=== PATIENT | female | born 1995 | race Caucasian/White ===

== ENCOUNTER 2024-04-16 02:38 | Emergency (ER) | payer BC, SELFPAY ==
[2024-04-16 02:38] VITALS: BP 109/76; PULSE 113; RESP 18; TEMP 36.4; O2SAT 97; BMI 24.2
--- NOTE | 2024-04-16 02:41 | CT_ITS ---
PROCEDURE INFORMATION: Exam: CT Abdomen And Pelvis With Contrast Exam date and time: 04/16/2024 4:10 AM Age: 28 years old Clinical indication: Abdominal pain; Additional info: Rlq abd pain TECHNIQUE: Imaging protocol: Computed tomography of the abdomen and pelvis with contrast. Radiation optimization: All CT scans at this facility use at least one of these dose optimization techniques: automated exposure control; mA and/or kV adjustment per patient size (includes targeted exams where dose is matched to clinical indication); or iterative reconstruction. Contrast material: ISOVUE; Contrast volume: 75 ml; Contrast route: INTRAVENOUS (IV); COMPARISON: No relevant prior studies available. FINDINGS: Liver: Normal. No mass. Gallbladder and biliary ducts: Normal. No calcified stones. No ductal dilation. Pancreas: Normal. No ductal dilation. Spleen: Normal. No splenomegaly. Adrenal glands: Normal. No mass. Kidneys and ureters: Normal. No hydronephrosis. Stomach and bowel: Moderate stool seen throughout the colon. No ileus or obstruction is present. Appendix: No evidence of appendicitis. Intraperitoneal space: Unremarkable. No free air. No significant fluid collection. Vasculature: Unremarkable. No abdominal aortic aneurysm. Lymph nodes: Unremarkable. No enlarged lymph nodes. Urinary bladder: Unremarkable as visualized. Reproductive: Unremarkable as visualized. Bones/joints: Unremarkable. No acute fracture. Soft tissues: Unremarkable. IMPRESSION: 1. No acute process is noted. 2. Moderate stool throughout the colon, no ileus or obstruction present.
[2024-04-16] MEDS: MORPHINE 4MG/ML SYRINGE 4 MG IV (02:52)
[2024-04-16] MEDS: LIDOCAINE VISCOUS 100ML BOTTLE 15 ML PO (04:00)
[2024-04-16] MEDS: KETOROLAC 30MG/ML VIAL 30 MG IV (04:44)
[2024-04-16 05:10] VITALS: BP 121/83; PULSE 75; RESP 18; TEMP 36.8; O2SAT 99
[2024-04-16 05:35] LABS: Appearance,Urine SL CLOUDY (Clear); Bacteria,Urine Trace /lpf; Bilirubin,Urine Negative (Negative); Blood, Urine 3+ (Negative); Color,Urine DARK YELLOW (Yellow); Glucose,Urine (UA) Negative (Negative); Ketones,Urine Negative (Negative); Leukocyte Esterase,Urine Negative (Negative); Microscopic, Urine URINE MICROSCOPIC (MICROSCOPIC); Nitrate,Urine Negative (Negative); Protein,Urine Negative (Negative); RBC,Urine Occasional #/hpf (0-3); Specific Gravity, Urine 1.025 (1.005-1.030); Urobilinogen,Urine 0.2 EU/dl (0.2); WBC,Urine Occasional #/hpf (0-3)
[2024-04-16 05:36] LABS: Alanine Aminotransferase 43 U/L (12-78); Albumin Level 3.9 g/dl (3.5-5.0); Albumin/Globulin Ratio 1.2 (1.1-1.8); Alkaline Phosphatase 74 U/L (38-126); Anion Gap 10.7 mEq/L (5-15); Aspartate Amino Transferase 41 U/L (14-36); Bilirubin,Total 0.6 mg/dl (0.2-1.3); Blood Urea Nitrogen 9 mg/dl (7-17); Calcium 8.6 mg/dl (8.4-10.2); Carbon Dioxide 24 mmol/L (22.0-30.0); Chloride 107 mmol/L (98-107); Estimated Glomerular Filt Rate 85 ml/min (>60); GFR (African American) 103 ML/MIN (>60); Globulin 3.2 g/dL (1.3-3.2); Glucose 118 mg/dl (74-100); HCG Qualitative, Serum Negative (Negative); Lipase 86 U/L (23-300); Potassium 3.7 mmoL/L (3.5-5.1); Red Blood Count 4.56 M/mm3 (4.20-5.40); Sodium 138 mmol/L (136-145); Total Protein,Serum 7.1 g/dl (6.3-8.2)
[2024-04-16 05:37] LABS: Basophils % 1.1 % (0.1-2.0); Eosinophils # 0.5 K/mm3 (0.0-0.4); Eosinophils % 7.7 % (0.1-12.0); Hematocrit 42.5 % (37.0-47.0); Hemoglobin 14.3 g/dL (12.2-16.2); Lymphocytes % 42.2 % (10-50); Mean Corpuscular HGB Conc 33.5 g/dL (31.8-35.4); Mean Corpuscular Hemoglobin 31.3 pg (27.0-31.2); Mean Corpuscular Volume 93.3 fl (81-99); Monocytes # 0.3 K/mm3 (0.1-1.0); Monocytes % 4.8 % (1.7-9.3); Neutrophils % 42.9 % (37.0-80.0); Platelet Count 313 K/mm3 (142-424); Red Cell Distribution Width 12.5 % (11.5-17.5)
[2024-04-16 05:38] LABS: Basophils # 0.1 K/mm3 (0-0.2)
--- NOTE | 2024-04-16 05:45 | ED_ITS ---
Discharge Plan Disposition Condition: Good Chief Complaint: Abdominal Pain Clinical Impressions Clinical Impression: Constipation in female, Abdominal pain Instructions Patient Instructions: DI for Acute Abdominal Pain Discharge ED Provider: Mike Gordon General Adult HPI General Stated complaint: Abdomen Pain Time Seen by Provider: 04/16/24 05:10 History of Present Illness HPI narrative: 28-year-old female without significant past medical history presents for epigastric, right upper quadrant, right flank pain.? Symptoms started tonight.? She reports pain is currently an 8 out of 10.? She reports nausea but no vomiting.? Denies any history of abdominal surgery besides section.? Reports it is possible she could be .? Denies any urinary symptoms.? Denies any fevers at home.? Reports history of constipation. Related Data Allergies Allergy/AdvReac Type Severity Reaction Status Date / Time No Known Allergies Allergy Verified 04/16/24 05:55 [facility] Disclaimer: The information contained in this section may have been updated after the patient was seen, as this information can be updated by other users. Social History Smoking Status: Unknown if ever smoked alcohol intake: never current occupational status: employed Travel in the last 8 weeks: None ROS Obtained: Yes All systems reviewed & no additional complaints except as documented Physical Exam General General appearance: alert and in no apparent distress Head Head exam: atraumatic and normocephalic Eye Eye exam: Present normal appearance, PERRL and EOMI ENT ENT exam: Present normal oropharynx and normal external ear exam Neck Neck exam: Present normal inspection and full ROM Chest Chest inspection: Present normal inspection and symmetric chest wall rise; Absent tenderness Respiratory Respiratory exam: Present normal lung sounds bilaterally; Absent respiratory distress Cardiovascular Cardiovascular exam: Present regular rate and normal rhythm Abdominal Exam Abdominal exam: Present soft and tenderness (Right-sided); Absent distention or guarding Extremities Exam Extremities exam: Present normal inspection; Absent edema or joint swelling Back Exam Back exam: Present normal inspection; Absent tenderness Neurological Exam Neurological exam: Present alert and oriented X3; Absent motor sensory deficit Psychiatric Psychiatric exam: Present normal affect and normal mood Skin Skin exam: Present warm, dry and normal color Lymphatic Lymphatic Findings: no adenopathy Medical Decision Making Medical Records Medical records reviewed: Yes I reviewed the patient's medical records. Antonio Inquiry Pt receiving controlled substance: No Antonio was queried for this patient: No Lab Data Lab results reviewed: Yes I reviewed the patient's lab results. Lab Results 04/16/24 02:50: WBC 7.0, RBC 4.56, Hgb 14.3, Hct 42.5, MCV 93.3, MCH 31.3 H, MCHC 33.5, RDW 12.5, Plt Count 313, MPV 8.0, Neut % (Auto) 42.9, Lymph % (Auto) 42.2, [place] % (Auto) 4.8, Eos % (Auto) 7.7, Baso % (Auto) 1.1, Neut # (Auto) 3.0, Lymph # (Auto) 3.0, [place] # (Auto) 0.3, Eos # (Auto) 0.5 H, Baso # (Auto) 0.1, Sodium 138, Potassium 3.7, Chloride 107, Carbon Dioxide 24, Anion Gap 10.7, BUN 9, Creatinine 0.80, Estimated GFR 85, Est GFR ( Amer) 103, Glucose 118 H, Calcium 8.6, Total Bilirubin 0.6, AST 41 H, ALT 43, Alkaline Phosphatase 74, Total Protein 7.1, Albumin 3.9, Globulin 3.2, Albumin/Globulin Ratio 1.2, Lipase 86, Serum HCG, Qual Negative, Urine Color Dark yellow, Urine Appearance Sl cloudy, Urine pH 6.0, Ur Specific [place] 1.025, Urine Protein Negative, Urine Glucose (UA) Negative, Urine Ketones Negative, Urine Blood 3+, Urine Nitrate Negative, Urine Bilirubin Negative, Urine Urobilinogen 0.2, Ur Leukocyte Esterase Negative 04/16/24 02:50 04/16/24 02:50 Orders (Tests/Meds): ORDERS Category Date Time Status Complete Blood Count Auto Diff Routine Lab 04/16/24 02:50 Completed HCG Qualitative, Serum Routine Lab 04/16/24 02:50 Completed Urinalysis and Microscopic Routine Lab 04/16/24 02:50 Completed Medical Decision Narrative: 28-year-old female without significant past medical history presents for epigastric/right upper quadrant/right flank pain.? Differential diagnose includes not limited to pancreatitis, cholecystitis, symptomatic cholelithiasis, pyelonephritis, obstructive nephrolithiasis, gastroenteritis, GERD.? Will evaluate with CBC CMP lipase urinalysis CT abdomen pelvis with IV contrast.? Patient given Tylenol Toradol viscous lidocaine and morphine for pain control.? Given Zofran for nausea. On reassessment CBC CMP are nonactionable, urine does not appear consistent with infection. Lipase negative. CT abdomen/pelvis shows large right-sided colonic stool burden, no evidence of pancreatitis or cholecystitis. Bedside ultrasound was also performed which showed unremarkable. Gallbladder without gallbladder wall thickening, pericholecystic fluid or stones. Images were not able to be saved. On reassessment patient reports some symptomatic improvement. Given this, presentation most consistent with constipation, no evidence of emergent pathology at this time. Interactive discussion had with patient and family regarding presentation, instructions regarding symptomatic care, return precautions etc. Patient discharged in stable condition with prescription for Zofran. Procedures Risk/Benefits of Procedure(s) Were Explained: Yes Critical Care Critical Care Time Critical Care Time: No
--- NOTE | 2024-04-16 06:06 | PC.NURSE ---
MAR ORDERS: Tylenol 1gm- PO 02:51 Zofran 4mg- IV 02:51 Morphine 4mg- IV 02:51 Viscous Lidocaine 15 mL PO- 04:44 Toradol- 30mg IV- 04:44
[2024-04-16] MEDS: IOPAMIDOL-370 (76%);100ML BOTTLE 75 ML IV (08:11)
[2024-04-16] MEDS: SODIUM CHLORIDE 0.9% 10ML SYR (RAD ONLY) 10 ML IV (08:12)
[2024-04-16] MEDS: ONDANSETRON 4MG/2ML VIAL 4 MG IV (12:22)
== END 2024-04-16 05:11 | disposition home or self-care (01) ==
LOC: ER 06:27
PROVIDERS: Emergency Provider Emergency Medicine
DX: R10.11 Right upper quadrant pain; K59.00 Constipation, unspecified
CPT/HCPCS: 74177; 80053; 81001; 83690; 84703; 85025; 96361; 96374; 96375; 99284; J1885; J2270; J2405; Q9967

== ENCOUNTER 2024-06-07 18:56 | Emergency (ER) | payer BC, SELFPAY ==
[2024-06-07 18:58] VITALS: BP 114/67; PULSE 81; RESP 18; TEMP 36.7; O2SAT 100; BMI 23.6
[2024-06-07 19:06] VITALS: BP 114/67; PULSE 88; O2SAT 99
[2024-06-07 19:29] LABS: Microscopic, Urine URINE MICROSCOPIC (MICROSCOPIC)
[2024-06-07 19:31] LABS: Basophils # 0.1 K/mm3 (0-0.2); Basophils % 1.3 % (0.1-2.0); Eosinophils # 0.4 K/mm3 (0.0-0.4); Eosinophils % 6.8 % (0.1-12.0); Hematocrit 41.2 % (37.0-47.0); Hemoglobin 14.5 g/dL (12.2-16.2); Lymphocytes # 2.2 K/mm3 (0.7-4.5); Lymphocytes % 38.3 % (10-50); Mean Corpuscular HGB Conc 35.2 g/dL (31.8-35.4); Mean Corpuscular Hemoglobin 31.3 pg (27.0-31.2); Mean Corpuscular Volume 88.9 fl (81-99); Mean Platelet Volume 7.9 fl (7.4-10.4); Monocytes # 0.4 K/mm3 (0.1-1.0); Monocytes % 6.5 % (1.7-9.3); Neutrophils # 2.7 K/mm3 (1.8-7.8); Neutrophils % 47.1 % (37.0-80.0); Platelet Count 276 K/mm3 (142-424); Red Blood Count 4.63 M/mm3 (4.20-5.40); Red Cell Distribution Width 12.6 % (11.5-17.5); White Blood Count 5.7 K/mm3 (4.8-10.8)
[2024-06-07 19:31] LABS: Appearance,Urine CLEAR (Clear); Bilirubin,Urine Negative (Negative); Blood, Urine Negative (Negative); Color,Urine YELLOW (Yellow); Glucose,Urine (UA) Negative (Negative); Ketones,Urine Negative (Negative); Leukocyte Esterase,Urine Negative (Negative); Nitrate,Urine Negative (Negative); PH,Urine 6.5 (5.0-8.5); Protein,Urine Negative (Negative); Specific Gravity, Urine 1.025 (1.005-1.030); Urobilinogen,Urine 0.2 EU/dl (0.2)
[2024-06-07 19:34] LABS: Albumin Level 4.4 g/dl (3.5-5.0); Chloride 106 mmol/L (98-107)
[2024-06-07 19:35] LABS: Sodium 135 mmol/L (136-145); Urine Pregnancy, HCG Qual. Negative (Negative)
[2024-06-07 19:37] LABS: Alanine Aminotransferase 40 U/L (12-78); Albumin/Globulin Ratio 1.5 (1.1-1.8); Alkaline Phosphatase 56 U/L (38-126); Aspartate Amino Transferase 36 U/L (14-36); Bilirubin,Total 0.7 mg/dl (0.2-1.3); Blood Urea Nitrogen 8 mg/dl (7-17); Carbon Dioxide 24 mmol/L (22.0-30.0); Creatinine Clearance Estimated 125 mL/min (50-200); Estimated Glomerular Filt Rate 119 ml/min (>60); GFR (African American) 144 ML/MIN (>60); Glucose 90 mg/dl (74-100); Lipase 57 U/L (23-300); Total Protein,Serum 7.4 g/dl (6.3-8.2)
[2024-06-07 19:40] LABS: Bacteria,Urine Trace /lpf; Mucus,Urine 1+ /lpf; WBC,Urine Occasional #/hpf (0-3)
[2024-06-07] MEDS: SODIUM CHLORIDE 0.9% 10ML VIAL 8 ML IV (19:40)
[2024-06-07] MEDS: FAMOTIDINE 20MG/2ML VIAL 20 MG IV (19:40)
[2024-06-07] MEDS: ALUMINUM/MAGNESIUM/SIMETHICONE 30ML UDC 30 ML PO (19:40)
--- NOTE | 2024-06-07 19:40 | ED_ITS ---
Discharge Plan Disposition Patient Disposition: Home, Self-Care Prescriptions Prescriptions: New ondansetron 4 mg tablet,disintegrating 4 mg PO Q6H PRN (Reason: nausea and vomiting) Qty: 10 0RF Referrals Follow up/Referrals: Provider,Referral, [Referring] - See instructions Jf Brown II, MD [Staff Physician] - See instructions Activity Restrictions/Add. Instructions Additional Instructions/Restrictions: Call your family doctor to establish care for this visit to the emergency department and schedule follow-up within 48 hours to ensure improvement. If you have any worsening of your condition or any other concerning signs or symptoms, return to the emergency department or your primary care doctor for further evaluation. Take Tylenol 1000 mg every 6 hours (4 times daily) and ibuprofen 400 mg every 6 hours (4 times daily) as needed with food and water to prevent GI upset and kidney damage. Clinical Impressions Clinical Impression: Abdominal pain Instructions Patient Instructions: DI for Acute Abdominal Pain Print Language Print Language: Fijian Discharge ED Provider: Rc Flores General Adult HPI General Chief complaint: Abdominal Pain Stated complaint: abdominal pain Time Seen by Provider: 06/07/24 19:00 Mode of Arrival: Ambulatory Source of Information: Patient Limitations: No Limitations Description of Symptoms (Recalled from ER Triage Doc. by RN): Pt to ED with abdominal pain X4-5 days. History of Present Illness HPI narrative: Please note that above description of symptoms, in this electronic medical record under categorization of recalled from ER triage doctor by RN are reflective of an initial nursing assessment, however, is not reflective of my full history and physical exam that was personally taken and clarified. Consequentially, this preceding description of symptoms, which may include the patient's categorized chief complaint in the EMR, do not reflect my personal clinical impression, and the ultimate description of history of present illness and patient stated complaints should be deferred to this section of the note. Unless stated otherwise or congruent with this section of the note, additional signs, symptoms, or incongruence should be interpreted as inaccurate with my clinical impression. Related Data Previous Rx's ?Medication ?Instructions ?Recorded ondansetron 4 mg disintegrating 4 mg PO Q6H PRN nausea and 06/07/24 tablet vomiting #10 tabs Allergies Allergy/AdvReac Type Severity Reaction Status Date / Time No Known Allergies Allergy Verified 04/16/24 05:55 [facility] Disclaimer: The information contained in this section may have been updated after the patient was seen, as this information can be updated by other users. Social History (Updated 04/16/24 @ 05:59 by Mike Gordon MD) Smoking Status: Never smoker alcohol intake: never current occupational status: employed Travel in the last 8 weeks: None ROS Obtained: Yes All systems reviewed & no additional complaints except as documented Physical Exam General General appearance: alert and in no apparent distress Head Head exam: atraumatic and normocephalic Eye Eye exam: Present normal appearance, PERRL and EOMI Neck Neck exam: Present normal inspection, full ROM and trachea midline Respiratory Respiratory exam: Absent respiratory distress, wheezes, stridor, accessory muscle use or prolonged expiratory phase Cardiovascular Cardiovascular exam: Present other (Pulses equal symmetric in upper and lower extremities) Abdominal Exam Abdominal exam: Present soft; Absent distention, tenderness, guarding, rebound, rigidity, Mayen's sign, Rovsing's sign, tenderness at McBurney's Point or pulsatile mass Extremities Exam Extremities exam: Absent edema Neurological Exam Neurological exam: Present alert, oriented X3 and CN II-XII intact; Absent motor sensory deficit Skin Skin exam: Present warm and dry; Absent diaphoresis or erythema Medical Decision Making Medical Records Medical records reviewed: Yes I reviewed the patient's medical records. Screening: Per USPSTF and CDC recommendations, given the prevalence of disease in our region, it is our hospital?s policy to screen for HIV and viral Hepatitis for all patients aged 18 and over and those with ongoing risk factors. Antonio Inquiry Pt receiving controlled substance: No Antonio was queried for this patient: No Vital Signs: 06/07/24 18:58 06/07/24 19:06 06/07/24 19:48 Temperature 98.1 F Temperature Source Oral Pulse Rate 88 89 Pulse Rate [Left Radial] 81 Respiratory Rate 18 Blood Pressure 114/67 120/80 Blood Pressure [Right Arm] 114/67 Blood Pressure Mean [Right Arm] 82 Blood Pressure Source [Right Arm] Automatic Cuff Blood Pressure Position [Right Arm] Sitting 02 Sat by Pulse Oximetry 100 99 100 Oxygen Delivery Method Room Air 06/07/24 20:18 06/07/24 20:30 Temperature Temperature Source Pulse Rate 85 86 Pulse Rate [Left Radial] Respiratory Rate Blood Pressure 106/88 L 120/76 Blood Pressure [Right Arm] Blood Pressure Mean [Right Arm] Blood Pressure Source [Right Arm] Blood Pressure Position [Right Arm] 02 Sat by Pulse Oximetry 100 100 Oxygen Delivery Method Lab Data Lab Results 06/07/24 19:03: Urine Color Yellow, Urine Appearance Clear, Urine pH 6.5, Ur Specific [place] 1.025, Urine Protein Negative, Urine Glucose (UA) Negative, Urine Ketones Negative, Urine Blood Negative, Urine Nitrate Negative, Urine Bilirubin Negative, Urine Urobilinogen 0.2, Ur Leukocyte Esterase Negative, Urine RBC None, Urine WBC Occasional, Ur Squamous Epith Cells None, Urine Bacteria Trace, Urine Mucus 1+ 06/07/24 19:19: WBC 5.7, RBC 4.63, Hgb 14.5, Hct 41.2, MCV 88.9, MCH 31.3 H, MCHC 35.2, RDW 12.6, Plt Count 276, MPV 7.9, Neut % (Auto) 47.1, Lymph % (Auto) 38.3, [place] % (Auto) 6.5, Eos % (Auto) 6.8, Baso % (Auto) 1.3, Neut # (Auto) 2.7, Lymph # (Auto) 2.2, [place] # (Auto) 0.4, Eos # (Auto) 0.4, Baso # (Auto) 0.1, S odium 135 L, Potassium 4.0, Chloride 106, Carbon Dioxide 24, Anion Gap 9.0, BUN 8, Creatinine 0.60, Estimated Creat Clear 125, Estimated GFR 119, Est GFR ( Amer) 144, Glucose 90, Calcium 9.0, Total Bilirubin 0.7, AST 36, ALT 40, Alkaline Phosphatase 56, Total Protein 7.4, Albumin 4.4, Globulin 3.0, Albumin/Globulin Ratio 1.5, Lipase 57, HCG, Quant < 2, Urine HCG, Qual Negative 06/07/24 19:22: HIV 1&2 Antibody Rapid Nonreactive 06/07/24 19:19 06/07/24 19:19 Orders (Tests/Meds): ED MEDICATIONS Generic Name Dose Route Start Last Admin Trade Name Freq PRN Reason Stop Dose Admin Sodium Chloride 8 ml 06/07/24 19:21 06/07/24 19:40 Sodium Chloride 0.9% 10ml Vial IV 07/07/24 19:20 8 ml NEEDED PRN Administration dilute pepcid Discontinued Medications Generic Name Dose Route Start Last Admin Trade Name Lizette PRN Reason Stop Dose Admin Al Hydrox/Mg Hydrox/Simethicone 30 ml 06/07/24 19:21 06/07/24 19:40 Aluminum/Magnesium/Simethicone 30ml Udc PO 06/07/24 19:22 30 ml ONCE ONE Administration Famotidine 20 mg 06/07/24 19:21 06/07/24 19:40 Famotidine 20mg/2ml Vial IV 06/07/24 19:22 20 mg ONCE ONE Administration Ketorolac Tromethamine 15 mg 06/07/24 20:47 06/07/24 21:05 Ketorolac 30mg/Ml Vial IV 06/07/24 20:48 15 mg ONCE ONE Administration Ondansetron HCl 4 mg 06/07/24 20:47 06/07/24 21:05 Ondansetron 4mg/2ml Vial IV 06/07/24 20:48 4 mg ONCE ONE Administration ORDERS Category Date Time Status POCUS Point of Care (ER Only) Stat Exams 06/07/24 20:46 Ordered CBC w/Auto Diff [Complete Blood Count Auto Diff] Stat Lab 06/07/24 19:19 Completed CMP [Comprehensive Metabolic Panel] Stat Lab 06/07/24 19:19 Completed HCG,Quantitative Stat Lab 06/07/24 19:19 Completed HIV (1&2) Antibody Rapid Stat Lab 06/07/24 19:22 Completed Hep C Ab with Reflex to RNA Stat Lab 06/07/24 19:19 Received Lipase Stat Lab 06/07/24 19:19 Completed UA [Urinalysis and Microscopic] Stat Lab 06/07/24 19:03 Completed Urine , HCG Qual. Stat Lab 06/07/24 19:19 Completed Medical Decision Narrative: 28-year-old female history of section in the remote past, recent ED visit for constipation presenting with abdominal pain. Patient states his abdominal pain has been getting worse over the past 4 days. Primarily on the left side when she is up, moving around, performing ADLs. States that when she lays down, relaxes and lays on her back, pain is in the right side near her right lower quadrant. Pains do not seem to cooccur. She has not been nauseated, vomiting having diarrhea or constipation. She states that she has been on a bowel regimen having normal bowel movements each day. No blood in her stool. No urinary symptoms including bleeding, burning, frequency or urgency. She also states that she has had mild abdominal spotting, but is about to start her period. May be , has not checked. History was obtained via conversation with patient and significant other. On arrival, patient hemodynamically stable, alert, oriented x4, appropriate, GCS 15, moving all extremities spontaneously, pupils equal and reactive to light. Full physical exam performed and significant for very well-appearing female who is in no acute distress. Abdomen is soft, nontender, nondistended. No flank tenderness. No overlying skin changes. Deep palpation does not elicit any tenderness. Negative Mayen sign, negative McBurney's point tenderness. Patient ambulatory and walking without issue.. Differential includes PUD, gastritis, enteritis, gastroenteritis, pancreatitis, SBO, colitis, diverticulitis, nephrolithiasis, UTI, , cholecystitis, choledocholithiasis, appendicitis, hepatitis, less likely to be torsion, aortic pathology, mesenteric ischemia among others. Patient placed on continuous cardiac monitoring and continuous pulse ox with initial blood pressure 114/67, heart rate 81, saturation 100% on room air. Patient was given Maalox and Pepcid prior to for symptomatic management and correction of underlying abnormalities. Workup independently interpreted and significant for nonactionable hematologic workup. Negative , nonactionable urine. On independent interpretation of imaging, patient with normal bedside [id number] ultrasound of the right upper quadrant. See radiology read for full review of final results. Patient given Toradol after negative . On reevaluation, patient continues to be nauseated, but pain is better. Patient given Zofran. Because patient at baseline without signs or symptoms of clinical decompensation, deemed appropriate for discharge. Results were relayed to patient who voiced understanding and were agreeable to outpatient management and follow up. I discussed my clinical impression with patient and answered all questions. At this time, the evidence for any other entities in the differential is insufficient to warrant any further testing or ED observation. This was explained as well. Advisory was given that persistent or worsening symptoms require further evaluation. I confirmed the understanding of this discussion. Zofran sent to pharmacy, gastroenterology referral was placed. Project Financial Analyst disclaimer Much of this encounter note is an electronic blood and plasma laboratory assistant spoken language to printed text. Electronic blood and plasma laboratory assistant of the spoken language may permit errors. Although I have reviewed the note, some errors may still exist. Procedures Limited Ultrasound Indication:: Limited RUQ ultrasound Indication: Abdominal pain, nausea Identified structures: -Gallbladder -Gallbladder wall -Common bile duct -Liver Findings: Sonographic Mayen sign: Absent Gallstones: Absent Sludge: Absent Pericholecystic fluid: Absent Maximal GB wall thickness (mm) (normal is </= 3mm): Normal Common bile duct width (mm) (normal is </= 6mm): Normal Gallbladder width (cm) (normal is < 4cm): Normal Gallbladder length (cm) (normal is < 10cm): Normal Impression: Normal right upper quadrant ultrasound without secondary findings of call the ASIS or cholecystitis Images were saved to permanent archive The study was technically adequate CPT 57274-96 This study was performed by me, and I personally interpreted all images/videos. Based on my clinical judgement, these images were adequate and did not necessitate further imaging. Critical Care Critical Care Time Critical Care Time: No
[2024-06-07 19:48] VITALS: BP 120/80; PULSE 89; O2SAT 100
[2024-06-07 20:08] LABS: HIV (1&2) Antibody Rapid NONREACTIVE (NONREACTIVE)
[2024-06-07 20:17] LABS: HCG,Quantitative < 2 mIU/ml (0-5.42)
[2024-06-07 20:18] VITALS: BP 106/88; PULSE 85; O2SAT 100
[2024-06-07 20:30] VITALS: BP 120/76; PULSE 86; O2SAT 100
[2024-06-07] MEDS: KETOROLAC 30MG/ML VIAL 15 MG IV (21:05)
[2024-06-07] MEDS: ONDANSETRON 4MG/2ML VIAL 4 MG IV (21:05)
[2024-06-07 21:23] VITALS: BP 94/59; PULSE 81; RESP 16; TEMP 36.6; O2SAT 98
[2024-06-10 05:09] LABS: HCV Ab Non Reactive (Non Reactive)
== END 2024-06-07 21:25 | disposition home or self-care (01) ==
PROVIDERS: Emergency Provider Emergency Medicine; PCP Internal Medicine
DX: R10.9 Unspecified abdominal pain (principal)
CPT/HCPCS: 80053; 81001; 81025; 83690; 84702; 85025; 86803; 87389; 96374; 96375; 99283; J1885; J2405; S0028

== ENCOUNTER 2024-06-29 13:01 | Emergency (ER) | payer BC, SELFPAY ==
--- NOTE | 2024-06-29 13:29 | ED_ITS ---
Discharge Plan Disposition Patient Disposition: Home, Self-Care Condition: Good Prescriptions Prescriptions: New [id number]-[id number]-RR [Bromfed DM] 2-30-10 mg/5 mL Syrup 5 ml PO Q6H PRN (Reason: Cough) Qty: 240 0RF ondansetron 4 mg Tablet,Disintegrating 4 mg PO Q8H PRN (Reason: Nausea) Qty: 12 0RF No Action diazepam 5 mg tablet 5 mg PO BID Patient Comments: TAKE 1 TABLET BY MOUTH TWICE A DAY ondansetron 4 mg tablet,disintegrating 4 mg PO Q6H PRN (Reason: nausea and vomiting) Qty: 10 0RF fluoxetine 40 mg capsule 40 mg PO DAILY Patient Comments: TAKE 1 CAPSULE BY MOUTH EVERY DAY Referrals Follow up/Referrals: Minh Martinez MD [Primary Care Provider] - See instructions Activity Restrictions/Add. Instructions Additional Instructions/Restrictions: Drink plenty of fluids. Take tylenol or ibuprofen for pain or fever. Take the medications as directed. Follow up with your regular doctor. GO TO THE ER FOR ANY WORSENING SYMPTOMS Clinical Impressions Clinical Impression: COVID-19 Stand Alone Forms Stand Alone Forms: Work/School Release Instructions Patient Instructions: Coronavirus Disease 2019, Preventing the Spread of Coronavirus Discharge Instructions Print Language Print Language: Citizen Of [place] Discharge ED Provider[place] Gallo Das [facility] [place] General Stated complaint: + covid home test, sore throat, cough, runny nose Time Seen by Provider: 06/29/24 13:29 Related Data Home Medications ?Medication ?Instructions ?Recorded ?Confirmed diazepam 5 mg tablet 5 mg PO BID 06/25/24 06/29/24 fluoxetine 40 mg capsule 40 mg PO DAILY 06/29/24 06/29/24 Previous Rx's ?Medication ?Instructions ?Recorded ondansetron 4 mg disintegrating 4 mg PO Q6H PRN nausea and 06/07/24 tablet vomiting #10 tabs mchbiymxdrifprq-voxtqcovyokebjm-CM 5 ml PO Q6H PRN Cough #240 mL 06/29/24 2 mg-30 mg-10 mg/5 mL oral syrup (Bromfed DM) ondansetron 4 mg disintegrating 4 mg PO Q8H PRN Nausea #12 tabs 06/29/24 tablet Allergies Allergy/AdvReac Type Severity Reaction Status Date / Time No Known Allergies Allergy Verified 06/25/24 10:38 [facility] Disclaimer: The information contained in this section may have been updated after the patient was seen, as this information can be updated by other users. Social History Smoking Status: Never smoker alcohol intake: never current occupational status: employed Travel in the last 8 weeks: None ROS Obtained: Yes All systems reviewed & no additional complaints except as documented Constitutional Constitutional: Reports chills and Reports fever(s) Eyes Eyes: Denies eye discharge ENT Ears, Nose, Mouth, and Throat: Reports as per HPI Cardiovascular Cardiovascular: Denies chest pain Respiratory Respiratory: Denies chest congestion and Reports cough Gastrointestinal Gastrointestingal: Reports nausea; Denies abdominal pain, constipation, cramping, diarrhea or vomiting Musculoskeletal Musculoskeletal: Denies arthralgias Integumentary/Breasts Skin/Breast: Denies rash Neurologic Neurologic: Denies paresthesias Physical Exam General General appearance: alert and in no apparent distress Head Head exam: atraumatic, normocephalic and normal inspection Eye Eye exam: Present normal appearance, PERRL and EOMI ENT ENT exam: Present mucous membranes moist and normal external ear exam Expanded ENT Exam TM/Canal exam: Bilateral TM: erythema and bulging Nose exam: Absent sinus tenderness Mouth exam: Present normal external inspection; Absent drooling Teeth exam: Present normal inspection Throat exam: Present tonsillar erythema, tonsillomegaly and tonsillar exudate Neck Neck exam: Present normal inspection, full ROM and trachea midline; Absent tenderness, meningismus or lymphadenopathy Chest Chest inspection: Present normal inspection and symmetric chest wall rise; Absent tenderness Respiratory Respiratory exam: Present normal lung sounds bilaterally; Absent respiratory distress, wheezes, stridor or accessory muscle use Cardiovascular Cardiovascular exam: Present regular rate and normal rhythm; Absent systolic murmur or diastolic murmur Abdominal Exam Abdominal exam: Present soft and normal bowel sounds; Absent distention, tenderness, guarding, rebound or rigidity Extremities Exam Extremities exam: Present normal inspection and normal capillary refill; Absent calf tenderness Back Exam Back exam: Present normal inspection and full ROM; Absent tenderness, CVA tenderness (R) or CVA tenderness (L) Neurological Exam Neurological exam: Present alert, oriented X3 and CN II-XII intact Psychiatric Psychiatric exam: Present normal affect and normal mood Skin Skin exam: Present warm, dry, intact and normal color Medical Decision Making Medical Records Medical records reviewed: No I reviewed the patient's medical records. Screening: Per USPSTF and CDC recommendations, given the prevalence of disease in our region, it is our hospital?s policy to screen for HIV and viral Hepatitis for all patients aged 18 and over and those with ongoing risk factors. Antonio Inquiry Pt receiving controlled substance: No Lab Data Lab results reviewed: Yes I reviewed the patient's lab results.
[2024-06-29 13:34] VITALS: BP 112/76; PULSE 96; RESP 18; TEMP 36.7; O2SAT 98; BMI 23.6
[2024-06-29 14:20] VITALS: BP 112/76; PULSE 96; RESP 18; TEMP 36.7
== END 2024-06-29 14:25 | disposition home or self-care (01) ==
PROVIDERS: Emergency Provider Nurse Practitioner Family; PCP Internal Medicine
DX: U07.1 COVID-19 (principal); R50.9 Fever, unspecified; R05.9 Cough, unspecified; R11.0 Nausea
CPT/HCPCS: 87635; 99212; G0381

== ENCOUNTER 2024-09-14 14:14 | Emergency (ER) | payer MEDICAID, SELFPAY ==
[2024-09-14] VITALS (8 sets, daily range): BP systolic 100–123; BP diastolic 59–79; PULSE 79–119; RESP 16–19; TEMP 36.7–36.8; O2SAT 97–100; BMI 23.2
--- NOTE | 2024-09-14 14:25 | ED_ITS ---
<Statement entered by Reyna Haryd MD - 09/14/24 22:57> I was consulted by the IRAIS, and we discussed the complexity of the problems being addressed. I approved the treatment and management plan for this patient's care in the emergency department, thus performing a substantive portion of the medical decision making. Reyna Hardy MD, JUNIOR, FACEP Discharge Plan Disposition Patient Disposition: Home, Self-Care Condition: Good Prescriptions Prescriptions: New ondansetron 4 mg tablet,disintegrating 4 mg PO Q8H PRN (Reason: nausea and vomiting) 5 Days Qty: 15 0RF promethazine 12.5 mg tablet 12.5 mg PO TID PRN (Reason: allergy symptoms) Qty: 14 0RF Rx Instructions: 3 doses during day; last dose no later than 4 hr before bedtime cephalexin 500 mg capsule 500 mg PO BID 7 Days Qty: 14 0RF Discontinued ondansetron 4 mg tablet,disintegrating 4 mg PO Q6H PRN (Reason: nausea and vomiting) Qty: 10 0RF ycybofmsxgbvpwq-waeuysvmh-QK [Bromfed DM] 2-30-10 mg/5 mL Syrup 5 ml PO Q6H PRN (Reason: Cough) Qty: 240 0RF ondansetron 4 mg Tablet,Disintegrating 4 mg PO Q8H PRN (Reason: Nausea) Qty: 12 0RF No Action diazepam 5 mg tablet 5 mg PO BID Patient Comments: TAKE 1 TABLET BY MOUTH TWICE A DAY Trulance 3 mg tablet 3 mg PO DAILY Qty: 30 2RF fluoxetine 40 mg capsule 40 mg PO DAILY Patient Comments: TAKE 1 CAPSULE BY MOUTH EVERY DAY Referrals Follow up/Referrals: Norma Wren DO [Staff Physician] - See instructions Provider,Referral, [Primary Care Provider] - See instructions Activity Restrictions/Add. Instructions Additional Instructions/Restrictions: You were seen for vomiting in . You did have bacteria in your urine. Please complete your antibiotics. Return to the ED if you are unable to hold down fluids or have a fever. Follow up with your OB for your ultrasound. Clinical Impressions Clinical Impression: Asymptomatic bacteriuria during , Vomiting of Stand Alone Forms Stand Alone Forms: Work/School Release Instructions Patient Instructions: Nausea of (Alternative Therapy), Urinary Tract Infection (UTI) in Print Language Print Language: French Discharge ED Provider: Alona Campos General Adult HPI <DHEERAJ Alexander - Last Filed: 09/14/24 17:59> General Chief complaint: Weakness Stated complaint: 7 weeks preg, upset stomach, weakness, vomiting Time Seen by Provider: 09/14/24 14:17 History of Present Illness HPI narrative: Patient reports nausea and vomiting for the past 2 days. She reports that she is unable to hold down liquids despite taking Zofran. Denies any fever. She reports her last menstrual period was July 29, she had a positive test on August 29, . She is scheduled to see OB on August 29. Denies any vaginal bleeding. Denies any fevers. Denies any urinary symptoms. Denies any diarrhea. MD complaint: N/V in Onset (ago): day(s) Radiation: non-radiation Severity: moderate Consistency: intermittent Relieving factors: other (zofran helps for a short time ) Exacerbating factors: none Associated symptoms: denies other symptoms Treatments prior to arrival: other (zofran ) Related Data Home Medications ?Medication ?Instructions ?Recorded ?Confirmed diazepam 5 mg tablet 5 mg PO BID 06/25/24 06/29/24 fluoxetine 40 mg capsule 40 mg PO DAILY 06/29/24 06/29/24 Previous Rx's ?Medication ?Instructions ?Recorded plecanatide 3 mg tablet (Trulance) 3 mg PO DAILY #30 tabs 07/07/24 cephalexin 500 mg capsule 500 mg PO BID 7 days #14 caps 09/14/24 ondansetron 4 mg disintegrating 4 mg PO Q8H PRN nausea and 09/14/24 tablet vomiting 5 days #15 tabs promethazine 12.5 mg tablet 12.5 mg PO TID PRN allergy 09/14/24 symptoms #14 tabs Allergies Allergy/AdvReac Type Severity Reaction Status Date / Time No Known Allergies Allergy Verified 06/25/24 10:38 PFSH <DHEERAJ Alexander - Last Filed: 09/14/24 17:59> PFS Disclaimer: The information contained in this section may have been updated after the patient was seen, as this information can be updated by other users. Social History Smoking Status: Never smoker alcohol intake: never current occupational status: employed Travel in the last 8 weeks: None Have you lived/traveled outside [place] in past 30 days?: No Contact w/someone who lives/traveled outside US past 30 days?: No Exposure to someone with infectious disease in past 14 days?: No Do you have a fever (greater than 100.4 F or 38 C)?: No Have you tested positive for COVID-19: No Exposed to someone with COVID-19 in past 14 days?: No Do you have a sore throat?: No Do you have a cough?: No Do you have any weakness?: No Do you have any diarrhea?: No Are you experiencing any unusual bleeding?: No Do you have any muscle aches/pain?: No Do you have any abdominal pain?: No Are you experiencing loss of taste or smell?: No <DHEERAJ Alexander - Last Filed: 09/14/24 17:59> ROS Obtained: Yes Systems reviewed as appropriate & no additional complaints except as documented Physical Exam <DHEERAJ Alexander - Last Filed: 09/14/24 17:59> General General appearance: alert and in no apparent distress Head Head exam: atraumatic and normocephalic Eye Eye exam: Present normal appearance and EOMI Chest Chest inspection: Present symmetric chest wall rise Respiratory Respiratory exam: Present normal lung sounds bilaterally; Absent wheezes or stridor Cardiovascular Cardiovascular exam: Present regular rate and normal rhythm; Absent systolic murmur Abdominal Exam Abdominal exam: Present soft; Absent distention, tenderness or guarding Extremities Exam Extremities exam: Present full ROM Neurological Exam Neurological exam: Present alert and oriented X3 Psychiatric Psychiatric exam: Present normal affect and normal mood Skin Skin exam: Present warm, dry and intact Medical Decision Making <DHEERAJ Alexander - Last Filed: 09/14/24 17:59> Medical Records Screening: Per USPSTF and CDC recommendations, given the prevalence of disease in our region, it is our hospital?s policy to screen for HIV and viral Hepatitis for all patients aged 18 and over and those with ongoing risk factors. Antonio Inquiry Pt receiving controlled substance: No Vital Signs: 09/14/24 14:15 09/14/24 14:34 09/14/24 15:00 Temperature 98.2 F Temperature Source Oral Pulse Rate 101 H 92 H Pulse Rate [Left Radial] 119 H Respiratory Rate 19 Blood Pressure 123/73 114/68 Blood Pressure [Right Arm] 121/79 Blood Pressure Mean Blood Pressure Mean [Right Arm] 93 02 Sat by Pulse Oximetry 97 97 98 Oxygen Delivery Method Room Air Room Air Room Air 09/14/24 15:30 09/14/24 16:00 09/14/24 16:30 Temperature Temperature Source Pulse Rate 79 89 81 Pulse Rate [Left Radial] Respiratory Rate 16 Blood Pressure 104/67 L 100/59 L 107/72 L Blood Pressure [Right Arm] Blood Pressure Mean 85 Blood Pressure Mean [Right Arm] 02 Sat by Pulse Oximetry 100 99 100 Oxygen Delivery Method Room Air Room Air 09/14/24 17:00 09/14/24 17:11 Temperature 98.0 F Temperature Source Pulse Rate 91 H 90 Pulse Rate [Left Radial] Respiratory Rate 16 Blood Pressure 108/72 L 108/72 L Blood Pressure [Right Arm] Blood Pressure Mean Blood Pressure Mean [Right Arm] 02 Sat by Pulse Oximetry 100 Oxygen Delivery Method Room Air Lab Data Lab Results 09/14/24 14:12: Urine Color Yellow, Urine Appearance Clear, Urine pH 6.5, Ur Specific [place] 1.025, Urine Protein Negative, Urine Glucose (UA) Negative, Urine Ketones Negative, Urine Blood Negative, Urine Nitrate Negative, Urine Bilirubin Negative, Urine Urobilinogen 0.2, Ur Leukocyte Esterase Negative, Urine RBC None, Urine WBC Occasional, Ur Squamous Epith Cells 20-50, Urine Bacteria Trace 09/14/24 14:31: WBC 6.7, RBC 4.50, Hgb 13.9, Hct 39.5, MCV 87.8, MCH 30.9, MCHC 35.2, RDW 11.1 L, Plt Count 289, MPV 10.8 H, Neut % (Auto) 65.0, Lymph % (Auto) 26.2, [place] % (Auto) 6.1, Eos % (Auto) 2.2, Baso % (Auto) 0.4, Neut # (Auto) 4.3, Lymph # (Auto) 1.8, [place] # (Auto) 0.4, Eos # (Auto) 0.2, Baso # (Auto) 0.0, S odium 132 L, Potassium 3.6, Chloride 106, Carbon Dioxide 21 L, Anion Gap 8.6, B UN 5 L, Creatinine 0.60, Estimated Creat Clear 123, Estimated GFR 119, Est GFR ( Amer) 144, Glucose 123 H, Calcium 9.1, Total Bilirubin 0.7, AST 24, ALT 19, Alkaline Phosphatase 48, Total Protein 6.8, Albumin 4.2, Globulin 2.6, Albumin/Globulin Ratio 1.6, Lipase 50, HCG, Quant 72254 H, HCV Ab TANIA w/Rflx PCR Qn Negative, HIV Ag/Ab Combo Qual Negative 09/14/24 14:31 09/14/24 14:31 Orders (Tests/Meds): ED MEDICATIONS Discontinued Medications Generic Name Dose Route Start Last Admin Trade Name Freq PRN Reason Stop Dose Admin Sodium Chloride 1,000 mls @ 999 mls/hr 09/14/24 14:28 09/14/24 14:45 Sod Chlor 0.9% 1000ml Bag IV 09/14/24 15:28 999 mls/hr .Q1H1M ONE Administration Ondansetron HCl 4 mg 09/14/24 14:28 09/14/24 14:45 Ondansetron 4mg/2ml Vial IV 09/14/24 14:29 4 mg ONCE ONE Administration ORDERS Category Date Time Status POCUS Point of Care (ER Only) Stat Exams 09/14/24 14:35 Taken Complete Blood Count Auto Diff Stat Lab 09/14/24 14:31 Completed Comprehensive Metabolic Panel Stat Lab 09/14/24 14:31 Completed HCG,Quantitative Stat Lab 09/14/24 14:31 Completed HIV Combo Stat Lab 09/14/24 14:31 Completed Hepatitis C Ab Qual. W/ RFX Stat Lab 09/14/24 14:31 Completed Lipase Stat Lab 09/14/24 14:31 Completed UA [Urinalysis and Microscopic] Stat Lab 09/14/24 14:12 Completed Medical Decision Narrative: In summary patient is a 28-year-old female who presents the emergency department for evaluation of nausea and vomiting and . Patient is slightly tachycardic upon arrival, afebrile. Unremarkable physical exam. Differential diagnosis includes dehydration, nausea and vomiting in , pancreatitis, gastroenteritis. Initial workup will be conducted with CBC, CMP, lipase, hCG quant. Initial inventions include IV fluid bolus,. Initial workup reviewed by me mild hyponatremia, bacteriuria. Upon repeat evaluation patient is tolerating p.o. Given this patient is appropriate for discharge home with prescription for Keflex, Phenergan and Zofran. She was instructed to follow-up with her LOAN MANAGER for transvaginal ultrasound. Return to the emergency department for any worsening symptoms or vaginal bleeding.. DO Andres: I was consulted by the IRAIS, and we discussed the complexity of the problems being addressed. I approved the treatment and management plan for this patient's care in the emergency department, thus performing a substantive portion of the medical decision making. I was involved in patient care until 1515 at time of arrival of oncoming provider, Dr. Hardy. I performed bedside ultrasound demonstrating viable intrauterine without free fluid in the pelvis. I was unable to get an accurate heart rate, however I did visualize cardiac activity on the ultrasound. Patient has no significant pelvic pain, vaginal bleeding, or other concern. Given these things, I do not feel that further imaging evaluation or type and screen for potential RhoGAM administration is indicated, which was explained to the patient. SHe has definitive IUP and heterotopic is exceedingly unlikely in the abscence of fertility treatment/intervention. Alona Campos DO <Alona Campos DO - Last Filed: 09/15/24 07:11> Vital Signs: 09/14/24 14:15 09/14/24 14:34 09/14/24 15:00 Temperature 98.2 F Temperature Source Oral Pulse Rate 101 H 92 H Pulse Rate [Left Radial] 119 H Respiratory Rate 19 Blood Pressure 123/73 114/68 Blood Pressure [Right Arm] 121/79 Blood Pressure Mean Blood Pressure Mean [Right Arm] 93 02 Sat by Pulse Oximetry 97 97 98 Oxygen Delivery Method Room Air Room Air Room Air 09/14/24 15:30 09/14/24 16:00 09/14/24 16:30 Temperature Temperature Source Pulse Rate 79 89 81 Pulse Rate [Left Radial] Respiratory Rate 16 Blood Pressure 104/67 L 100/59 L 107/72 L Blood Pressure [Right Arm] Blood Pressure Mean 85 Blood Pressure Mean [Right Arm] 02 Sat by Pulse Oximetry 100 99 100 Oxygen Delivery Method Room Air Room Air 09/14/24 17:00 09/14/24 17:11 Temperature 98.0 F Temperature Source Pulse Rate 91 H 90 Pulse Rate [Left Radial] Respiratory Rate 16 Blood Pressure 108/72 L 108/72 L Blood Pressure [Right Arm] Blood Pressure Mean Blood Pressure Mean [Right Arm] 02 Sat by Pulse Oximetry 100 Oxygen Delivery Method Room Air Lab Data Lab Results 09/14/24 14:12: Urine Color Yellow, Urine Appearance Clear, Urine pH 6.5, Ur Specific [place] 1.025, Urine Protein Negative, Urine Glucose (UA) Negative, Urine Ketones Negative, Urine Blood Negative, Urine Nitrate Negative, Urine Bilirubin Negative, Urine Urobilinogen 0.2, Ur Leukocyte Esterase Negative, Urine RBC None, Urine WBC Occasional, Ur Squamous Epith Cells 20-50, Urine Bacteria Trace 09/14/24 14:31: WBC 6.7, RBC 4.50, Hgb 13.9, Hct 39.5, MCV 87.8, MCH 30.9, MCHC 35.2, RDW 11.1 L, Plt Count 289, MPV 10.8 H, Neut % (Auto) 65.0, Lymph % (Auto) 26.2, [place] % (Auto) 6.1, Eos % (Auto) 2.2, Baso % (Auto) 0.4, Neut # (Auto) 4.3, Lymph # (Auto) 1.8, [place] # (Auto) 0.4, Eos # (Auto) 0.2, Baso # (Auto) 0.0, S odium 132 L, Potassium 3.6, Chloride 106, Carbon Dioxide 21 L, Anion Gap 8.6, B UN 5 L, Creatinine 0.60, Estimated Creat Clear 123, Estimated GFR 119, Est GFR ( Amer) 144, Glucose 123 H, Calcium 9.1, Total Bilirubin 0.7, AST 24, ALT 19, Alkaline Phosphatase 48, Total Protein 6.8, Albumin 4.2, Globulin 2.6, Albumin/Globulin Ratio 1.6, Lipase 50, HCG, Quant 69779 H, HCV Ab TANIA w/Rflx PCR Qn Negative, HIV Ag/Ab Combo Qual Negative Orders (Tests/Meds): ED MEDICATIONS Discontinued Medications Generic Name Dose Route Start Last Admin Trade Name Freq PRN Reason Stop Dose Admin Sodium Chloride 1,000 mls @ 999 mls/hr 09/14/24 14:28 09/14/24 14:45 Sod Chlor 0.9% 1000ml Bag IV 09/14/24 15:28 999 mls/hr .Q1H1M ONE Administration Ondansetron HCl 4 mg 09/14/24 14:28 09/14/24 14:45 Ondansetron 4mg/2ml Vial IV 09/14/24 14:29 4 mg ONCE ONE Administration ORDERS Category Date Time Status POCUS Point of Care (ER Only) Stat Exams 09/14/24 14:35 Taken Complete Blood Count Auto Diff Stat Lab 09/14/24 14:31 Completed Comprehensive Metabolic Panel Stat Lab 09/14/24 14:31 Completed HCG,Quantitative Stat Lab 09/14/24 14:31 Completed HIV Combo Stat Lab 09/14/24 14:31 Completed Hepatitis C Ab Qual. W/ RFX Stat Lab 09/14/24 14:31 Completed Lipase Stat Lab 09/14/24 14:31 Completed UA [Urinalysis and Microscopic] Stat Lab 09/14/24 14:12 Completed Medical Decision Narrative: In summary patient is a 28-year-old female who presents the emergency department for evaluation of nausea and vomiting and . Patient is slightly tachycardic upon arrival, afebrile. Unremarkable physical exam. Differential diagnosis includes dehydration, nausea and vomiting in , pancreatitis, gastroenteritis. Initial workup will be conducted with CBC, CMP, lipase, hCG quant. Initial inventions include IV fluid bolus,. Initial workup reviewed by me [hematologic labs are remarkable for? Imaging remarkable for? Urinalysis remarkable for?]. Upon repeat evaluation [patient had acceptable resolution of symptoms, had persistent pain for which additional interventions were conducted (describe interventions), tolerated p.o., was ambulatory, etc.]. Given this [patient is appropriate for discharge at this time will be discharged with a prescription for? The case was discussed with hospital medicine regarding management and they will meet the patient their service for continued valuation at this time? Etc.]. DO Andres: I was consulted by the IRAIS, and we discussed the complexity of the problems being addressed. I approved the treatment and management plan for this patient's care in the emergency department, thus performing a substantive portion of the medical decision making. I was involved in patient care until 1514 at time of arrival of oncoming provider, Dr. Hardy. I performed bedside ultrasound demonstrating viable intrauterine without free fluid in the pelvis. I was unable to get an accurate heart rate, however I did visualize cardiac activity on the ultrasound. Patient has no significant pelvic pain, vaginal bleeding, or other concern. Given these things, I do not feel that further imaging evaluation or type and screen for potential RhoGAM administration is indicated, which was explained to the patient. SHe has definitive IUP and heterotopic is exceedingly unlikely in the abscence of fertility treatment/intervention. Alona Campos DO Procedures <Alona Campos DO - Last Filed: 09/15/24 07:11> Limited Ultrasound Findings:: Limited OB ultrasound Indication: Positive home test Identified structures: Uterus, pouch of Vitor Findings: Uterus: Viable IUP Cul de sac: free fluid absent Impression: -IUP: Present -Free fluid: Absent Images were saved to permanent archive The study was technically adequate CPT Transabdominal: 32124-78 This study was performed by me, and I personally interpreted all images/videos. Based on my clinical judgement, these images were adequate and did not necessitate further imaging. Critical Care <DHEERAJ Alexander - Last Filed: 09/14/24 17:59> Critical Care Time Critical Care Time: No
[2024-09-14] MEDS: ONDANSETRON 4MG/2ML VIAL 4 MG IV (14:45)
[2024-09-14] MEDS: 0.9 % SODIUM CHLORIDE 1000ML 1,000 ML 999 ML IV (14:45)
[2024-09-14 14:56] LABS: Basophils % 0.4 % (0.1-2.0); Eosinophils # 0.2 K/mm3 (0.0-0.4); Eosinophils % 2.2 % (0.1-12.0); Hematocrit 39.5 % (37.0-47.0); Hemoglobin 13.9 g/dL (12.2-16.2); Lymphocytes # 1.8 K/mm3 (0.7-4.5); Lymphocytes % 26.2 % (10-50); Mean Corpuscular HGB Conc 35.2 g/dL (31.8-35.4); Mean Corpuscular Hemoglobin 30.9 pg (27.0-31.2); Mean Corpuscular Volume 87.8 fl (81-99); Mean Platelet Volume 10.8 fl (7.4-10.4); Monocytes # 0.4 K/mm3 (0.1-1.0); Monocytes % 6.1 % (1.7-9.3); Neutrophils # 4.3 K/mm3 (1.8-7.8); Platelet Count 289 K/mm3 (142-424); Red Cell Distribution Width 11.1 % (11.5-17.5); White Blood Count 6.7 K/mm3 (4.8-10.8)
[2024-09-14 15:04] LABS: Albumin Level 4.2 g/dl (3.5-5.0); Chloride 106 mmol/L (98-107); Potassium 3.6 mmoL/L (3.5-5.1); Sodium 132 mmol/L (136-145)
[2024-09-14 15:07] LABS: Alanine Aminotransferase 19 U/L (12-78); Albumin/Globulin Ratio 1.6 (1.1-1.8); Alkaline Phosphatase 48 U/L (38-126); Anion Gap 8.6 mEq/L (5-15); Aspartate Amino Transferase 24 U/L (14-36); Bilirubin,Total 0.7 mg/dl (0.2-1.3); Blood Urea Nitrogen 5 mg/dl (7-17); Calcium 9.1 mg/dl (8.4-10.2); Carbon Dioxide 21 mmol/L (22.0-30.0); Creatinine Clearance Estimated 123 mL/min (50-200); Estimated Glomerular Filt Rate 119 ml/min (>60); GFR (African American) 144 ML/MIN (>60); Globulin 2.6 g/dL (1.3-3.2); Glucose 123 mg/dl (74-100); Lipase 50 U/L (23-300); Total Protein,Serum 6.8 g/dl (6.3-8.2)
[2024-09-14 15:32] LABS: Microscopic, Urine URINE MICROSCOPIC (MICROSCOPIC)
[2024-09-14 15:41] LABS: Appearance,Urine CLEAR (Clear); Bilirubin,Urine Negative (Negative); Blood, Urine Negative (Negative); Color,Urine YELLOW (Yellow); Glucose,Urine (UA) Negative (Negative); Ketones,Urine Negative (Negative); Leukocyte Esterase,Urine Negative (Negative); Nitrate,Urine Negative (Negative); PH,Urine 6.5 (5.0-8.5); Protein,Urine Negative (Negative); Specific Gravity, Urine 1.025 (1.005-1.030); Urobilinogen,Urine 0.2 EU/dl (0.2)
[2024-09-14 15:47] LABS: Squamous Epithelial Cell,Urine 20-50 #/hpf (0-5); WBC,Urine Occasional #/hpf (0-3)
[2024-09-14 15:48] LABS: Bacteria,Urine Trace /lpf
[2024-09-14 15:52] LABS: HCG,Quantitative 55892 mIU/ml (0-5.42)
[2024-09-15 04:21] LABS: HIV Combo NEGATIVE (Negative)
[2024-09-15 04:30] LABS: Hepatitis C Ab Qual. W/ RFX NEGATIVE (Negative)
== END 2024-09-14 17:12 | disposition home or self-care (01) ==
PROVIDERS: Emergency Provider Emergency Medicine
DX: O21.9 Vomiting of pregnancy, unspecified (principal); O99.891 Other specified diseases and conditions complicating pregnancy; R53.1 Weakness
CPT/HCPCS: 80053; 81001; 83690; 84702; 85025; 86803; 87389; 96361; 96374; 99283; J2405; J7030

== ENCOUNTER 2024-09-25 12:14 | Outpatient (CLI) | payer MEDICAID, SELFPAY ==
[2024-09-25 14:31] LABS: HCG,Quantitative 129580 mIU/ml (0-5.42)
[2024-09-26 08:21] LABS: Progesterone 13.9 ng/mL (.)
== END 2024-09-25 23:59 | disposition home or self-care (01) ==
LOC: LAB 12:15
PROVIDERS: Visit Provider Obstetrics & Gynecology
DX: Z34.01 Encounter for supervision of normal first pregnancy, first trimester (principal)
CPT/HCPCS: 36415; 84144; 84702

== ENCOUNTER 2024-09-25 13:20 | Emergency (ER) | payer MEDICAID, SELFPAY ==
[2024-09-25 13:21] VITALS: BP 121/80; PULSE 77; RESP 18; TEMP 37.1; O2SAT 98; BMI 22.6
[2024-09-25 13:32] VITALS: O2SAT 98
--- NOTE | 2024-09-25 13:36 | PC.NURSE ---
DR ESPINOZA AT BEDSIDE
--- NOTE | 2024-09-25 14:17 | HMH.EDGENADL ---
Discharge Plan Disposition Patient Disposition: Home, Self-Care Prescriptions Prescriptions: No Action diazepam 5 mg tablet 5 mg PO BID Patient Comments: TAKE 1 TABLET BY MOUTH TWICE A DAY Trulance 3 mg tablet 3 mg PO DAILY Qty: 30 2RF ondansetron 4 mg tablet,disintegrating 4 mg PO Q8H PRN (Reason: nausea and vomiting) 5 Days Qty: 15 0RF promethazine 12.5 mg tablet 12.5 mg PO TID PRN (Reason: allergy symptoms) Qty: 14 0RF Rx Instructions: 3 doses during day; last dose no later than 4 hr before bedtime cephalexin 500 mg capsule 500 mg PO BID 7 Days Qty: 14 0RF fluoxetine 40 mg capsule 40 mg PO DAILY Patient Comments: TAKE 1 CAPSULE BY MOUTH EVERY DAY Referrals Follow up/Referrals: Provider,Referral, MD [Primary Care Provider] - See instructions Activity Restrictions/Add. Instructions Additional Instructions/Restrictions: At the moment no concern for surgical emergency. Please return with intractable and severe abdominal pain or nausea and vomiting. Please escalate [id number] MiraLAX, you may use a nonbrand name, and escalate as discussed starting off with half a cap twice a day doubling the dose every 3 days until you have a normal soft bowel movement daily then stay on that dose for several weeks. You may also continue the Colace. Clinical Impressions Clinical Impression: Chronic constipation, First trimester Print Language Print Language: Ecuadorean Discharge ED Provider: Reyna Hardy General Adult HPI General Chief complaint: Recheck/Abnormal Lab/Rx Stated complaint: 8 wks antepartum, [id number] Time Seen by Provider: 09/25/24 13:26 Mode of Arrival: Ambulatory Source of Information: Patient Limitations: No Limitations Description of Symptoms (Recalled from ER Triage Doc. by RN): pt has not had a bowel movement in 7 days. currently 8 weeks . History of Present Illness HPI narrative: Patient is a 8 weeks gestational age by dates presenting today with left lower quadrant abdominal discomfort and constipation. States she chronically has constipation but has not had a bowel movement in 7 days and feels that if she could have a bowel movement that she would feel better. States that any little bit of bowel movement that she has had has been very hard stools. Has not had an ultrasound this . Related Data Home Medications ?Medication ?Instructions ?Recorded ?Confirmed diazepam 5 mg tablet 5 mg PO BID 06/25/24 06/29/24 fluoxetine 40 mg capsule 40 mg PO DAILY 06/29/24 06/29/24 Previous Rx's ?Medication ?Instructions ?Recorded plecanatide 3 mg tablet (Trulance) 3 mg PO DAILY #30 tabs 07/07/24 cephalexin 500 mg capsule 500 mg PO BID 7 days #14 caps 09/14/24 ondansetron 4 mg disintegrating 4 mg PO Q8H PRN nausea and 09/14/24 tablet vomiting 5 days #15 tabs promethazine 12.5 mg tablet 12.5 mg PO TID PRN allergy 09/14/24 symptoms #14 tabs Allergies Allergy/AdvReac Type Severity Reaction Status Date / Time No Known Allergies Allergy Verified 06/25/24 10:38 [facility] Disclaimer: The information contained in this section may have been updated after the patient was seen, as this information can be updated by other users. Social History Smoking Status: Never smoker alcohol intake: never current occupational status: employed Travel in the last 8 weeks: None Have you lived/traveled outside US in past 30 days?: No Contact w/someone who lives/traveled outside US past 30 days?: No Exposure to someone with infectious disease in past 14 days?: No Do you have a fever (greater than 100.4 F or 38 C)?: No Have you tested positive for COVID-19: No Exposed to someone with COVID-19 in past 14 days?: No Do you have a sore throat?: No Do you have a cough?: No Do you have any weakness?: No Do you have any diarrhea?: No Are you experiencing any unusual bleeding?: No Do you have any muscle aches/pain?: No Do you have any abdominal pain?: Yes Are you experiencing loss of taste or smell?: No ROS Obtained: Yes All systems reviewed & no additional complaints except as documented Physical Exam General General appearance: alert and in no apparent distress Respiratory Respiratory exam: Present normal lung sounds bilaterally Cardiovascular Cardiovascular exam: Present regular rate Abdominal Exam Abdominal exam: Present soft; Absent distention or tenderness Neurological Exam Neurological exam: Present alert and oriented X3 Medical Decision Making Medical Records Screening: Per USPSTF and CDC recommendations, given the prevalence of disease in our region, it is our hospital?s policy to screen for HIV and viral Hepatitis for all patients aged 18 and over and those with ongoing risk factors. Antonio Inquiry Pt receiving controlled substance: No Vital Signs: 09/25/24 13:21 09/25/24 13:32 Temperature 98.7 F Temperature Source Oral Pulse Rate [Right] 77 Respiratory Rate 18 Blood Pressure [Right Arm] 121/80 Blood Pressure Mean [Right Arm] 93 02 Sat by Pulse Oximetry 98 98 Oxygen Delivery Method Room Air Orders (Tests/Meds): ORDERS Category Date Time Status POCUS Point of Care (ER Only) Stat Exams 09/25/24 13:55 Ordered Medical Decision Narrative: 28-year-old benign abdominal exam limited bedside ultrasound ruled an IUP on not worried about an ectopic in this particular situation clinically her symptoms are consistent with constipation will attempt an enema and will reassess. Reassessment 258 patient had an enema did have a bowel movement with some relief but still has some discomfort in the left upper quadrant at this point. Serial abdominal exams are benign I am not concerned about surgical pathology at the moment. Discussed with her escalation of MiraLAX at home aggressive fluid intake as well as continuation of her Colace. Return precautions emphasized patient was discharged in improved and stable condition. There is some diagnostic uncertainty but I do not suspect alternative pathology at this point. Procedures Miscellaneous Procedure Procedure Performed: Limited OB ultrasound Indication: Abdominal pain Identified structures: [-Uterus -Left adnexa -Right adnexa -Pouch of Vitor] Findings: Uterus: Single living definitive IUP consistent with dates heart rate 154 Right adnexa: No free fluid Left adnexa: No free fluid Cul de sac: No free Impression: Single living IUP consistent with dates Images were saved to permanent archive The study was technically adequate CPT Transabdominal: 05641-44 This study was performed by me, and I personally interpreted all images/videos. Based on my clinical judgement, these images were adequate and did not necessitate further imaging. Critical Care Critical Care Time Critical Care Time: No
--- NOTE | 2024-09-25 14:23 | PC.NURSE ---
christi sharp administered milk and molassess enema, pt tolerated well
--- NOTE | 2024-09-25 14:26 | PC.NURSE ---
pt tolerated enema well. she is currently in the bathroom
[2024-09-25 15:03] VITALS: BP 128/79; PULSE 80; RESP 20; TEMP 36.8; O2SAT 98
== END 2024-09-25 15:04 | disposition home or self-care (01) ==
PROVIDERS: Emergency Provider Student in an Organized Health Care Education/Training Program
DX: Z34.91 Encounter for supervision of normal pregnancy, unspecified, first trimester (principal); K59.09 Other constipation; R10.32 Left lower quadrant pain; Z3A.08 8 weeks gestation of pregnancy
CPT/HCPCS: 99283

== ENCOUNTER 2024-10-03 16:29 | Outpatient (CLI) | payer MEDICAID, SELFPAY | END 2024-10-03 23:59 | disposition home or self-care (01) | LOC: LAB.DROPOF 16:29 | PROVIDERS: PCP Obstetrics & Gynecology; Visit Provider Obstetrics & Gynecology | DX: Z34.90 Encounter for supervision of normal pregnancy, unspecified, unspecified trimester (principal) | CPT/HCPCS: 87086 ==

== ENCOUNTER 2024-10-06 12:57 | Outpatient (CLI) | payer MEDICAID, SELFPAY ==
[2024-10-06 13:26] LABS: Basophils % 0.4 % (0.1-2.0); Eosinophils # 0.1 K/mm3 (0.0-0.4); Eosinophils % 1.9 % (0.1-12.0); Hematocrit 39.8 % (37.0-47.0); Hemoglobin 14.2 g/dL (12.2-16.2); Lymphocytes # 1.9 K/mm3 (0.7-4.5); Mean Corpuscular HGB Conc 35.7 g/dL (31.8-35.4); Mean Corpuscular Hemoglobin 31.1 pg (27.0-31.2); Mean Corpuscular Volume 87.1 fl (81-99); Mean Platelet Volume 10.4 fl (7.4-10.4); Monocytes # 0.4 K/mm3 (0.1-1.0); Monocytes % 6.2 % (1.7-9.3); Neutrophils # 4.4 K/mm3 (1.8-7.8); Neutrophils % 63.2 % (37.0-80.0); Platelet Count 300 K/mm3 (142-424); Red Blood Count 4.57 M/mm3 (4.20-5.40); Red Cell Distribution Width 11.6 % (11.5-17.5); White Blood Count 6.9 K/mm3 (4.8-10.8)
[2024-10-06 14:54] LABS: HIV Combo NEGATIVE (Negative)
[2024-10-06 15:01] LABS: Hepatitis C Ab Qual. W/ RFX NEGATIVE (Negative)
[2024-10-07 00:58] LABS: RPR W/RFX Titers Nonreactive (Nonreactive)
[2024-10-07 06:09] LABS: Hepatitis B Surface Antigen Negative (Negative); Rubella Antibodies, IgG 1.73 index (Immune >0.99)
== END 2024-10-06 23:59 | disposition home or self-care (01) ==
LOC: LAB 12:58
PROVIDERS: Visit Provider Obstetrics & Gynecology
DX: Z34.91 Encounter for supervision of normal pregnancy, unspecified, first trimester (principal); Z3A.09 9 weeks gestation of pregnancy
CPT/HCPCS: 36415; 85025; 86592; 86762; 86803; 86850; 87340; 87389

== ENCOUNTER 2024-12-23 13:22 | Outpatient (CLI) | payer MEDICAID, SELFPAY ==
--- NOTE | 2024-12-23 13:45 | US_ITS ---
PROCEDURE: US OB /MATERNAL DETAIL CLINICAL INDICATION: COMPARISON: US POINT OF CARE US (ER ONLY) from 09/14/2024 US POINT OF CARE US (ER ONLY) from 09/25/2024 FINDINGS: Transabdominal sonographic images of the pelvis were obtained. From her established due date she is . Single viable intrauterine gestation. Breech position. Placenta: Anteriorplacenta grade 1. There is an average amount of fluid. The cervix appears satisfactory. Closed and measuring 3.26 cm in length. Complete survey performed and was unremarkable on the submitted images as in PACS. No discrete anomalies identified on survey imaging by technologist. Active fetus. Three-vessel cord with satisfactory umbilical cord insertion. 4- chamber heart noted. Situs, aortic arch, LVOT, RVOT, three-vessel view appear normal. Survey of brain & ventricles Unremarkable. Cerebellum, thalamus, choroid plexus, cisterna magna appear normal. Face and neck survey unremarkable. Profile, nasion, lips and nose appeared normal. Diaphragm and chest views unremarkable. Abdomen: Both kidneys noted and unremarkable. Stomach and bladder noted and satisfactory. Spine: Survey of the spine satisfactory with no anomalies identified nor imaged. Cervical, thoracic, lower spine appear normal. Both arms and legs noted. Amniotic Fluid: Adequate. MVP 3.92 cm Measurements: Average ultrasound age 20weeks 5days. Estimated due date by ultrasound age 0905/07/2025. Estimated weight 340g BPD = 21weeks 4days HC = 21weeks 1day AC = 20weeks 2days FL = 19weeks 6days Growth Percentile= Heart Rate = 144bpm Cerebellum = 20weeks Humerus = 20weeks 5days HC/AC is 1.25 FL/BPD is 0.62 FL/AC is 0.21 IMPRESSION: 1. Viable fetus in the breech presentation with an anterior placenta grade 1. 2. The fluid is within normal limits with an MVP 3.92 cm. 3. Anatomical scan appears normal. The spinal views were not satisfactory due to position and would suggest repeat scan in 2-3 weeks. 4. biometry is consistent with the dates. Dictated by: Daniel Gonzáles MD 12/23/2024 15:17 Daniel Gonzáles MD in [facility] 12/23/2024 15:17
== END 2024-12-23 23:59 | disposition home or self-care (01) ==
LOC: RAD 13:24
PROVIDERS: Visit Provider Obstetrics & Gynecology
DX: Z36.3 Encounter for antenatal screening for malformations (principal); O36.80X0 Pregnancy with inconclusive fetal viability, not applicable or unspecified; Z3A.20 20 weeks gestation of pregnancy
CPT/HCPCS: 76811

== ENCOUNTER 2025-01-15 09:01 | Outpatient (CLI) | payer MEDICAID, SELFPAY ==
[2025-01-15 09:14] VITALS: BP 120/77; PULSE 106; RESP 20; TEMP 36.6; O2SAT 95
--- NOTE | 2025-01-15 10:07 | US_ITS ---
PROCEDURE INFORMATION: Exam: US After First Trimester, Transabdominal Exam date and time: 01/15/2025 10:11 AM Age: 29 years old Clinical indication: complicated by abdominal or pelvic pain; Left lower quadrant; Second trimester (14 weeks 0 days to 27 weeks 6 days); Gestational age or lmp: 24w2d; ; Additional info: well-being LABS AND CLINICAL REPORTS: Gestational age (Established): 24 w 2 d Estimated due date (Established): 05/05/2025 TECHNIQUE: Imaging protocol: Real-time transabdominal obstetrical ultrasound of the maternal pelvis and a second or third trimester with image documentation. COMPARISON: US OB /MATERNAL DETAIL 12/23/2024 1:23 PM FINDINGS: Limited study to establish well-being Single viable intrauterine in a breech position at the present time. The Normal heart rate measured at 138 bpm. Placenta is anterior grade 2. Amniotic fluid volume appears adequate. Cervix is closed measuring 4.6 cm in length. IMPRESSION: Single viable intrauterine in a breech position at the present time.
[2025-01-15 10:10] VITALS: BP 120/77; PULSE 106; RESP 20; TEMP 36.6; O2SAT 95; BMI 26.4
[2025-01-15] MEDS: CYCLOBENZAPRINE 10MG TABLET 5 MG PO (10:10)
--- NOTE | 2025-01-15 10:43 | PC.NURSE ---
pt reports her abdominal pain has not improved after medication administration. speaking with now
[2025-01-15] MEDS: OXYCODONE 5MG IMMEDIATE RELEASE TABLET 5 MG PO (11:28)
[2025-01-15 12:09] LABS: Microscopic, Urine URINE MICROSCOPIC (MICROSCOPIC)
[2025-01-15 12:11] LABS: Appearance,Urine CLEAR (Clear); Bilirubin,Urine Negative (Negative); Blood, Urine Negative (Negative); Color,Urine YELLOW (Yellow); Glucose,Urine (UA) Negative (Negative); Ketones,Urine Negative (Negative); Leukocyte Esterase,Urine Negative (Negative); Nitrate,Urine Negative (Negative); Protein,Urine Negative (Negative); Specific Gravity, Urine 1.015 (1.005-1.030); Urobilinogen,Urine 0.2 EU/dl (0.2)
[2025-01-15 12:19] LABS: Bacteria,Urine Trace /lpf; WBC,Urine Occasional #/hpf (0-3)
== END 2025-01-15 13:28 | disposition home or self-care (01) ==
LOC: OBOUT 09:03 → OB 09:04
PROVIDERS: Visit Provider Obstetrics & Gynecology
DX: O26.892 Other specified pregnancy related conditions, second trimester (principal); Z3A.24 24 weeks gestation of pregnancy; R10.84 Generalized abdominal pain
CPT/HCPCS: 76805; 81001; G0463

== ENCOUNTER 2025-01-16 09:42 | Outpatient (CLI) | payer MEDICAID, SELFPAY ==
--- NOTE | 2025-01-16 09:45 | US_ITS ---
PROCEDURE: US OB FOLLOW UP CLINICAL INDICATION: spinal views COMPARISON: US POINT OF CARE US (ER ONLY) from 06/07/2024 US POINT OF CARE US (ER ONLY) from 09/14/2024 US POINT OF CARE US (ER ONLY) from 09/25/2024 US US OB /MATERNAL DETAIL from 12/23/2024 US US OB >= 14 WEEKS FETUS from 01/15/2025 FINDINGS: Transabdominal sonographic images of the pelvis were obtained. The following parameters are obtained: From her established due date she is 24weeks 3days Viable fetus in the breech presentation with an anterior placenta grade 1. The cervix measures 3.9 cm heart rate: 144bpm bpm. Amniotic fluid: MVP 4.27 cm No obvious anomalies evident. profile seen, stomach, bladder, kidneys, three-vessel cord, four chamber heart appear normal. spine: Cervical, thoracic and lower spine appear normal. IMPRESSION: 1. Viable fetus in the breech presentation with an anterior placenta grade 1. 2. The fluid is within normal limits with an MVP 4.27 cm. 3. Complete spine views appear normal. 4. The rest of the limited anatomical scan appears normal. Dictated by: Daniel Gonzáles MD 01/17/2025 05:42 Daniel Gonzáles MD in [facility] 01/17/2025 05:42
== END 2025-01-16 23:59 | disposition home or self-care (01) ==
LOC: RAD 09:43
PROVIDERS: Visit Provider Obstetrics & Gynecology
DX: O32.1XX0 Maternal care for breech presentation, not applicable or unspecified (principal); O21.9 Vomiting of pregnancy, unspecified; Z14.8 Genetic carrier of other disease; Z3A.24 24 weeks gestation of pregnancy
CPT/HCPCS: 76816

== ENCOUNTER 2025-01-17 20:47 | Emergency (ER) | payer MEDICAID, SELFPAY ==
[2025-01-17 20:51] VITALS: BP 110/69; PULSE 97; RESP 16; TEMP 36.5; O2SAT 97; BMI 26.4
--- NOTE | 2025-01-17 21:36 | PC.NURSE ---
pt reports no decrease in pain with topical lidocaine, ed provider at the bedside at this time
--- NOTE | 2025-01-17 21:46 | PC.NURSE ---
both ED providers at the bedside
--- NOTE | 2025-01-17 21:47 | ED_ITS ---
Discharge Plan Disposition Patient Disposition: Home, Self-Care Prescriptions Prescriptions: No Action magnesium oxide 400 mg magnesium tablet 400 mg PO BID Qty: 60 3RF PNV cmb#95-ferrous fumarate-FA [] 28 mg iron- 800 mcg tablet 1 tab PO ONCE Patient Comments: TAKE 1 TABLET BY MOUTH EVERY DAY ondansetron 4 mg tablet,disintegrating 4 mg PO Q8H PRN (Reason: nausea and vomiting) Qty: 30 0RF loratadine [Allergy Relief (loratadine)] 10 mg tablet 10 mg PO DAILY PRN (Reason: allergy symptoms) Qty: 30 3RF promethazine 12.5 mg tablet See Rx Instructions .ROUTE .COMPLEX Qty: 30 0RF Dose Instruction: TAKE ONE TABLET BY MOUTH THREE TIMES A DAY NEEDED FOR ALLERGY SYMPTOMS Rx Instructions: TAKE ONE TABLET BY MOUTH THREE TIMES A DAY NEEDED FOR ALLERGY SYMPTOMS docusate sodium 100 mg capsule See Rx Instructions .ROUTE .COMPLEX Qty: 30 0RF Dose Instruction: TAKE 1 CAPSULE BY MOUTH DAILY NEEDED FOR CONSTIPATION Rx Instructions: TAKE 1 CAPSULE BY MOUTH DAILY NEEDED FOR CONSTIPATION Referrals Follow up/Referrals: Provider,Referral, MD [Primary Care Provider] - See instructions Activity Restrictions/Add. Instructions Additional Instructions/Restrictions: Today you were evaluated in the emergency department and diagnosed with a thrombosed hemorrhoid. We I&D the area, remove the clot. Please keep the area clean and dry. Increase your fluid intake to soften your stool. Please follow- up with your provider in 2 to 3 days. Return to the ED for any worsening of condition. Clinical Impressions Clinical Impression: Hemorrhoids, thrombosed Instructions Patient Instructions: Hemorrhoids Print Language Print Language: Telugu Discharge ED Provider: Willie Benz General Adult HPI <Shasta Alvarez APRN - Last Filed: 01/17/25 21:51> General Chief complaint: PAIN Stated complaint: 24 Weeks Antipartum Hemohorride Time Seen by Provider: 01/17/25 20:56 Mode of Arrival: Ambulatory Source of Information: Patient Description of Symptoms (Recalled from ER Triage Doc. by RN): Patient reports growing hemmroid over last 7 days. More uncomfortable to sit. BMs are smaller. Patient is 23 weeks History of Present Illness HPI narrative: patient is a 29-year-old female who is currently 24 weeks who presents to the ED for hemorrhoid. Patient has had the hemorrhoid for approximately 1 week, states the pain is getting worse, having difficulty with ambulation due to pain. Related Data Home Medications ?Medication ?Instructions ?Recorded ?Confirmed vit no.95-ferrous 1 tab PO ONCE 11/11/24 01/06/25 fumarate 28 mg-folic acid 800 mcg tablet () Previous Rx's ?Medication ?Instructions ?Recorded magnesium oxide 400 mg PO BID #60 tabs 10/16/24 loratadine 10 mg tablet (Allergy 10 mg PO DAILY PRN allergy 12/09/24 Relief (loratadine)) symptoms #30 tabs ondansetron 4 mg disintegrating 4 mg PO Q8H PRN nausea and 12/09/24 tablet vomiting #30 tabs promethazine 12.5 mg tablet See Rx Instructions .Route 01/05/25 .COMPLEX #30 tabs docusate sodium 100 mg capsule See Rx Instructions .Route 01/07/25 .COMPLEX #30 caps Allergies Allergy/AdvReac Type Severity Reaction Status Date / Time No Known Allergies Allergy Verified 01/06/25 09:31 [facility] <Shasta Alvarez APRN - Last Filed: 01/17/25 21:51> [facility] Disclaimer: The information contained in this section may have been updated after the patient was seen, as this information can be updated by other users. 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 Screening for genetic disease carrier status Migraine Chronic constipation No significant past medical history Surgical History History of delivery Family History Other No significant family history Social History Smoking Status: Never smoker alcohol intake: never current occupational status: employed Travel in the last 8 weeks?: None Have you lived/traveled outside US in past 30 days?: No Contact w/someone who lives/traveled outside US past 30 days?: No Exposure to someone with infectious disease in past 14 days?: No Do you have a fever (greater than 100.4 F or 38 C)?: No Have you tested positive for COVID-19?: No Exposed to someone with COVID-19 in past 14 days?: No Do you have a sore throat?: No Do you have a cough?: No Do you have any weakness?: No Do you have any diarrhea?: No Are you experiencing any unusual bleeding?: Yes Do you have any muscle aches/pain?: No Do you have any abdominal pain?: No Are you experiencing loss of taste or smell?: No Other Medical History Have you received the Flu Vaccine for this season: No Have you received the Pneumonia Vaccine: No <Shasta Alvarez APRN - Last Filed: 01/17/25 21:51> ROS Obtained: Yes Systems reviewed as appropriate & no additional complaints except as documented Physical Exam <Shasta Alvarez APRN - Last Filed: 01/17/25 21:51> General General appearance: alert and in no apparent distress Head Head exam: atraumatic and normocephalic Eye Eye exam: Present normal appearance and PERRL ENT ENT exam: Present normal exam Neck Neck exam: Present normal inspection Chest Chest inspection: Present normal inspection and symmetric chest wall rise; Absent tenderness Respiratory Respiratory exam: Present normal lung sounds bilaterally Cardiovascular Cardiovascular exam: Present regular rate Abdominal Exam Abdominal exam: Present soft and normal bowel sounds; Absent tenderness Extremities Exam Extremities exam: Present normal inspection and full ROM Back Exam Back exam: Present normal inspection and full ROM Neurological Exam Neurological exam: Present alert and oriented X3 Psychiatric Psychiatric exam: Present normal affect and normal mood Skin Skin exam: Present warm and dry Other Other exam information: Thrombosed hemorrhoid noted, hemorrhoid is hard and purple, 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 Antonio Inquiry Pt receiving controlled substance: No Vital Signs: 01/17/25 20:51 01/17/25 21:57 Temperature 97.7 F 98.1 F Temperature Source Temporal Artery Scan Oral Pulse Rate 74 Pulse Rate [Right] 97 H Respiratory Rate 16 14 Blood Pressure 134/78 Blood Pressure [Right Arm] 110/69 Blood Pressure Mean [Right Arm] 82 Blood Pressure Position Sitting 02 Sat by Pulse Oximetry 97 Oxygen Delivery Method Room Air Room Air Orders (Tests/Meds): ED MEDICATIONS Discontinued Medications Generic Name Dose Route Start Last Admin Trade Name Freq PRN Reason Stop Dose Admin Acetaminophen 500 mg 01/17/25 21:55 01/17/25 21:56 Acetaminophen 500mg Tab PO 01/17/25 21:56 500 mg ONCE ONE Administration Medical Decision Narrative: In summary, patient is a 29-year-old female who is currently 24 weeks who presents to the ED for hemorrhoid. Patient has had the hemorrhoid for approximately 1 week, states the pain is getting worse, having difficulty with ambulation due to pain. She states she has been trying [id number] medications and sitz bath's without relief. Denies any cramping, vaginal bleeding, related issues. Denies fever, chills, body aches, chest pain, shortness of breath, abdominal pain, vomiting. Upon initial evaluation, patient is alert, oriented and cooperative. She is h emodynamically stable. Differential diagnosis is hemorrhoid, thrombosed hemorrhoid, among others. Upon physical exam patient has a thrombosed hemorrhoid. Discussed with patient we can I&D the area, she is agreeable at this time. Lidocaine used. Area cleaned and prepped. I&D performed by attending, clot removed without difficulty. Discussed with patient risk of bleeding, advised her to increase fluid intake to soften stool. We discussed follow-up within 2 to 3 days. We discussed return precautions to the ED and patient verbalized understanding. <Willie Benz MD - Last Filed: 01/18/25 23:31> Vital Signs: 01/17/25 20:51 01/17/25 21:57 Temperature 97.7 F 98.1 F Temperature Source Temporal Artery Scan Oral Pulse Rate 74 Pulse Rate [Right] 97 H Respiratory Rate 16 14 Blood Pressure 134/78 Blood Pressure [Right Arm] 110/69 Blood Pressure Mean [Right Arm] 82 Blood Pressure Position Sitting 02 Sat by Pulse Oximetry 97 Oxygen Delivery Method Room Air Room Air Orders (Tests/Meds): ED MEDICATIONS Discontinued Medications Generic Name Dose Route Start Last Admin Trade Name Freq PRN Reason Stop Dose Admin Acetaminophen 500 mg 01/17/25 21:55 01/17/25 21:56 Acetaminophen 500mg Tab PO 01/17/25 21:56 500 mg ONCE ONE Administration Medical Decision Narrative: In summary, patient is a 29-year-old female who is currently 24 weeks who presents to the ED for hemorrhoid. Patient has had the hemorrhoid for approximately 1 week, states the pain is getting worse, having difficulty with ambulation due to pain. She states she has been trying [id number] medications and sitz bath's without relief. Denies any cramping, vaginal bleeding, related issues. Denies fever, chills, body aches, chest pain, shortness of breath, abdominal pain, vomiting. Upon initial evaluation, patient is alert, oriented and cooperative. She is hemodynamically stable. Differential diagnosis is hemorrhoid, thrombosed hemorrhoid, among others. Upon physical exam patient has a thrombosed hemorrhoid. Discussed with patient we can I&D the area, she is agreeable at this time. Lidocaine used. Area cleaned and prepped. I&D performed by attending, clot removed without difficulty. Discussed with patient risk of bleeding, advised her to increase fluid intake to soften stool. We discussed follow-up within 2 to 3 days. We discussed return precautions to the ED and patient verbalized understanding. I was consulted by the IRAIS, and we discussed the complexity of the problems being addressed.I approved the treatment and management plan for this patient?s care in the Emergency Department, thus performing a substantive portion of the medical decision making.Signed, Willie Benz MD MBA Critical Care <Shasta Alvarez APRN - Last Filed: 01/17/25 21:51> Critical Care Time Critical Care Time: No
[2025-01-17] MEDS: ACETAMINOPHEN 500MG TAB 500 MG PO (21:56)
[2025-01-17 21:57] VITALS: BP 134/78; PULSE 74; RESP 14; TEMP 36.7; O2SAT 98
== END 2025-01-17 21:58 | disposition home or self-care (01) ==
PROVIDERS: Emergency Provider Emergency Medicine
DX: O22.42 Hemorrhoids in pregnancy, second trimester (principal); Z3A.24 24 weeks gestation of pregnancy
CPT/HCPCS: 99282

== ENCOUNTER 2025-02-03 09:35 | Outpatient (CLI) | payer MEDICAID, SELFPAY ==
--- OUTSIDE RECORDS SUMMARY | 2025-02-03 09:42 | XMS_ITS | Clinical Summary ---
Author Organization Healthcare Address [address] [place] [address] Care Team Providers Care Cell Efficiency Supervisor Name Role Phone Ta Christine MD Primary Care Provider [phone] Allergies Active Allergy Reactions Criticality Noted Date Comments Cinnamon Anaphylaxis High 10/27/2022 Medications * This document contains information received from the source organization and may not represent a complete record from that organization. acetaminophen (Midol) 650 MG ER tablet Take 1 tablet (650 mg) by mouth every 8 (eight) hours if needed for mild pain. Do not crush, chew, or split. Active levonorgestrel-e thinyl estradiol (Seasonale) 0.15-0.03 MG tablet Take 1 tablet by mouth 1 (one) time each day. 84 tablet 3 09/14/2023 Active Active Problems Problem Noted Date Diagnosed Date Pelvic and perineal pain 12/05/2022 Resolved Problems Problem Noted Date Diagnosed Date Resolved Date Suicide attempt by substance overdose, initial encounter 09/09/2023 09/11/2023 Family History Medical History Relation Name Comments Conversions - Other Paternal Grandfather first degree relative with congenital heart disease Diabetes Paternal Grandfather Hypertension Paternal Grandfather Relation Name Status Comments Paternal Grandfather Social History Tobacco Use Types Packs/Day Years Used Date Smoking Tobacco: Never Smokeless Tobacco: Never Tobacco Cessation:Counseling Given: Not Answered Alcohol Use Standard Drinks/Week Comments Yes 2 (1 standard drink = 0.6 oz pur e alcohol) Humiliation, Afraid, Rape, and Kick questionnair e Answer Date Recorded Within the last year, have y ou been afraid of your partner or ex-partner? No 09/11/2023 Within the last year, have y ou been humiliated or emotionally abused in other ways by your partner or ex-partner? No Within the last year, have y ou been kicked, hit, slapped, or otherwise physically hurt by your partner or ex-partner? No 09/11/2023 Within the last year, have y ou been raped or forced to have any kind of sexual activity by your partner or ex-partner? No 09/11/2023 Social Connection and Isolation Panel Answer Date Recorded In a typical week, how many times do you talk on the phone with family, friends, or neighbors? More than three times a week 09/11/2023 How often do you get togethe r with friends or relatives? More than three times a week 09/11/2023 How often do you attend chur or sabianist services? Never 09/11/2023 Do you belong to any clubs o r organizations such as anglican groups, unions, fraternal or athletic groups, or school groups? No 09/11/2023 How often do you attend meet ings of the clubs or organizations you belong to? Never 09/11/2023 Are you , , di vorced, , never , or living with a partner? 09/11/2023 AUDIT-C Answer Date Recorded Q1: How often do you have a drink containing alc ohol? Patient declined 09/11/2023 Q2: How many drinks containi ng alcohol do you have on a typical day when you are drinking? Patient declined 09/11/2023 Q3: How often do you have si x or more drinks on one occasion? Patient declined 09/11/2023 PHQ-2 Answer Date Recorded Patient Health Questionnaire-2 Score 0 11/09/2023 [facility]ational Stress Questionnaire Answer Date Recorded Do you feel stress - tense, restless, nervous, or anxious, or unable to sleep at night because your mind is troubled all the time - these days? Rather much 09/11/2023 Exercise Vital Sign Answer Date Recorde d On average, how many days pe r week do you engage in moderate to strenuous exercise (like a brisk walk)? Patient declined On average, how many minutes do you engage in exercise at this level? Patient declined 09/11/2023 Hunger Vital Sign Answer Date Recorded Within the past 12 months, y ou worried that your food would run out before you got the money to buy more. Never true 09/11/19 24 Within the past 12 months, t he food you bought just didn't last and you didn't have money to get more. Never true 09/11/2023 PRAPARE - Transportation Answer Date Re corded In the past 12 months, has l ack of transportation kept you from medical appointments or from getting medications? No 08/27 In the past 12 months, has l ack of transportation kept you from meetings, work, or from getting things needed for daily living? No 09/11/2023 Housing Stability Vital Sign Answer Harinder e Recorded In the last 12 months, was t here a time when you were not able to pay the mortgage or rent on time? No 09/11/2023 In the last 12 months, how many places have you lived? 1 09/11/2023 In the last 12 months, was t here a time when you did not have a steady place to sleep or slept in a alf (including now)? No 09/11/2023 PHQ-9 Answer Date Recorded Patient Health Questionnaire-9 Score 23 09/14/2023 CAGE ASSESSMENT Answer Date Recorded Due to the following: Medical status 09/09/2023 Cage max number of drinks Not on file 2023 Cage Beverages a week Not on file 09/09/2023 Cage Questionnaire cut down Not on file 08/27 Cage questionnaire annoyed Not on file 09/09 Cage questionnaire guilty Not on file 2023 Cage questionnaire eye extracorporeal circulation specialist Not on file Cage Overall score Not on file 09/09/2023 Utilities Answer Date Recorded In the past 12 months has th e electric, gas, oil, or water company threatened to shut off services in your home? No 09/11/2023 Comments No Sex and Gender Information Value Date Recorded Sex Assigned at Not on file Legal Sex Female 8:22 PM EDT Gender Identity Not on file Sexual Orientation Not on file Last Filed Vital Signs Vital Sign Reading Time Taken Comments Blood Pressure 114/85 11/09/2023 3:55 PM EDT Pulse 80 11/09/2023 3:55 PM EDT Temperature 36.4 C (97.6 F) 09/14/2023 9:48 AM EST Respiratory Rate 14 09/14/2023 9:48 AM EST Oxygen Saturation 98% 09/14/2023 9:48 AM EST Inhaled Oxygen Concentration - - Weight 55 kg (121 lb 4.1 oz) 11/09/2023 3:55 PM EDT Height 152.4 cm (5') 09/14/2023 9:48 AM EST Body Mass Index 23.68 09/14/2023 9:48 AM EST Plan of Treatment Health Maintenance Due Date Last Done Comments [facility]-Infant/Child/Adol SDOH Screenings 01/01/1996 [facility]-Varicella Vaccines (2 of 2 - 2-dose childhood series) 04/17/2007 01/23/2007 HPV Vaccines (2 - 2-dose series) 07/26/2007 01/23/2007 [facility]- SDOH Screenings 12/30/2013 [facility]-Adult SDOH Screenings 12/30/2013 [facility]-Hepatitis B Vaccines (1 of 3 - 19+ 3-dose series) 12/30/2014 [facility]-DTaP,Tdap,and Td Vaccines (3 - Td or Tdap) 01/23/2017 01/23/2007, 04/02/1997 [facility]-Pap Smear 12/23/2023 12/22/2020 [id number] Vaccine ( - season) 2024 [facility]-Depression Screening 11/08/2024 024, 09/14/2023 [facility]-Influenza Vaccine (Season Ended) 2025 [facility]-Zoster Vaccines (1 of 2) 12/30/2045 01/23/2007 [facility]-HIB Vaccines Completed 04/02/1997 [facility]-HIV Screening Completed 09/09/2023 [facility]-Hepatitis C Screening Completed 2023, 11/09/2021 [facility]-Hepatitis A Vaccines Aged Out No longer eligible based on patient's age to complete this topic [facility]-IPV Vaccines Aged Out No longer e ligible based on patient's age to complete this topic [facility]-Pneumococcal Vaccine: Pediatrics (0 to 5 Years) and At-Risk Patients (6 to 49 Years) Aged Out No longer eligible b ased on patient's age to complete this topic [facility]-Rotavirus Vaccines Aged Out No lo nger eligible based on patient's age to complete this topic Procedures Procedure Name Priority Date/Time Associated Diagnosis Comments HEPATITIS C ANTIBODY - ED W/REFLEX TO HCV QUANT PCR STAT 09/09/2023 8:36 AM EST ED HIV 1/2 ANTIBODY/ANTIGEN SCREEN WITH REFLEX TO HIV I/II DIFFERENTIATION STAT 09/09/2023 8:36 AM EST CYTO DATA CONVERSION Routine 12/22/2020 12:00 AM EDT from Last 3 Months or Most Recently Relevant to Health Maintenance Results * ED HIV 1/2 Antibody/Antigen Screen w/Reflex to HIV 1/2 Differentiation (09/09/2023 8:36 AM EST) HIV 1 & 2 Antibody/Antigen Screen Non Reactive Non Reactive 09/09/2023 10:18 AM EST [facility] Comment:Screening for HIV 1 & 2 antibodies, and P24 antigen is NONREACTIVE. No confirmatory testing is required. Blood Venous blood specimen / Unknown Venipuncture / Unknown 09/09/2023 8:36 AM EST 09/09/2023 8:47 AM EST us Ebony Leyva MD LAB BLOOD ORDERABLES Final Res ult Performing Organization Address [facility] Co de Phone Number [facility] [address] [place] [address] * Hepatitis C Antibody - ED (09/09/2023 8:36 AM EST) Hepatitis C Antibody Negative Negative 09/09/2023 10:13 AM EST [facility] Blood Venous blood specimen / Unknown Venipuncture / Unknown 09/09/2023 8:36 AM EST 09/09/2023 8:47 AM EST us Ebony Leyva MD LAB BLOOD ORDERABLES Final Res ult Performing Organization Address [facility] Co de Phone Number [facility] [address] [place] [address] * Cytology (12/22/2020 12:00 AM EDT) 12/22/2020 12/23/2020 11: 00 AM EDT Narrative COPATH - 2020 4:17 PM EDT [facility] MR #: [id number] [facility] [address] [place], [place] [address] 1995 (Age: 24) FW Collect Date: 12/22/2020 00:00 Receipt Date: 12/23/2020 11:00 Page 1 DEPARTMENT OF PATHOLOGY AND LABORATORY MEDICINE CYTOPATHOLOGY REPORT Email: [email or web address] ATTENDING MD/Practitioner: Akosua Fitzgerald Service: OBW Location: [facility] Reported: 2020 16:17 Collected: 12/22/2020 00:00 INTERPRETATION A. THIN PREP (CERVICAL/VAGINAL): NEGATIVE FOR INTRAEPITHELIAL LESION OR MALIGNANCY. SATISFACTORY FOR EVALUATION; ENDOCERVICAL/ TRANSFORMATION ZONE COMPONENT PRESENT. Slide scanned and imaged by [employer] ThinPrep Imaging System with manual review of all selected bernstein. Electronically Signed Out By ALEXIA Jean Baptiste (ASCP) ALEXIA Jean Baptiste (ASCP) Cervical cytology is a screening test primarily for squamous cancers and precursors and has associated false negative and positive results. New technologies such as liquid based sampling may decrease but will not eliminate all false negative results. Regular screening and follow-up of unexplained clinical signs and symptoms are recommended to minimize false negative results. Please see the ASCCP website (www.asccp.org) for followup recommendations. If HPV testing was requested, correlation with the results is suggested (please call Microbiology at [phone] for results). CLINICAL INFORMATION: Menstrual History: Cyclic Date of Last Menstrual Period: 27Nov2020 Other Clinical Conditions: If ASCUS and > 24 years of age, HPV/DNA testing requested.: provider is requesting HPV testing for any abnormal pap test results SPECIMEN DESCRIPTION: A: THIN PREP (CERVICAL/VAGINAL) THIN PREP PROCESS CELLULAR ENHANCEMENT ICD: F: A; RT IMAGE [id number] SNOMED CODES: A; Y2H017 [id number] In cases where a pathologist has signed out the report, the service has been rendered in part by a resident. The signing pathologist has performed and is responsible for the reported pathologic evaluation. Shasta Fitzgerald APRN, CNM LAB PATHOLOGY ORDERABLES Final Result COPATH from Last 3 Months or Most Recently Relevant to Health Maintenance [place] [address] [place] [address] [employer] [facility] MEDICAID Advance Directives * Full Code (Latest Code Status on File) Date Activated Date Inactivated Comments 09/09/2023 1:58 PM 09/11/2023 4:50 PM Patient has previously expressed wishes for FULL CODE in conversations with family and boyfriend, present on exam. Will reevaluate once medically appropriate Question Answer Comments Patient has decision-making capacity? No Healthcare Surrogate: Parent(s) of the patient Care Teams Cell Efficiency Supervisor Relationship Specialty Start Date End Date Ta Christine MD [address] [place] [address] PCP - General 01/07/21
[2025-02-03 11:02] LABS: Basophils % 0.3 % (0.1-2.0); Eosinophils # 0.1 Kmm3 (0.0-0.4); Eosinophils % 1.1 % (0.1-12.0); Hematocrit 37.2 % (37.0-47.0); Hemoglobin 12.4 g/dL (12.2-16.2); Immature Granulocytes # 0.08 10^3uL; Immature Granulocytes % 0.8 %; Lymphocytes # 1.7 K/mm3 (0.7-4.5); Lymphocytes % 16.4 % (10-50); Mean Corpuscular HGB Conc 33.3 g/dL (31.8-35.4); Mean Corpuscular Hemoglobin 31.4 pg (27.0-31.2); Mean Corpuscular Volume 94.2 fl (81-99); Mean Platelet Volume 10.3 fl (7.4-10.4); Monocytes # 0.5 K/mm3 (0.1-1.0); Monocytes % 4.8 % (1.7-9.3); Neutrophils # 7.9 K/mm3 (1.8-7.8); Neutrophils % 76.6 % (37.0-80.0); Nucleated Red Blood Cells # 0 10^3/uL; Nucleated Red Blood Cells % 0 %; Platelet Count 242 K/mm3 (142-424); Red Blood Count 3.95 M/mm3 (4.20-5.40); Red Cell Distribution Width 12.2 % (11.5-17.5); Red Cell Distribution Width-SD 42.3 fL; White Blood Count 10.3 K/mm3 (4.8-10.8)
[2025-02-03 11:15] LABS: Glucose 1 Hour 137 mg/dL (74-100)
[2025-02-03 12:22] LABS: RPR W/RFX Titers Nonreactive (Nonreactive)
== END 2025-02-03 23:59 | disposition home or self-care (01) ==
LOC: LAB 09:35
PROVIDERS: Visit Provider Obstetrics & Gynecology
DX: Z34.82 Encounter for supervision of other normal pregnancy, second trimester (principal); Z3A.00 Weeks of gestation of pregnancy not specified
CPT/HCPCS: 36415; 82947; 85025; 86592

== ENCOUNTER 2025-02-11 10:27 | Outpatient (CLI) | payer MEDICAID, SELFPAY ==
--- OUTSIDE RECORDS SUMMARY | 2025-02-11 10:30 | XMS_ITS | Clinical Summary ---
Author Organization Healthcare Address [address] [place] [address] Care Team Providers Care Valet Manager Name Role Phone Ta Christine MD Primary Care Provider [phone] Allergies Active Allergy Reactions Criticality Noted Date [...] How often do you attend chur or tenriism services? Never 09/11/2023 Do you belong to any clubs o r organizations such as quaker groups, unions, fraternal or athletic groups, or [...] Recorded Patient Health Questionnaire-2 Score 0 11/09/2023 [facility] - Occupational Stress Questionnaire [...] place to sleep or slept in a long-term (including now)? No 09/11/2023 PHQ-9 Answer Date [...] Not on file 2023 Cage questionnaire eye epic radiant analyst Not on file Cage Overall score Not [...] 01/23/2017 01/23/2007, 04/02/1997 [facility]-Pap Smear 12/23/2023 12/22/2020 [id number] Vaccine ( - season) 2024 [facility]-Depression Screening [...] Non Reactive 09/09/2023 10:18 AM EST [facility] Comment:Screening for HIV 1 & 2 antibodies, and P24 antigen is NONREACTIVE. No confirmatory testing is required. Blood Venous blood specimen / Unknown Venipuncture / Unknown 09/09/2023 8:36 AM EST 09/09/2023 8:47 AM EST us Ebony Leyva MD LAB BLOOD ORDERABLES Final Res ult Performing Organization Address [facility] Co de Phone Number [facility] [address] [place] [address] * Hepatitis C Antibody - ED (09/09/2023 8:36 AM EST) Hepatitis C Antibody Negative Negative 09/09/2023 10:13 AM EST [facility] Blood Venous blood specimen / Unknown Venipuncture / Unknown 09/09/2023 8:36 AM EST 09/09/2023 8:47 AM EST us Ebony Leyva MD LAB BLOOD ORDERABLES Final Res ult Performing Organization Address [facility] Co de Phone Number [facility] [address] [place] [address] * Cytology (12/22/2020 12:00 AM EDT) 12/22/2020 12/23/2020 11: 00 AM EDT Narrative COPATH - 2020 4:17 PM EDT [facility] MR #: [id number] [facility] [address] [place], [place] [address] 1995 (Age: 24) FW Collect Date: 12/22/2020 00:00 Receipt Date: 12/23/2020 11:00 Page 1 DEPARTMENT OF PATHOLOGY AND LABORATORY MEDICINE CYTOPATHOLOGY REPORT Email: [email or web address] ATTENDING MD/Practitioner: Akosua Fitzgerald Service: OBW Location: [facility] Reported: 2020 16:17 Collected: 12/22/2020 00:00 INTERPRETATION A. THIN PREP (CERVICAL/VAGINAL): NEGATIVE FOR INTRAEPITHELIAL LESION OR MALIGNANCY. SATISFACTORY FOR EVALUATION; ENDOCERVICAL/ TRANSFORMATION ZONE COMPONENT PRESENT. Slide scanned and imaged by [employer] ThinPrep Imaging System with manual review of [...] results is suggested (please call Microbiology at [phone] for results). CLINICAL INFORMATION: Menstrual History: Cyclic Date of Last Menstrual Period: 27Nov2020 Other Clinical Conditions: If ASCUS and > 24 years of age, HPV/DNA testing requested.: provider is requesting HPV testing for any abnormal pap test results SPECIMEN DESCRIPTION: A: THIN PREP (CERVICAL/VAGINAL) THIN PREP PROCESS CELLULAR ENHANCEMENT ICD: F: A; RT IMAGE [id number] SNOMED CODES: A; C1U108 [id number] In cases where a pathologist has signed out the report, the service has been rendered in part by a resident. The signing pathologist has performed and is responsible for the reported pathologic evaluation. Shasta Fitzgerald APRN, CNM LAB PATHOLOGY ORDERABLES Final Result COPATH from Last 3 Months or Most Recently Relevant to Health Maintenance Insurance [place] [address] [employer] [facility] MEDICAID Advance Directives * Full Code (Latest Code Status on File) Date Activated Date Inactivated Comments 09/09/2023 1:58 PM 09/11/2023 4:50 PM Patient has previously expressed wishes for FULL CODE in conversations with family and boyfriend, present on exam. Will reevaluate once medically appropriate Question Answer Comments Patient has decision-making capacity? No Healthcare Surrogate: Parent(s) of the patient Care Teams Valet Manager Relationship Specialty Start Date End Date Ta Christine MD [address] [facility] [place] [address] PCP - General 01/07/21
--- NOTE | 2025-02-11 10:49 | US_ITS ---
PROCEDURE: US OB FOLLOW UP CLINICAL INDICATION: Needs for SGA COMPARISON: US US OB /MATERNAL DETAIL from 12/23/2024 US US OB >= 14 WEEKS FETUS from 01/15/2025 US US OB FOLLOW UP from 01/16/2025 FINDINGS: Transabdominal sonographic images of the pelvis were obtained. The following parameters are obtained: From her established due date she is 28weeks 1day Viable fetus in the breech presentation with an anterior placenta grade 1. There appears to be a posterior accessory lobe close to the cervix or possible small contraction during the exam. Would suggest follow-up in 4 weeks. The cervix measures 3.92 cm heart rate: 132bpm bpm. Average ultrasound age 28 weeks 5 days Estimated weight 1,212 grams, 2 lb 11 oz BPD: 29weeks 0 days, 66 percentile HC: 29weeks 0 days, 42 percent AC: 28weeks 5days, 57 percentile FL: 27weeks 5days, 22 percentile HC/AC: 1.09 FL/BPD: 0.72 FL/AC: 0.21 Growth percentile: 45 Amniotic fluid index: 20.99cm, MVP 8.02 cm. SD ratio normal 2.51-2.62 No obvious anomalies evident. profile seen, stomach, bladder, kidneys, three-vessel cord, four chamber heart appear normal. IMPRESSION: 1. Viable fetus in the breech presentation with an anterior placenta grade 1. There appears to be a small contraction posteriorly that could be also an accessory lobe. Would suggest follow-up in 4 weeks time to look at this. 2. Fluid is within normal limits with an amniotic fluid index 20.99 cm, MVP 8.02 cm. The MVP would be indicative of mild polyhydramnios. 3. There has been good interval growth with the fetus currently 45th percentile. 4. SD ratio is normal at 2.5 1-2.62. 5. Limited anatomical scan appears normal. Dictated by: Daniel Gonzáles MD 02/11/2025 12:50 Daniel Gonzáles MD in OV 02/11/2025 12:50
== END 2025-02-11 23:59 | disposition home or self-care (01) ==
LOC: RAD 10:28
PROVIDERS: PCP Obstetrics & Gynecology; Visit Provider Obstetrics & Gynecology
DX: O36.5930 Maternal care for other known or suspected poor fetal growth, third trimester, not applicable or unspecified (principal); O32.1XX0 Maternal care for breech presentation, not applicable or unspecified; O28.3 Abnormal ultrasonic finding on antenatal screening of mother; Z3A.28 28 weeks gestation of pregnancy; Z14.8 Genetic carrier of other disease; Z13.71 Encounter for nonprocreative screening for genetic disease carrier status
CPT/HCPCS: 76816; 76820

== ENCOUNTER 2025-03-12 07:42 | Outpatient (CLI) | payer MEDICAID, SELFPAY ==
--- OUTSIDE RECORDS SUMMARY | 2025-03-12 07:45 | XMS_ITS | Clinical Summary ---
Author Organization Healthcare Address [address] [place] [address] Care Team Providers Care Windmill Mechanic Name Role Phone Ta Christine MD Primary Care Provider [phone] Allergies Active Allergy Reactions Criticality Noted Date [...] by substance overdose, initial encounter 09/09/2023 09/11/2023 Encounters Date Type Department Care Team Description 02/23/2025 Travel from Last 3 Months Family History Medical History Relation Name Comments [...] week 09/11/2023 How often do you attend [facility] or anabaptist services? Never 09/11/2023 Do you belong to any clubs o r organizations such as sikh groups, unions, fraternal or athletic groups, or [...] Recorded Patient Health Questionnaire-2 Score 0 11/09/2023 [facility] ional Health - Occupational Stress Questionnaire Answer [...] place to sleep or slept in a chcf (including now)? No 09/11/2023 PHQ-9 Answer Date Recorded Patient Health Questionnaire-9 Score 09/14/2023 CAGE ASSESSMENT Answer Date Recorded Due to the following: Medical status 09/09/2023 Cage max number of drinks Not on file 2023 Cage Beverages a week Not on file 09/09/2023 Cage Questionnaire cut down Not on file 08/27 Cage questionnaire annoyed Not on file 09/09 Cage questionnaire guilty Not on file 2023 Cage questionnaire eye machine brush maker Not on file Cage Overall score Not [...] Health Maintenance Due Date Last Done Comments [facility]-/Child/Adol SDOH Screenings 01/01/1996 [facility]-Varicella Vaccines (2 of 2 - 2-dose childhood series) 04/17/2007 01/23/2007 HPV Vaccines (2 - 2-dose series) 07/26/2007 01/23/2007 [facility]- SDOH Screenings 12/30/2013 [facility]-Adult SDOH Screenings 12/30/2013 [facility]-Hepatitis B Vaccines (1 of 3 - 19+ 3-dose series) 12/30/2014 [facility]-DTaP,Tdap,and Td Vaccines (3 - Td or Tdap) 01/23/2017 01/23/2007, 04/02/1997 [facility]-Pap Smear 12/23/2023 12/22/2020 [id number] Vaccine ( - season) 2024 [facility]-Depression Screening 11/08/2024 024, 09/14/2023 [facility]-Influenza Vaccine (#1) 2025 [facility]-Zoster Vaccines (1 of 2) 12/30/2045 [...] Non Reactive 09/09/2023 10:18 AM EST [facility] Comment:Screening for HIV 1 & 2 antibodies, and P24 antigen is NONREACTIVE. No confirmatory testing is required. Blood Venous blood specimen / Unknown Venipuncture / Unknown 09/09/2023 8:36 AM EST 09/09/2023 8:47 AM EST us Ebony Leyva MD LAB BLOOD ORDERABLES Final Res ult [facility] [address] [place] [address] * Hepatitis C Antibody - ED (09/09/2023 8:36 AM EST) Hepatitis C Antibody Negative Negative 09/09/2023 10:13 AM EST [facility] Blood Venous blood specimen / Unknown Venipuncture / Unknown 09/09/2023 8:36 AM EST 09/09/2023 8:47 AM EST us Ebony Leyva MD LAB BLOOD ORDERABLES Final Res ult [facility] [address] [place] [address] * Cytology (12/22/2020 12:00 AM EDT) 12/22/2020 12/23/2020 11: 00 AM EDT Narrative COPATH - 2020 4:17 PM EDT [facility] MR #: [id number] [facility] [address] [place], [place] [address] 1995 (Age: 24) FW Collect Date: 12/22/2020 00:00 Receipt Date: 12/23/2020 11:00 Page 1 DEPARTMENT OF PATHOLOGY AND LABORATORY MEDICINE CYTOPATHOLOGY REPORT Email: [email or web address] ATTENDING MD/Practitioner: Akosua Fitzgerald Service: OBW Location: [facility] Reported: 2020 16:17 Collected: 12/22/2020 00:00 INTERPRETATION A. THIN PREP (CERVICAL/VAGINAL): NEGATIVE FOR INTRAEPITHELIAL LESION OR MALIGNANCY. SATISFACTORY FOR EVALUATION; ENDOCERVICAL/ TRANSFORMATION ZONE COMPONENT PRESENT. Slide scanned and imaged by [employer] ThinPrep Imaging System with manual review of [...] results is suggested (please call Microbiology at [phone] for results). CLINICAL INFORMATION: Menstrual History: Cyclic Date of Last Menstrual Period: 27Nov2020 Other Clinical Conditions: If ASCUS and > 24 years of age, HPV/DNA testing requested.: provider is requesting HPV testing for any abnormal pap test results SPECIMEN DESCRIPTION: A: THIN PREP (CERVICAL/VAGINAL) THIN PREP PROCESS CELLULAR ENHANCEMENT ICD: F: A; RT IMAGE [id number] SNOMED CODES: A; K1N536 [id number] In cases where a pathologist has signed out the report, the service has been rendered in part by a resident. The signing pathologist has performed and is responsible for the reported pathologic evaluation. Shasta Fitzgerald APRN, CNM LAB PATHOLOGY ORDERABLES Final Result COPATH from Last 3 Months or Most Recently Relevant to Health Maintenance Insurance [facility] [employer] [facility] MEDICAID Advance Directives * Full Code (Latest Code Status on File) Date Activated Date Inactivated Comments 09/09/2023 1:58 PM 09/11/2023 4:50 PM Patient has previously expressed wishes for FULL CODE in conversations with family and boyfriend, present on exam. Will reevaluate once medically appropriate Question Answer Comments Patient has decision-making capacity? No Healthcare Surrogate: Parent(s) of the patient Care Teams Windmill Mechanic Relationship Specialty Start Date End Date Ta Christine MD [address] [place] [address] PCP - General 01/07/21
--- OUTSIDE RECORDS SUMMARY | 2025-03-12 07:45 | XMS_ITS | Encounter Summary ---
Author Organization Healthcare Address [address] [place] [address] Care Team Providers Care Wood Turner Name Role Phone Ta Christine MD Primary Care Provider [phone] Encounter Details Date Type Department Care Team (Latest Contact Info) Description 02/23/2025 Travel Social History Tobacco Use Types Packs/Day Years Used Date Smoking Tobacco: Never Smokeless Tobacco: Never Alcohol Use Standard Drinks/Week Comments Yes 2 [...] week 09/11/2023 How often do you attend [facility] or pentecostal services? Never 09/11/2023 Do you belong to any clubs o r organizations such as scientology groups, unions, fraternal or athletic groups, or [...] Recorded Patient Health Questionnaire-2 Score 0 11/09/2023 [facility] - Occupational [...] place to sleep or slept in a snf (including now)? No 09/11/2023 PHQ-9 Answer Date [...] Not on file 2023 Cage questionnaire eye realty specialist Not on file Cage Overall score [...] on file Sexual Orientation Not on file documented as of this encounter Plan of Treatment Not on file documented as of this encounter Visit Diagnoses Not on filedocumented in this encounter Additional Health Concerns Assessment Noted Time PHQ-9 Depression Total Score: 23 024 9:50 AM EST A fall risk assessment has been complete d for the patient 11/09/2023 3:55 PM EDT A Body Mass Index follow-up plan has been documented for the patient 11/09/2023 5:17 PM EDT documented as of this encounter Care Teams Wood Turner Relationship Specialty Start Date End Date Ta Christine MD [address] [place], [place] [address] PCP - General 01/07/21 documented as of this encounter
--- NOTE | 2025-03-12 08:00 | US_ITS ---
PROCEDURE: US OB BIOPHYSICAL PROFILE CLINICAL INDICATION: GDM COMPARISON: US US OB /MATERNAL DETAIL from 12/23/2024 US US OB >= 14 WEEKS FETUS from 01/15/2025 US US OB FOLLOW UP from 01/16/2025 US US OB FOLLOW UP from 02/11/2025 FINDINGS: Transabdominal sonographic images of the uterus were obtained. From her established due date she is 32weeks 2days. The following parameters are obtained: NORMAL LIMITS Viable Fetus in the cephalic initially then breech presentation with an anterior placenta grade 2. Average ultrasound age is 33weeks 4days Estimated weight 2,101g, 4 lb 10 oz The cervix measures 4.87 cm. Measurements: heart Rate = 132bpm BPD = 33weeks 0 days, 63 percentile HC = 35weeks 6days, 94 percentile AC = 33weeks 4day, 81 percentile FL = 31weeks 3days, 15 percentile HC/AC is 1.08 FL/BPD is 0.73 FL/AC is 0.2 64 percentile Amniotic fluid index: 10.14cm, MVP 3.88 cm Qualitative AFV:2 Breathing movements: 2 Gross Body Movements: 2 Tone: 2 Biophysical profile score: 8 No obvious anomalies evident.Kidneys, stomach, bladder, four-chamber heart, three-vessel cord appear normal. IMPRESSION: 1. Viable fetus initially in the cephalic presentation then turned BREECH presentation with an anterior placenta grade 2. 2. The fluid is within normal limits with an amniotic fluid index 10.14 cm, MVP 3.88 cm. 3. Biophysical profile is 8/8 with good breathing movement and movement seen. 4. There has been good interval growth with the fetus currently 64th percentile. 5. Limited anatomical scan appears normal. Dictated by: Daniel Gonzáles MD 03/12/2025 11:49 Daniel Gonzáles MD in [facility] 03/12/2025 11:49
== END 2025-03-12 23:59 | disposition home or self-care (01) ==
LOC: RAD 07:42
PROVIDERS: PCP Obstetrics & Gynecology; Visit Provider Obstetrics & Gynecology
DX: O32.1XX0 Maternal care for breech presentation, not applicable or unspecified (principal); O24.419 Gestational diabetes mellitus in pregnancy, unspecified control; Z3A.32 32 weeks gestation of pregnancy
CPT/HCPCS: 76816; 76819

== ENCOUNTER 2025-03-20 12:48 | Outpatient (CLI) | payer MEDICAID, SELFPAY ==
--- OUTSIDE RECORDS SUMMARY | 2025-03-20 12:50 | XMS_ITS | Clinical Summary ---
[facility] Address [address] [place] [address] Care Team Providers Care Procurement Cost Coordinator Name Role Phone Pilar Mukherjee Primary Care Provider [phone] Allergies Active Allergy Reactions Criticality Noted Date Comments Cinnamon Anaphylaxis High 10/27/2022 Hydrocodone-Acetaminophen Itching Medium 03/23/2017 Oxycodone-Acetaminophen Itching Medium 03/23/2017 Medications FLUoxetine (PROzac) 20 MG capsule Take 1 capsule by mouth Daily. 30 capsule 2 Active Additional Information Patient taking differently: 40 mgOral Daily, Reported on 11/13/2022 diazePAM (VALIUM) 2 MG tablet TAKE 1-2 BY MOUTH TWICE DAILY NEEDED 3 Active Active Problems No known active problems Immunizations Immunization Administration Dates Next Due DTP / HiB 04/02/1997 HPV Quadrivalent 01/23/2007 MMR 04/02/1997 Meningococcal MCV4P (Menactra) 01/23/2007 Tdap 01/23/2007 Varicella 01/23/2007 Family History Medical History Relation Name Comments Anxiety disorder Mother Purnima Lynn COPD Mother Purnima Lynn Depression Mother Purnima Lynn Vision loss Mother Purnima Lynn Relation Name Status Comments Mother Purnima Lynn Social History Tobacco Use Types Packs/Day Years Used Date Smoking Tobacco: Never Smokeless Tobacco: Never Tobacco Cessation:Counseling Given: Not Answered Alcohol Use Standard Drinks/Week Comments No 0 (1 standard drink = 0.6 oz pur e alcohol) PHQ-2 Answer Date Recorded Retired PHQ-9: Brief Depression Severity Measure Score 0 11/09/2021 Abuse Screen Answer Date Recorded Unsafe at Home or Work/School Not on file Feels Threatened by Someone? Not on file 06/2024 Does Anyone Keep You from Co ntacting Others or Doint Things Outside the Home? Not on file 12/06/2023 Physical Sign of Abuse Present Not on file 0 12/06/2023 Housing Stability Answer Date Recorded Current Living Arrangements Not on file 05/27 Potentially Unsafe Housing Conditions Not on antonio e 06/05/2023 Family and Community Support Answer Harinder e Recorded Help with Day-to-Day Activities Not on file 06/05/2023 Lonely or Isolated Not on file 06/05/2023 Employment Answer Date Recorded Do you want help finding or keeping work or a raymundo b? Not on file 06/05/2023 Disabilities Answer Date Recorded Concentrating, Remembering, or Making Decisions Difficulty Not on file 06/05/2023 Doing Errands Independently Difficulty Not on fi le 06/05/2023 Education Answer Date Recorded Help with school or training? Not on file Preferred Language Not on file 06/05/2023 Comments Unknown Sex and Gender Information Value Date Recorded Sex Assigned at Not on file Legal Sex Female 1:40 PM EDT Gender Identity Not on file Sexual Orientation Not on file Last Filed Vital Signs Vital Sign Reading Time Taken Comments Blood Pressure 100/80 03/28/2023 12:52 PM EDT Pulse 87 11/13/2022 2:58 PM EDT Temperature 36.6 C (97.9 F) 11/13/2022 2:58 PM EDT Respiratory Rate 18 11/13/2022 2:58 PM EDT Oxygen Saturation 99% 11/13/2022 2:58 PM EDT Inhaled Oxygen Concentration - - Weight 58.1 kg (128 lb) 03/28/2023 12:52 PM EDT Height 152.4 cm (5') 03/28/2023 12:52 PM EDT Body Mass Index 25 03/28/2023 12:52 PM EDT Plan of Treatment Health Maintenance Due Date Last Done Comments Annual Gynecologic Pelvic an d Breast Exam 1995 TDAP/TD VACCINES (2 - Td or Tdap) 01/23/2017 007 ANNUAL PHYSICAL 11/09/2022 11/09/2021 COVID-19 Vaccine (2023-2 5 season) 2024 INFLUENZA VACCINE 05/27/2025 HEPATITIS C SCREENING Completed 11/09/2021 CHLAMYDIA SCREENING Discontinued 11/13/2022 Pneumococcal Vaccine 0-49 Aged Out No longer eligible based on patient's age to complete this topic Procedures Procedure Name Priority Date/Time Associated Diagnosis Comments CHLAMYDIA TRACHOMATIS, NEISSERIA GONORRHOEAE, PCR STAT 11/13/2022 4:08 PM EDT HEPATITIS C ANTIBODY Routine 11/09/2021 10:18 AM EDT Need for hepatitis C screening test from Last 3 Months or Most Recently Relevant to Health Maintenance Results * Chlamydia trachomatis, Neisseria gonorrhoeae, PCR - Swab, Cervix (11/13/2022 4:08 PM EDT) Chlamydia trachomatis, BRIANNA Negative Negative 11/14/2022 11:07 PM EDT [facility] Neisseria gonorrhoeae, BRIANNA Negative Negative 11/14/2022 11:07 PM EDT [facility] Swab Cervix uteri structure / Unknown Collection / Unknown 11/13/2022 4:08 PM EDT 11/13/2022 4:14 PM EDT [facility] 11/14/2022 11:07 PM EDT Performed at: [address] [place] [id number] Shotweld Operator: Pallavi Resendiz MD, Phone: [phone] us Cong [facility]CROBI[facility] - GENERAL OR DERABLES Final Result [facility] [address] [place] [address], * Hepatitis C Antibody (11/09/2021 10:18 AM EDT) Hepatitis C Ab Non-Reacti ve Non-Reacti ve 11/09/2021 8:06 PM EDT [facility] Blood Venipuncture / Unknown 11/09/2021 10:18 AM EDT 11/09/2021 10:18 AM EDT Narrative [facility] - 11/09/2021 8:06 PM EDT Results may be falsely decreased if patient taking Biotin. Faustina Wren MD LAB BLOOD ORDERABLES Final Result [facility]
[address] [place] [address], from Last 3 Months or Most Recently Relevant to Health Maintenance Insurance MEDICAID PENDING on file Care Teams Procurement Cost Coordinator Relationship Specialty Start Date End Date Pilar Mukherjee PA PCP - General Physician Plumbing Assembler Installer 10/27/22
--- OUTSIDE RECORDS SUMMARY | 2025-03-20 12:50 | XMS_ITS | Encounter Summary ---
Author Organization Healthcare Address [address] [place] [address] Care Team Providers Care Nut Grinder Name Role Phone Ta Christine MD Primary Care Provider [phone] Encounter Details Date Type Department Care Team [...] week 09/11/2023 How often do you attend [facility] or judaism services? Never 09/11/2023 Do you belong to [...] Recorded Patient Health Questionnaire-2 Score 0 11/09/2023 [facility] - Occupational Stress [...] place to sleep or slept in a fdc (including now)? 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 [place], [place] [address] PCP - General 01/07/21 documented as of this encounter
--- OUTSIDE RECORDS SUMMARY | 2025-03-20 12:50 | XMS_ITS | Clinical Summary ---
Author Organization Healthcare Address [address] [place] [address] Care Team Providers Care Keeper Head Name Role Phone Ta Christine MD Primary Care Provider [phone] Allergies Active Allergy Reactions Criticality Noted Date [...] week 09/11/2023 How often do you attend [facility] or oriental orthodox services? Never 09/11/2023 Do you belong to any clubs o r organizations such as nondenominational groups, unions, fraternal or athletic groups, or [...] Recorded Patient Health Questionnaire-2 Score 0 11/09/2023 [facility] - Occupational [...] place to sleep or slept in a half-way (including now)? 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 No confirmatory testing is required. Blood Venous blood specimen / Unknown Venipuncture / Unknown 09/09/2023 8:36 AM EST 09/09/2023 8:47 AM EST us Ebony Leyva MD LAB BLOOD ORDERABLES Final Res ult [facility] [address] [place] [address] * Hepatitis C Antibody - ED (09/09/2023 8:36 AM EST) Hepatitis C Antibody Negative Negative 09/09/2023 10:13 AM EST [facility] Blood Venous blood specimen / Unknown Venipuncture / Unknown 09/09/2023 8:36 AM EST 09/09/2023 8:47 AM EST us Ebony Leyva MD LAB BLOOD ORDERABLES Final Res ult [facility] [address] [place] [address] * Cytology (12/22/2020 12:00 AM EDT) 12/22/2020 12/23/2020 11: 00 AM EDT Narrative [facility] - 2020 4:17 PM EDT [facility] MR #: [id number] [facility] [address] [place], [place] [address] 1995 (Age: 24) FW Collect Date: 12/22/2020 00:00 Receipt Date: 12/23/2020 11:00 Page 1 DEPARTMENT OF PATHOLOGY AND LABORATORY MEDICINE CYTOPATHOLOGY REPORT Email: [email or web address] ATTENDING MD/Practitioner: Akosua Fitzgerald Service: OBW Location: [facility] Reported: 2020 16:17 Collected: 12/22/2020 00:00 INTERPRETATION A. THIN PREP (CERVICAL/VAGINAL): NEGATIVE FOR INTRAEPITHELIAL LESION OR MALIGNANCY. SATISFACTORY FOR EVALUATION; ENDOCERVICAL/ TRANSFORMATION ZONE COMPONENT PRESENT. Slide scanned and imaged by [employer] ThinPrep Imaging System with manual review of [...] results is suggested (please call Microbiology at [phone] for results). CLINICAL INFORMATION: Menstrual History: Cyclic Date of Last Menstrual Period: 27Nov2020 Other Clinical Conditions: If ASCUS and > 24 years of age, HPV/DNA testing requested.: provider is requesting HPV testing for any abnormal pap test results SPECIMEN DESCRIPTION: A: THIN PREP (CERVICAL/VAGINAL) THIN PREP PROCESS CELLULAR ENHANCEMENT ICD: F: A; RT IMAGE [id number] SNOMED CODES: A; [id number] In cases where a pathologist has signed out the report, the service has been rendered in part by a resident. The signing pathologist has performed and is responsible for the reported pathologic evaluation. Shasta Fitzgerald APRN, CNM LAB PATHOLOGY ORDERABLES Final Result [facility] from Last 3 Months or Most Recently Relevant to Health Maintenance Insurance [facility] [employer] [facility] MEDICAID Advance Directives * Full Code (Latest Code Status on File) Date Activated Date Inactivated Comments 09/09/2023 1:58 PM 09/11/2023 4:50 PM Patient has previously expressed wishes for FULL CODE in conversations with family and boyfriend, present on exam. Will reevaluate once medically appropriate Question Answer Comments Patient has decision-making capacity? No Healthcare Surrogate: Parent(s) of the patient Care Teams Keeper Head Relationship Specialty Start Date End Date Ta Christine MD [address] [place] [address] PCP - General 01/07/21
--- OUTSIDE RECORDS SUMMARY | 2025-03-20 12:50 | XMS_ITS | Encounter Summary ---
[facility] Address [address] [place] [address] Care Team Providers Care Mortgage Loan Closer Name Role Phone Pilar Mukherjee Primary Care Provider [phone] Reason for Visit * Reason Comments Med Refill Encounter Details Date Type Department Care Team (Late st Contact Info) Description 05/08/2022 Refill [facility] [address] [place] [id number] Faustina Wren MD Social History Tobacco Use Types Packs/Day Years Used Date Smoking Tobacco: Never Smokeless Tobacco: Never Alcohol Use Standard Drinks/Week Comments No 0 (1 standard drink = 0.6 oz pur e alcohol) PHQ-2 Answer Date Recorded Retired PHQ-9: Brief Depression Severity Measure Score 0 11/09/2021 Comments No Sex and Gender Information Value Date Recorded Sex Assigned at Not on file Legal Sex Female 1:40 PM EDT Gender Identity Not on file Sexual Orientation Not on file documented as of this encounter Plan of Treatment Not on file documented as of this encounter Visit Diagnoses Not on filedocumented in this encounter Care Teams Mortgage Loan Closer Relationship Specialty Start Date End Date Pilar Mukherjee PA PCP - General Physician Statistician 10/27/22 documented as of this encounter
--- NOTE | 2025-03-20 13:00 | US_ITS ---
PROCEDURE: US OB BIOPHYSICAL PROFILE CLINICAL INDICATION: Needs for GDM class A2 COMPARISON: US US OB /MATERNAL DETAIL from 12/23/2024 US US OB >= 14 WEEKS FETUS from 01/15/2025 US OB FOLLOW UP from 01/16/2025 US OB FOLLOW UP from 02/11/2025 US OB BIOPHYSICAL PROFILE from 03/12/2025 FINDINGS: Transabdominal sonographic images of the uterus were obtained. From her established due date she is 33weeks 3days. The following parameters are obtained: Viable Fetus in the breech presentation with an anterior placenta grade 2. The cervix measures 4.4 cm. Measurements: heart Rate = 138bpm Amniotic fluid index: 19.29cm, MVP 6.14 cm Qualitative AFV:2 Breathing movements: 2 Gross Body Movements: 2 Tone: 2 Biophysical profile score: 8 No obvious anomalies evident.Kidneys, face, nose and lips, bladder, stomach, four-chamber heart, three-vessel cord appear normal. IMPRESSION: 1. Viable fetus in the BREECH presentation with anterior placenta grade 2. 2. The fluid is within normal limits with an amniotic fluid index 19.29 cm, MVP 6.14 cm. 3. Biophysical profile is 8/8 with good breathing movement and movement seen. 4. Limited anatomical scan appears normal. Dictated by: Daniel Gonzáles MD 03/20/2025 17:22 Daniel Gonzáles MD in OV 03/20/2025 17:22
== END 2025-03-20 23:59 | disposition home or self-care (01) ==
LOC: RAD 12:48
PROVIDERS: PCP Obstetrics & Gynecology; Visit Provider Obstetrics & Gynecology
DX: O24.419 Gestational diabetes mellitus in pregnancy, unspecified control (principal); O32.1XX0 Maternal care for breech presentation, not applicable or unspecified; Z3A.33 33 weeks gestation of pregnancy
CPT/HCPCS: 76819

== ENCOUNTER 2025-03-23 10:32 | Outpatient (CLI) | payer MEDICAID, SELFPAY ==
--- OUTSIDE RECORDS SUMMARY | 2025-03-23 10:52 | XMS_ITS | Clinical Summary ---
Author Organization Healthcare Address [address] [place] [address] Care Team Providers Care Life Skills Specialist Name Role Phone Ta Christine MD Primary Care Provider [phone] Allergies Active Allergy Reactions Criticality Noted Date [...] week 09/11/2023 How often do you attend [facility] or rastafari services? Never 09/11/2023 Do you belong to any clubs o r organizations such as pentecostalism groups, unions, fraternal or athletic groups, or [...] place to sleep or slept in a group home (including now)? 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 Comment:Screening for HIV 1 & 2 antibodies, and P24 antigen is NONREACTIVE. No confirmatory testing is required. Blood Venous blood specimen / Unknown Venipuncture / Unknown 09/09/2023 8:36 AM EST 09/09/2023 8:47 AM EST us Ebony Leyva MD LAB BLOOD ORDERABLES Final Res ult [facility] [address] [place] [address] * Hepatitis C Antibody - ED (09/09/2023 8:36 AM EST) Hepatitis C Antibody Negative Negative 09/09/2023 10:13 AM EST [facility] Blood Venous blood specimen / Unknown Venipuncture / Unknown 09/09/2023 8:36 AM EST 09/09/2023 8:47 AM EST us Ebony Leyva MD LAB BLOOD ORDERABLES Final Res ult [facility] [address] [place] [address] * Cytology (12/22/2020 12:00 AM EDT) 12/22/2020 12/23/2020 11: 00 AM EDT Narrative COPATH - 2020 4:17 PM EDT [facility] MR #: [id number] [facility] [address] [place], [place] [address] 1995 (Age: 24) FW Collect Date: 12/22/2020 00:00 Receipt Date: 12/23/2020 11:00 Page 1 DEPARTMENT OF PATHOLOGY AND LABORATORY MEDICINE CYTOPATHOLOGY REPORT Email: [email or web address] ATTENDING MD/Practitioner: Akosua Fitzgerald Service: OBW Location: [facility] Reported: 2020 16:17 Collected: 12/22/2020 00:00 INTERPRETATION A. THIN PREP (CERVICAL/VAGINAL): NEGATIVE FOR INTRAEPITHELIAL LESION OR MALIGNANCY. SATISFACTORY FOR EVALUATION; ENDOCERVICAL/ TRANSFORMATION ZONE COMPONENT PRESENT. Slide scanned and imaged by [employer] ThinPrep Imaging System with manual review of [...] results is suggested (please call Microbiology at [phone] for results). CLINICAL INFORMATION: Menstrual History: Cyclic Date of Last Menstrual Period: 27Nov2020 Other Clinical Conditions: If ASCUS and > 24 years of age, HPV/DNA testing requested.: provider is requesting HPV testing for any abnormal pap test results SPECIMEN DESCRIPTION: A: THIN PREP (CERVICAL/VAGINAL) THIN PREP PROCESS CELLULAR ENHANCEMENT ICD: F: A; RT IMAGE [id number] SNOMED CODES: A; [id number] In cases where a pathologist has signed out the report, the service has been rendered in part by a resident. The signing pathologist has performed and is responsible for the reported pathologic evaluation. Shasta Fitzgerald APRN, CNM LAB PATHOLOGY ORDERABLES Final Result [facility] from Last 3 Months or Most Recently Relevant to Health Maintenance Insurance [facility] [employer] [facility] MEDICAID Advance Directives * Full Code (Latest Code Status on File) Date Activated Date Inactivated Comments 09/09/2023 1:58 PM 09/11/2023 4:50 PM Patient has previously expressed wishes for FULL CODE in conversations with family and boyfriend, present on exam. Will reevaluate once medically appropriate Question Answer Comments Patient has decision-making capacity? No Healthcare Surrogate: Parent(s) of the patient Care Teams Life Skills Specialist Relationship Specialty Start Date End Date Ta Christine MD [address] [place] [address] PCP - General 01/07/21
--- OUTSIDE RECORDS SUMMARY | 2025-03-23 10:52 | XMS_ITS | Encounter Summary ---
Author Organization Healthcare Address [address] [place] [address] Care Team Providers Care Art Historian Name Role Phone Ta Christine MD Primary Care Provider [phone] Encounter Details Date Type Department Care Team [...] week 09/11/2023 How often do you attend [facility] or judaism services? Never 09/11/2023 Do you belong to any clubs o r organizations such as mormon groups, unions, fraternal or athletic groups, or [...] Recorded Patient Health Questionnaire-2 Score 0 11/09/2023 [facility] - Occupational [...] place to sleep or slept in a fci (including now)? 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 [place], [place] [address] PCP - General 01/07/21 documented as of this encounter
[2025-03-23 11:07] LABS: POC Glucose,Bedside 111 (70-110)
[2025-03-23 11:18] LABS: Hematocrit 35.7 % (37.0-47.0); Hemoglobin 12.1 g/dL (12.2-16.2); Immature Granulocytes % 1.2 %; Mean Corpuscular HGB Conc 33.9 g/dL (31.8-35.4); Mean Corpuscular Hemoglobin 31.4 pg (27.0-31.2); Mean Corpuscular Volume 92.7 fl (81-99); Nucleated Red Blood Cells % 0 %; Platelet Count 211 K/mm3 (142-424); Red Blood Count 3.85 M/mm3 (4.20-5.40); Red Cell Distribution Width-SD 43.7 fL; White Blood Count 9.2 K/mm3 (4.8-10.8)
[2025-03-23 11:42] LABS: Alanine Aminotransferase 23 U/L (12-78); Albumin Level 3.1 g/dl (3.5-5.0); Albumin/Globulin Ratio 1.3 (1.1-1.8); Alkaline Phosphatase 129 U/L (38-126); Anion Gap 11.4 mEq/L (5-15); Aspartate Amino Transferase 23 U/L (14-36); Bilirubin,Total 0.3 mg/dl (0.2-1.3); Blood Urea Nitrogen 4 mg/dl (7-17); Calcium 9.1 mg/dl (8.4-10.2); Carbon Dioxide 23 mmol/L (22.0-30.0); Chloride 106 mmol/L (98-107); Creatinine,Serum 0.50 mg/dl (0.52-1.04); Estimated Glomerular Filt Rate 146 ml/min (>60); GFR (African American) 177 ML/MIN (>60); Globulin 2.3 g/dL (1.3-3.2); Glucose 101 mg/dl (74-100); Potassium 3.4 mmoL/L (3.5-5.1); Sodium 137 mmol/L (136-145); Total Protein,Serum 5.4 g/dl (6.3-8.2); Uric Acid 4.2 mg/dl (2.5-6.2)
[2025-03-23 11:51] LABS: Activated Partial Thrombo Time 21.8 seconds (22.8-30.6); Fibrinogen 423 mg/dL (229.9-363.5); INR 0.92 (0.9-1.1); Prothrombin Time 10.3 seconds (10.1-12.5)
== END 2025-03-23 23:59 | disposition home or self-care (01) ==
LOC: LAB 10:33
PROVIDERS: Visit Provider Nurse Practitioner Obstetrics & Gynecology
DX: O24.419 Gestational diabetes mellitus in pregnancy, unspecified control (principal); O21.9 Vomiting of pregnancy, unspecified; Z14.8 Genetic carrier of other disease
CPT/HCPCS: 36415; 80053; 82962; 84550; 85025; 85384; 85610; 85730

== ENCOUNTER 2025-03-23 10:46 | Emergency (ER) | payer MEDICAID, SELFPAY ==
--- NOTE | 2025-03-23 10:49 | ECG_ITS ---
APPROVED REPORT Exam: Resting ECG HR:118 bpm ECG Measurements Heart Rate 118 AXES WY 132 P 65 QRSd 77 QRS 90 QT 340 T -13 QTc 410 Conclusion SINUS TACHYCARDIA NONSPECIFIC ST & T-WAVE ABNORMALITY ABNORMAL ECG UNCONFIRMED REPORT Electronically signed by : STEFANY WALLACE, 03/25/2025 05:58:28
[2025-03-23 11:03] VITALS: BP 131/78; PULSE 118; RESP 14; TEMP 36.9; O2SAT 99; BMI 28.9
[2025-03-23 11:15] LABS: Hematocrit 34.3 % (37.0-47.0); Hemoglobin 12.0 g/dL (12.2-16.2); Immature Granulocytes % 1.4 %; Mean Corpuscular HGB Conc 35.0 g/dL (31.8-35.4); Mean Corpuscular Hemoglobin 32.3 pg (27.0-31.2); Mean Corpuscular Volume 92.5 fl (81-99); Nucleated Red Blood Cells % 0 %; Platelet Count 210 K/mm3 (142-424); Red Blood Count 3.71 M/mm3 (4.20-5.40); Red Cell Distribution Width-SD 42.5 fL; White Blood Count 9.3 K/mm3 (4.8-10.8)
[2025-03-23 11:19] LABS: Alanine Aminotransferase 24 U/L (12-78); Albumin Level 3.2 g/dl (3.5-5.0); Albumin/Globulin Ratio 1.2 (1.1-1.8); Alkaline Phosphatase 122 U/L (38-126); Anion Gap 10.4 mEq/L (5-15); Aspartate Amino Transferase 27 U/L (14-36); Bilirubin,Total 0.3 mg/dl (0.2-1.3); Blood Urea Nitrogen 4 mg/dl (7-17); Calcium 9.0 mg/dl (8.4-10.2); Carbon Dioxide 21 mmol/L (22.0-30.0); Chloride 108 mmol/L (98-107); Creatinine,Serum 0.50 mg/dl (0.52-1.04); Estimated Glomerular Filt Rate 146 ml/min (>60); GFR (African American) 177 ML/MIN (>60); Globulin 2.7 g/dL (1.3-3.2); Glucose 112 mg/dl (74-100); Potassium 3.4 mmoL/L (3.5-5.1); Sodium 136 mmol/L (136-145); Total Protein,Serum 5.9 g/dl (6.3-8.2)
[2025-03-23 11:26] LABS: D-Dimer 0.95 ug/mL (0.0-0.5)
--- OUTSIDE RECORDS SUMMARY | 2025-03-23 11:27 | XMS_ITS | Clinical Summary ---
Author Organization Healthcare Address [address] [place] [address] Care Team Providers Care Learning And Development Coordinator Name Role Phone Ta Christine MD Primary Care Provider [phone] Allergies Active Allergy Reactions Criticality Noted Date [...] week 09/11/2023 How often do you attend [facility] or restorationist services? Never 09/11/2023 Do you belong to any clubs o r organizations such as congregational groups, unions, fraternal or athletic groups, or [...] Recorded Patient Health Questionnaire-2 Score 0 11/09/2023 [facility] - [...] place to sleep or slept in a usp (including now)? 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 No confirmatory testing is required. Blood Venous blood specimen / Unknown Venipuncture / Unknown 09/09/2023 8:36 AM EST 09/09/2023 8:47 AM EST us Ebony Leyva MD LAB BLOOD ORDERABLES Final Res ult [facility] [address] [place] [address] * Hepatitis C Antibody - ED (09/09/2023 8:36 AM EST) Hepatitis C Antibody Negative Negative 09/09/2023 10:13 AM EST [facility] Blood Venous blood specimen / Unknown Venipuncture / Unknown 09/09/2023 8:36 AM EST 09/09/2023 8:47 AM EST us Ebony Leyva MD LAB BLOOD ORDERABLES Final Res ult [facility] [address] [place] [address] * Cytology (12/22/2020 12:00 AM EDT) 12/22/2020 12/23/2020 11: 00 AM EDT Narrative COPATH - 2020 4:17 PM EDT [facility] MR #: [id number] [facility] [address] [place], [place] [address] 1995 (Age: 24) FW Collect Date: 12/22/2020 00:00 Receipt Date: 12/23/2020 11:00 Page 1 DEPARTMENT OF PATHOLOGY AND LABORATORY MEDICINE CYTOPATHOLOGY REPORT Email: [email or web address] [phone] ATTENDING MD/Practitioner: Akosua Fitzgerald Service: [facility] Location: [facility] Reported: 2020 16:17 Collected: 12/22/2020 00:00 INTERPRETATION A. THIN PREP (CERVICAL/VAGINAL): NEGATIVE FOR INTRAEPITHELIAL LESION OR MALIGNANCY. SATISFACTORY FOR EVALUATION; ENDOCERVICAL/ TRANSFORMATION ZONE COMPONENT PRESENT. Slide scanned and imaged by [employer] ThinPrep Imaging System with manual review of [...] results is suggested (please call Microbiology at [phone] for results). CLINICAL INFORMATION: Menstrual History: Cyclic Date of Last Menstrual Period: 27Nov2020 Other Clinical Conditions: If ASCUS and > 24 years of age, HPV/DNA testing requested.: provider is requesting HPV testing for any abnormal pap test results SPECIMEN DESCRIPTION: A: THIN PREP (CERVICAL/VAGINAL) THIN PREP PROCESS CELLULAR ENHANCEMENT ICD: F: A; RT IMAGE [id number] SNOMED CODES: A; [id number] In cases where a pathologist has signed out the report, the service has been rendered in part by a resident. The signing pathologist has performed and is responsible for the reported pathologic evaluation. Shasta Fitzgerald APRN, CNM LAB PATHOLOGY ORDERABLES Final Result COPATH from Last 3 Months or Most Recently Relevant to Health Maintenance Insurance [facility] [employer] [facility] MEDICAID Advance Directives * Full Code (Latest Code Status on File) Date Activated Date Inactivated Comments 09/09/2023 1:58 PM 09/11/2023 4:50 PM Patient has previously expressed wishes for FULL CODE in conversations with family and boyfriend, present on exam. Will reevaluate once medically appropriate Question Answer Comments Patient has decision-making capacity? No Healthcare Surrogate: Parent(s) of the patient Care Teams Learning And Development Coordinator Relationship Specialty Start Date End Date Ta Christine MD [address] [place] [address] PCP - General 01/07/21
--- OUTSIDE RECORDS SUMMARY | 2025-03-23 11:27 | XMS_ITS | Encounter Summary ---
Author Organization Healthcare Address [address] [place] [address] Care Team Providers Care Business Resiliency Manager Name Role Phone Ta Christine MD Primary Care Provider [phone] Encounter Details Date Type Department Care Team [...] you attend [facility] or tenriism services? Never 09/11/2023 Do you belong to any clubs o r organizations such as anabaptist groups, unions, fraternal or athletic groups, or [...] Questionnaire-2 Score 0 11/09/2023 [facility] Occup[facility] ional Health - Occupational Stress [...] place to sleep or slept in a detention (including now)? 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 [place], [place] [address] PCP - General 01/07/21 documented as of this encounter
[2025-03-23 11:29] LABS: Magnesium 1.4 mg/dl (1.6-2.3)
[2025-03-23 11:30] VITALS: BP 107/64; PULSE 113; O2SAT 96
[2025-03-23 11:31] LABS: Troponin I < 0.01 ng/ml (0.00-0.034)
[2025-03-23 11:37] LABS: Coronavirus 19, PCR Not Detected (NotDetected); Influenza A, PCR Not Detected (NotDetected); Influenza B, PCR Not Detected (NotDetected)
[2025-03-23 11:41] LABS: Lipase 74 U/L (23-300)
[2025-03-23 11:47] LABS: T4 (Thyroxine) 11.3 ug/dl (5.53-11.0)
[2025-03-23] MEDS: SODIUM CHLORIDE 0.9% 10ML VIAL 8 ML IV (11:51)
[2025-03-23] MEDS: FAMOTIDINE 20MG/2ML VIAL 20 MG IV (11:51)
[2025-03-23] MEDS: ACETAMINOPHEN 1,000MG/100ML VIAL 1000 MG IV (11:51)
[2025-03-23] MEDS: LACTATED RINGERS 1000ML 1,000 ML 999 ML IV (11:52)
[2025-03-23] MEDS: ONDANSETRON 4MG/2ML VIAL 4 MG IV (11:52)
[2025-03-23 12:01] LABS: Thyroid Stimulating Hormone 2.75 uIU/mL (0.465-4.68)
--- NOTE | 2025-03-23 12:28 | HMH.EDGENADL ---
Discharge Plan Disposition Patient Disposition: Xfer Other Condition: Good Prescriptions Prescriptions: No Action ondansetron 4 mg tablet,disintegrating 4 mg PO Q8H PRN (Reason: nausea and vomiting) Qty: 30 0RF fluticasone propionate 50 mcg/actuation spray,suspension intranasal Patient Comments: TAKE 2 SPRAYS (INTRANASAL) DAILY FOR 10 DAYS ADMINISTER INTO EACH NOSTRIL (DME) lancing device with lancets [Accu-Chek Soft Dev Lancets] Kit See Rx Instructions .ROUTE .MEDSUPPLY Qty: 1 3RF Rx Instructions: 4x daily (DME) FreeStyle Lite Strips Strip See Rx Instructions .ROUTE .MEDSUPPLY Qty: 10 Patient Comments: TEST 4 TIMES A DAY Rx Instructions: As directed (DME) blood-glucose meter [FreeStyle Delton Lite] Kit See Rx Instructions .ROUTE .MEDSUPPLY Qty: 1 Patient Comments: CHECK SUGAR 4 TIMES A DAY Rx Instructions: As directed (DME) lancets [FreeStyle Lancets] 28 gauge misc See Rx Instructions .ROUTE .MEDSUPPLY Qty: 100 Patient Comments: TEST 4 TIMES A DAY Rx Instructions: As directed hydrocortisone-pramoxine [Analpram-HC] 1-1 % cream 1 applic HI QID PRN (Reason: hemorrhoids) Qty: 30 2RF promethazine 12.5 mg tablet See Rx Instructions .ROUTE .COMPLEX Qty: 30 0RF Dose Instruction: TAKE ONE TABLET BY MOUTH THREE TIMES A DAY NEEDED FOR ALLERGY SYMPTOMS Rx Instructions: TAKE ONE TABLET BY MOUTH THREE TIMES A DAY NEEDED FOR ALLERGY SYMPTOMS loratadine [Allergy Relief (loratadine)] 10 mg tablet 10 mg PO DAILY PRN (Reason: allergy symptoms) Qty: 30 3RF PNV no.95-ferrous fumarate-FA [] 28 mg iron- 800 mcg tablet 1 tab PO ONCE Qty: 30 11RF metformin [Glucophage XR] 500 mg tablet extended release 24 hr 500 mg PO BID Qty: 90 2RF Rx Instructions: take 1 tab with breakfast and 2 tabs with dinner magnesium glycinate 100 mg magnesium capsule 400 mg PO BID Qty: 60 2RF docusate sodium 100 mg capsule See Rx Instructions .ROUTE .COMPLEX Qty: 30 2RF Dose Instruction: TAKE 1 CAPSULE BY MOUTH DAILY NEEDED FOR CONSTIPATION Rx Instructions: TAKE 1 CAPSULE BY MOUTH DAILY NEEDED FOR CONSTIPATION cyclobenzaprine 5 mg tablet 5 mg PO Q8H PRN (Reason: muscle spasm) Qty: 30 1RF Referrals Follow up/Referrals: Provider,Referral, MD [Primary Care Provider, Medical] - See instructions Clinical Impressions Clinical Impression: Abdominal pain affecting , Nausea, Headache Print Language Print Language: Kuwaiti Discharge ED Provider: Alona Campos General Adult HPI General Chief complaint: Weakness Stated complaint: Chest Pain Time Seen by Provider: 03/23/25 11:06 Mode of Arrival: Wheelchair Source of Information: Patient and Spouse Description of Symptoms (Recalled from ER Triage Doc. by RN): pt c/o R sided chest pain/epigasteric/side pain, SAAB, lightheadedness, seeing black spots, shakiness, feeling flushed and nausea. pt reports this all began suddenly while at her OB appointment having an NST exam. pt is . pt is 33wk 6d . pts only complication thus far is gestational diabetes. pts FS on arrival was 111. History of Present Illness HPI narrative: This patient is a 29-year-old female G2, P1 at 33 weeks and 6 days presenting to the emergency department today for evaluation with concern for epigastric pain, right side pain, chest pain, headache, back pain, lightheadedness, and seeing black spots. This started while she was getting NST today. She states she was fine this morning before this without any concerns or complaints. She notes that she feels like everything is going wrong with shakiness, flushed feeling, nausea, lightheadedness, and the pain everywhere. She denies any known medical problems aside from gestational diabetes. She denies any recent traumatic injury. She states that out of all the symptoms, the most bothersome right now is right sided flank/abdominal pain. She denies any vaginal bleeding or leakage of fluid. Related Data Home Medications ?Medication ?Instructions ?Recorded ?Confirmed fluticasone propionate 50 intranasal 03/05/25 03/23/25 mcg/actuation nasal spray,suspension blood sugar diagnostic (FreeStyle #10 ea 03/23/25 03/23/25 Lite Strips) blood-glucose meter (FreeStyle #1 ea 03/23/25 03/23/25 Delton Lite kit) lancets 28 gauge (FreeStyle #100 ea 03/23/25 03/23/25 Lancets) Previous Rx's ?Medication ?Instructions ?Recorded ondansetron 4 mg disintegrating 4 mg PO Q8H PRN nausea and 12/09/24 tablet vomiting #30 tabs hydrocortisone-pramoxine 1 %-1 % 1 applic HI QID PRN hemorrhoids 01/23/25 rectal cream (Analpram-HC) #30 grams loratadine 10 mg tablet (Allergy 10 mg PO DAILY PRN allergy 02/12/25 Relief (loratadine)) symptoms #30 tabs promethazine 12.5 mg tablet See Rx Instructions .Route 02/12/25 .COMPLEX #30 tabs vit no.95-ferrous 1 tab PO ONCE #30 tabs 03/02/25 fumarate 28 mg-folic acid 800 mcg tablet () lancing device with lancets kit #1 ea 03/05/25 (Accu-Chek Softclix Lancing Device+Lancets kit) cyclobenzaprine 5 mg tablet 5 mg PO Q8H PRN muscle spasm #30 03/19/25 tabs docusate sodium 100 mg capsule See Rx Instructions .Route 03/19/25 .COMPLEX #30 caps magnesium glycinate 400 mg (4 x 100 mg magnesium) PO 03/19/25 BID #60 caps metformin 500 mg tablet,extended 500 mg PO BID #90 tabs 03/19/25 release 24 hr (Glucophage XR) Allergies Allergy/AdvReac Type Severity Reaction Status Date / Time No Known Allergies Allergy Verified 03/23/25 09:23 [facility] Disclaimer: The information contained in this section may have been updated after the patient was seen, as this information can be updated by other users. 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 Screening for genetic disease carrier status Migraine Chronic constipation No significant past medical history Surgical History History of delivery Family History Other No significant family history Social History Smoking Status: Never smoker alcohol intake: never current occupational status: employed Travel in the last 8 weeks?: None Other Medical History Have you received the Flu Vaccine for this season: No Have you received the Pneumonia Vaccine: No ROS Obtained: Yes All systems reviewed & no additional complaints except as documented Physical Exam General General appearance: alert and in no apparent distress Head Head exam: atraumatic and normocephalic Eye Eye exam: Present normal appearance, PERRL and EOMI ENT ENT exam: Present normal exam, normal oropharynx, mucous membranes moist and normal external ear exam Neck Neck exam: Present normal inspection, full ROM and trachea midline; Absent tenderness Chest Chest inspection: Present normal inspection and symmetric chest wall rise; Absent tenderness Respiratory Respiratory exam: Present normal lung sounds bilaterally; Absent respiratory distress, wheezes, stridor or accessory muscle use Cardiovascular Cardiovascular exam: Present normal rhythm and tachycardia Abdominal Exam Abdominal exam: Present soft; Absent distention, tenderness or guarding Extremities Exam Extremities exam: Present normal inspection, full ROM and normal capillary refill; Absent tenderness or edema Back Exam Back exam: Present normal inspection and full ROM; Absent tenderness Neurological Exam Neurological exam: Present alert, oriented X3, CN II-XII intact and normal gait; Absent motor sensory deficit Psychiatric Psychiatric exam: Present normal affect and normal mood Skin Skin exam: Present warm and dry Medical Decision Making Medical Records Medical records reviewed: Yes I reviewed the patient's medical records. Screening: Per USPSTF and CDC recommendations, given the prevalence of disease in our region, it is our hospital?s policy to screen for HIV and viral Hepatitis for all patients aged 18 and over and those with ongoing risk factors. Antonio Inquiry Pt receiving controlled substance: No Vital Signs: 03/23/25 11:03 03/23/25 11:30 03/23/25 12:30 Temperature 98.4 F Temperature Source Oral Pulse Rate 113 H 90 Pulse Rate [Left] 118 H Respiratory Rate 14 Blood Pressure 107/64 L 111/76 Blood Pressure [Right Arm] 131/78 Blood Pressure Mean [Right Arm] 95 Blood Pressure Source [Right Arm] Automatic Cuff Blood Pressure Position [Right Arm] Sitting 02 Sat by Pulse Oximetry 99 96 96 Oxygen Delivery Method Room Air Lab Data Lab results reviewed: Yes I reviewed the patient's lab results. Lab Results 03/23/25 10:56: WBC 9.3, RBC 3.71 L, Hgb 12.0 L, Hct 34.3 L, MCV 92.5, MCH 32.3 H, MCHC 35.0, RDW 12.8, Plt Count 210, MPV 10.9 H, Neut % (Auto) 69.5, Lymph % (Auto) 18.3, [place] % (Auto) 7.3, Eos % (Auto) 3.2, Baso % (Auto) 0.3, Neut # (Auto) 6.4, Lymph # (Auto) 1.7, [place] # (Auto) 0.7, Eos # (Auto) 0.3, Baso # (Auto) 0.0, D-Dimer 0.95 H, Sodium 136, Potassium 3.4 L, Chloride 108 H, Carbon Dioxide 21 L, Anion Gap 10.4, BUN 4 L, Creatinine 0.50 L, Estimated GFR 146, Est GFR ( Amer) 177, Glucose 112 H, Calcium 9.0, Magnesium 1.4 L, Total Bilirubin 0.3, AST 27, ALT 24, Alkaline Phosphatase 122, Troponin I < 0.01, Total Protein 5.9 L, Albumin 3.2 L, Globulin 2.7, Albumin/Globulin Ratio 1.2, Lipase 74, TSH 2.75, Thyroxine (T4) 11.3 H 03/23/25 11:31: SARS-CoV-2 (PCR) Not detected, Influenza A Untype (PCR) Not detected, Influenza Type B (PCR) Not detected 03/23/25 12:40: Urine Color Straw, Urine Appearance Clear, Urine pH 6.5, Ur Specific [place] 1.010, Urine Protein Negative, Urine Glucose (UA) Negative, Urine Ketones Negative, Urine Blood Negative, Urine Nitrate Negative, Urine Bilirubin Negative, Urine Urobilinogen 0.2, Ur Leukocyte Esterase Negative, Urine RBC Occasional, Urine WBC 3-5, Ur Squamous Epith Cells 20-50, Amorphous Sediment 1+, Urine Bacteria Trace 03/23/25 10:56 03/23/25 10:56 Orders (Tests/Meds): ED MEDICATIONS Generic Name Dose Route Start Last Admin Trade Name Freq PRN Reason Stop Dose Admin Lactated Ringer's 1,000 mls @ 999 mls/hr 03/23/25 14:26 Lactated Ringer's 1000 Ml Bag IV 03/23/25 15:26 .Q1H1M ONE Metoclopramide HCl 5 mg 03/23/25 16:30 03/23/25 13:05 Metoclopramide Hcl 10mg/2ml Vial IVP 04/22/25 16:29 5 mg ACHS NAHID Administration Sodium Chloride 8 ml 03/23/25 11:28 03/23/25 11:51 Sodium Chloride 0.9% 10ml Vial IV 04/22/25 11:27 8 ml NEEDED PRN Administration dilute pepcid Sodium Chloride 8 ml 03/23/25 14:26 Sodium Chloride 0.9% 10ml Vial IV 04/22/25 14:25 NEEDED PRN dilute pepcid Discontinued Medications Generic Name Dose Route Start Last Admin Trade Name Freq PRN Reason Stop Dose Admin Acetaminophen 1,000 mg 03/23/25 11:28 03/23/25 11:51 Acetaminophen 1,000mg/100ml Vial IV 03/23/25 11:29 1,000 mg ONCE ONE Administration Diphenhydramine HCl 25 mg 03/23/25 12:59 03/23/25 13:04 Diphenhydramine 50mg/Ml Vial IV 03/23/25 13:00 25 mg ONCE ONE Administration Famotidine 20 mg 03/23/25 11:28 03/23/25 11:51 Famotidine 20mg/2ml Vial IV 03/23/25 11:29 20 mg ONCE ONE Administration Lactated Ringer's 1,000 mls @ 999 mls/hr 03/23/25 11:28 03/23/25 11:52 Lactated Ringer's 1000 Ml Bag IV 03/23/25 12:28 999 mls/hr .Q1H1M ONE Administration Ondansetron HCl 4 mg 03/23/25 11:28 03/23/25 11:52 Ondansetron 4mg/2ml Vial IV 03/23/25 11:29 4 mg ONCE ONE Administration ORDERS Category Date Time Status US RUQ [US abdomen limited] Stat Exams 03/23/25 12:53 Taken Complete Blood Count Auto Diff Stat Lab 03/23/25 10:56 Completed Comprehensive Metabolic Panel Stat Lab 03/23/25 10:56 Completed D-Dimer Stat Lab 03/23/25 10:56 Completed Lipase Stat Lab 03/23/25 10:56 Completed MAG [Magnesium] Stat Lab 03/23/25 10:56 Completed Rapid PCR Covid and Flu A/B Stat Lab 03/23/25 11:31 Completed T4 (Thyroxine) Stat Lab 03/23/25 10:56 Completed TSH [Thyroid Stimulating Hormone] Stat Lab 03/23/25 10:56 Completed Trop I [Troponin I] Stat Lab 03/23/25 10:56 Completed UA [Urinalysis and Microscopic] Stat Lab 03/23/25 12:40 Completed US Renal [US Kidney] Stat Ultrasound 03/23/25 12:53 Taken ECG Data Tracing #1: I reviewed this ECG and interpreted as documented below: Sinus tachycardia with a ventricular to [address] changes concerning for ischemia. Normal intervals ECG initial impression date: 03/23/25 ECG initial impression time: 10:50 Medical Decision Narrative: In summary, this patient is a 29-year-old female presenting to the Emergency Department for evaluation of multiple complaints including chest pain, right flank/abdominal pain, back pain, nausea, feeling flushed, seeing spots, and headache. Differential diagnoses considered include but are not limited to viral syndrome, anxiety, panic attack, ACS, PE, hypothyroid, dehydration, preeclampsia, placental abruption, early labor among others. Ruling out the most morbid conditions drove assessment. It should be noted patient's history includes gestational diabetes which may or may not be at goal therapy. This complicates all aspects of care by increasing patient's risk for morbidity. I reviewed patient's past medical records and noted valuations by OB for maintenance of health in the setting of . On exam, the patient is lying in bed in no acute distress. Her blood pressure is reassuring with no hypertension. Initially she was tachycardic with heart rate in the 1 teens. O2 saturations normal, she is nontachypneic. Cardiopulmonary exam is reassuring and she has no physical exam findings concerning for DVT, nor does she have any known risk factors or history of VTE. Workup included CBC, CMP, lipase, troponin, D-dimer, urinalysis, EKG. EKG obtained is reassuring only showing sinus tachycardia. Patient was given a bolus of IV fluids as well as IV acetaminophen and Zofran for symptomatic improvement. Labs obtained demonstrated reassuring CBC with mild anemia but no significant leukocytosis. Chemistry demonstrates very mild hypokalemia, mild hyperchloremia, mildly low CO2, mild hypomagnesemia, mildly elevated T4 with a normal TSH. Nothing acutely concerning at this time. She has trace ketones in the urine obtained in clinic today but otherwise urine is reassuring with no concern for infection. D-dimer is slightly elevated at 0.95, but it is known that D-dimer is elevated in the setting of , especially in the third trimester. Based on YEARS algorithm for pulmonary embolus, she is exceedingly low risk for PE and further workup was not recommended at this time. Overall, patient is afebrile with no significant leukocytosis. She has no hematuria or signs of urinary tract infection. Her urine was slightly contaminated with squamous cells. I ordered a right upper quadrant ultrasound and renal ultrasound to make sure that she does not have any large amount of hydronephrosis or cholecystitis. Ultrasound shows very mild right-sided hydronephrosis, which I feel is likely physiologic. Ultrasound otherwise reassuring. Given reassuring workup and exam, I doubt acute surgical intra-abdominal pathology. I also had a discussion with Dr. Gonzáles who advised that the patient had a reassuring NST today. Patient did not get great symptomatic improvement despite IV Reglan, Benadryl, Pepcid, Zofran, and acetaminophen as well as IV fluids. She still having some abdominal discomfort. Given this, I had an interactive discussion with Dr. Gonzáles who advised sending the patient to labor and delivery for monitor to make sure she is not having contractions. Patient was transferred to labor and delivery in stable condition. Critical Care Critical Care Time Critical Care Time: No
[2025-03-23 12:30] VITALS: BP 111/76; PULSE 90; O2SAT 96
--- NOTE | 2025-03-23 12:53 | US_ITS ---
FINAL REPORT TECHNIQUE: Sonographic images of the right upper quadrant were obtained. CLINICAL HISTORY: R flank/RUQ pain FINDINGS: PANCREAS: Unremarkable. LIVER: Homogeneous. No focal hepatic lesion. No intrahepatic biliary ductal dilatation. GALLBLADDER: No gallstones. Gallbladder wall is mildly thickened, likely partially contracted. COMMON DUCT: 4 mm. Normal for age. RIGHT KIDNEY: The right kidney measures 11.0 cm. There is no hydronephrosis, mass, or stone. FREE FLUID: None. IMPRESSION: Contracted gallbladder. Otherwise, unremarkable right upper quadrant. Reviewed, Interpreted and Dictated by Lacy Ramirez MD Transcribed by Adele Tolentino Authenticated and [facility]
--- NOTE | 2025-03-23 12:53 | US_ITS ---
FINAL REPORT CLINICAL HISTORY: R flank/RUQ pain COMPARISON: None FINDINGS: RENAL ULTRASOUND Ultrasound images of the kidneys were obtained. Visualized spleen is unremarkable. The right kidney measures 11.5 cm in length. It is normal echogenicity. There is no hydronephrosis. The left kidney measures 13.3 cm in length. It is normal echogenicity. There is no hydronephrosis. IMPRESSION: Normal renal ultrasound. Reviewed, Interpreted and Dictated by Lacy Ramirez MD Transcribed by Adele Tolentino Authenticated and [facility]
[2025-03-23 13:04] LABS: Microscopic, Urine URINE MICROSCOPIC (MICROSCOPIC)
[2025-03-23] MEDS: METOCLOPRAMIDE HCL 10MG/2ML VIAL 5 MG IVP (13:05)
[2025-03-23 13:07] LABS: Bilirubin,Urine Negative (Negative); Glucose,Urine (UA) Negative (Negative); Ketones,Urine Negative (Negative); Leukocyte Esterase,Urine Negative (Negative); PH,Urine 6.5 (5.0-8.5); Protein,Urine Negative (Negative); Urobilinogen,Urine 0.2 EU/dl (0.2)
[2025-03-23 13:09] LABS: Color,Urine Straw (Yellow)
[2025-03-23 13:20] LABS: Specific Gravity, Urine 1.010 (1.005-1.030)
[2025-03-23 13:26] LABS: Bacteria,Urine Trace /lpf
[2025-03-23 13:27] LABS: Amorphous Sediment,Urine 1+ /lpf; Squamous Epithelial Cell,Urine 20-50 #/hpf (0-5)
[2025-03-23 13:28] LABS: RBC,Urine Occasional #/hpf (0-3)
[2025-03-23 14:31] VITALS: BP 111/76; PULSE 70; RESP 20; TEMP 37.1; O2SAT 98
== END 2025-03-23 14:37 | disposition other institution (70) ==
PROVIDERS: Emergency Provider Emergency Medicine
DX: O26.892 Other specified pregnancy related conditions, second trimester (principal); R10.13 Epigastric pain; R51.9 Headache, unspecified; R11.0 Nausea; Z3A.22 22 weeks gestation of pregnancy
CPT/HCPCS: 76705; 76770; 80053; 81001; 83690; 83735; 84436; 84443; 84484; 85025; 85378; 87636; 93005; 96361; 96374; 96375; 99285; J0131; J1200; J2405; J2765; J7120

== ENCOUNTER 2025-03-23 14:38 | Outpatient (CLI) | payer MEDICAID, SELFPAY ==
--- OUTSIDE RECORDS SUMMARY | 2025-03-23 14:41 | XMS_ITS | Clinical Summary ---
Author Organization Healthcare Address [address] [place] [address] Care Team Providers Care Mothercraft Nurse Name Role Phone Ta Christine MD Primary Care Provider [phone] Allergies Active Allergy Reactions Criticality Noted Date [...] week 09/11/2023 How often do you attend [facility] or hoahaoism services? Never 09/11/2023 Do you belong to [...] Recorded Patient Health Questionnaire-2 Score 0 11/09/2023 [facility] of Occupat ional Health - [...] place to sleep or slept in a retirement (including now)? 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 No confirmatory testing is required. Blood Venous blood specimen / Unknown Venipuncture / Unknown 09/09/2023 8:36 AM EST 09/09/2023 8:47 AM EST us Ebony Leyva MD LAB BLOOD ORDERABLES Final Res ult [facility] [address] [place] [address] * Hepatitis C Antibody - ED (09/09/2023 8:36 AM EST) Hepatitis C Antibody Negative Negative 09/09/2023 10:13 AM EST [facility] Blood Venous blood specimen / Unknown Venipuncture / Unknown 09/09/2023 8:36 AM EST 09/09/2023 8:47 AM EST us Ebony Leyva MD LAB BLOOD ORDERABLES Final Res ult [facility] [address] [place] [address] * Cytology (12/22/2020 12:00 AM EDT) 12/22/2020 12/23/2020 11: 00 AM EDT Narrative COPATH - 2020 4:17 PM EDT [facility] MR #: [id number] [facility] [address] [place], [place] [address] 1995 (Age: 24) FW Collect Date: 12/22/2020 00:00 Receipt Date: 12/23/2020 11:00 Page 1 DEPARTMENT OF PATHOLOGY AND LABORATORY MEDICINE CYTOPATHOLOGY REPORT Email: [email or web address] ATTENDING MD/Practitioner: Akosua Fitzgerald Service: OBW Location: MWOB Reported: 2020 16:17 Collected: 12/22/2020 00:00 INTERPRETATION A. THIN PREP (CERVICAL/VAGINAL): NEGATIVE FOR INTRAEPITHELIAL LESION OR MALIGNANCY. SATISFACTORY FOR EVALUATION; ENDOCERVICAL/ TRANSFORMATION ZONE COMPONENT PRESENT. Slide scanned and imaged by [employer] ThinPrep Imaging System with manual review of [...] results is suggested (please call Microbiology at [phone] for results). CLINICAL INFORMATION: Menstrual History: Cyclic Date of Last Menstrual Period: 27Nov2020 Other Clinical Conditions: If ASCUS and > 24 years of age, HPV/DNA testing requested.: provider is requesting HPV testing for any abnormal pap test results SPECIMEN DESCRIPTION: A: THIN PREP (CERVICAL/VAGINAL) THIN PREP PROCESS CELLULAR ENHANCEMENT ICD: F: A; RT IMAGE [id number] SNOMED CODES: A; X7T365 [id number] [id number] In cases where a pathologist has signed out the report, the service has been rendered in part by a resident. The signing pathologist has performed and is responsible for the reported pathologic evaluation. Shasta Fitzgerald APRN, CNM LAB PATHOLOGY ORDERABLES Final Result COPATH from Last 3 Months or Most Recently Relevant to Health Maintenance Insurance [facility] [employer] [facility] MEDICAID Advance [...] Surrogate: Parent(s) of the patient Care Teams Mothercraft Nurse Relationship Specialty Start Date End Date Ta Christine MD [address] [facility] [place] [address] PCP - General 01/07/21
--- OUTSIDE RECORDS SUMMARY | 2025-03-23 14:41 | XMS_ITS | Encounter Summary ---
Author Organization Healthcare Address [address] [place] [address] Care Team Providers Care Broomcorn Grader Name Role Phone Ta Christine MD Primary Care Provider [phone] Encounter Details Date Type Department Care Team [...] week 09/11/2023 How often do you attend [facility] or spiritism services? Never 09/11/2023 Do you belong to any clubs o r organizations such as islam groups, unions, fraternal or athletic groups, or [...] Recorded Patient Health Questionnaire-2 Score 0 11/09/2023 [facility] of Occupat ional Health - [...] place to sleep or slept in a assisted (including now)? 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
[2025-03-23 15:02] VITALS: BP 119/72; PULSE 87; RESP 20; TEMP 36.7; O2SAT 100; BMI 28.9
== END 2025-03-23 16:00 | disposition home or self-care (01) ==
LOC: OBOUT 14:40 → OB 14:41
PROVIDERS: Visit Provider Nurse Practitioner Obstetrics & Gynecology
DX: O24.419 Gestational diabetes mellitus in pregnancy, unspecified control (principal); Z3A.33 33 weeks gestation of pregnancy
CPT/HCPCS: 59025

== ENCOUNTER 2025-03-26 12:42 | Outpatient (CLI) | payer MEDICAID, SELFPAY ==
--- OUTSIDE RECORDS SUMMARY | 2025-03-26 12:46 | XMS_ITS | Clinical Summary ---
Author Organization Healthcare Address [address] [place] [address] Care Team Providers Care Metal Drill Press Operator Name Role Phone Ta Christine MD Primary Care Provider [phone] Allergies Active Allergy Reactions Criticality Noted Date [...] week 09/11/2023 How often do you attend [facility] or muslim services? Never 09/11/2023 Do you belong to any clubs o r organizations such as protestant groups, unions, fraternal or athletic groups, or [...] Recorded Patient Health Questionnaire-2 Score 0 11/09/2023 [facility] of Occupat ional Health - Occupational [...] place to sleep or slept in a care home (including now)? 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 No confirmatory testing is required. Blood Venous blood specimen / Unknown Venipuncture / Unknown 09/09/2023 8:36 AM EST 09/09/2023 8:47 AM EST us Ebony Leyva MD LAB BLOOD ORDERABLES Final Res ult [facility] [address] [place] [address] * Hepatitis C Antibody - ED (09/09/2023 8:36 AM EST) Hepatitis C Antibody Negative Negative 09/09/2023 10:13 AM EST [facility] Blood Venous blood specimen / Unknown Venipuncture / Unknown 09/09/2023 8:36 AM EST 09/09/2023 8:47 AM EST us Ebony Leyva MD LAB BLOOD ORDERABLES Final Res ult [facility] [address] [place] [address] * Cytology (12/22/2020 12:00 AM EDT) 12/22/2020 12/23/2020 11: 00 AM EDT Narrative COPATH - 2020 4:17 PM EDT [facility] MR #: [id number] [facility] [address] [place], [place] [address] 1995 (Age: 24) FW Collect Date: 12/22/2020 00:00 Receipt Date: 12/23/2020 11:00 Page 1 DEPARTMENT OF PATHOLOGY AND LABORATORY MEDICINE CYTOPATHOLOGY REPORT Email: [email or web address] [phone] ATTENDING MD/Practitioner: Akosua Fitzgerald Service: OBW Location: MWOB Reported: 2020 16:17 Collected: 12/22/2020 00:00 INTERPRETATION A. THIN PREP (CERVICAL/VAGINAL): NEGATIVE FOR INTRAEPITHELIAL LESION OR MALIGNANCY. SATISFACTORY FOR EVALUATION; ENDOCERVICAL/ TRANSFORMATION ZONE COMPONENT PRESENT. Slide scanned and imaged by [employer] ThinPrep Imaging System with manual review of [...] results is suggested (please call Microbiology at [phone] for results). CLINICAL INFORMATION: Menstrual History: Cyclic Date of Last Menstrual Period: 27Nov2020 Other Clinical Conditions: If ASCUS and > 24 years of age, HPV/DNA testing requested.: provider is requesting HPV testing for any abnormal pap test results SPECIMEN DESCRIPTION: A: THIN PREP (CERVICAL/VAGINAL) THIN PREP PROCESS CELLULAR ENHANCEMENT ICD: F: A; RT IMAGE [id number] SNOMED CODES: A; Z6P913 [id number] [id number] In cases where a pathologist has signed out the report, the service has been rendered in part by a resident. The signing pathologist has performed and is responsible for the reported pathologic evaluation. Shasta Fitzgerald APRN, CNM LAB PATHOLOGY ORDERABLES Final Result COPATH from Last 3 Months or Most Recently Relevant to Health Maintenance Insurance [facility] [employer] [facility] MEDICAID Advance Directives * Full Code (Latest Code Status on File) Date Activated Date Inactivated Comments 09/09/2023 1:58 PM 09/11/2023 4:50 PM Patient has previously expressed wishes for FULL CODE in conversations with family and boyfriend, present on exam. Will reevaluate once medically appropriate Question Answer Comments Patient has decision-making capacity? No Healthcare Surrogate: Parent(s) of the patient Care Teams Metal Drill Press Operator Relationship Specialty Start Date End Date Ta Christine MD [address] [place] [address] PCP - General 01/07/21
--- OUTSIDE RECORDS SUMMARY | 2025-03-26 12:46 | XMS_ITS | Encounter Summary ---
Author Organization Healthcare Address [address] [place] [address] Care Team Providers Care Tabulating Supervisor Name Role Phone Ta Christine MD Primary Care Provider [phone] Encounter Details Date Type Department Care Team [...] week 09/11/2023 How often do you attend [facility] or taoist services? Never 09/11/2023 Do you belong to any clubs o r organizations such as rastafari groups, unions, fraternal or athletic groups, or [...] Recorded Patient Health Questionnaire-2 Score 0 11/09/2023 [facility] of Occupat ional Health - Occupational Stress [...] place to sleep or slept in a nursing home (including now)? 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
--- NOTE | 2025-03-26 13:00 | US_ITS ---
PROCEDURE: US OB BIOPHYSICAL PROFILE CLINICAL INDICATION: Needs for GDM class A2 COMPARISON: US US OB >= 14 WEEKS FETUS from 01/15/2025 US OB FOLLOW UP from 01/16/2025 US OB FOLLOW UP from 02/11/2025 US OB BIOPHYSICAL PROFILE from 03/12/2025 [facility] OB BIOPHYSICAL PROFILE from 03/20/2025 FINDINGS: Transabdominal sonographic images of the uterus were obtained. From her established due date she is 34weeks 2days. The following parameters are obtained: Viable Fetus in the cephalic presentation with an anterior placenta grade 2. The cervix measures 4.19 cm. Measurements: heart Rate = 142bpm Amniotic fluid index: 16.18cm, MVP 5.10 cm. Qualitative AFV:2 Breathing movements: 2 Gross Body Movements: 2 Tone: 2 Biophysical profile score: 8 No obvious anomalies evident.Kidneys, stomach, four-chamber heart, three-vessel cord appear normal. IMPRESSION: 1. Viable fetus in the cephalic presentation. The fetus had previously been breech. There is an anterior placenta grade 2. 2. The fluid is within normal limits with an amniotic fluid index 16.18 cm, MVP 5.10 cm. 3. Biophysical profile is 8/8 with good breathing movement and movement seen. 4. Limited anatomical scan appears normal. Dictated by: Daniel Gonzáles MD 03/26/2025 19:46 Daniel Gonzáles MD in OV 03/26/2025 19:46
== END 2025-03-26 23:59 | disposition home or self-care (01) ==
LOC: RAD 12:43
PROVIDERS: PCP Obstetrics & Gynecology; Visit Provider Obstetrics & Gynecology
DX: O24.419 Gestational diabetes mellitus in pregnancy, unspecified control (principal); Z3A.34 34 weeks gestation of pregnancy
CPT/HCPCS: 76819

== ENCOUNTER 2025-03-27 17:34 | Outpatient (CLI) | payer MEDICAID, SELFPAY ==
--- OUTSIDE RECORDS SUMMARY | 2025-03-27 17:36 | XMS_ITS | Clinical Summary ---
Author Organization Healthcare Address [address] [place] [address] Care Team Providers Care Lime Hide Inspector Name Role Phone Ta Christine MD Primary Care Provider [phone] Allergies Active Allergy Reactions Criticality Noted Date [...] week 09/11/2023 How often do you attend [facility] or samaritan services? Never 09/11/2023 Do you belong to any clubs o r organizations such as samaritan groups, unions, fraternal or athletic groups, or [...] Recorded Patient Health Questionnaire-2 Score 0 11/09/2023 [facility] of Occupat ional Health [...] Not on file 2023 Cage questionnaire eye managing member Not on file Cage Overall score Not [...] 01/23/2017 01/23/2007, 04/02/1997 [facility]-Pap Smear 12/23/2023 12/22/2020 [id number] Vaccine ( - season) 2024 [facility]-Depression Screening [...] Non Reactive 09/09/2023 10:18 AM EST [facility] Comment:Screening for HIV 1 & 2 antibodies, and P24 antigen is NONREACTIVE. No confirmatory testing is required. Blood Venous blood specimen / Unknown Venipuncture / Unknown 09/09/2023 8:36 AM EST 09/09/2023 8:47 AM EST us Ebony Leyva MD LAB BLOOD ORDERABLES Final Res ult [facility] [address] [place] [address] * Hepatitis C Antibody - ED (09/09/2023 8:36 AM EST) Hepatitis C Antibody Negative Negative 09/09/2023 10:13 AM EST [facility] Blood Venous blood specimen / Unknown Venipuncture / Unknown 09/09/2023 8:36 AM EST 09/09/2023 8:47 AM EST us Ebony Leyva MD LAB BLOOD ORDERABLES Final Res ult [facility] [address] [place] [address] * Cytology (12/22/2020 12:00 AM EDT) 12/22/2020 12/23/2020 11: 00 AM EDT Narrative COPATH - 2020 4:17 PM EDT [facility] MR #: [id number] [facility] [address] [place], [place] [address] 1995 (Age: 24) FW Collect Date: 12/22/2020 00:00 Receipt Date: 12/23/2020 11:00 Page 1 DEPARTMENT OF PATHOLOGY AND LABORATORY MEDICINE CYTOPATHOLOGY REPORT Email: [email or web address] ATTENDING MD/Practitioner: Akosua Fitzgerald Service: OBW Location: MWOB Reported: 2020 16:17 Collected: 12/22/2020 00:00 INTERPRETATION A. THIN PREP (CERVICAL/VAGINAL): NEGATIVE FOR INTRAEPITHELIAL LESION OR MALIGNANCY. SATISFACTORY FOR EVALUATION; ENDOCERVICAL/ TRANSFORMATION ZONE COMPONENT PRESENT. Slide scanned and imaged by [employer] ThinPrep Imaging System with manual review of [...] results is suggested (please call Microbiology at [phone] for results). CLINICAL INFORMATION: Menstrual History: Cyclic Date of Last Menstrual Period: 27Nov2020 Other Clinical Conditions: If ASCUS and > 24 years of age, HPV/DNA testing requested.: provider is requesting HPV testing for any abnormal pap test results SPECIMEN DESCRIPTION: A: THIN PREP (CERVICAL/VAGINAL) THIN PREP PROCESS CELLULAR ENHANCEMENT ICD: F: A; RT IMAGE [id number] SNOMED CODES: A; D1A384 [id number] [id number] [id number] In cases where a pathologist has signed out the report, the service has been rendered in part by a resident. The signing pathologist has performed and is responsible for the reported pathologic evaluation. Shasta Fitzgerald APRN, CNM LAB PATHOLOGY ORDERABLES Final Result COPATH from Last 3 Months or Most Recently Relevant to Health Maintenance Insurance [facility] [employer] [facility] MEDICAID Advance Directives * Full Code (Latest Code Status on File) Date Activated Date Inactivated Comments 09/09/2023 1:58 PM 09/11/2023 4:50 PM Patient has previously expressed wishes for FULL CODE in conversations with family and boyfriend, present on exam. Will reevaluate once medically appropriate Question Answer Comments Patient has decision-making capacity? No Healthcare Surrogate: Parent(s) of the patient Care Teams Lime Hide Inspector Relationship Specialty Start Date End Date Ta Christine MD [address] [facility] [place] [address] PCP - General 01/07/21
--- OUTSIDE RECORDS SUMMARY | 2025-03-27 17:36 | XMS_ITS | Encounter Summary ---
Author Organization Healthcare Address [address] [place] [address] Care Team Providers Care City Constable Name Role Phone Ta Christine MD Primary Care Provider [phone] Encounter Details Date Type Department Care Team [...] week 09/11/2023 How often do you attend [facility] or congregational services? Never 09/11/2023 Do you belong to any clubs o r organizations such as mosque groups, unions, fraternal or athletic groups, or [...] Recorded Patient Health Questionnaire-2 Score 0 11/09/2023 [facility] of Occupat ional Health - Occupational [...] place to sleep or slept in a senior care (including now)? 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
[2025-03-27 17:43] VITALS: BMI 28.9
[2025-03-27 17:51] VITALS: BP 122/77; PULSE 118; RESP 15; TEMP 36.7; O2SAT 98; BMI 28.9
[2025-03-27 17:53] LABS: Microscopic, Urine URINE MICROSCOPIC (MICROSCOPIC)
[2025-03-27 17:58] LABS: Bilirubin,Urine Negative (Negative); Color,Urine YELLOW (Yellow); Glucose,Urine (UA) Negative (Negative); Ketones,Urine Negative (Negative); Leukocyte Esterase,Urine Negative (Negative); PH,Urine 6.5 (5.0-8.5); Protein,Urine Negative (Negative); Specific Gravity, Urine 1.015 (1.005-1.030); Urobilinogen,Urine 0.2 EU/dl (0.2)
[2025-03-27 18:04] LABS: WBC,Urine Occasional #/hpf (0-3)
[2025-03-27 18:05] LABS: Bacteria,Urine 1+ /lpf
[2025-03-27] MEDS: LACTATED RINGERS 1000ML 1,000 ML 999 ML IV (18:45)
[2025-03-27] MEDS: NITROFURANTOIN 100MG CAPSULE 100 MG PO (19:31)
== END 2025-03-27 19:45 | disposition home or self-care (01) ==
LOC: OBOUT 17:35 → OB 17:38
PROVIDERS: PCP Obstetrics & Gynecology; Visit Provider Nurse Practitioner Obstetrics & Gynecology
DX: O24.419 Gestational diabetes mellitus in pregnancy, unspecified control (principal); Z3A.33 33 weeks gestation of pregnancy
CPT/HCPCS: 59025; 81001; 87086; 96360; 99212; G0463; J7120

== ENCOUNTER 2025-04-03 14:39 | Outpatient (CLI) | payer MEDICAID, SELFPAY ==
--- OUTSIDE RECORDS SUMMARY | 2025-04-03 14:41 | XMS_ITS | Encounter Summary ---
Author Organization Healthcare Address [address] [place] [address] Care Team Providers Care Wharfmaster Name Role Phone Ta Christine MD Primary Care Provider [phone] Encounter Details Date Type Department Care Team [...] How often do you attend [facility] or buddhism services? Never 09/11/2023 Do you belong to any clubs o r organizations such as uatsdin groups, unions, fraternal or athletic groups, or [...] Recorded Patient Health Questionnaire-2 Score 0 11/09/2023 [facility] of Occupat ional Health - [...] place to sleep or slept in a residential (including now)? 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
--- OUTSIDE RECORDS SUMMARY | 2025-04-03 14:41 | XMS_ITS | Clinical Summary ---
Author Organization Healthcare Address [address] [place] [address] Care Team Providers Care Lacrosse Player Name Role Phone Ta Christine MD Primary Care Provider [phone] Allergies Active Allergy Reactions Criticality Noted Date [...] week 09/11/2023 How often do you attend [facility] or bahai services? 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 No confirmatory testing is required. Blood Venous blood specimen / Unknown Venipuncture / Unknown 09/09/2023 8:36 AM EST 09/09/2023 8:47 AM EST us Ebony Leyva MD LAB BLOOD ORDERABLES Final Res ult [facility] [address] [place] [address] * Hepatitis C Antibody - ED (09/09/2023 8:36 AM EST) Hepatitis C Antibody Negative Negative 09/09/2023 10:13 AM EST [facility] Blood Venous blood specimen / Unknown Venipuncture / Unknown 09/09/2023 8:36 AM EST 09/09/2023 8:47 AM EST us Ebony Leyva MD LAB BLOOD ORDERABLES Final Res ult [facility] [address] [place] [address] * Cytology (12/22/2020 12:00 AM EDT) 12/22/2020 12/23/2020 11: 00 AM EDT Narrative COPATH - 2020 4:17 PM EDT [facility] MR #: [id number] [facility] [address] [place], [place] [address] 1995 (Age: 24) FW Collect Date: 12/22/2020 00:00 Receipt Date: 12/23/2020 11:00 Page 1 DEPARTMENT OF PATHOLOGY AND LABORATORY MEDICINE CYTOPATHOLOGY REPORT Email: [email or web address] ATTENDING MD/Practitioner: Akosua Fitzgerald Service: OBW Location: MWOB Reported: 2020 16:17 Collected: 12/22/2020 00:00 INTERPRETATION A. THIN PREP (CERVICAL/VAGINAL): NEGATIVE FOR INTRAEPITHELIAL LESION OR MALIGNANCY. SATISFACTORY FOR EVALUATION; ENDOCERVICAL/ TRANSFORMATION ZONE COMPONENT PRESENT. Slide scanned and imaged by [employer] ThinPrep Imaging System with manual review of [...] results is suggested (please call Microbiology at [phone] for results). CLINICAL INFORMATION: Menstrual History: Cyclic Date of Last Menstrual Period: 27Nov2020 Other Clinical Conditions: If ASCUS and > 24 years of age, HPV/DNA testing requested.: provider is requesting HPV testing for any abnormal pap test results SPECIMEN DESCRIPTION: A: THIN PREP (CERVICAL/VAGINAL) THIN PREP PROCESS CELLULAR ENHANCEMENT ICD: F: A; RT IMAGE [id number] SNOMED CODES: A; W7R173 [id number] In cases where a pathologist has signed out the report, the service has been rendered in part by a resident. The signing pathologist has performed and is responsible for the reported pathologic evaluation. Shasta Fitzgerald APRN, CNM LAB PATHOLOGY ORDERABLES Final Result COPATH from Last 3 Months or Most Recently Relevant to Health Maintenance Insurance [facility] [employer] [facility] MEDICAID Advance Directives * Full Code (Latest Code Status on File) Date Activated Date Inactivated Comments 09/09/2023 1:58 PM 09/11/2023 4:50 PM Patient has previously expressed wishes for FULL CODE in conversations with family and boyfriend, present on exam. Will reevaluate once medically appropriate Question Answer Comments Patient has decision-making capacity? No Healthcare Surrogate: Parent(s) of the patient Care Teams Lacrosse Player Relationship Specialty Start Date End Date Ta Christine MD [address] [facility] [place] [address] PCP - General 01/07/21
--- NOTE | 2025-04-03 15:15 | US_ITS ---
PROCEDURE: US OB BIOPHYSICAL PROFILE CLINICAL INDICATION: GDM, Class A2 COMPARISON: US US OB /MATERNAL DETAIL from 12/23/2024 US US OB >= 14 WEEKS FETUS from 01/15/2025 US OB FOLLOW UP from 01/16/2025 US OB FOLLOW UP from 02/11/2025 US OB BIOPHYSICAL PROFILE from 03/12/2025 US OB BIOPHYSICAL PROFILE from 03/20/2025 US OB BIOPHYSICAL PROFILE from 03/26/2025 FINDINGS: Transabdominal sonographic images of the uterus were obtained. From her established due date she is 35weeks 3days. The following parameters are obtained: Viable Fetus in the cephalic presentation with an anterior placenta grade 2. Average ultrasound age is 36weeks 3days Estimated weight 2,889g, 6 lb 6 oz The cervix measures 3.70 cm Measurements: heart Rate = 152bpm BPD = 37weeks 3days, 95 percentile HC = 37weeks 0 days, 54 percentile AC = 37weeks 0 days, 92 percentile FL = 33weeks 6days, 10 percentile HC/AC is 0.98 FL/BPD is 0.71 FL/AC is 0.2 72 percentile Amniotic fluid index: 10.65cm, MVP 4.78 cm. Qualitative AFV:2 Breathing movements: 2 Gross Body Movements: 2 Tone: 2 Biophysical profile score: 8 No obvious anomalies evident.Kidneys, profile, bladder, stomach, four-chamber heart, three-vessel cord appear normal. IMPRESSION: 1. Viable fetus in the cephalic presentation with anterior placenta grade 2. 2. Fluid is within normal limits with an amniotic fluid index 10.65 cm, MVP 4.78 cm. 3. Biophysical profile is 8/8 with good breathing movement and movement seen. 4. There has been good interval growth with the fetus currently 70 second percentile. 5. Limited anatomical scan appears normal. Dictated by: Daniel Gonzáles MD 04/04/2025 09:16 Daniel Gonzáles MD in OV 04/04/2025 09:16
== END 2025-04-03 23:59 | disposition home or self-care (01) ==
LOC: RAD 14:39
PROVIDERS: Visit Provider Obstetrics & Gynecology
DX: O24.419 Gestational diabetes mellitus in pregnancy, unspecified control (principal); O36.5930 Maternal care for other known or suspected poor fetal growth, third trimester, not applicable or unspecified; Z3A.35 35 weeks gestation of pregnancy; Z14.8 Genetic carrier of other disease
CPT/HCPCS: 76816; 76819

== ENCOUNTER 2025-04-10 12:38 | Outpatient (CLI) | payer MEDICAID, SELFPAY ==
--- OUTSIDE RECORDS SUMMARY | 2025-04-03 17:19 | XMS_ITS | Encounter Summary ---
Author Organization [facility] yste Address [address] [place] [address] Care Team Providers Care Buttermaker Helper Name Role Phone Provider, No Known Primary Care Provider Unavail able Encounter Details Date Type Department Care Team (Late st Contact Info) Description 04/03/2025 5:19 PM EDT - 04/03/2025 8:30 PM EDT Hospital Encounter OBSTETRIC EMERGENCY DEPARTMENT [address] [phone] Anthony Hills, DO 1700 [facility] [address] [phone] Discharge Disposition: Home or Self Care Social [...] 5:38 PM EDT Genie Sheriff RN * [place] Suicide Severity Rating Scale (Screener/Recent Self-Report) Question Answer Date of Assessment Author 6. Suicidal Behavior (Lifetime) No 5:38 PM EDT Genie Sheriff RN documented as of this encounter Discharge Instructions * Attachments The following attachments cannot be sent through Care Everywhere. * Third Trimester of (Malay) documented in this encounter Medications at Time [...] multiple complaints. Patient stated was told by legal practice manager today during a interval growth scan with [...] [facility] at 39 weeks gestation[facility] The following portions of the [...] IUPC: Resting Tone: Resting Tone by IUPC: [place] Units: Laboratory Results: Lab Results (last 24 hours) Procedure Component Value Units Date/Time Comprehensive Metabolic Panel [[id number]] (Abnormal) Collected: 04/03/251900 Specimen: Blood Updated: 04/03/251934 [...] not include race as a factor Lipase [[id number]] (Normal) Collected: 04/03/251900 Specimen: Blood Updated: 04/03/251934 Lipase 26 U/L Urinalysis With Microscopic If Indicated (No Culture) - Urine, Clean Catch [[id number]] (Abnormal) Collected: 04/03/251840 Specimen: Urine, Clean Catch Updated: 04/03/251848 Color, UA Yellow Appearance, UA Cloudy pH, UA 7.0 Specific [place], UA 1.010 Glucose, UA Negative Ketones, UA Negative Bilirubin, UA Negative Blood, UA Trace Protein, UA Negative Leuk Esterase, UA Negative Nitrite, UA Negative Urobilinogen, UA 1.0 E.U./dL Urinalysis, Microscopic Only - Urine, Clean Catch [[id number]] (Abnormal) Collected: 04/03/251840 Specimen: Urine, Clean Catch Updated: 04/03/251848 RBC, UA 0-2 /HPF WBC, UA 0-2 /HPF Bacteria, UA Trace /HPF Squamous Epithelial Cells, UA 3-6 /HPF Hyaline Casts, UA None Seen /LPF Methodology Automated Microscopy CBC (No Diff) [[id number]] (Abnormal) Collected: 04/03/251840 Specimen: Blood Updated: 04/03/251843 WBC 8.96 10*3/mm3 RBC 3.62 10*6/mm3 Hemoglobin 12.0 g/dL Hematocrit 33.8 % MCV 93.4 fL MCH 33.1 pg MCHC 35.5 g/dL RDW 12.9 % RDW-SD 44.2 fl MPV 10.9 fL Platelets 218 10*3/mm3 POC Glucose Once [[id number]] (Normal) Collected: 04/03/251744 Specimen: Blood Updated: 04/03/251745 [...] - 60 U/L 04/03/2025 7:35 PM EDT LABORATORY Blood Line / Unknown 04/03/2025 7: 01 PM EDT 04/03/2025 7:01 PM EDT Anthony Hills DO LAB BLOOD ORDERABLES Final Result LABORATORY
[address] [place] [address], * (ABNORMAL) Comprehensive Metabolic Panel (04/03/2025 7:01 PM EDT) Glucose 112(H) 65 - 99 mg/dL 04/03/2025 7:35 PM EDT LABORATORY BUN 4.5(L) 6.0 - 20.0 mg/dL 04/03/2025 7:35 PM EDT LABORATORY Creatinine 0.57 0.57 - 1.00 mg/dL 04/03/2025 7:35 PM EDT LABORATORY Sodium 136 136 - 145 mmol/L 04/03/2025 7:35 PM EDT LABORATORY Potassium 3.5 3.5 - 5.2 mmol/L 04/03/2025 7:35 PM EDT LABORATORY Chloride 103 98 - 107 mmol/L 04/03/2025 7:35 PM EDT LABORATORY CO2 22.0 22.0 - 29.0 mmol/L 04/03/2025 7:35 PM EDT LABORATORY Calcium 8.4(L) 8.6 - 10.5 mg/dL 04/03/2025 7:35 PM EDT LABORATORY Total Protein 5.3(L) 6.0 - 8.5 g/dL 04/03/2025 7:35 PM EDT LABORATORY Albumin 3.0(L) 3.5 - 5.2 g/dL 04/03/2025 7:35 PM EDT LABORATORY ALT (SGPT) 15 1 - 33 U/L 04/03/2025 7:35 PM EDT LABORATORY AST (SGOT) 18 1 - 32 U/L [facility] Alkaline Phosphatase 132(H) 39 - 117 U/L 04/03/2025 7:35 PM EDT LABORATORY Total Bilirubin 0.5 0.0 - 1.2 mg/dL 04/03/2025 7:35 PM EDT LABORATORY Globulin 2.3 gm/dL 04/03/2025 7:35 PM EDT LABORATORY Comment:Calculated Result A/G Ratio 1.3 g/dL 04/03/2025 7:35 PM EDT LABORATORY BUN/Creatinine Ratio 7.9 7.0 - 25.0 04/03/2025 7:35 PM EDT LABORATORY Anion Gap 11.0 5.0 - 15.0 mmol/L 04/03/2025 7:35 PM EDT LABORATORY eGFR 126.3 >60.0 mL/min/1.7 3 04/03/2025 7:35 PM EDT LABORATORY Blood Line / Unknown 04/03/2025 7: 01 PM EDT 04/03/2025 7:01 PM EDT [facility] LABORATORY - 04/03/2025 7:35 PM EDT [...] Hills DO LAB BLOOD ORDERABLES Final Result LABORATORY
[address] [place] [address], * (ABNORMAL) Urinalysis, Microscopic Only - Urine, Clean Catch (04/03/2025 6:41 PM EDT) RBC, UA 0-2 None Seen, 0-2 /HPF 04/03/2025 6:49 PM EDT LABORATORY WBC, UA 0-2 None Seen, 0-2 /HPF 04/03/2025 6:49 PM EDT LABORATORY Bacteria, UA Trace(A) None Seen /HPF 04/03/2025 6:49 PM EDT LABORATORY Squamous Epithelial Cells, UA 3-6(A) None Seen, 0-2 /HPF 04/03/2025 6:49 PM EDT LABORATORY Hyaline Casts, UA None Seen None Seen /LPF 04/03/2025 6:49 PM EDT LABORATORY Methodology Automated Microscopy 04/03/2025 6:49 PM EDT LABORATORY Urine Urine specimen obtained by clean catch procedure / Unknown Collection / Unknown 04/03/2025 6:41 PM EDT 04/03/2025 6:41 PM EDT Anthony Hills DO URINE ORDERABLES Final Resu lt LABORATORY
[address] [place] [address], * (ABNORMAL) Urinalysis With Microscopic If Indicated (No Culture) - Urine, Clean Catch (04/03/2025 6:41 PM EDT) Color, UA Yellow Yellow, Straw 04/03/2025 6:49 PM EDT LABORATORY Appearance, UA Cloudy(A) Clear 04/03/2025 6:49 PM EDT LABORATORY pH, UA 7.0 5.0 - 8.0 04/03/2025 6:49 PM EDT LABORATORY Specific [place], UA 1.010 1.005 - 1.030 04/03/2025 6:49 PM EDT LABORATORY Glucose, UA Negative Negative 04/03/2025 6:49 PM EDT LABORATORY Ketones, UA Negative Negative 04/03/2025 6:49 PM EDT LABORATORY Bilirubin, UA Negative Negative 04/03/2025 6:49 PM EDT LABORATORY Blood, UA Trace(A) Negative 04/03/2025 6:49 PM EDT LABORATORY Protein, UA Negative Negative 04/03/2025 6:49 PM EDT LABORATORY Leuk Esterase, UA Negative Negative 04/03/2025 6:49 PM EDT LABORATORY Nitrite, UA Negative Negative 04/03/2025 6:49 PM EDT LABORATORY Urobilinogen, UA 1.0 E.U./dL 0.2 - 1.0 E.U./dL 04/03/2025 6:49 PM EDT LABORATORY Urine Urine specimen obtained by clean catch procedure / Unknown Collection / Unknown 04/03/2025 6:41 PM EDT 04/03/2025 6:41 PM EDT us Anthony Hills DO URINE ORDERABLES Final Resu lt LABORATORY
[address] [place] [address], * (ABNORMAL) CBC (No Diff) (04/03/2025 6:41 PM EDT) WBC 8.96 3.40 - 10.80 10*3/mm3 04/03/2025 6:44 PM EDT LABORATORY RBC 3.62(L) 3.77 - 5.28 10*6/mm3 04/03/2025 6:44 PM EDT LABORATORY Hemoglobin 12.0 12.0 - 15.9 g/dL 04/03/2025 6:44 PM EDT LABORATORY Hematocrit 33.8(L) 34.0 - 46.6 % 04/03/2025 6:44 PM EDT LABORATORY MCV 93.4 79.0 - 97.0 fL 04/03/2025 6:44 PM EDT LABORATORY MCH 33.1(H) 26.6 - 33.0 pg 04/03/2025 6:44 PM EDT LABORATORY MCHC 35.5 31.5 - 35.7 g/dL 04/03/2025 6:44 PM EDT LABORATORY RDW 12.9 12.3 - 15.4 % 04/03/2025 6:44 PM EDT LABORATORY RDW-SD 44.2 37.0 - 54.0 fl 04/03/2025 6:44 PM EDT LABORATORY MPV 10.9 6.0 - 12.0 fL 04/03/2025 6:44 PM EDT LABORATORY Platelets 218 140 - 450 10*3/mm3 04/03/2025 6:44 PM EDT LABORATORY Blood Line / Unknown 04/03/2025 6: 41 PM EDT 04/03/2025 6:41 PM EDT us Anthony Hills DO LAB BLOOD ORDERABLES Final Result LABORATORY
[address] [place] [address], [place] [phone] * POC Glucose Once (04/03/2025 5:45 PM EDT) [facility] Signature Glucose 101 70 - 130 mg/dL 04/03/2025 5:46 PM EDT LABORATORY Blood 04/03/2025 5:45 PM EDT 04/03/2025 5:46 PM EDT us Anthony Hills DO POINT OF CARE TEST ORDERABL ES Final Result Performing Organization Address City/[facility]/ZIP Co de Phone Number LABORATORY
[address] [place] [address], [place] [phone] documented in this encounter Visit Diagnoses Not [...] 1930 (New Bag - Prov ider: Opal Baarkat RN) sodium chloride 0.9 % flush 10 [...] 100mL/hr. documented in this encounter Care Teams Buttermaker Helper Relationship Specialty Start Date End Date Provider, [place] [address] PCP - General 04/03/25 documented as of this encounter
--- OUTSIDE RECORDS SUMMARY | 2025-04-10 12:43 | XMS_ITS | Encounter Summary ---
Author Organization Healthcare Address [address] [place] [address] Care Team Providers Care Sed High School Teacher Name Role Phone Ta Christine MD Primary Care Provider [phone] Encounter Details Date Type Department Care Team [...] week 09/11/2023 How often do you attend [facility] or yarsanism services? Never 09/11/2023 Do you belong to [...] Recorded Patient Health Questionnaire-2 Score 0 11/09/2023 [facility] - Occupational Stress [...] place to sleep or slept in a mcc (including now)? No 09/11/2023 PHQ-9 Answer Date [...] Not on file 2023 Cage questionnaire eye plastic molder Not on file Cage Overall score Not [...] documented as of this encounter Care Teams Sed High School Teacher Relationship Specialty Start Date End Date Ta Christine MD [address] [place], [place] [address] PCP - General 01/07/21 documented as of this encounter
--- OUTSIDE RECORDS SUMMARY | 2025-04-10 12:43 | XMS_ITS | Encounter Summary ---
Author Organization [facility] yste Address [address] [place] [address] Care Team Providers Care Air Conditioning Coil Assembler Name Role Phone Provider, No Known Primary Care Provider Unavail able Reason for Visit * Reason Comments Med Refill Encounter Details Date Type Department Care Team (Late st Contact Info) Description 05/08/2022 Refill [facility] [address] [facility] [address] [place] [id number] Faustina Wren MD Social History Tobacco Use [...] on filedocumented in this encounter Care Teams Air Conditioning Coil Assembler Relationship Specialty Start Date End Date Provider, [place] [address] PCP - General 04/03/25 documented as of this encounter
--- OUTSIDE RECORDS SUMMARY | 2025-04-10 12:43 | XMS_ITS | Encounter Summary ---
Author [facility] Address [address] [place] [address] Care Team Providers Care Pathology Technician Name Role Phone Provider, No Known Primary Care Provider Unavail able Encounter Details Date Type Department Care Team (Latest Contact Info) Description 04/03/2025 Travel Social History Tobacco Use Types Packs/Day [...] on file documented as of this encounter Functional Status * Question Answer [...] 5:38 PM EDT Genie Sheriff RN * [place] Suicide Severity Rating Scale (Screener/Recent Self-Report) Question Answer Date of Assessment Author 6. Suicidal Behavior (Lifetime) No 5:38 PM EDT Genie Sheriff RN documented as of this encounter Plan of Treatment Not on file documented as of this encounter Visit Diagnoses Not on filedocumented in this encounter Care Teams Pathology Technician Relationship Specialty Start Date End Date Provider, [place] [address] PCP - General 04/03/25 documented as of this encounter
--- OUTSIDE RECORDS SUMMARY | 2025-04-10 12:43 | XMS_ITS | Clinical Summary ---
Author Organization Healthcare Address [address] [place] [address] Care Team Providers Care Candy Puller Name Role Phone Ta Christine MD Primary Care Provider [phone] Allergies Active Allergy Reactions Criticality Noted Date [...] week 09/11/2023 How often do you attend [facility] or baptism services? Never 09/11/2023 Do you belong to any clubs o r organizations such as yarsani groups, unions, fraternal or athletic groups, or [...] Recorded Patient Health Questionnaire-2 Score 0 11/09/2023 [facility] Occupat ional Health - Occupational [...] Not on file 2023 Cage questionnaire eye channel opener Not on file Cage Overall score Not [...] 01/23/2017 01/23/2007, 04/02/1997 [facility]-Pap Smear 12/23/2023 12/22/2020 [id number] Vaccine ( - season) 2024 [facility]-Depression Screening [...] Non Reactive 09/09/2023 10:18 AM EST [facility] Comment:Screening for HIV 1 & 2 antibodies, and P24 antigen is NONREACTIVE. No confirmatory testing is required. Blood Venous blood specimen / Unknown Venipuncture / Unknown 09/09/2023 8:36 AM EST 09/09/2023 8:47 AM EST us Ebony Leyva MD LAB BLOOD ORDERABLES Final Res ult [facility] [address] [place] [address] * Hepatitis C Antibody - ED (09/09/2023 8:36 AM EST) Hepatitis C Antibody Negative Negative 09/09/2023 10:13 AM EST [facility] Blood Venous blood specimen / Unknown Venipuncture / Unknown 09/09/2023 8:36 AM EST 09/09/2023 8:47 AM EST us Ebony Leyva MD LAB BLOOD ORDERABLES Final Res ult [facility] [address] [place] [address] * Cytology (12/22/2020 12:00 AM EDT) 12/22/2020 12/23/2020 11: 00 AM EDT Narrative COPATH - 2020 4:17 PM EDT [facility] MR #: [id number] [facility] [address] [place], [place] [address] 1995 (Age: 24) FW Collect Date: 12/22/2020 00:00 Receipt Date: 12/23/2020 11:00 Page 1 DEPARTMENT OF PATHOLOGY AND LABORATORY MEDICINE CYTOPATHOLOGY REPORT Email: [email or web address] [email or web address] ATTENDING MD/Practitioner: Akosua Fitzgerald Service: [facility]W Location: [facility] Reported: 2020 16:17 Collected: 12/22/2020 00:00 INTERPRETATION A. THIN PREP (CERVICAL/VAGINAL): NEGATIVE FOR INTRAEPITHELIAL LESION OR MALIGNANCY. SATISFACTORY FOR EVALUATION; ENDOCERVICAL/ TRANSFORMATION ZONE COMPONENT PRESENT. Slide scanned and imaged by [employer] ThinPrep Imaging System with manual review of [...] results is suggested (please call Microbiology at [phone] for results). CLINICAL INFORMATION: Menstrual History: Cyclic Date of Last Menstrual Period: 27Nov2020 Other Clinical Conditions: If ASCUS and > 24 years of age, HPV/DNA testing requested.: provider is requesting HPV testing for any abnormal pap test results SPECIMEN DESCRIPTION: A: THIN PREP (CERVICAL/VAGINAL) THIN PREP PROCESS CELLULAR ENHANCEMENT ICD: F: A; RT IMAGE [id number] SNOMED CODES: A; [id number] In cases where a pathologist has signed out the report, the service has been rendered in part by a resident. The signing pathologist has performed and is responsible for the reported pathologic evaluation. Shasta Fitzgerald APRN, CNM LAB PATHOLOGY ORDERABLES Final Result COPATH from Last 3 Months or Most Recently Relevant to Health Maintenance Insurance [facility] [employer] [facility] MEDICAID Advance Directives * Full Code (Latest Code Status on File) Date Activated Date Inactivated Comments 09/09/2023 1:58 PM 09/11/2023 4:50 PM Patient has previously expressed wishes for FULL CODE in conversations with family and boyfriend, present on exam. Will reevaluate once medically appropriate Question Answer Comments Patient has decision-making capacity? No Healthcare Surrogate: Parent(s) of the patient Care Teams Candy Puller Relationship Specialty Start Date End Date Ta Christine MD [address] [place] [address] PCP - General 01/07/21
--- OUTSIDE RECORDS SUMMARY | 2025-04-10 12:43 | XMS_ITS | Clinical Summary ---
[facility] Address [address] [place] [address] Care Team Providers Care Safety Companion Name Role Phone Provider, No Known Primary Care Provider Unavail able Allergies Active Allergy Reactions Criticality Noted Date Comments Hydrocodone-Acetaminophen Itching Medium 03/23/2017 Oxycodone-Acetaminophen Itching Medium 03/23/2017 Medications FLUoxetine (PROzac) 20 MG capsule Take 1 capsule by mouth Daily. 30 capsule 2 Active Additional Information Patient taking differently: 40 mgOral Daily, Reported on 11/13/2022 metFORMIN (GLUCOPHAGE) 1000 MG tablet Take 1 tablet by mouth 2 (Two) Times a Day With Meals. 1000 mg at night. 500 mg in the morning Active cyclobenzaprin e (FLEXERIL) 5 MG tablet Take 1 tablet by mouth 3 (Three) Times a Day As Needed for Muscle Spasms. Active Loratadine 10 MG capsule Take 1 capsule by mouth Daily As Needed. Active Magnesium Glycinate 100 MG capsule Take 500 mg by mouth 2 (Two) Times a Day. Active diazePAM (VALIUM) 2 MG tablet TAKE 1-2 BY MOUTH TWICE DAILY NEEDED 3 04/03/20 25 Discontin ued(Stop Taking at Discharge ) Active Problems Estimated Date of Delivery Comme nts Yes 05/05/2025 Based on last me nstrual period of 07/29/2024 No known active problems Encounters Date Type Department Care Team Description 04/03/2025 5:19 PM EDT - 04/03/2025 8:30 PM EDT Hospital Encounter [facility] [address] [place] [address] Anthony Hills, DO Discharge Disposition: Home or Self Care 04/03/2025 Travel from Last 3 Months Immunizations Immunization Administration Dates Next Due DTP [...] 007 ANNUAL PHYSICAL 11/09/2022 11/09/2021 COVID-19 Vaccine ( - 2023-2 5 season) 2024 INFLUENZA VACCINE 05/27/2025 HEPATITIS C SCREENING Completed 11/09/2021 CHLAMYDIA SCREENING Discontinued 11/13/2022 Pneumococcal Vaccine 0-49 Aged Out No longer eligible based on patient's age to complete this topic RSV Vaccine - Adults (No Dos es Required) Completed Procedures Procedure Name Priority Date/Time Associated Diagnosis Comments LIPASE STAT 04/03/2025 7:01 PM EDT COMPREHENSIVE METABOLIC PANEL STAT 04/03/2025 7:01 PM EDT URINALYSIS, MICROSCOPIC ONLY STAT 04/03/2025 6:41 PM EDT URINALYSIS W/ MICROSCOPIC IF INDICATED (NO CULTURE) STAT 04/03/2025 6:41 PM EDT CBC (NO DIFF) STAT 04/03/2025 6:41 PM EDT POCT GLUCOSE FINGERSTICK Routine 04/03/2025 5:45 PM EDT CHLAMYDIA TRACHOMATIS, NEISSERIA GONORRHOEAE, PCR STAT 11/13/2022 4:08 PM EDT HEPATITIS C ANTIBODY Routine 11/09/2021 10:18 AM EDT Need for hepatitis C screening test from Last 3 Months or Most Recently Relevant to Health Maintenance Results * Lipase (04/03/2025 7:01 PM EDT) Lipase 26 13 - 60 U/L 04/03/[facility]25 7:[facility] Blood Line / Unknown 04/03/2025 7: 01 PM EDT 04/03/2025 7:01 PM EDT Anthony Hills DO LAB BLOOD ORDERABLES Final Result [facility]
[address] [place] [address], * (ABNORMAL) Comprehensive Metabolic Panel (04/03/2025 7:01 PM EDT) Glucose 112(H) 65 - 99 mg/dL 04/03/2025 7:35 PM EDT [facility] BUN 4.5(L) 6.0 - 20.0 mg/dL 04/03/2025 7:35 PM EDT [facility] Creatinine 0.57 0.57 - 1.00 mg/dL 04/03/2025 7:35 PM EDT [facility] Sodium 136 136 - 145 mmol/L 04/03/2025 7:35 PM EDT [facility] Potassium 3.5 3.5 - 5.2 mmol/L 04/03/2025 7:35 PM EDT [facility] Chloride 103 98 - 107 mmol/L 04/03/2025 7:35 PM EDT [facility] CO2 22.0 22.0 - 29.0 mmol/L 04/03/2025 7:35 PM EDT [facility] Calcium 8.4(L) 8.6 - 10.5 mg/dL 04/03/2025 7:35 PM EDT [facility] Total Protein 5.3(L) 6.0 - 8.5 g/dL 04/03/2025 7:35 PM EDT [facility] Albumin 3.0(L) 3.5 - 5.2 g/dL 04/03/2025 7:35 PM EDT [facility] ALT (SGPT) 15 1 - 33 U/L 04/03/2025 7:35 PM EDT [facility] AST (SGOT) 18 1 - 32 U/L 04/03/2025 7:35 PM EDT [facility] Alkaline Phosphatase 132(H) 39 - 117 U/L 04/03/2025 7:35 PM EDT [facility] Total Bilirubin 0.5 0.0 - 1.2 mg/dL 04/03/2025 7:35 PM EDT [facility] Globulin 2.3 gm/dL 04/03/2025 7:35 PM EDT [facility] Comment:Calculated Result A/G Ratio 1.3 g/dL 04/03/2025 7:35 PM EDT [facility] BUN/Creatinine Ratio 7.9 7.0 - 25.0 04/03/2025 7:35 PM EDT [facility] Anion Gap 11.0 5.0 - 15.0 mmol/L 04/03/2025 7:35 PM EDT [facility] eGFR 126.3 >60.0 mL/min/1.7 3 04/03/2025 7:35 PM EDT [facility] Blood Line / Unknown 04/03/2025 7: 01 PM EDT 04/03/2025 7:01 PM EDT [facility] - 04/03/2025 7:35 PM EDT [...] Hills DO LAB BLOOD ORDERABLES Final Result [facility]
[address] [place] [address], [place] [phone] * (ABNORMAL) Urinalysis, Microscopic Only - Urine, Clean Catch (04/03/2025 6:41 PM EDT) RBC, UA 0-2 None Seen, 0-2 /HPF 04/03/2025 6:49 PM EDT [facility] WBC, UA 0-2 None Seen, 0-2 /HPF 04/03/2025 6:49 PM EDT [facility] Bacteria, UA Trace(A) None Seen /HPF 04/03/2025 6:49 PM EDT [facility] Squamous Epithelial Cells, UA 3-6(A) None Seen, 0-2 /HPF 04/03/2025 6:49 PM EDT [facility] Hyaline Casts, UA None Seen None Seen /LPF 04/03/2025 6:49 PM EDT [facility] Methodology Automated Microscopy 04/03/2025 6:49 PM EDT [facility] Urine Urine specimen obtained by clean catch procedure / Unknown Collection / Unknown 04/03/2025 6:41 PM EDT 04/03/2025 6:41 PM EDT Anthony Hills DO URINE ORDERABLES Final Resu lt [facility]
[address] [place] [address], * (ABNORMAL) Urinalysis With Microscopic If Indicated (No Culture) - Urine, Clean Catch (04/03/2025 6:41 PM EDT) Color, UA Yellow Yellow, Straw 04/03/2025 6:49 PM EDT [facility] Appearance, UA Cloudy(A) Clear 04/03/2025 6:49 PM EDT [facility] pH, UA 7.0 5.0 - 8.0 04/03/2025 6:49 PM EDT [facility] Specific [place], UA 1.010 1.005 - 1.030 04/03/2025 6:49 PM EDT [facility] Glucose, UA Negative Negative 04/03/2025 6:49 PM EDT [facility] Ketones, UA Negative Negative 04/03/2025 6:49 PM EDT [facility] Bilirubin, UA Negative Negative 04/03/2025 6:49 PM EDT [facility] Blood, UA Trace(A) Negative 04/03/2025 6:49 PM EDT [facility] Protein, UA Negative Negative 04/03/2025 6:49 PM EDT [facility] Leuk Esterase, UA Negative Negative 04/03/2025 6:49 PM EDT [facility] Nitrite, UA Negative Negative 04/03/2025 6:49 PM EDT [facility] Urobilinogen, UA 1.0 E.U./dL 0.2 - 1.0 E.U./dL 04/03/2025 6:49 PM EDT [facility] Urine Urine specimen obtained by clean catch procedure / Unknown Collection / Unknown 04/03/2025 6:41 PM EDT 04/03/2025 6:41 PM EDT Anthony Hills DO URINE ORDERABLES Final Resu lt [facility]
[address] [place] [address], * (ABNORMAL) CBC (No Diff) (04/03/2025 6:41 PM EDT) WBC 8.96 3.40 - 10.80 10*3/mm3 04/03/2025 6:44 PM EDT [facility] RBC 3.62(L) 3.77 - 5.28 10*6/mm3 04/03/2025 6:44 PM EDT [facility] Hemoglobin 12.0 12.0 - 15.9 g/dL 04/03/2025 6:44 PM EDT [facility] Hematocrit 33.8(L) 34.0 - 46.6 % 04/03/2025 6:44 PM EDT [facility] MCV 93.4 79.0 - 97.0 fL 04/03/2025 6:44 PM EDT [facility] MCH 33.1(H) 26.6 - 33.0 pg 04/03/2025 6:44 PM EDT [facility] MCHC 35.5 31.5 - 35.7 g/dL 04/03/2025 6:44 PM EDT [facility] RDW 12.9 12.3 - 15.4 % 04/03/2025 6:44 PM EDT [facility] RDW-SD 44.2 37.0 - 54.0 fl 04/03/2025 6:44 PM EDT [facility] MPV 10.9 6.0 - 12.0 fL 04/03/2025 6:44 PM EDT [facility] Platelets 218 140 - 450 10*3/mm3 04/03/2025 6:44 PM EDT [facility] Blood Line / Unknown 04/03/2025 6: 41 PM EDT 04/03/2025 6:41 PM EDT us Anthony Hills DO LAB BLOOD ORDERABLES Final Result [facility]
[address] [place] [address], * POC Glucose Once (04/03/2025 5:45 PM EDT) Glucose 101 70 - 130 mg/dL 04/03/2025 5:46 PM EDT [facility] Blood 04/03/2025 5:45 PM EDT 04/03/2025 5:46 PM EDT us Anthony Hills DO POINT OF CARE TEST ORDERABL ES Final Result [facility]
[address] [place] [address], [place] [phone] * Chlamydia trachomatis, Neisseria gonorrhoeae, PCR - Swab, Cervix (11/13/2022 4:08 PM EDT) Pathologist [facility] [place] Chlamydia trachomatis, BRIANNA Negative Negative 11/14/2022 11:07 PM EDT [facility] Neisseria gonorrhoeae, BRIANNA Negative Negative 11/14/2022 11:07 PM EDT [facility] Swab Cervix uteri structure / Unknown Collection / Unknown 11/13/2022 4:08 PM EDT 11/13/2022 4:14 PM EDT [facility] - 11/14/2022 11:07 PM EDT Performed at: [facility] [id number] Animal Sitter: Pallavi Resendiz MD, Phone: [phone] Cong ESQUEDA MICROBIOLOGY - GENERAL OR DERABLES Final Result [facility] [address] [place] [address], [place] [phone] * Hepatitis C Antibody (11/09/2021 10:18 AM EDT) Pathologist [facility] [place] Hepatitis C Ab Non-Reacti ve Non-Reacti ve 11/09/2021 8:06 PM EDT [facility] Blood Venipuncture / Unknown 11/09/2021 10:18 AM EDT 11/09/2021 10:18 AM EDT Narrative [facility] - 11/09/2021 8:06 PM EDT Results may be falsely decreased if patient taking Biotin. Faustina Wren MD LAB BLOOD ORDERABLES Final Result [facility]
[address] [place] [address], [place] [phone] from Last 3 Months or Most Recently Relevant to Health Maintenance Insurance MEDICAID PENDING on file [employer] [place] Care Teams Safety Companion Relationship Specialty Start Date End Date Provider, No Known [facility] [place] [address] PCP - General 04/03/25
--- NOTE | 2025-04-10 13:00 | US_ITS ---
PROCEDURE: US OB BIOPHYSICAL PROFILE CLINICAL INDICATION: GDM, Class A2 COMPARISON: US US OB /MATERNAL DETAIL from 12/23/2024 US OB >= 14 WEEKS FETUS from 01/15/2025 US OB FOLLOW UP from 01/16/2025 US OB FOLLOW UP from 02/11/2025 US OB BIOPHYSICAL PROFILE from 03/12/2025 US OB BIOPHYSICAL PROFILE from 03/20/2025 US OB BIOPHYSICAL PROFILE from 03/26/2025 US OB BIOPHYSICAL PROFILE from 04/03/2025 FINDINGS: Transabdominal sonographic images of the uterus were obtained. From her established due date she is 36weeks 3days. The following parameters are obtained: Viable Fetus in the cephalic presentation with an anterior placenta grade 2-3. The cervix measures 4.65 cm in length. Measurements: heart Rate = 132bpm Amniotic fluid index: 13.19cm, MVP 4.31 cm Qualitative AFV:2 Breathing movements: 2 Gross Body Movements: 2 Tone: 2 Biophysical profile score: 8 No obvious anomalies evident.Kidneys, profile, four-chamber heart, three-vessel cord appear normal. IMPRESSION: 1. Viable fetus in the cephalic presentation with an anterior placenta grade 2-3. 2. The fluid is within normal limits with an amniotic fluid index 13.19 cm, MVP 4.31 cm. 3. Biophysical profile is 8/8 with good breathing movement and movement seen. 4. Limited anatomical scan appears normal. Dictated by: Daniel Gonzáles MD 04/10/2025 18:46 Daniel Gonzáles MD in [place] 04/10/2025 18:46
== END 2025-04-10 23:59 | disposition home or self-care (01) ==
LOC: RAD 12:38
PROVIDERS: PCP Obstetrics & Gynecology; Visit Provider Obstetrics & Gynecology
DX: O24.419 Gestational diabetes mellitus in pregnancy, unspecified control (principal); Z3A.36 36 weeks gestation of pregnancy
CPT/HCPCS: 76819

== ENCOUNTER 2025-04-17 12:59 | Outpatient (CLI) | payer MEDICAID, SELFPAY ==
--- OUTSIDE RECORDS SUMMARY | 2025-04-03 17:19 | XMS_ITS | Encounter Summary ---
Author Organization [facility] yste Address [address] [place] [address] Care Team Providers Care Chemical Treatment Operator Name Role Phone Provider, No Known Primary Care Provider Unavail able Encounter Details Date Type Department Care Team (Late st Contact Info) Description 04/03/2025 5:19 PM EDT - 04/03/2025 8:30 PM EDT Hospital Encounter [facility] OBSTETRIC EMERGENCY DEPARTMENT [address] [phone] Atnhony Hills, DO [address] [facility] [address] [id number] Discharge Disposition: Home or Self Care Social [...] 5:38 PM EDT Genie Sheriff RN * [place] Suicide Severity Rating Scale (Screener/Recent Self-Report) Question Answer Date of Assessment Author 6. Suicidal Behavior (Lifetime) No 5:38 PM EDT Genie Sheriff RN documented as of this encounter Discharge Instructions * Attachments The following attachments cannot be sent through Care Everywhere. * Third Trimester of (Italian) documented in this encounter Medications at Time [...] from the original note were not included. [facility] Physical Referring Provider: Anthony Hills DO Cc: Second opinion Subjective Patient is a 29 y.o. female currently at 35w3d, who presents with multiple complaints. Patient stated was told by overcoiler today during a interval growth scan with [...] repeat at 39 weeks gestation[facility] The following portions of [...] IUPC: Resting Tone: Resting Tone by IUPC: [place] Units: Laboratory Results: Lab Results (last 24 hours) Procedure Component Value Units Date/Time Comprehensive Metabolic Panel [[id number]] (Abnormal) Collected: 04/03/251900 Specimen: Blood Updated: 04/03/251934 [...] not include race as a factor Lipase [[id number]] (Normal) Collected: 04/03/251900 Specimen: Blood Updated: 04/03/251934 Lipase 26 U/L Urinalysis With Microscopic If Indicated (No Culture) - Urine, Clean Catch [[id number]] (Abnormal) Collected: 04/03/251840 Specimen: Urine, Clean Catch Updated: 04/03/251848 Color, UA Yellow Appearance, UA Cloudy pH, UA 7.0 Specific [place], UA 1.010 Glucose, UA Negative Ketones, UA Negative Bilirubin, UA Negative Blood, UA Trace Protein, UA Negative Leuk Esterase, UA Negative Nitrite, UA Negative Urobilinogen, UA 1.0 E.U./dL Urinalysis, Microscopic Only - Urine, Clean Catch [[id number]] (Abnormal) Collected: 04/03/251840 Specimen: Urine, Clean Catch Updated: 04/03/251848 RBC, UA 0-2 /HPF WBC, UA 0-2 /HPF Bacteria, UA Trace /HPF Squamous Epithelial Cells, UA 3-6 /HPF Hyaline Casts, UA None Seen /LPF Methodology Automated Microscopy CBC (No Diff) [[id number]] (Abnormal) Collected: 04/03/251840 Specimen: Blood Updated: 04/03/251843 WBC 8.96 10*3/mm3 RBC 3.62 10*6/mm3 Hemoglobin 12.0 g/dL Hematocrit 33.8 % MCV 93.4 fL MCH 33.1 pg MCHC 35.5 g/dL RDW 12.9 % RDW-SD 44.2 fl MPV 10.9 fL Platelets 218 10*3/mm3 POC Glucose Once [[id number]] (Normal) Collected: 04/03/251744 Specimen: Blood Updated: 04/03/251745 [...] - 60 U/L 04/03/2025 7:35 PM EDT [facility] Blood Line / Unknown 04/03/2025 7: 01 PM EDT 04/03/2025 7:01 PM EDT Anthony Hills DO LAB BLOOD ORDERABLES Final Result [facility]
[address] [place] [address], * (ABNORMAL) Comprehensive Metabolic Panel (04/03/2025 7:01 PM EDT) Glucose 112(H) 65 - 99 mg/dL 04/03/2025 7:35 PM EDT [facility] BUN 4.5(L) 6.0 - 20.0 mg/dL 04/03/2025 7:35 PM EDT [facility] Creatinine 0.57 0.57 - 1.00 mg/dL 04/03/2025 7:35 PM EDT [facility] Sodium 136 136 - 145 mmol/L 04/03/2025 7:35 PM EDT [facility] Potassium 3.5 3.5 - 5.2 mmol/L 04/03/2025 7:35 PM EDT [facility] Chloride 103 98 - 107 mmol/L 04/03/2025 7:35 PM EDT [facility] CO2 22.0 22.0 - 29.0 mmol/L 04/03/2025 7:35 PM EDT [facility] Calcium 8.4(L) 8.6 - 10.5 mg/dL 04/03/2025 7:35 PM EDT [facility] Total Protein 5.3(L) 6.0 - 8.5 g/dL 04/03/2025 7:35 PM EDT [facility] Albumin 3.0(L) 3.5 - 5.2 g/dL 04/03/2025 7:35 PM EDT [facility] ALT (SGPT) 15 1 - 33 U/L 04/03/2025 7:35 PM EDT [facility] AST (SGOT) 18 1 - 32 U/L 04/03/2025 7:[facility] Alkaline Phosphatase 132(H) 39 - 117 U/L 04/03/2025 7:35 PM EDT [facility] Total Bilirubin 0.5 0.0 - 1.2 mg/dL 04/03/2025 7:35 PM EDT [facility] Globulin 2.3 gm/dL 04/03/2025 7:35 PM EDT [facility] Comment:Calculated Result A/G Ratio 1.3 g/dL 04/03/2025 7:35 PM EDT [facility] BUN/Creatinine Ratio 7.9 7.0 - 25.0 04/03/2025 7:35 PM EDT [facility] Anion Gap 11.0 5.0 - 15.0 mmol/L 04/03/2025 7:35 PM EDT [facility] eGFR 126.3 >60.0 mL/min/1.7 3 04/03/2025 7:35 PM EDT [facility] Blood Line / Unknown 04/03/2025 7: 01 PM EDT 04/03/2025 7:01 PM EDT [facility] - 04/03/2025 7:35 PM [...] Hills DO LAB BLOOD ORDERABLES Final Result [facility]
[address] [place] [address], * (ABNORMAL) Urinalysis, Microscopic Only - Urine, Clean Catch (04/03/2025 6:41 PM EDT) RBC, UA 0-2 None Seen, 0-2 /HPF 04/03/2025 6:49 PM EDT [facility] WBC, UA 0-2 None Seen, 0-2 /HPF 04/03/2025 6:49 PM EDT [facility] Bacteria, UA Trace(A) None Seen /HPF 04/03/2025 6:49 PM EDT [facility] Squamous Epithelial Cells, UA 3-6(A) None Seen, 0-2 /HPF 04/03/2025 6:49 PM EDT [facility] Hyaline Casts, UA None Seen None Seen /LPF 04/03/2025 6:49 PM EDT [facility] Methodology Automated Microscopy 04/03/2025 6:49 PM EDT [facility] Urine Urine specimen obtained by clean catch procedure / Unknown Collection / Unknown 04/03/2025 6:41 PM EDT 04/03/2025 6:41 PM EDT Anthony Hills DO URINE ORDERABLES Final Resu lt [facility]
[address] [place] [address], * (ABNORMAL) Urinalysis With Microscopic If Indicated (No Culture) - Urine, Clean Catch (04/03/2025 6:41 PM EDT) Color, UA Yellow Yellow, Straw 04/03/2025 6:49 PM EDT [facility] Appearance, UA Cloudy(A) Clear 04/03/2025 6:49 PM EDT [facility] pH, UA 7.0 5.0 - 8.0 04/03/2025 6:49 PM EDT [facility] Specific [place], UA 1.010 1.005 - 1.030 04/03/2025 6:49 PM EDT [facility] Glucose, UA Negative Negative 04/03/2025 6:49 PM EDT [facility] Ketones, UA Negative Negative 04/03/2025 6:49 PM EDT [facility] Bilirubin, UA Negative Negative 04/03/2025 6:49 PM EDT [facility] Blood, UA Trace(A) Negative 04/03/2025 6:49 PM EDT [facility] Protein, UA Negative Negative 04/03/2025 6:49 PM EDT [facility] Leuk Esterase, UA Negative Negative 04/03/2025 6:49 PM EDT [facility] Nitrite, UA Negative Negative 04/03/2025 6:49 PM EDT [facility] Urobilinogen, UA 1.0 E.U./dL 0.2 - 1.0 E.U./dL 04/03/2025 6:49 PM EDT [facility] Urine Urine specimen obtained by clean catch procedure / Unknown Collection / Unknown 04/03/2025 6:41 PM EDT 04/03/2025 6:41 PM EDT us Anthony Hills DO URINE ORDERABLES Final Resu lt [facility]
[address] [place] [address], * (ABNORMAL) CBC (No Diff) (04/03/2025 6:41 PM EDT) WBC 8.96 3.40 - 10.80 10*3/mm3 04/03/2025 6:44 PM EDT [facility] RBC 3.62(L) 3.77 - 5.28 10*6/mm3 04/03/2025 6:44 PM EDT [facility] Hemoglobin 12.0 12.0 - 15.9 g/dL 04/03/2025 6:44 PM EDT [facility] Hematocrit 33.8(L) 34.0 - 46.6 % 04/03/2025 6:44 PM EDT [facility] MCV 93.4 79.0 - 97.0 fL 04/03/2025 6:44 PM EDT [facility] MCH 33.1(H) 26.6 - 33.0 pg 04/03/2025 6:44 PM EDT [facility] MCHC 35.5 31.5 - 35.7 g/dL 04/03/2025 6:44 PM EDT [facility] RDW 12.9 12.3 - 15.4 % 04/03/2025 6:44 PM EDT [facility] RDW-SD 44.2 37.0 - 54.0 fl 04/03/2025 6:44 PM EDT [facility] MPV 10.9 6.0 - 12.0 fL 04/03/2025 6:44 PM EDT [facility] Platelets 218 140 - 450 10*3/mm3 04/03/2025 6:44 PM EDT [facility] Blood Line / Unknown 04/03/2025 6: 41 PM EDT 04/03/2025 6:41 PM EDT us Anthony Hills DO LAB BLOOD ORDERABLES Final Result [facility]
[address] [place] [address], [place] [phone] * POC Glucose Once (04/03/2025 5:45 PM EDT) [facility] Signature Glucose 101 70 - 130 mg/dL 04/03/2025 5:46 PM EDT [facility] Blood 04/03/2025 5:45 PM EDT 04/03/2025 5:46 PM EDT us Anthony Hills DO POINT OF CARE TEST ORDERABL ES Final Result Performing Organization Address City/[facility]/ZIP Co de Phone Number [facility]
[address] [place] [address], [place] [phone] documented in this encounter Visit Diagnoses Not [...] 100mL/hr. documented in this encounter Care Teams Chemical Treatment Operator Relationship Specialty Start Date End Date Provider, [place] [address] PCP - General 04/03/25 documented as of this encounter
--- NOTE | 2025-04-17 13:00 | US_ITS ---
PROCEDURE: US OB BIOPHYSICAL PROFILE CLINICAL INDICATION: GDM, Class A2 COMPARISON: US US OB /MATERNAL DETAIL from 12/23/2024 US US OB >= 14 WEEKS FETUS from 01/15/2025 US OB FOLLOW UP from 01/16/2025 US OB FOLLOW UP from 02/11/2025 US OB BIOPHYSICAL PROFILE from 03/12/2025 US OB BIOPHYSICAL PROFILE from 03/20/2025 US OB BIOPHYSICAL PROFILE from 03/26/2025 US OB BIOPHYSICAL PROFILE from 04/03/2025 US OB BIOPHYSICAL PROFILE from 04/10/2025 FINDINGS: Transabdominal sonographic images of the uterus were obtained. From her established due date she is 37weeks 3days. The following parameters are obtained: Viable Fetus in the cephalic presentation with an anterior placenta grade 2. Cervix measures 3.56 cm in length Measurements: heart Rate = 158bpm Amniotic fluid index: 11.61cm, MVP 3.81 cm Qualitative AFV:2 Breathing movements: 2 Gross Body Movements: 2 Tone: 2 Biophysical profile score: 8 No obvious anomalies evident.Kidneys, stomach, bladder, four-chamber heart, three-vessel cord appear normal. IMPRESSION: 1. Viable fetus in the cephalic presentation with an anterior placenta grade 2. 2. Fluid is within normal limits with an amniotic fluid index 11.61 cm, MVP 3.81 cm. 3. Biophysical profile is 8/8 with good breathing movement and movement seen. 4. Limited anatomical scan appears normal. Dictated by: Daniel Gonzáles MD 04/17/2025 15:58 Daniel Gonzáles MD in [place] 04/17/2025 15:58
--- OUTSIDE RECORDS SUMMARY | 2025-04-17 13:02 | XMS_ITS | Encounter Summary ---
Author Organization [facility] yste Address [address] [place] [address] Care Team Providers Care Airway Traffic Controller Name Role Phone Provider, No Known Primary Care Provider Unavail able Reason for Visit * Reason Comments Med Refill Encounter Details Date Type Department Care Team (Late st Contact Info) Description 05/08/2022 Refill [facility] [address] [facility] [address] [place] [id number] Faustina Wren MD Social History Tobacco Use [...] on filedocumented in this encounter Care Teams Airway Traffic Controller Relationship Specialty Start Date End Date Provider, [place] [address] PCP - General 04/03/25 documented as of this encounter
--- OUTSIDE RECORDS SUMMARY | 2025-04-17 13:02 | XMS_ITS | Encounter Summary ---
Author Organization [facility] [employer] [facility] Address [address] [place] [address] Care Team Providers Care Cushion Former Name Role Phone Provider, No Known Primary [...] 5:38 PM EDT Genie Sheriff RN * [place] Suicide Severity Rating Scale (Screener/Recent Self-Report) Question Answer Date of Assessment Author 6. Suicidal Behavior (Lifetime) No 5:38 PM EDT Genie Sheriff RN documented as of this encounter Plan of Treatment Not on file documented as of this encounter Visit Diagnoses Not on filedocumented in this encounter Care Teams Cushion Former Relationship Specialty Start Date End Date Provider, [place] [address] PCP - General 04/03/25 documented as of this encounter
--- OUTSIDE RECORDS SUMMARY | 2025-04-17 13:02 | XMS_ITS | Clinical Summary ---
[facility] Address [address] [place] [address] Care Team Providers Care Senior Corporate Recruiter Name Role Phone Provider, No Known Primary [...] - 04/03/2025 8:30 PM EDT Hospital Encounter [facility]ST[facility] EMERGENCY DEPARTMENT [address] [place] [address] Anthony Hills, DO Discharge Disposition: Home or [...] 13 - 60 U/L [facility] Blood Line / Unknown 04/03/2025 7: 01 PM EDT 04/03/2025 7:01 PM EDT Anthony Hills DO LAB BLOOD ORDERABLES Final Result [facility]
[address] [place] [address], * (ABNORMAL) Comprehensive Metabolic Panel (04/03/2025 7:01 PM EDT) Glucose 112(H) 65 - 99 mg/dL 04/03/2025 7:35 PM EDT [facility] BUN 4.5(L) 6.0 - 20.0 mg/dL 04/03/2025 7:35 PM EDT [facility] Creatinine 0.57 0.57 - 1.00 mg/dL 04/03/2025 7:35 PM EDT [facility] Sodium 136 136 - 145 mmol/L 04/03/2025 7:35 PM EDT [facility] Potassium 3.5 3.5 - 5.2 mmol/L 04/03/2025 7:35 PM EDT [facility] Chloride 103 98 - 107 mmol/L 04/03/2025 7:35 PM EDT [facility] CO2 22.0 22.0 - 29.0 mmol/L 04/03/2025 7:35 PM EDT [facility] Calcium 8.4(L) 8.6 - 10.5 mg/dL 04/03/2025 7:35 PM EDT [facility] Total Protein 5.3(L) 6.0 - 8.5 g/dL 04/03/2025 7:35 PM EDT [facility] Albumin 3.0(L) 3.5 - 5.2 g/dL 04/03/2025 7:35 PM EDT [facility] ALT (SGPT) 15 1 - 33 U/L 04/03/2025 7:35 PM EDT [facility] AST (SGOT) 18 1 - 32 U/L 04/03/2025 7:35 PM EDT [facility] Alkaline Phosphatase 132(H) 39 - 117 U/L 04/03/2025 7:35 PM EDT [facility] Total Bilirubin 0.5 0.0 - 1.2 mg/dL 04/03/2025 7:35 PM EDT [facility] Globulin 2.3 gm/dL 04/03/2025 7:35 PM EDT [facility] Comment:Calculated Result A/G Ratio 1.3 g/dL 04/03/2025 7:35 PM EDT [facility] BUN/Creatinine Ratio 7.9 7.0 - 25.0 04/03/2025 7:35 PM EDT [facility] Anion Gap 11.0 5.0 - 15.0 mmol/L 04/03/2025 7:35 PM EDT [facility] eGFR 126.3 >60.0 mL/min/1.7 3 04/03/2025 7:35 PM EDT [facility] Blood Line / Unknown 04/03/2025 7: 01 PM EDT 04/03/2025 7:01 PM EDT [facility] - 04/03/2025 7:35 PM EDT GFR [...] Hills DO LAB BLOOD ORDERABLES Final Result [facility]
[address] [place] [address], [place] [phone] * (ABNORMAL) Urinalysis, Microscopic Only - Urine, Clean Catch (04/03/2025 6:41 PM EDT) RBC, UA 0-2 None Seen, 0-2 /HPF 04/03/2025 6:49 PM EDT [facility] WBC, UA 0-2 None Seen, 0-2 /HPF 04/03/2025 6:49 PM EDT [facility] Bacteria, UA Trace(A) None Seen /HPF 04/03/2025 6:49 PM EDT [facility] Squamous Epithelial Cells, UA 3-6(A) None Seen, 0-2 /HPF 04/03/2025 6:49 PM EDT [facility] Hyaline Casts, UA None Seen None Seen /LPF 04/03/2025 6:49 PM EDT [facility] Methodology Automated Microscopy 04/03/2025 6:49 PM EDT [facility] Urine Urine specimen obtained by clean catch procedure / Unknown Collection / Unknown 04/03/2025 6:41 PM EDT 04/03/2025 6:41 PM EDT Anthony Hills DO URINE ORDERABLES Final Resu lt [facility]
[address] [place] [address], * (ABNORMAL) Urinalysis With Microscopic If Indicated (No Culture) - Urine, Clean Catch (04/03/2025 6:41 PM EDT) Color, UA Yellow Yellow, Straw 04/03/2025 6:49 PM EDT [facility] Appearance, UA Cloudy(A) Clear 04/03/2025 6:49 PM EDT [facility] pH, UA 7.0 5.0 - 8.0 04/03/2025 6:49 PM EDT [facility] Specific Kincaid, UA 1.010 1.005 - 1.030 04/03/2025 6:49 PM EDT [facility] Glucose, UA Negative Negative 04/03/2025 6:49 PM EDT [facility] Ketones, UA Negative Negative 04/03/2025 6:49 PM EDT [facility] Bilirubin, UA Negative Negative 04/03/2025 6:49 PM EDT [facility] Blood, UA Trace(A) Negative 04/03/2025 6:49 PM EDT [facility] Protein, UA Negative Negative 04/03/2025 6:49 PM EDT [facility] Leuk Esterase, UA Negative Negative 04/03/2025 6:49 PM EDT [facility] Nitrite, UA Negative Negative 04/03/2025 6:49 PM EDT [facility] Urobilinogen, UA 1.0 E.U./dL 0.2 - 1.0 E.U./dL 04/03/2025 6:49 PM EDT [facility] Urine Urine specimen obtained by clean catch procedure / Unknown Collection / Unknown 04/03/2025 6:41 PM EDT 04/03/2025 6:41 PM EDT Anthony Hills DO URINE ORDERABLES Final Resu lt [facility]
[address] [place] [address], * (ABNORMAL) CBC (No Diff) (04/03/2025 6:41 PM EDT) WBC 8.96 3.40 - 10.80 10*3/mm3 04/03/2025 6:44 PM EDT [facility] RBC 3.62(L) 3.77 - 5.28 10*6/mm3 04/03/2025 6:44 PM EDT [facility] Hemoglobin 12.0 12.0 - 15.9 g/dL 04/03/2025 6:44 PM EDT [facility] Hematocrit 33.8(L) 34.0 - 46.6 % 04/03/2025 6:44 PM EDT [facility] MCV 93.4 79.0 - 97.0 fL 04/03/2025 6:44 PM EDT [facility] MCH 33.1(H) 26.6 - 33.0 pg 04/03/2025 6:44 PM EDT [facility] MCHC 35.5 31.5 - 35.7 g/dL 04/03/2025 6:44 PM EDT [facility] RDW 12.9 12.3 - 15.4 % 04/03/2025 6:44 PM EDT [facility] RDW-SD 44.2 37.0 - 54.0 fl 04/03/2025 6:44 PM EDT [facility] MPV 10.9 6.0 - 12.0 fL 04/03/2025 6:44 PM EDT [facility] Platelets 218 140 - 450 10*3/mm3 04/03/2025 6:44 PM EDT [facility] Blood Line / Unknown 04/03/2025 6: 41 PM EDT 04/03/2025 6:41 PM EDT us Anthony Hills DO LAB BLOOD ORDERABLES Final Result [facility]
[address] [place] [address], * POC Glucose Once (04/03/2025 5:45 PM EDT) Glucose 101 70 - 130 mg/dL 04/03/2025 5:46 PM EDT [facility] Blood 04/03/2025 5:45 PM EDT 04/03/2025 5:46 PM EDT us Anthony Hills DO POINT OF CARE TEST ORDERABL ES Final Result [facility]
[address] [place] [address], [place] [phone] * Chlamydia trachomatis, Neisseria gonorrhoeae, PCR - Swab, Cervix (11/13/2022 4:08 PM EDT) Pathologist [facility] Chlamydia trachomatis, BRIANNA Negative Negative 11/14/2022 11:07 PM EDT [facility] Neisseria gonorrhoeae, BRIANNA Negative Negative 11/14/2022 11:07 PM EDT [facility] Swab Cervix uteri structure / Unknown Collection / Unknown 11/13/2022 4:08 PM EDT 11/13/2022 4:14 PM EDT N[facility]ative [facility] - 11/14/2022 11:07 PM EDT Performed at: [facility] [id number] Can Worker: Pallavi Resendiz MD, Phone: [phone] Cong ESQUEDA MICROBIOLOGY - GENERAL OR DERABLES Final Result [facility] [address] [place] [address], [place] [phone] * Hepatitis C Antibody (11/09/2021 10:18 AM EDT) Pathologist [facility] Hepatitis C Ab Non-Reacti ve Non-Reacti ve 11/09/2021 8:06 PM EDT [facility] Blood Venipuncture / Unknown 11/09/2021 10:18 AM EDT 11/09/2021 10:18 AM EDT Narrative [facility] - 11/09/2021 8:06 PM EDT Results may be falsely decreased if patient taking Biotin. Faustina Wren MD LAB BLOOD ORDERABLES Final Result [facility]
[address] [place] [address], [place] [phone] from Last 3 Months or Most Recently Relevant to Health Maintenance Insurance MEDICAID PENDING on file [employer] MEDICAID [place] Care Teams Senior Corporate Recruiter Relationship Specialty Start Date End Date Provider, No Known [facility] [place] [address] PCP - General 04/03/25
--- OUTSIDE RECORDS SUMMARY | 2025-04-17 13:02 | XMS_ITS | Clinical Summary ---
Author Organization Healthcare Address [address] [place] [address] Care Team Providers Care Trimming Machine Set Up Operator Name Role Phone Ta Christine MD Primary Care Provider [phone] Allergies Active Allergy Reactions Criticality Noted Date [...] often do you attend [facility] or baptist services? 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 No confirmatory testing is required. Blood Venous blood specimen / Unknown Venipuncture / Unknown 09/09/2023 8:36 AM EST 09/09/2023 8:47 AM EST us Ebony Leyva MD LAB BLOOD ORDERABLES Final Res ult [facility] [address] [place] [address] * Hepatitis C Antibody - ED (09/09/2023 8:36 AM EST) Hepatitis C Antibody Negative Negative 09/09/2023 10:13 AM EST [facility] Blood Venous blood specimen / Unknown Venipuncture / Unknown 09/09/2023 8:36 AM EST 09/09/2023 8:47 AM EST us Ebony Leyva MD LAB BLOOD ORDERABLES Final Res ult [facility] [address] [place] [address] * Cytology (12/22/2020 12:00 AM EDT) 12/22/2020 12/23/2020 11: 00 AM EDT Narrative [facility] - 2020 4:17 PM EDT [facility] MR #: [id number] [facility] [address] [place], [place] [address] 1995 (Age: 24) FW Collect Date: 12/22/2020 00:00 Receipt Date: 12/23/2020 11:00 Page 1 DEPARTMENT OF PATHOLOGY AND LABORATORY MEDICINE CYTOPATHOLOGY REPORT Email: [email or web address] ATTENDING MD/Practitioner: Akosua Fitzgerald Service: OBW Location: [facility] Reported: 2020 16:17 Collected: 12/22/2020 00:00 INTERPRETATION A. THIN PREP (CERVICAL/VAGINAL): NEGATIVE FOR INTRAEPITHELIAL LESION OR MALIGNANCY. SATISFACTORY FOR EVALUATION; ENDOCERVICAL/ TRANSFORMATION ZONE COMPONENT PRESENT. Slide scanned and imaged by [employer] ThinPrep Imaging System with manual review of [...] results is suggested (please call Microbiology at [phone] for results). CLINICAL INFORMATION: Menstrual History: Cyclic Date of Last Menstrual Period: 27Nov2020 Other Clinical Conditions: If ASCUS and > 24 years of age, HPV/DNA testing requested.: provider is requesting HPV testing for any abnormal pap test results SPECIMEN DESCRIPTION: A: THIN PREP (CERVICAL/VAGINAL) THIN PREP PROCESS CELLULAR ENHANCEMENT ICD: F: A; RT IMAGE [id number] SNOMED CODES: A; [id number] In cases where a pathologist has signed out the report, the service has been rendered in part by a resident. The signing pathologist has performed and is responsible for the reported pathologic evaluation. Shasta Fitzgerald APRN, CNM LAB PATHOLOGY ORDERABLES Final Result [facility] from Last 3 Months or Most Recently Relevant to Health Maintenance Insurance [facility] [employer] [facility] MEDICAID Advance Directives * Full Code (Latest Code Status on File) Date Activated Date Inactivated Comments 09/09/2023 1:58 PM 09/11/2023 4:50 PM Patient has previously expressed wishes for FULL CODE in conversations with family and boyfriend, present on exam. Will reevaluate once medically appropriate Question Answer Comments Patient has decision-making capacity? No Healthcare Surrogate: Parent(s) of the patient Care Teams Trimming Machine Set Up Operator Relationship Specialty Start Date End Date Ta Christine MD [address] [facility] [place] [address] PCP - General 01/07/21
--- OUTSIDE RECORDS SUMMARY | 2025-04-17 13:02 | XMS_ITS | Encounter Summary ---
Author Organization Healthcare Address [address] [place] [address] Care Team Providers Care Case Mgr Name Role Phone Ta Christine MD Primary Care Provider Encounter Details Date Type Department Care Team [...] week 09/11/2023 How often do you attend [facility] or episcopal services? 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
== END 2025-04-17 23:59 | disposition home or self-care (01) ==
LOC: RAD 13:00
PROVIDERS: PCP Obstetrics & Gynecology; Visit Provider Obstetrics & Gynecology
DX: O24.419 Gestational diabetes mellitus in pregnancy, unspecified control (principal); Z3A.37 37 weeks gestation of pregnancy
CPT/HCPCS: 76819

== ENCOUNTER 2025-04-21 10:23 | Outpatient (CLI) | payer MEDICAID, SELFPAY ==
--- OUTSIDE RECORDS SUMMARY | 2025-04-03 17:19 | XMS_ITS | Encounter Summary ---
Author Organization [facility] yste Address [address] [place] [address] Care Team Providers Care Business Librarian Name Role Phone Provider, No Known Primary Care Provider Unavail able Encounter Details Date Type Department Care Team (Late st Contact Info) Description 04/03/2025 5:19 PM EDT - 04/03/2025 8:30 PM EDT Hospital Encounter [facility] [address] [phone] Anthony Hills, DO [address] [facility] [address] [id number] Discharge Disposition: Home or Self Care Social History Tobacco Use Types Packs/Day Years Used Date Smoking Tobacco: Never Smokeless Tobacco: Never Alcohol Use Standard Drinks/Week Comments No 0 (1 standard drink = 0.6 oz pur e alcohol) PHQ-2 Answer Date Recorded Retired PHQ-9: Brief Depression Severity Measure Score 0 11/09/2021 Abuse Screen Answer Date Recorded Feels Unsafe at Home or Work/School no 11/13/2022 Feels Threatened by Someone no 10/26 Does Anyone Try to Keep You From Having Contact with Others or Doing Things Outside Your Home? no 11/13/2022 Physical Signs of Abuse Present no 11/13/2022 Estimated Date of Delivery Comme nts Yes 05/05/2025 Based on last me nstrual period of 07/29/2024 Sex and Gender Information Value Date Recorded Sex Assigned at Not on file Legal Sex Female 1:40 PM EDT Gender Identity Not on file Sexual Orientation Not on file documented as of this encounter Last Filed Vital Signs Vital Sign Reading Time Taken Comments Blood Pressure 112/74 04/03/2025 7:14 PM EDT Pulse 102 04/03/2025 6:32 PM EDT Temperature 36.5 C (97.7 F) 04/03/2025 7:14 PM EDT Respiratory Rate 16 04/03/2025 7:14 PM EDT Oxygen Saturation 96% 04/03/2025 6:10 PM EDT Inhaled Oxygen Concentration - - Weight - - Height - - Body Mass Index - - documented in this encounter Functional Status * Question Answer Date of Assessment Author 1. Wish to be (Past 1 Month) No 025 5:38 PM EDT Genie Sheriff RN 2. Non-Specific Active Suici justine Thoughts (Past 1 Month) No 04/03/2025 5:38 PM EDT Efrain Sheriff RN * Calculated C-SSRS Risk Score (Lifetime/Recent) Answer Date of Assessment Author No Risk Indicated 04/03/2025 5:38 PM EDT Genie Sheriff RN * [place] Suicide Severity Rating Scale (Screener/Recent Self-Report) Question Answer Date of Assessment Author 6. Suicidal Behavior (Lifetime) No 5:38 PM EDT Genie Sheriff RN documented as of this encounter Discharge Instructions * Attachments The following attachments cannot be sent through Care Everywhere. * Third Trimester of (Persian) documented in this encounter Medications at Time of Discharge cyclobenzaprine (FLEXERIL) 5 MG tablet Take 1 tablet by mouth 3 (Three) Times a Day As Needed for Muscle Spasms. Loratadine 10 MG capsule Take 1 capsule by mouth Daily As Needed. Magnesium Glycinate 100 MG capsule Take 500 mg by mouth 2 (Two) Times a Day. FLUoxetine (PROzac) 20 MG capsule Take 1 capsule by mouth Daily. 30 capsule 05/08/2022 metFORMIN (GLUCOPHAGE) 1000 MG tablet Take 1 tablet by mouth 2 (Two) Times a Day With Meals. 1000 mg at night. 500 mg in the morning documented as of this encounter Miscellaneous Notes * CECILE Notes - Anthony Hills DO - 04/03/2025 6:48 PM EDT Images from the original note were not included. [facility] Obstetric History and Physical Referring Provider: Anthony Hills DO Cc: Second opinion Subjective Patient is a 29 y.o. female currently at 35w3d, who presents with multiple complaints. Patient stated was told by special delivery carrier today during a interval growth scan with her primary OB thather fluid was low around her baby. She is also complained of pelvic pressure, nausea and vomiting today with dizziness. Patient denies chest pain, shortness of breath, recent trauma, fever, leaking of fluid, vaginal bleeding, environmental or infectious exposures, and reports normal activity. course complicated by gestational diabetes mellitus A2 on metformin and prior x1. Patient planning for repeat at [address] The following portions of the patients history were reviewed and updated as appropriate: current medications, allergies, past medical history, past surgical history, past family history, past social history, and problem list . Information: Maternal Labs Blood Type No results found for: ABO Rh Status No results found for: RH Antibody Screen No results found for: ABSCRN Gonnorhea No results found for: GCCX Chlamydia No results found for: CLAMYDCU RPR No results found for: RPR Syphilis Antibody No results found for: SYPHILIS Rubella No results found for: RUBELLAIGGIN Hepatitis B Surface Antigen No results found for: HEPBSAG HIV-1 Antibody No results found for: LABHIV1 Hepatitis C Antibody No results found for: HEPCAB Rapid Urin Drug Screen No results found for: AMPMETHU , BARBITSCNUR , LABBENZSCN , LABMETHSCN , LABOPIASCN , THCURSCR , COCAINEUR , AMPHETSCREEN , PROPOXSCN , BUPRENORSCNU , METAMPSCNUR , OXYCODONESCN , TRICYCLICSCN Group B Strep Culture No results found for: GBSANTIGEN External Results Outside Results - Transcribed From Office Records - See Scanned Records For Details Test Value Date Time ABO O 03/28/23 1332 Rh Positive 03/28/23 1332 Antibody Screen Varicella IgG Rubella Hgb 12.0 g/dL 04/03/25 1841 Hct 33.8 % 04/03/25 1841 HgB A1c 1h GTT 3h GTT Fasting 3h GTT 1 hour 3h GTT 2 hour 3h GTT 3 hour Gonorrhea (discrete) Chlamydia (discrete) RPR Syphils cascade: TP-Ab (FTA) TP-Ab TP-Ab (EIA) TPPA HBsAg Herpes Simplex Virus PCR Herpes Simplex VIrus Culture HIV Hep C RNA Quant PCR Hep C Antibody AFP NIPT Cystic Fibrosis (Mook) Cystic Fibroisis Spinal Muscular atrophy Fragile X Group B Strep GBS Susceptibility to Clindamycin GBS Susceptibility to Erythromycin Fibronectin Genetic Testing, Maternal Blood Drug Screening Test Value Date Time Urine Drug Screen Amphetamine Screen Barbiturate Screen Benzodiazepine Screen Methadone Screen Phencyclidine Screen Opiates Screen THC Screen Cocaine Screen Propoxyphene Screen Buprenorphine Screen Methamphetamine Screen Oxycodone Screen Tricyclic Antidepressants Screen Legend ^: Historical Past OB History: OB History Para Term AB Living 2 1 1 0 0 1 SAB IAB Ectopic Molar Multiple Live Births 0 0 0 0 0 1 # Outcome Date GA Lbr Jony/2nd Weight Sex Type Anes PTL Lv 2 Current 1 Term 10/26/14 39w0d CS-Unspec ROBERTO Past Medical History: Past Medical History: Diagnosis Date Anxiety Gestational diabetes Headache UTI (urinary tract infection) Past Surgical History Past Surgical History: Procedure Laterality Date ADENOIDECTOMY SECTION Family History: Family History Problem Relation Age of Onset Anxiety disorder Mother COPD Mother Depression Mother Vision loss Mother Social History: reports that she has never smoked. She has never used smokeless tobacco. reports no history of alcohol use. reports no history of drug use. General ROS Negative Findings:Headaches, Visual Changes, Epigastric pain, Anorexia, ROM, and Vaginal Bleeding ROS All other systems have been reviewed and are neg Objective Vital Signs Range for the last 24 hours Temperature: Temp: [97.7 ??F (36.5 ??C)-98.2 ??F (36.8 ??C)] 97.7 ??F (36.5 ??C) Temp Source: Temp src: Oral BP: BP: (112-123)/(74-81) 112/74 Pulse: Heart Rate: [82-127] 82 Respirations: Resp: [16] 16 SPO2: SpO2: [96 %-97 %] 96 % O2 Amount (l/min): O2 Devices Weight: Physical Examination: General: alert, appears stated age, and cooperative Skin: normal HEENT: Lungs: clear to auscultation bilaterally Heart: Gastrointestinal: Abdomen soft, gravid uterus nontender, guarding benign exam Lower Extremities: No edema, no calf tenderness : Musculoskeletal: Neuro: No focal deficits noted. Presentation: vtx Cervix: Exam by: Method: sterile vaginal exam performedLewellen Dilation: Closed Effacement: TH Station: NE Blood noted on glove none Heart Rate Assessment Method: HR Assessment Method: external Beats/min: HR (beats/min): 135 Baseline: HR Baseline: normal range Varibility: HR Variability: moderate (amplitude range 6 to 25 bpm) Accels: HR Accelerations: greater than/equal to 15 bpm, lasting at least 15 seconds Decels: HR Decelerations: absent Tracing Category: NST-indications second opinion, interpretation reactive, moderate variability, accelerations present 15 x 15, no deceleration noted, onset 1728, end time 1848, no regular contractions noted. Uterine Assessment Method: Method: external tocotransducer Frequency (min): Ctx Count in 10 min: Duration: Intensity: Contraction Intensity: no contractions Intensity by IUPC: Resting Tone: Resting Tone by IUPC: [place] Units: Laboratory Results: Lab Results (last 24 hours) Procedure Component Value Units Date/Time Comprehensive Metabolic Panel [[id number]] (Abnormal) Collected: 04/03/251900 Specimen: Blood Updated: 04/03/251934 Glucose 112 mg/dL BUN 4.5 mg/dL Creatinine 0.57 mg/dL Sodium 136 mmol/L Potassium 3.5 mmol/L Chloride 103 mmol/L CO2 22.0 mmol/L Calcium 8.4 mg/dL Total Protein 5.3 g/dL Albumin 3.0 g/dL ALT (SGPT) 15 U/L AST (SGOT) 18 U/L Alkaline Phosphatase 132 U/L Total Bilirubin 0.5 mg/dL Globulin 2.3 gm/dL Comment: Calculated Result A/G Ratio 1.3 g/dL BUN/Creatinine Ratio 7.9 Anion Gap 11.0 mmol/L eGFR 126.3 mL/min/1.73 Narrative: GFR Categories in Chronic Kidney Disease (CKD) GFR Category GFR (mL/min/1.73) Interpretation G1 90 or greater Normal or high (1) G2 60-89 Mild decrease (1) G3a 45-59 Mild to moderate decrease G3b 30-44 Moderate to severe decrease G4 15-29 Severe decrease G5 14 or less Kidney failure (1)In the absence of evidence of kidney disease, neither GFR category G1 or G2 fulfill the criteriafor CKD. eGFR calculation 2020 CKD-EPI creatinine equation, which does not include race as a factor Lipase [[id number]] (Normal) Collected: 04/03/251900 Specimen: Blood Updated: 04/03/251934 Lipase 26 U/L Urinalysis With Microscopic If Indicated (No Culture) - Urine, Clean Catch [[id number]] (Abnormal) Collected: 04/03/251840 Specimen: Urine, Clean Catch Updated: 04/03/251848 Color, UA Yellow Appearance, UA Cloudy pH, UA 7.0 Specific [place], UA 1.010 Glucose, UA Negative Ketones, UA Negative Bilirubin, UA Negative Blood, UA Trace Protein, UA Negative Leuk Esterase, UA Negative Nitrite, UA Negative Urobilinogen, UA 1.0 E.U./dL Urinalysis, Microscopic Only - Urine, Clean Catch [[id number]] (Abnormal) Collected: 04/03/251840 Specimen: Urine, Clean Catch Updated: 04/03/251848 RBC, UA 0-2 /HPF WBC, UA 0-2 /HPF Bacteria, UA Trace /HPF Squamous Epithelial Cells, UA 3-6 /HPF Hyaline Casts, UA None Seen /LPF Methodology Automated Microscopy CBC (No Diff) [[id number]] (Abnormal) Collected: 04/03/251840 Specimen: Blood Updated: 04/03/251843 WBC 8.96 10*3/mm3 RBC 3.62 10*6/mm3 Hemoglobin 12.0 g/dL Hematocrit 33.8 % MCV 93.4 fL MCH 33.1 pg MCHC 35.5 g/dL RDW 12.9 % RDW-SD 44.2 fl MPV 10.9 fL Platelets 218 10*3/mm3 POC Glucose Once [[id number]] (Normal) Collected: 04/03/251744 Specimen: Blood Updated: 04/03/251745 Glucose 101 mg/dL Radiology Review: Imaging Results (Last 24 Hours) No results found for the last 24 hours. Other Studies: Assessment & Plan * No active hospital problems. * CECILE Course / Assessment: 1. All lab and imaging results listed above have been reviewed by me. 2. Intrauterine at 35w3d gestation with reactive status. 3. False labor 4. Nausea and vomiting resolved after IV hydration 5 no acute processes identified 6. Prior x 1 planning repeat 7. Diabetes mellitus A2 -good control Plan: Discharge to home, kick count, labor precautions given, follow-up Sunday with primary OB provider continue twice-weekly testing until delivery. 2. Follow-up with primary OB provider next week continue twice-weekly testing until delivery. 3. Plan of care has been reviewed with patient. 4. Risks, benefits of treatment plan have been discussed. 5. All questions have been answered. 6. Anthony Hills DO 04/03/2025 19:50 EDT documented in this encounter Plan of Treatment Not on file documented as of this encounter Procedures Procedure Name Priority Date/Time Associated Diagnosis Comments LIPASE STAT 04/03/2025 7:01 PM EDT COMPREHENSIVE METABOLIC PANEL STAT 04/03/2025 7:01 PM EDT URINALYSIS, MICROSCOPIC ONLY STAT 04/03/2025 6:41 PM EDT URINALYSIS W/ MICROSCOPIC IF INDICATED (NO CULTURE) STAT 04/03/2025 6:41 PM EDT CBC (NO DIFF) STAT 04/03/2025 6:41 PM EDT POCT GLUCOSE FINGERSTICK Routine 04/03/2025 5:45 PM EDT documented in this encounter Results * Lipase (04/03/2025 7:01 PM EDT) Lipase 26 13 - 60 U/L 04/03/2025 7:35 PM EDT [facility] Blood Line / Unknown 04/03/2025 7: 01 PM EDT 04/03/2025 7:01 PM EDT Anthony Hills DO LAB BLOOD ORDERABLES Final Result [facility]
[address] [place] [address], * (ABNORMAL) Comprehensive Metabolic Panel (04/03/2025 7:01 PM EDT) Glucose 112(H) 65 - 99 mg/dL 04/03/2025 7:35 PM EDT [facility] BUN 4.5(L) 6.0 - 20.0 mg/dL 04/03/2025 7:35 PM EDT [facility] Creatinine 0.57 0.57 - 1.00 mg/dL 04/03/2025 7:35 PM EDT [facility] Sodium 136 136 - 145 mmol/L 04/03/2025 7:35 PM EDT [facility] Potassium 3.5 3.5 - 5.2 mmol/L 04/03/2025 7:35 PM EDT [facility] Chloride 103 98 - 107 mmol/L 04/03/2025 7:35 PM EDT [facility] CO2 22.0 22.0 - 29.0 mmol/L 04/03/2025 7:35 PM EDT [facility] Calcium 8.4(L) 8.6 - 10.5 mg/dL 04/03/2025 7:35 PM EDT [facility] Total Protein 5.3(L) 6.0 - 8.5 g/dL 04/03/2025 7:35 PM EDT [facility] Albumin 3.0(L) 3.5 - 5.2 g/dL 04/03/2025 7:35 PM EDT [facility] ALT (SGPT) 15 1 - 33 U/L 04/03/2025 7:35 PM EDT [facility] AST (SGOT) 18 1 - 32 U/L 04/03/2025 7:[facility] Alkaline Phosphatase 132(H) 39 - 117 U/L 04/03/2025 7:35 PM EDT [facility] Total Bilirubin 0.5 0.0 - 1.2 mg/dL 04/03/2025 7:35 PM EDT [facility] Globulin 2.3 gm/dL 04/03/2025 7:35 PM EDT [facility] Comment:Calculated Result A/G Ratio 1.3 g/dL 04/03/2025 7:35 PM EDT [facility] BUN/Creatinine Ratio 7.9 7.0 - 25.0 04/03/2025 7:35 PM EDT [facility] Anion Gap 11.0 5.0 - 15.0 mmol/L 04/03/2025 7:35 PM EDT [facility] eGFR 126.3 >60.0 mL/min/1.7 3 04/03/2025 7:35 PM EDT [facility] Blood Line / Unknown 04/03/2025 7: 01 PM EDT 04/03/2025 7:01 PM EDT [facility] - 04/03/2025 7:35 PM EDT GFR Categories in Chronic Kidney Disease (CKD) GFR Category GFR (mL/min/1.73) Interpretation G1 90 or greater Normal or high (1) G2 60-89 Mild decrease (1) G3a 45-59 Mild to moderate decrease G3b 30-44 Moderate to severe decrease G4 15-29 Severe decrease G5 14 or less Kidney failure (1)In the absence of evidence of kidney disease, neither GFR category G1 or G2 fulfill the criteria for CKD. eGFR calculation 2020 CKD-EPI creatinine equation, which does not include race as a factor Anthony Hills DO LAB BLOOD ORDERABLES Final Result [facility]
[address] [place] [address], * (ABNORMAL) Urinalysis, Microscopic Only - Urine, Clean Catch (04/03/2025 6:41 PM EDT) RBC, UA 0-2 None Seen, 0-2 /HPF 04/03/2025 6:49 PM EDT [facility] WBC, UA 0-2 None Seen, 0-2 /HPF 04/03/2025 6:49 PM EDT [facility] Bacteria, UA Trace(A) None Seen /HPF 04/03/2025 6:49 PM EDT [facility] Squamous Epithelial Cells, UA 3-6(A) None Seen, 0-2 /HPF 04/03/2025 6:49 PM EDT [facility] Hyaline Casts, UA None Seen None Seen /LPF 04/03/2025 6:49 PM EDT [facility] Methodology Automated Microscopy 04/03/2025 6:49 PM EDT [facility] Urine Urine specimen obtained by clean catch procedure / Unknown Collection / Unknown 04/03/2025 6:41 PM EDT 04/03/2025 6:41 PM EDT Anthony Hills DO URINE ORDERABLES Final Resu lt [facility]
[address] [place] [address], * (ABNORMAL) Urinalysis With Microscopic If Indicated (No Culture) - Urine, Clean Catch (04/03/2025 6:41 PM EDT) Color, UA Yellow Yellow, Straw 04/03/2025 6:49 PM EDT [facility] Appearance, UA Cloudy(A) Clear 04/03/2025 6:49 PM EDT [facility] pH, UA 7.0 5.0 - 8.0 04/03/2025 6:49 PM EDT [facility] Specific [place], UA 1.010 1.005 - 1.030 04/03/2025 6:49 PM EDT [facility] Glucose, UA Negative Negative 04/03/2025 6:49 PM EDT [facility] Ketones, UA Negative Negative 04/03/2025 6:49 PM EDT [facility] Bilirubin, UA Negative Negative 04/03/2025 6:49 PM EDT [facility] Blood, UA Trace(A) Negative 04/03/2025 6:49 PM EDT [facility] Protein, UA Negative Negative 04/03/2025 6:49 PM EDT [facility] Leuk Esterase, UA Negative Negative 04/03/2025 6:49 PM EDT [facility] Nitrite, UA Negative Negative 04/03/2025 6:49 PM EDT [facility] Urobilinogen, UA 1.0 E.U./dL 0.2 - 1.0 E.U./dL 04/03/2025 6:49 PM EDT [facility] Urine Urine specimen obtained by clean catch procedure / Unknown Collection / Unknown 04/03/2025 6:41 PM EDT 04/03/2025 6:41 PM EDT us Anthony Hills DO URINE ORDERABLES Final Resu lt [facility]
[address] [place] [address], * (ABNORMAL) CBC (No Diff) (04/03/2025 6:41 PM EDT) WBC 8.96 3.40 - 10.80 10*3/mm3 04/03/2025 6:44 PM EDT [facility] RBC 3.62(L) 3.77 - 5.28 10*6/mm3 04/03/2025 6:44 PM EDT [facility] Hemoglobin 12.0 12.0 - 15.9 g/dL 04/03/2025 6:44 PM EDT [facility] Hematocrit 33.8(L) 34.0 - 46.6 % 04/03/2025 6:44 PM EDT [facility] MCV 93.4 79.0 - 97.0 fL 04/03/2025 6:44 PM EDT [facility] MCH 33.1(H) 26.6 - 33.0 pg 04/03/2025 6:44 PM EDT [facility] MCHC 35.5 31.5 - 35.7 g/dL 04/03/2025 6:44 PM EDT [facility] RDW 12.9 12.3 - 15.4 % 04/03/2025 6:44 PM EDT [facility] RDW-SD 44.2 37.0 - 54.0 fl 04/03/2025 6:44 PM EDT [facility] MPV 10.9 6.0 - 12.0 fL 04/03/2025 6:44 PM EDT [facility] Platelets 218 140 - 450 10*3/mm3 04/03/2025 6:44 PM EDT [facility] Blood Line / Unknown 04/03/2025 6: 41 PM EDT 04/03/2025 6:41 PM EDT us Anthony Hills DO LAB BLOOD ORDERABLES Final Result [facility]
[address] [place] [address], [place] [phone] * POC Glucose Once (04/03/2025 5:45 PM EDT) [facility] Signature Glucose 101 70 - 130 mg/dL 04/03/2025 5:46 PM EDT [facility] Blood 04/03/2025 5:45 PM EDT 04/03/2025 5:46 PM EDT us Anthony Hills DO POINT OF CARE TEST ORDERABL ES Final Result Performing Organization Address City/[facility]/ZIP Co de Phone Number [facility]
[address] [place] [address], [place] [phone] documented in this encounter Visit Diagnoses Not on filedocumented in this encounter Administered Medications Inactive Administered Medications - up to 3 most recent administrations Medication Order MAR Action Action Date Dose Rate Site lactated ringers bolus 1,000 mL 1,000 mL, Intravenous, at 2,000 mL/hr, Administer over 0.5 Hours, Once, On Sun04/03/25 at 1915, For 1 dose New Bag 04/03/2025 6:36 PM EDT 1,000 mL 2000 mL/hr lactated ringers bolus 1,000 mL 1,000 mL, Intravenous, at 2,000 mL/hr, Administer over 0.5 Hours, Once, On Sun04/03/25 at 2030, For 1 dose New Bag 04/03/2025 7:30 PM EDT 1,000 mL 2000 mL/hr ondansetron (ZOFRAN) injection 4 mg 4 mg, Intravenous, Every 6 Hours PRN, Nausea, Vomiting, Starting on Sun04/03/25 at 1818, If multiple N/V medications ordered, use in the following order: Ondansetron, Prochlorperazine, Promethazine. Use PO unless patient refuses or patient unable to swallow. Given 04/03/2025 6:39 PM EDT 4 mg sodium chloride 0.9 % flush 1-10 mL 1-10 mL, Intravenous, As Needed, Line Care, Starting on Sun04/03/25 at 1817 sodium chloride 0.9 % flush 10 mL 10 mL, Intravenous, Every 12 Hours Scheduled, First dose on Sun04/03/25 at 2100 sodium chloride 0.9 % infusion 40 mL 40 mL, Intravenous, at 100 mL/hr, As Needed, Line Care, Starting on Sun04/03/25 at 1817, Following administration of an IV intermittent medication, flush line with 40mL NS at 100mL/hr. documented in this encounter Active and Recently Administered Medications Times are shown in EDT. Scheduled Medication Order 04/01/2025 04/02/2025 04/03/2025 lactated ringers bolus 1,000 mL (COMPLETED) 1,000 mL, Intravenous, at 2,000 mL/hr, Administer over 0.5 Hours, Once, On Sun04/03/25 at 1915, For 1 dose 183 (New Bag - Prov ider: Genie Sheriff RN) lactated ringers bolus 1,000 mL (COMPLETED) 1,000 mL, Intravenous, at 2,000 mL/hr, Administer over 0.5 Hours, Once, On Sun04/03/25 at 2030, For 1 dose 1930 (New Bag - Prov ider: Opal Barakat RN) sodium chloride 0.9 % flush 10 mL 10 mL, Intravenous, Every 12 Hours Scheduled, First dose on Sun04/03/25 at 2100 PRN Medication Order 04/01/2025 04/02/2025 04/03/2025 ondansetron (ZOFRAN) injection 4 mg 4 mg, Intravenous, Every 6 Hours PRN, Nausea, Vomiting, Starting on Sun04/03/25 at 1818, If multiple N/V medications ordered, use in the following order: Ondansetron, Prochlorperazine, Promethazine. Use PO unless patient refuses or patient unable to swallow. 183 (Given - Provid er: Genie Sheriff RN) sodium chloride 0.9 % flush 1-10 mL 1-10 mL, Intravenous, As Needed, Line Care, Starting on Sun04/03/25 at 1817 sodium chloride 0.9 % infusion 40 mL 40 mL, Intravenous, at 100 mL/hr, As Needed, Line Care, Starting on Sun04/03/25 at 181, Following administration of an IV intermittent medication, flush line with 40mL NS at 100mL/hr. documented in this encounter Care Teams Business Librarian Relationship Specialty Start Date End Date Provider, [place] [address] PCP - General 04/03/25 documented as of this encounter
[2025-04-21 08:25] VITALS: BMI 28.9
--- OUTSIDE RECORDS SUMMARY | 2025-04-21 10:26 | XMS_ITS | Encounter Summary ---
Author Organization [facility] [employer] [facility] Address [address] [place] [address] Care Team Providers Care Manager Interventional Name Role Phone Provider, No Known Primary [...] 5:38 PM EDT Genie Sheriff RN * [place] Suicide Severity Rating Scale (Screener/Recent Self-Report) Question Answer Date of Assessment Author 6. Suicidal Behavior (Lifetime) No 5:38 PM EDT Genie Sheriff RN documented as of this encounter Plan of Treatment Not on file documented as of this encounter Visit Diagnoses Not on filedocumented in this encounter Care Teams Manager Interventional Relationship Specialty Start Date End Date Provider, [place] [address] PCP - General 04/03/25 documented as of this encounter
--- OUTSIDE RECORDS SUMMARY | 2025-04-21 10:26 | XMS_ITS | Encounter Summary ---
Author Organization [facility] Address [address] [place] [address] Care Team Providers Care Gymnastics Coach Name Role Phone Provider, No Known Primary Care Provider Unavail able Reason for Visit * Reason Comments Med Refill Encounter Details Date Type Department Care Team (Late st Contact Info) Description 05/08/[address] [facility] [address] [facility] [address] [place] [id number] Faustina Wren MD Social History Tobacco Use [...] on filedocumented in this encounter Care Teams Gymnastics Coach Relationship Specialty Start Date End Date Provider, [place] [address] PCP - General 04/03/25 documented as of this encounter
--- OUTSIDE RECORDS SUMMARY | 2025-04-21 10:26 | XMS_ITS | Clinical Summary ---
Author Organization Healthcare Address [address] [place] [address] Care Team Providers Care World Renowned Chef And Restaurant Owner Name Role Phone Ta Christine MD Primary Care Provider [phone] Allergies Active Allergy Reactions Criticality Noted Date [...] week 09/11/2023 How often do you attend [facility] or congregation services? Never 09/11/2023 Do you belong to any clubs o r organizations such as christian groups, unions, fraternal or athletic groups, or [...] Recorded Patient Health Questionnaire-2 Score 0 11/09/2023 [facility] - Occupational [...] place to sleep or slept in a jail (including now)? 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 No confirmatory testing is required. Blood Venous blood specimen / Unknown Venipuncture / Unknown 09/09/2023 8:36 AM EST 09/09/2023 8:47 AM EST us Ebony Leyva MD LAB BLOOD ORDERABLES Final Res ult [facility] [address] [place] [address] * Hepatitis C Antibody - ED (09/09/2023 8:36 AM EST) Hepatitis C Antibody Negative Negative 09/09/2023 10:13 AM EST [facility] Blood Venous blood specimen / Unknown Venipuncture / Unknown 09/09/2023 8:36 AM EST 09/09/2023 8:47 AM EST us Eboyn Leyva MD LAB BLOOD ORDERABLES Final Res ult [facility] [address] [place] [address] * Cytology (12/22/2020 12:00 AM EDT) 12/22/2020 12/23/2020 11: 00 AM EDT Narrative [facility] - 2020 4:17 PM EDT [facility] MR #: [id number] [facility] [address] [place], [place] [address] 1995 (Age: 24) FW Collect Date: 12/22/2020 00:00 Receipt Date: 12/23/2020 11:00 Page 1 DEPARTMENT OF PATHOLOGY AND LABORATORY MEDICINE CYTOPATHOLOGY REPORT Email: [email or web address] [email or web address] ATTENDING MD/Practitioner: Akosua Fitzgerald Service: OBW Location: [facility] Reported: 2020 16:17 Collected: 12/22/2020 00:00 INTERPRETATION A. THIN PREP (CERVICAL/VAGINAL): NEGATIVE FOR INTRAEPITHELIAL LESION OR MALIGNANCY. SATISFACTORY FOR EVALUATION; ENDOCERVICAL/ TRANSFORMATION ZONE COMPONENT PRESENT. Slide scanned and imaged by [employer] ThinPrep Imaging System with manual review of [...] results is suggested (please call Microbiology at [phone] for results). CLINICAL INFORMATION: Menstrual History: Cyclic Date of Last Menstrual Period: 27Nov2020 Other Clinical Conditions: If ASCUS and > 24 years of age, HPV/DNA testing requested.: provider is requesting HPV testing for any abnormal pap test results SPECIMEN DESCRIPTION: A: THIN PREP (CERVICAL/VAGINAL) THIN PREP PROCESS CELLULAR ENHANCEMENT ICD: F: A; RT IMAGE [id number] SNOMED CODES: A; H3O616 [id number] In cases where a pathologist has signed out the report, the service has been rendered in part by a resident. The signing pathologist has performed and is responsible for the reported pathologic evaluation. Shasta Fitzgerald APRN, CNM LAB PATHOLOGY ORDERABLES Final Result [facility] from Last 3 Months or Most Recently Relevant to Health Maintenance Insurance [facility] [employer] [facility] MEDICAID Advance Directives * Full Code (Latest Code Status on File) Date Activated Date Inactivated Comments 09/09/2023 1:58 PM 09/11/2023 4:50 PM Patient has previously expressed wishes for FULL CODE in conversations with family and boyfriend, present on exam. Will reevaluate once medically appropriate Question Answer Comments Patient has decision-making capacity? No Healthcare Surrogate: Parent(s) of the patient Care Teams World Renowned Chef And Restaurant Owner Relationship Specialty Start Date End Date Ta Christine MD [address] [facility] [place] [address] PCP - General 01/07/21
--- OUTSIDE RECORDS SUMMARY | 2025-04-21 10:26 | XMS_ITS | Encounter Summary ---
Author Organization Healthcare Address [address] [place] [address] Care Team Providers Care Table Games Supervisor Name Role Phone Ta Christine MD Primary Care Provider [phone] Encounter Details Date Type Department Care Team [...] week 09/11/2023 How often do you attend [facility] or jewish services? 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
--- OUTSIDE RECORDS SUMMARY | 2025-04-21 10:26 | XMS_ITS | Clinical Summary ---
[facility] Address [address] [place] [address] Care Team Providers Care Mailer Name Role Phone Provider, No Known Primary [...] - 04/03/2025 8:30 PM EDT Hospital Encounter [facility] DEPART[facility] [address] [place] [address] Anthoyn Hills, DO Discharge Disposition: Home or Self [...] 13 - 60 U/L [facility]03[facility]25 [facility] Blood Line / Unknown 04/03/2025 7: 01 PM EDT 04/03/2025 7:01 PM EDT Anthony Hills DO LAB BLOOD ORDERABLES Final Result [facility]
[address] [place] [address], * (ABNORMAL) Comprehensive Metabolic Panel (04/03/2025 7:01 PM EDT) Glucose 112(H) 65 - 99 mg/dL 04/03/2025 7:35 PM EDT [facility] BUN 4.5(L) 6.0 - 20.0 mg/dL 04/03/2025 7:35 PM EDT [facility] Creatinine 0.57 0.57 - 1.00 mg/dL 04/03/2025 7:35 PM EDT [facility] Sodium 136 136 - 145 mmol/L 04/03/2025 7:35 PM EDT [facility] Potassium 3.5 3.5 - 5.2 mmol/L 04/03/2025 7:35 PM EDT [facility] Chloride 103 98 - 107 mmol/L 04/03/2025 7:35 PM EDT [facility] CO2 22.0 22.0 - 29.0 mmol/L 04/03/2025 7:35 PM EDT [facility] Calcium 8.4(L) 8.6 - 10.5 mg/dL 04/03/2025 7:35 PM EDT [facility] Total Protein 5.3(L) 6.0 - 8.5 g/dL 04/03/2025 7:35 PM EDT [facility] Albumin 3.0(L) 3.5 - 5.2 g/dL 04/03/2025 7:35 PM EDT [facility] ALT (SGPT) 15 1 - 33 U/L 04/03/2025 7:35 PM EDT [facility] AST (SGOT) 18 1 - 32 U/L 04/03/2025 7:35 PM EDT [facility] Alkaline Phosphatase 132(H) 39 - 117 U/L 04/03/2025 7:35 PM EDT [facility] Total Bilirubin 0.5 0.0 - 1.2 mg/dL 04/03/2025 7:35 PM EDT [facility] Globulin 2.3 gm/dL 04/03/2025 7:35 PM EDT [facility] Comment:Calculated Result A/G Ratio 1.3 g/dL 04/03/2025 7:35 PM EDT [facility] BUN/Creatinine Ratio 7.9 7.0 - 25.0 04/03/2025 7:35 PM EDT [facility] Anion Gap 11.0 5.0 - 15.0 mmol/L 04/03/2025 7:35 PM EDT [facility] eGFR 126.3 >60.0 mL/min/1.7 3 04/03/2025 7:35 PM EDT [facility] Blood Line / Unknown 04/03/2025 7: 01 PM EDT 04/03/2025 7:01 PM EDT [facility] - 04/03/2025 7:35 PM EDT [...] Hills DO LAB BLOOD ORDERABLES Final Result [facility]
[address] [place] [address], [place] [phone] * (ABNORMAL) Urinalysis, Microscopic Only - Urine, Clean Catch (04/03/2025 6:41 PM EDT) RBC, UA 0-2 None Seen, 0-2 /HPF 04/03/2025 6:49 PM EDT [facility] WBC, UA 0-2 None Seen, 0-2 /HPF 04/03/2025 6:49 PM EDT [facility] Bacteria, UA Trace(A) None Seen /HPF 04/03/2025 6:49 PM EDT [facility] Squamous Epithelial Cells, UA 3-6(A) None Seen, 0-2 /HPF 04/03/2025 6:49 PM EDT [facility] Hyaline Casts, UA None Seen None Seen /LPF 04/03/2025 6:49 PM EDT [facility] Methodology Automated Microscopy 04/03/2025 6:49 PM EDT [facility] Urine Urine specimen obtained by clean catch procedure / Unknown Collection / Unknown 04/03/2025 6:41 PM EDT 04/03/2025 6:41 PM EDT Anthony Hills DO URINE ORDERABLES Final Resu lt [facility]
[address] [place] [address], * (ABNORMAL) Urinalysis With Microscopic If Indicated (No Culture) - Urine, Clean Catch (04/03/2025 6:41 PM EDT) Color, UA Yellow Yellow, Straw 04/03/2025 6:49 PM EDT [facility] Appearance, UA Cloudy(A) Clear 04/03/2025 6:49 PM EDT [facility] pH, UA 7.0 5.0 - 8.0 04/03/2025 6:49 PM EDT [facility] Specific [place], UA 1.010 1.005 - 1.030 04/03/2025 6:49 PM EDT [facility] Glucose, UA Negative Negative 04/03/2025 6:49 PM EDT [facility] Ketones, UA Negative Negative 04/03/2025 6:49 PM EDT [facility] Bilirubin, UA Negative Negative 04/03/2025 6:49 PM EDT [facility] Blood, UA Trace(A) Negative 04/03/2025 6:49 PM EDT [facility] Protein, UA Negative Negative 04/03/2025 6:49 PM EDT [facility] Leuk Esterase, UA Negative Negative 04/03/2025 6:49 PM EDT [facility] Nitrite, UA Negative Negative 04/03/2025 6:49 PM EDT [facility] Urobilinogen, UA 1.0 E.U./dL 0.2 - 1.0 E.U./dL 04/03/2025 6:49 PM EDT [facility] Urine Urine specimen obtained by clean catch procedure / Unknown Collection / Unknown 04/03/2025 6:41 PM EDT 04/03/2025 6:41 PM EDT Anthony Hills DO URINE ORDERABLES Final Resu lt [facility]
[address] [place] [address], * (ABNORMAL) CBC (No Diff) (04/03/2025 6:41 PM EDT) WBC 8.96 3.40 - 10.80 10*3/mm3 04/03/2025 6:44 PM EDT [facility] RBC 3.62(L) 3.77 - 5.28 10*6/mm3 04/03/2025 6:44 PM EDT [facility] Hemoglobin 12.0 12.0 - 15.9 g/dL 04/03/2025 6:44 PM EDT [facility] Hematocrit 33.8(L) 34.0 - 46.6 % 04/03/2025 6:44 PM EDT [facility] MCV 93.4 79.0 - 97.0 fL 04/03/2025 6:44 PM EDT [facility] MCH 33.1(H) 26.6 - 33.0 pg 04/03/2025 6:44 PM EDT [facility] MCHC 35.5 31.5 - 35.7 g/dL 04/03/2025 6:44 PM EDT [facility] RDW 12.9 12.3 - 15.4 % 04/03/2025 6:44 PM EDT [facility] RDW-SD 44.2 37.0 - 54.0 fl 04/03/2025 6:44 PM EDT [facility] MPV 10.9 6.0 - 12.0 fL 04/03/2025 6:44 PM EDT [facility] Platelets 218 140 - 450 10*3/mm3 04/03/2025 6:44 PM EDT [facility] Blood Line / Unknown 04/03/2025 6: 41 PM EDT 04/03/2025 6:41 PM EDT us Anthony Hills DO LAB BLOOD ORDERABLES Final Result [facility]
[address] [place] [address], * POC Glucose Once (04/03/2025 5:45 PM EDT) Glucose 101 70 - 130 mg/dL 04/03/2025 5:46 PM EDT [facility] Blood 04/03/2025 5:45 PM EDT 04/03/2025 5:46 PM EDT us Anthony Hills DO POINT OF CARE TEST ORDERABL ES Final Result [facility]
[address] [place] [address], [place] [phone] * Chlamydia trachomatis, Neisseria gonorrhoeae, PCR - Swab, Cervix (11/13/2022 4:08 PM EDT) Pathologist [facility] Chlamydia trachomatis, BRIANNA Negative Negative 11/14/2022 11:07 PM EDT [facility] Neisseria gonorrhoeae, BRIANNA Negative Negative 11/14/2022 11:07 PM EDT [facility] Swab Cervix uteri structure / Unknown Collection / Unknown 11/13/2022 4:08 PM EDT 11/13/2022 4:14 PM EDT [facility] - 11/14/2022 11:07 PM EDT Performed at: [facility] [id number] Account Financial Manager: Pallavi Resendiz MD, Phone: [phone] Cong ESQUEDA MICROBIOLOGY - GENERAL OR DERABLES Final Result [facility] [address] [place] [address], [place] [phone] * Hepatitis C Antibody (11/09/2021 10:18 AM EDT) Pathologist [facility] Hepatitis C Ab Non-Reacti ve Non-Reacti ve 11/09/2021 8:06 PM EDT [facility] Blood Venipuncture / Unknown 11/09/2021 10:18 AM EDT 11/09/2021 10:18 AM EDT Narrative [facility] - 11/09/2021 8:06 PM EDT Results may be falsely decreased if patient taking Biotin. Faustina Wren MD LAB BLOOD ORDERABLES Final Result [facility]
[address] [place] [address], [place] [phone] from Last 3 Months or Most Recently Relevant to Health Maintenance Insurance MEDICAID PENDING on file [employer] [address] Care Teams Mailer Relationship Specialty Start Date End Date Provider, No Known [facility] [place] [address] PCP - General 04/03/25
[2025-04-21 11:04] LABS: Hematocrit 36.6 % (37.0-47.0); Hemoglobin 12.8 g/dL (12.2-16.2); Immature Granulocytes % 1.0 %; Mean Corpuscular HGB Conc 35.0 g/dL (31.8-35.4); Mean Corpuscular Hemoglobin 32.9 pg (27.0-31.2); Mean Corpuscular Volume 94.1 fl (81-99); Nucleated Red Blood Cells % 0 %; Platelet Count 218 K/mm3 (142-424); Red Blood Count 3.89 M/mm3 (4.20-5.40); Red Cell Distribution Width-SD 44.3 fL; White Blood Count 9.9 K/mm3 (4.8-10.8)
[2025-04-21 11:17] LABS: Albumin Level 3.3 g/dl (3.5-5.0); Chloride 110 mmol/L (98-107); Potassium 4.0 mmoL/L (3.5-5.1); Sodium 136 mmol/L (136-145)
[2025-04-21 11:19] LABS: Blood Urea Nitrogen 4 mg/dl (7-17); Creatinine Clearance Estimated 227 mL/min (50-200); Creatinine,Serum 0.40 mg/dl (0.52-1.04); Estimated Glomerular Filt Rate 189 ml/min (>60); GFR (African American) 228 ML/MIN (>60)
[2025-04-21 11:20] LABS: Alanine Aminotransferase 24 U/L (12-78); Albumin/Globulin Ratio 1.1 (1.1-1.8); Alkaline Phosphatase 171 U/L (38-126); Anion Gap 12.0 mEq/L (5-15); Aspartate Amino Transferase 24 U/L (14-36); Bilirubin,Total 0.6 mg/dl (0.2-1.3); Calcium 9.0 mg/dl (8.4-10.2); Carbon Dioxide 18 mmol/L (22.0-30.0); Globulin 3.0 g/dL (1.3-3.2); Glucose 101 mg/dl (74-100); Total Protein,Serum 6.3 g/dl (6.3-8.2)
== END 2025-04-21 23:59 | disposition home or self-care (01) ==
LOC: PREOP 10:23
PROVIDERS: Visit Provider Obstetrics & Gynecology
DX: Z01.812 Encounter for preprocedural laboratory examination (principal)
CPT/HCPCS: 80053; 85025

== ENCOUNTER 2025-04-24 12:54 | Outpatient (CLI) | payer MEDICAID, SELFPAY ==
--- OUTSIDE RECORDS SUMMARY | 2025-04-03 17:19 | XMS_ITS | Encounter Summary ---
Author Organization [facility] yste Address [address] [place] [address] Care Team Providers Care Tracer Bullet Charging Machine Operator Name Role Phone Provider, No Known Primary Care Provider Unavail able Encounter Details Date Type Department Care Team (Late st Contact Info) Description 04/03/2025 5:19 PM EDT - 04/03/2025 8:30 PM EDT Hospital Encounter [facility]STETRIC EMERGENCY DEPARTMENT [address] [id number] Anthony Hills, DO [address] [facility] [address] [id number] Discharge Disposition: Home or Self Care Social [...] 5:38 PM EDT Genie Sheriff RN * [place] Suicide Severity Rating Scale (Screener/Recent Self-Report) Question Answer Date of Assessment Author 6. Suicidal Behavior (Lifetime) No 5:38 PM EDT Genie Sheriff RN documented as of this encounter Discharge Instructions * Attachments The following attachments cannot be sent through Care Everywhere. * Third Trimester of ([place]) documented in this encounter Medications at Time [...] from the original note were not included. [facility] Obstetric History and Physical Referring Provider: Anthony Hills DO Cc: Second opinion Subjective Patient is a 29 y.o. female currently at 35w3d, who presents with multiple complaints. Patient stated was told by distribution operations supervisor today during a interval growth scan with [...] repeat at 39 weeks gestation[facility] The following portions of [...] IUPC: Resting Tone: Resting Tone by IUPC: [place] Units: Laboratory Results: Lab Results (last 24 hours) Procedure Component Value Units Date/Time Comprehensive Metabolic Panel [[id number]] (Abnormal) Collected: 04/03/251900 Specimen: Blood Updated: 04/03/251934 [...] not include race as a factor Lipase [[id number]] (Normal) Collected: 04/03/251900 Specimen: Blood Updated: 04/03/251934 Lipase 26 U/L Urinalysis With Microscopic If Indicated (No Culture) - Urine, Clean Catch [[id number]] (Abnormal) Collected: 04/03/251840 Specimen: Urine, Clean Catch Updated: 04/03/251848 Color, UA Yellow Appearance, UA Cloudy pH, UA 7.0 Specific [place], UA 1.010 Glucose, UA Negative Ketones, UA Negative Bilirubin, UA Negative Blood, UA Trace Protein, UA Negative Leuk Esterase, UA Negative Nitrite, UA Negative Urobilinogen, UA 1.0 E.U./dL Urinalysis, Microscopic Only - Urine, Clean Catch [[id number]] (Abnormal) Collected: 04/03/251840 Specimen: Urine, Clean Catch Updated: 04/03/251848 RBC, UA 0-2 /HPF WBC, UA 0-2 /HPF Bacteria, UA Trace /HPF Squamous Epithelial Cells, UA 3-6 /HPF Hyaline Casts, UA None Seen /LPF Methodology Automated Microscopy CBC (No Diff) [[id number]] (Abnormal) Collected: 04/03/251840 Specimen: Blood Updated: 04/03/251843 WBC 8.96 10*3/mm3 RBC 3.62 10*6/mm3 Hemoglobin 12.0 g/dL Hematocrit 33.8 % MCV 93.4 fL MCH 33.1 pg MCHC 35.5 g/dL RDW 12.9 % RDW-SD 44.2 fl MPV 10.9 fL Platelets 218 10*3/mm3 POC Glucose Once [[id number]] (Normal) Collected: 04/03/251744 Specimen: Blood Updated: 04/03/251745 [...] - 60 U/L 04/03/2025 7:35 PM EDT [facility] Blood Line / Unknown 04/03/2025 7: 01 PM EDT 04/03/2025 7:01 PM EDT Anthony Hills DO LAB BLOOD ORDERABLES Final Result [facility]
[address] [place] [address], * (ABNORMAL) Comprehensive Metabolic Panel (04/03/2025 7:01 PM EDT) Glucose 112(H) 65 - 99 mg/dL 04/03/2025 7:35 PM EDT [facility] BUN 4.5(L) 6.0 - 20.0 mg/dL 04/03/2025 7:35 PM EDT [facility] Creatinine 0.57 0.57 - 1.00 mg/dL 04/03/2025 7:35 PM EDT [facility] Sodium 136 136 - 145 mmol/L 04/03/2025 7:35 PM EDT [facility] Potassium 3.5 3.5 - 5.2 mmol/L 04/03/2025 7:35 PM EDT [facility] Chloride 103 98 - 107 mmol/L 04/03/2025 7:35 PM EDT [facility] CO2 22.0 22.0 - 29.0 mmol/L 04/03/2025 7:35 PM EDT [facility] Calcium 8.4(L) 8.6 - 10.5 mg/dL 04/03/2025 7:35 PM EDT [facility] Total Protein 5.3(L) 6.0 - 8.5 g/dL 04/03/2025 7:35 PM EDT [facility] Albumin 3.0(L) 3.5 - 5.2 g/dL 04/03/2025 7:35 PM EDT [facility] ALT (SGPT) 15 1 - 33 U/L 04/03/2025 7:35 PM EDT [facility] AST (SGOT) 18 1 - 32 U/L 04/[facility]25 [facility] Alkaline Phosphatase 132(H) 39 - 117 U/L 04/03/2025 7:35 PM EDT [facility] Total Bilirubin 0.5 0.0 - 1.2 mg/dL 04/03/2025 7:35 PM EDT [facility] Globulin 2.3 gm/dL 04/03/2025 7:35 PM EDT [facility] Comment:Calculated Result A/G Ratio 1.3 g/dL 04/03/2025 7:35 PM EDT [facility] BUN/Creatinine Ratio 7.9 7.0 - 25.0 04/03/2025 7:35 PM EDT [facility] Anion Gap 11.0 5.0 - 15.0 mmol/L 04/03/2025 7:35 PM EDT [facility] eGFR 126.3 >60.0 mL/min/1.7 3 04/03/2025 7:35 PM EDT [facility] Blood Line / Unknown 04/03/2025 7: 01 PM EDT 04/03/2025 7:01 PM EDT [facility] - 04/03/2025 7:35 PM [...] Hills DO LAB BLOOD ORDERABLES Final Result [facility]
[address] [place] [address], * (ABNORMAL) Urinalysis, Microscopic Only - Urine, Clean Catch (04/03/2025 6:41 PM EDT) RBC, UA 0-2 None Seen, 0-2 /HPF 04/03/2025 6:49 PM EDT [facility] WBC, UA 0-2 None Seen, 0-2 /HPF 04/03/2025 6:49 PM EDT [facility] Bacteria, UA Trace(A) None Seen /HPF 04/03/2025 6:49 PM EDT [facility] Squamous Epithelial Cells, UA 3-6(A) None Seen, 0-2 /HPF 04/03/2025 6:49 PM EDT [facility] Hyaline Casts, UA None Seen None Seen /LPF 04/03/2025 6:49 PM EDT [facility] Methodology Automated Microscopy 04/03/2025 6:49 PM EDT [facility] Urine Urine specimen obtained by clean catch procedure / Unknown Collection / Unknown 04/03/2025 6:41 PM EDT 04/03/2025 6:41 PM EDT Anthony Hills DO URINE ORDERABLES Final Resu lt [facility]
[address] [place] [address], * (ABNORMAL) Urinalysis With Microscopic If Indicated (No Culture) - Urine, Clean Catch (04/03/2025 6:41 PM EDT) Color, UA Yellow Yellow, Straw 04/03/2025 6:49 PM EDT [facility] Appearance, UA Cloudy(A) Clear 04/03/2025 6:49 PM EDT [facility] pH, UA 7.0 5.0 - 8.0 04/03/2025 6:49 PM EDT [facility] Specific [place], UA 1.010 1.005 - 1.030 04/03/2025 6:49 PM EDT [facility] Glucose, UA Negative Negative 04/03/2025 6:49 PM EDT [facility] Ketones, UA Negative Negative 04/03/2025 6:49 PM EDT [facility] Bilirubin, UA Negative Negative 04/03/2025 6:49 PM EDT [facility] Blood, UA Trace(A) Negative 04/03/2025 6:49 PM EDT [facility] Protein, UA Negative Negative 04/03/2025 6:49 PM EDT [facility] Leuk Esterase, UA Negative Negative 04/03/2025 6:49 PM EDT [facility] Nitrite, UA Negative Negative 04/03/2025 6:49 PM EDT [facility] Urobilinogen, UA 1.0 E.U./dL 0.2 - 1.0 E.U./dL 04/03/2025 6:49 PM EDT [facility] Urine Urine specimen obtained by clean catch procedure / Unknown Collection / Unknown 04/03/2025 6:41 PM EDT 04/03/2025 6:41 PM EDT us Anthony Hills DO URINE ORDERABLES Final Resu lt [facility]
[address] [place] [address], * (ABNORMAL) CBC (No Diff) (04/03/2025 6:41 PM EDT) WBC 8.96 3.40 - 10.80 10*3/mm3 04/03/2025 6:44 PM EDT [facility] RBC 3.62(L) 3.77 - 5.28 10*6/mm3 04/03/2025 6:44 PM EDT [facility] Hemoglobin 12.0 12.0 - 15.9 g/dL 04/03/2025 6:44 PM EDT [facility] Hematocrit 33.8(L) 34.0 - 46.6 % 04/03/2025 6:44 PM EDT [facility] MCV 93.4 79.0 - 97.0 fL 04/03/2025 6:44 PM EDT [facility] MCH 33.1(H) 26.6 - 33.0 pg 04/03/2025 6:44 PM EDT [facility] MCHC 35.5 31.5 - 35.7 g/dL 04/03/2025 6:44 PM EDT [facility] RDW 12.9 12.3 - 15.4 % 04/03/2025 6:44 PM EDT [facility] RDW-SD 44.2 37.0 - 54.0 fl 04/03/2025 6:44 PM EDT [facility] MPV 10.9 6.0 - 12.0 fL 04/03/2025 6:44 PM EDT [facility] Platelets 218 140 - 450 10*3/mm3 04/03/2025 6:44 PM EDT [facility] Blood Line / Unknown 04/03/2025 6: 41 PM EDT 04/03/2025 6:41 PM EDT us Anthony Hills DO LAB BLOOD ORDERABLES Final Result [facility]
[address] [place] [address], [place] [phone] * POC Glucose Once (04/03/2025 5:45 PM EDT) [facility] Signature Glucose 101 70 - 130 mg/dL 04/03/2025 5:46 PM EDT [facility] Blood 04/03/2025 5:45 PM EDT 04/03/2025 5:46 PM EDT us Anthony Hills DO POINT OF CARE TEST ORDERABL ES Final Result Performing Organization Address City/[facility]/ZIP Co de Phone Number [facility]
[address] [place] [address], [place] [phone] documented in this encounter Visit Diagnoses Not [...] 100mL/hr. documented in this encounter Care Teams Tracer Bullet Charging Machine Operator Relationship Specialty Start Date End Date Provider, [place] [address] PCP - General 04/03/25 documented as of this encounter
--- OUTSIDE RECORDS SUMMARY | 2025-04-24 12:55 | XMS_ITS | Clinical Summary ---
Author Organization Healthcare Address [address] [place] [address] Care Team Providers Care Hybrid Car Mechanic Name Role Phone Ta Christine MD Primary Care Provider [phone] Allergies Active Allergy Reactions Criticality Noted Date [...] How often do you attend [facility] or restorationist services? Never 09/11/2023 Do [...] Recorded Patient Health Questionnaire-2 Score 0 11/09/2023 [facility] - Occupational [...] Not on file 2023 Cage questionnaire eye generation engineer Not on file Cage Overall score [...] 01/23/2017 01/23/2007, 04/02/1997 [facility]-Pap Smear 12/23/2023 12/22/2020 [id number] Vaccine ( - season) 2024 [facility]-Depression Screening [...] Non Reactive 09/09/2023 10:18 AM EST [facility] Comment:Screening for HIV 1 & 2 antibodies, and P24 antigen is NONREACTIVE. No confirmatory testing is required. Blood Venous blood specimen / Unknown Venipuncture / Unknown 09/09/2023 8:36 AM EST 09/09/2023 8:47 AM EST us Ebony Leyva MD LAB BLOOD ORDERABLES Final Res ult [facility] [address] [place] [address] * Hepatitis C Antibody - ED (09/09/2023 8:36 AM EST) Hepatitis C Antibody Negative Negative 09/09/2023 10:13 AM EST [facility] Blood Venous blood specimen / Unknown Venipuncture / Unknown 09/09/2023 8:36 AM EST 09/09/2023 8:47 AM EST us Ebony eLyva MD LAB BLOOD ORDERABLES Final Res ult [facility] [address] [place] [address] * Cytology (12/22/2020 12:00 AM EDT) 12/22/2020 12/23/2020 11: 00 AM EDT Narrative [facility] - 2020 4:17 PM EDT [facility] MR #: [id number] [facility] [address] [place], [place] [address] 1995 (Age: 24) FW Collect Date: 12/22/2020 00:00 Receipt Date: 12/23/2020 11:00 Page 1 DEPARTMENT OF PATHOLOGY AND LABORATORY MEDICINE CYTOPATHOLOGY REPORT Email: [id number] ATTENDING MD/Practitioner: Akosua Fitzgerald Service: [facility] Location: [facility] Reported: 2020 16:17 Collected: 12/22/2020 00:00 INTERPRETATION A. THIN PREP (CERVICAL/VAGINAL): NEGATIVE FOR INTRAEPITHELIAL LESION OR MALIGNANCY. SATISFACTORY FOR EVALUATION; ENDOCERVICAL/ TRANSFORMATION ZONE COMPONENT PRESENT. Slide scanned and imaged by [employer] ThinPrep Imaging System with manual review of [...] results is suggested (please call Microbiology at [phone] for results). CLINICAL INFORMATION: Menstrual History: Cyclic Date of Last Menstrual Period: 27Nov2020 Other Clinical Conditions: If ASCUS and > 24 years of age, HPV/DNA testing requested.: provider is requesting HPV testing for any abnormal pap test results SPECIMEN DESCRIPTION: A: THIN PREP (CERVICAL/VAGINAL) THIN PREP PROCESS CELLULAR ENHANCEMENT ICD: F: A; RT IMAGE [id number] SNOMED CODES: A; [id number] [id number] [id number] In cases where a pathologist has signed out the report, the service has been rendered in part by a resident. The signing pathologist has performed and is responsible for the reported pathologic evaluation. Shasta Fitzgerald APRN, CNM LAB PATHOLOGY ORDERABLES Final Result [facility] from Last 3 Months or Most Recently Relevant to Health Maintenance Insurance [facility] madKast [facility] EXPRESS MEDICAID Advance Directives * Full Code (Latest Code Status on File) Date Activated Date Inactivated Comments 09/09/2023 1:58 PM 09/11/2023 4:50 PM Patient has previously expressed wishes for FULL CODE in conversations with family and boyfriend, present on exam. Will reevaluate once medically appropriate Question Answer Comments Patient has decision-making capacity? No Healthcare Surrogate: Parent(s) of the patient Care Teams Hybrid Car Mechanic Relationship Specialty Start Date End Date Ta Christine MD [address] [facility] [place] [address] PCP - General 01/07/21
--- OUTSIDE RECORDS SUMMARY | 2025-04-24 12:55 | XMS_ITS | Encounter Summary ---
Author Organization [facility] Address [address] [place] [address] Care Team Providers Care Superintendent Of Schools Name Role Phone Provider, No Known Primary Care Provider Unavail able Reason for Visit * Reason Comments Med Refill Encounter Details Date Type Department Care Team (Late st Contact Info) Description 05/08/2022 Refill [facility] [address] [facility] [address] [place] [id number] Faustina Wren MD Social History Tobacco Use [...] on filedocumented in this encounter Care Teams Superintendent Of Schools Relationship Specialty Start Date End Date Provider, [place] [address] PCP - General 04/03/25 documented as of this encounter
--- OUTSIDE RECORDS SUMMARY | 2025-04-24 12:56 | XMS_ITS | Clinical Summary ---
[facility] Address [address] [place] [address] Care Team Providers Care Compensation Business Partner Name Role Phone Provider, No Known Primary [...] - 04/03/2025 8:30 PM EDT Hospital En[facility] [address] [place] [address] Anthony Hills, DO Discharge Disposition: Home or [...] 13 - 60 U/L [facility]/03[facility]25 [facility] Blood Line / Unknown 04/03/2025 7: 01 PM EDT 04/03/2025 7:01 PM EDT Anthony Hills DO LAB BLOOD ORDERABLES Final Result [facility]
[address] [place] [address], * (ABNORMAL) Comprehensive Metabolic Panel (04/03/2025 7:01 PM EDT) Glucose 112(H) 65 - 99 mg/dL 04/03/2025 7:35 PM EDT [facility] BUN 4.5(L) 6.0 - 20.0 mg/dL 04/03/2025 7:35 PM EDT [facility] Creatinine 0.57 0.57 - 1.00 mg/dL 04/03/2025 7:35 PM EDT [facility] Sodium 136 136 - 145 mmol/L 04/03/2025 7:35 PM EDT [facility] Potassium 3.5 3.5 - 5.2 mmol/L 04/03/2025 7:35 PM EDT [facility] Chloride 103 98 - 107 mmol/L 04/03/2025 7:35 PM EDT [facility] CO2 22.0 22.0 - 29.0 mmol/L 04/03/2025 7:35 PM EDT [facility] Calcium 8.4(L) 8.6 - 10.5 mg/dL 04/03/2025 7:35 PM EDT [facility] Total Protein 5.3(L) 6.0 - 8.5 g/dL 04/03/2025 7:35 PM EDT [facility] Albumin 3.0(L) 3.5 - 5.2 g/dL 04/03/2025 7:35 PM EDT [facility] ALT (SGPT) 15 1 - 33 U/L 04/03/2025 7:35 PM EDT [facility] AST (SGOT) 18 1 - 32 U/L 04/03/2025 7:35 PM EDT [facility] Alkaline Phosphatase 132(H) 39 - 117 U/L 04/03/2025 7:35 PM EDT [facility] Total Bilirubin 0.5 0.0 - 1.2 mg/dL 04/03/2025 7:35 PM EDT [facility] Globulin 2.3 gm/dL 04/03/2025 7:35 PM EDT [facility] Comment:Calculated Result A/G Ratio 1.3 g/dL 04/03/2025 7:35 PM EDT [facility] BUN/Creatinine Ratio 7.9 7.0 - 25.0 04/03/2025 7:35 PM EDT [facility] Anion Gap 11.0 5.0 - 15.0 mmol/L 04/03/2025 7:35 PM EDT [facility] eGFR 126.3 >60.0 mL/min/1.7 3 04/03/2025 7:35 PM EDT [facility] Blood Line / Unknown 04/03/2025 7: 01 PM EDT 04/03/2025 7:01 PM EDT [facility] - 04/03/2025 7:35 PM EDT [...] Hills DO LAB BLOOD ORDERABLES Final Result [facility]
[address] [place] [address], [place] [phone] * (ABNORMAL) Urinalysis, Microscopic Only - Urine, Clean Catch (04/03/2025 6:41 PM EDT) RBC, UA 0-2 None Seen, 0-2 /HPF 04/03/2025 6:49 PM EDT [facility] WBC, UA 0-2 None Seen, 0-2 /HPF 04/03/2025 6:49 PM EDT [facility] Bacteria, UA Trace(A) None Seen /HPF 04/03/2025 6:49 PM EDT [facility] Squamous Epithelial Cells, UA 3-6(A) None Seen, 0-2 /HPF 04/03/2025 6:49 PM EDT [facility] Hyaline Casts, UA None Seen None Seen /LPF 04/03/2025 6:49 PM EDT [facility] Methodology Automated Microscopy 04/03/2025 6:49 PM EDT [facility] Urine Urine specimen obtained by clean catch procedure / Unknown Collection / Unknown 04/03/2025 6:41 PM EDT 04/03/2025 6:41 PM EDT Anthony Hills DO URINE ORDERABLES Final Resu lt [facility]
[address] [place] [address], * (ABNORMAL) Urinalysis With Microscopic If Indicated (No Culture) - Urine, Clean Catch (04/03/2025 6:41 PM EDT) Color, UA Yellow Yellow, Straw 04/03/2025 6:49 PM EDT [facility] Appearance, UA Cloudy(A) Clear 04/03/2025 6:49 PM EDT [facility] pH, UA 7.0 5.0 - 8.0 04/03/2025 6:49 PM EDT [facility] Specific [place], UA 1.010 1.005 - 1.030 04/03/2025 6:49 PM EDT [facility] Glucose, UA Negative Negative 04/03/2025 6:49 PM EDT [facility] Ketones, UA Negative Negative 04/03/2025 6:49 PM EDT [facility] Bilirubin, UA Negative Negative 04/03/2025 6:49 PM EDT [facility] Blood, UA Trace(A) Negative 04/03/2025 6:49 PM EDT [facility] Protein, UA Negative Negative 04/03/2025 6:49 PM EDT [facility] Leuk Esterase, UA Negative Negative 04/03/2025 6:49 PM EDT [facility] Nitrite, UA Negative Negative 04/03/2025 6:49 PM EDT [facility] Urobilinogen, UA 1.0 E.U./dL 0.2 - 1.0 E.U./dL 04/03/2025 6:49 PM EDT [facility] Urine Urine specimen obtained by clean catch procedure / Unknown Collection / Unknown 04/03/2025 6:41 PM EDT 04/03/2025 6:41 PM EDT Anthony Hills DO URINE ORDERABLES Final Resu lt [facility]
[address] [place] [address], * (ABNORMAL) CBC (No Diff) (04/03/2025 6:41 PM EDT) WBC 8.96 3.40 - 10.80 10*3/mm3 04/03/2025 6:44 PM EDT [facility] RBC 3.62(L) 3.77 - 5.28 10*6/mm3 04/03/2025 6:44 PM EDT [facility] Hemoglobin 12.0 12.0 - 15.9 g/dL 04/03/2025 6:44 PM EDT [facility] Hematocrit 33.8(L) 34.0 - 46.6 % 04/03/2025 6:44 PM EDT [facility] MCV 93.4 79.0 - 97.0 fL 04/03/2025 6:44 PM EDT [facility] MCH 33.1(H) 26.6 - 33.0 pg 04/03/2025 6:44 PM EDT [facility] MCHC 35.5 31.5 - 35.7 g/dL 04/03/2025 6:44 PM EDT [facility] RDW 12.9 12.3 - 15.4 % 04/03/2025 6:44 PM EDT [facility] RDW-SD 44.2 37.0 - 54.0 fl 04/03/2025 6:44 PM EDT [facility] MPV 10.9 6.0 - 12.0 fL 04/03/2025 6:44 PM EDT [facility] Platelets 218 140 - 450 10*3/mm3 04/03/2025 6:44 PM EDT [facility] Blood Line / Unknown 04/03/2025 6: 41 PM EDT 04/03/2025 6:41 PM EDT us Anthony Hills DO LAB BLOOD ORDERABLES Final Result [facility]
[address] [place] [address], * POC Glucose Once (04/03/2025 5:45 PM EDT) Glucose 101 70 - 130 mg/dL 04/03/2025 5:46 PM EDT [facility] Blood 04/03/2025 5:45 PM EDT 04/03/2025 5:46 PM EDT us Anthony Hills DO POINT OF CARE TEST ORDERABL ES Final Result [facility]
[address] [place] [address], [place] [phone] * Chlamydia trachomatis, Neisseria gonorrhoeae, PCR - Swab, Cervix (11/13/2022 4:08 PM EDT) Pathologist [facility] Chlamydia trachomatis, BRIANNA Negative Negative 11/14/2022 11:07 PM EDT [facility] Neisseria gonorrhoeae, BRIANNA Negative Negative 11/14/2022 11:07 PM EDT [facility] Swab Cervix uteri structure / Unknown Collection / Unknown 11/13/2022 4:08 PM EDT 11/13/2022 4:14 PM EDT [facility]ative [facility] 11/14/2022 11:07 PM EDT Performed at: [facility] [id number] E D Tech: Pallavi Resendiz MD, Phone: [phone] Cong ESQUEDA MICROBIOLOGY - GENERAL OR DERABLES Final Result [facility] [address] [place] [address], [place] [phone] * Hepatitis C Antibody (11/09/2021 10:18 AM EDT) Pathologist [facility] Hepatitis C Ab Non-Reacti ve Non-Reacti ve 11/09/2021 8:06 PM EDT [facility] Blood Venipuncture / Unknown 11/09/2021 10:18 AM EDT 11/09/2021 10:18 AM EDT Narrative [facility] - 11/09/2021 8:06 PM EDT Results may be falsely decreased if patient taking Biotin. Faustina Wren MD LAB BLOOD ORDERABLES Final Result [facility]
[address] [place] [address], [place] [phone] from Last 3 Months or Most Recently Relevant to Health Maintenance Insurance MEDICAID PENDING on file [place] [address] Care Teams Compensation Business Partner Relationship Specialty Start Date End Date Provider, No Known [facility] [place] [address] PCP - General 04/03/25
--- OUTSIDE RECORDS SUMMARY | 2025-04-24 12:56 | XMS_ITS | Encounter Summary ---
Author Organization Healthcare Address [address] [place] [address] Care Team Providers Care Tail End Rider Name Role Phone Ta Christine MD Primary Care Provider [phone] Encounter Details Date Type Department Care Team [...] week 09/11/2023 How often do you attend [facility] or quaker services? Never 09/11/2023 Do you belong to any clubs o r organizations such as denominational groups, unions, fraternal or athletic groups, or [...] Recorded Patient Health Questionnaire-2 Score 0 11/09/2023 [facility] ional Health [...] Not on file 2023 Cage questionnaire eye labor relations analyst Not on file Cage Overall score [...] documented as of this encounter Care Teams Tail End Rider Relationship Specialty Start Date End Date Ta Christine MD [address] [place], [place] [address] PCP - General 01/07/21 documented as of this encounter
--- OUTSIDE RECORDS SUMMARY | 2025-04-24 12:56 | XMS_ITS | Encounter Summary ---
Author Organization [facility] [place] Address [address] [place] [address] Care Team Providers Care Measurement Superintendent Name Role Phone Provider, No Known Primary [...] 5:38 PM EDT Genie Sheriff RN * Hood Suicide Severity Rating Scale (Screener/Recent Self-Report) Question Answer Date of Assessment Author 6. Suicidal Behavior (Lifetime) No 5:38 PM EDT Genie Sheriff RN documented as of this encounter Plan of Treatment Not on file documented as of this encounter Visit Diagnoses Not on filedocumented in this encounter Care Teams Measurement Superintendent Relationship Specialty Start Date End Date Provider, [place] [address] PCP - General 04/03/25 documented as of this encounter
--- NOTE | 2025-04-24 13:00 | US_ITS ---
PROCEDURE: US OB BIOPHYSICAL PROFILE CLINICAL INDICATION: GDM, Class A2 COMPARISON: US US OB >= 14 WEEKS FETUS from 01/15/2025 US OB FOLLOW UP from 01/16/2025 US OB FOLLOW UP from 02/11/2025 US OB BIOPHYSICAL PROFILE from 03/12/2025 US OB BIOPHYSICAL PROFILE from 03/20/2025 US OB BIOPHYSICAL PROFILE from 03/26/2025 US OB BIOPHYSICAL PROFILE from 04/03/2025 US OB BIOPHYSICAL PROFILE from 04/10/2025 US OB BIOPHYSICAL PROFILE from 04/17/2025 FINDINGS: Transabdominal sonographic images of the uterus were obtained. From her established due date she is 38weeks 3days. The following parameters are obtained: Viable Fetus in the cephalic presentation with an anterior placenta grade 2. The cervix measures 4.12 cm. Measurements: heart Rate = 124bpm Amniotic fluid index: 7.6cm, MVP 3.83 cm Qualitative AFV:2 Breathing movements: 2 Gross Body Movements: 2 Tone: 2 Biophysical profile score: 8 No obvious anomalies evident.Kidneys, profile, stomach, bladder, four-chamber heart, three-vessel cord appear normal. IMPRESSION: 1. Viable fetus in the cephalic presentation with an anterior placenta grade 2. 2. The fluid is within normal limits with an amniotic fluid index 7.6 cm, MVP 3.83 cm. 3. Biophysical profile is 8/8 with good breathing movement and movement seen. 4. Limited anatomical scan appears normal. Dictated by: Daniel Gonzáles MD 04/25/2025 06:37 Daniel Gonzáles MD in OV 04/25/2025 06:37
== END 2025-04-24 23:59 | disposition home or self-care (01) ==
LOC: RAD 12:54
PROVIDERS: PCP Obstetrics & Gynecology; Visit Provider Obstetrics & Gynecology
DX: O24.419 Gestational diabetes mellitus in pregnancy, unspecified control (principal); Z3A.38 38 weeks gestation of pregnancy
CPT/HCPCS: 76819

== ENCOUNTER → 2025-04-28 04:54 | Outpatient (CLI) | payer MEDICAID, SELFPAY ==
--- OUTSIDE RECORDS SUMMARY | 2025-04-03 17:19 | XMS_ITS | Encounter Summary ---
Author Organization [facility] yste Address [address] [place] [address] Care Team Providers Care Commissioning Engineer Name Role Phone Provider, No Known Primary Care Provider Unavail able Encounter Details Date Type Department Care Team (Late st Contact Info) Description 04/03/2025 5:19 PM EDT - 04/03/2025 8:30 PM EDT Hospital Encounter [facility] OBSTETRIC EMERGENCY DEPARTMENT [address] [place] [id number] Anthony Hills, DO [address] [facility] [address] [place] [id number] Discharge Disposition: Home or Self Care Social [...] 5:38 PM EDT Genie Sheriff RN * [place] Suicide Severity Rating Scale (Screener/Recent Self-Report) Question Answer Date of Assessment Author 6. Suicidal Behavior (Lifetime) No 5:38 PM EDT Genie Sheriff RN documented as of this encounter Discharge Instructions * Attachments The following attachments cannot be sent through Care Everywhere. * Third Trimester of (Japanese) documented in this encounter Medications at Time [...] from the original note were not included. [facility] Obstetric History and Physical Referring Provider: Anthony Hills DO Cc: Second opinion Subjective Patient is a 29 y.o. female currently at 35w3d, who presents with multiple complaints. Patient stated was told by glass bulb silverer today during a interval growth scan with [...] repeat at 39 weeks gestation[facility] The following portions of the [...] IUPC: Resting Tone: Resting Tone by IUPC: [place] Units: Laboratory Results: Lab Results (last 24 hours) Procedure Component Value Units Date/Time Comprehensive Metabolic Panel [[id number]] (Abnormal) Collected: 04/03/251900 Specimen: Blood Updated: 04/03/251934 [...] not include race as a factor Lipase [[id number]] (Normal) Collected: 04/03/251900 Specimen: Blood Updated: 04/03/251934 Lipase 26 U/L Urinalysis With Microscopic If Indicated (No Culture) - Urine, Clean Catch [[id number]] (Abnormal) Collected: 04/03/251840 Specimen: Urine, Clean Catch Updated: 04/03/251848 Color, UA Yellow Appearance, UA Cloudy pH, UA 7.0 Specific [place]in[place], UA 1.010 Glucose, UA Negative Ketones, UA Negative Bilirubin, UA Negative Blood, UA Trace Protein, UA Negative Leuk Esterase, UA Negative Nitrite, UA Negative Urobilinogen, UA 1.0 E.U./dL Urinalysis, Microscopic Only - Urine, Clean Catch [[id number]] (Abnormal) Collected: 04/03/251840 Specimen: Urine, Clean Catch Updated: 04/03/251848 RBC, UA 0-2 /HPF WBC, UA 0-2 /HPF Bacteria, UA Trace /HPF Squamous Epithelial Cells, UA 3-6 /HPF Hyaline Casts, UA None Seen /LPF Methodology Automated Microscopy CBC (No Diff) [[id number]] (Abnormal) Collected: 04/03/251840 Specimen: Blood Updated: 04/03/251843 WBC 8.96 10*3/mm3 RBC 3.62 10*6/mm3 Hemoglobin 12.0 g/dL Hematocrit 33.8 % MCV 93.4 fL MCH 33.1 pg MCHC 35.5 g/dL RDW 12.9 % RDW-SD 44.2 fl MPV 10.9 fL Platelets 218 10*3/mm3 POC Glucose Once [[id number]] (Normal) Collected: 04/03/251744 Specimen: Blood Updated: 04/03/251745 [...] - 60 U/L 04/03/2025 7:35 PM EDT [facility] Blood Line / Unknown 04/03/2025 7: 01 PM EDT 04/03/2025 7:01 PM EDT Anthony Hills DO LAB BLOOD ORDERABLES Final Result [facility]
[address] [place] [address], * (ABNORMAL) Comprehensive Metabolic Panel (04/03/2025 7:01 PM EDT) Glucose 112(H) 65 - 99 mg/dL 04/03/2025 7:35 PM EDT [facility] BUN 4.5(L) 6.0 - 20.0 mg/dL 04/03/2025 7:35 PM EDT [facility] Creatinine 0.57 0.57 - 1.00 mg/dL 04/03/2025 7:35 PM EDT [facility] Sodium 136 136 - 145 mmol/L 04/03/2025 7:35 PM EDT [facility] Potassium 3.5 3.5 - 5.2 mmol/L 04/03/2025 7:35 PM EDT [facility] Chloride 103 98 - 107 mmol/L 04/03/2025 7:35 PM EDT [facility] CO2 22.0 22.0 - 29.0 mmol/L 04/03/2025 7:35 PM EDT [facility] Calcium 8.4(L) 8.6 - 10.5 mg/dL 04/03/2025 7:35 PM EDT [facility] Total Protein 5.3(L) 6.0 - 8.5 g/dL 04/03/2025 7:35 PM EDT [facility] Albumin 3.0(L) 3.5 - 5.2 g/dL 04/03/2025 7:35 PM EDT [facility] ALT (SGPT) 15 1 - 33 U/L 04/03/2025 7:35 PM EDT [facility] AST (SGOT) 18 1 - 32 U/L [facility] Alkaline Phosphatase 132(H) 39 - 117 U/L 04/03/2025 7:35 PM EDT [facility] Total Bilirubin 0.5 0.0 - 1.2 mg/dL 04/03/2025 7:35 PM EDT [facility] Globulin 2.3 gm/dL 04/03/2025 7:35 PM EDT [facility] Comment:Calculated Result A/G Ratio 1.3 g/dL 04/03/2025 7:35 PM EDT [facility] BUN/Creatinine Ratio 7.9 7.0 - 25.0 04/03/2025 7:35 PM EDT [facility] Anion Gap 11.0 5.0 - 15.0 mmol/L 04/03/2025 7:35 PM EDT [facility] eGFR 126.3 >60.0 mL/min/1.7 3 04/03/2025 7:35 PM EDT [facility] Blood Line / Unknown 04/03/2025 7: 01 PM EDT 04/03/2025 7:01 PM EDT [facility] - 04/03/2025 7:35 PM EDT GFR [...] Hills DO LAB BLOOD ORDERABLES Final Result [facility]
[address] [place] [address], * (ABNORMAL) Urinalysis, Microscopic Only - Urine, Clean Catch (04/03/2025 6:41 PM EDT) RBC, UA 0-2 None Seen, 0-2 /HPF 04/03/2025 6:49 PM EDT [facility] WBC, UA 0-2 None Seen, 0-2 /HPF 04/03/2025 6:49 PM EDT [facility] Bacteria, UA Trace(A) None Seen /HPF 04/03/2025 6:49 PM EDT [facility] Squamous Epithelial Cells, UA 3-6(A) None Seen, 0-2 /HPF 04/03/2025 6:49 PM EDT [facility] Hyaline Casts, UA None Seen None Seen /LPF 04/03/2025 6:49 PM EDT [facility] Methodology Automated Microscopy 04/03/2025 6:49 PM EDT [facility] Urine Urine specimen obtained by clean catch procedure / Unknown Collection / Unknown 04/03/2025 6:41 PM EDT 04/03/2025 6:41 PM EDT Anthony Hills DO URINE ORDERABLES Final Resu lt [facility]
[address] [place] [address], * (ABNORMAL) Urinalysis With Microscopic If Indicated (No Culture) - Urine, Clean Catch (04/03/2025 6:41 PM EDT) Color, UA Yellow Yellow, Straw 04/03/2025 6:49 PM EDT [facility] Appearance, UA Cloudy(A) Clear 04/03/2025 6:49 PM EDT [facility] pH, UA 7.0 5.0 - 8.0 04/03/2025 6:49 PM EDT [facility] Specific [place], UA 1.010 1.005 - 1.030 04/03/2025 6:49 PM EDT [facility] Glucose, UA Negative Negative 04/03/2025 6:49 PM EDT [facility] Ketones, UA Negative Negative 04/03/2025 6:49 PM EDT [facility] Bilirubin, UA Negative Negative 04/03/2025 6:49 PM EDT [facility] Blood, UA Trace(A) Negative 04/03/2025 6:49 PM EDT [facility] Protein, UA Negative Negative 04/03/2025 6:49 PM EDT [facility] Leuk Esterase, UA Negative Negative 04/03/2025 6:49 PM EDT [facility] Nitrite, UA Negative Negative 04/03/2025 6:49 PM EDT [facility] Urobilinogen, UA 1.0 E.U./dL 0.2 - 1.0 E.U./dL 04/03/2025 6:49 PM EDT [facility] Urine Urine specimen obtained by clean catch procedure / Unknown Collection / Unknown 04/03/2025 6:41 PM EDT 04/03/2025 6:41 PM EDT us Anthony Hills DO URINE ORDERABLES Final Resu lt [facility]
[address] [place] [address], * (ABNORMAL) CBC (No Diff) (04/03/2025 6:41 PM EDT) WBC 8.96 3.40 - 10.80 10*3/mm3 04/03/2025 6:44 PM EDT [facility] RBC 3.62(L) 3.77 - 5.28 10*6/mm3 04/03/2025 6:44 PM EDT [facility] Hemoglobin 12.0 12.0 - 15.9 g/dL 04/03/2025 6:44 PM EDT [facility] Hematocrit 33.8(L) 34.0 - 46.6 % 04/03/2025 6:44 PM EDT [facility] MCV 93.4 79.0 - 97.0 fL 04/03/2025 6:44 PM EDT [facility] MCH 33.1(H) 26.6 - 33.0 pg 04/03/2025 6:44 PM EDT [facility] MCHC 35.5 31.5 - 35.7 g/dL 04/03/2025 6:44 PM EDT [facility] RDW 12.9 12.3 - 15.4 % 04/03/2025 6:44 PM EDT [facility] RDW-SD 44.2 37.0 - 54.0 fl 04/03/2025 6:44 PM EDT [facility] MPV 10.9 6.0 - 12.0 fL 04/03/2025 6:44 PM EDT [facility] Platelets 218 140 - 450 10*3/mm3 04/03/2025 6:44 PM EDT [facility] Blood Line / Unknown 04/03/2025 6: 41 PM EDT 04/03/2025 6:41 PM EDT us Anthony Hills DO LAB BLOOD ORDERABLES Final Result [facility]
[address] [place] [address], [place] [phone] * POC Glucose Once (04/03/2025 5:45 PM EDT) [facility] Signature Glucose 101 70 - 130 mg/dL 04/03/2025 5:46 PM EDT [facility] Blood 04/03/2025 5:45 PM EDT 04/03/2025 5:46 PM EDT us Anthony Hills DO POINT OF CARE TEST ORDERABL ES Final Result Performing Organization Address City/[facility]/ZIP Co de Phone Number [facility]
[address] [place] [address], [place] [phone] documented in this encounter Visit Diagnoses Not [...] 100mL/hr. documented in this encounter Care Teams Commissioning Engineer Relationship Specialty Start Date End Date Provider, [place] [address] PCP - General 04/03/25 documented as of this encounter
--- OUTSIDE RECORDS SUMMARY | 2025-04-28 04:57 | XMS_ITS | Encounter Summary ---
Author Organization [facility] Address [address] [address] Care Team Providers Care Wood Barrel Reconditioner Name Role Phone Provider, No Known Primary [...] 5:38 PM EDT Genie Sheriff RN * [place]ossom Suicide Severity Rating Scale (Screener/Recent Self-Report) Question Answer Date of Assessment Author 6. Suicidal Behavior (Lifetime) No 5:38 PM EDT Genie Sheriff RN documented as of this encounter Plan of Treatment Not on file documented as of this encounter Visit Diagnoses Not on filedocumented in this encounter Care Teams Wood Barrel Reconditioner Relationship Specialty Start Date End Date Provider, [place] [address] PCP - General 04/03/25 documented as of this encounter
--- OUTSIDE RECORDS SUMMARY | 2025-04-28 04:57 | XMS_ITS | Encounter Summary ---
Author Organization [facility] yste Address [address] [place] [address] Care Team Providers Care Technician Assistant Name Role Phone Provider, No Known Primary Care Provider Unavail able Reason for Visit * Reason Comments Med Refill Encounter Details Date Type Department Care Team (Late st Contact Info) Description 05/08/2022 Refill [facility] [address] [facility] [address] [place] [id number] Faustina Wren MD Social History Tobacco Use [...] on filedocumented in this encounter Care Teams Technician Assistant Relationship Specialty Start Date End Date Provider, [place] [address] PCP - General 04/03/25 documented as of this encounter
--- OUTSIDE RECORDS SUMMARY | 2025-04-28 04:57 | XMS_ITS | Clinical Summary ---
Author Organization Healthcare Address [address] [address] Care Team Providers Care Merchandise Collector Name Role Phone Ta Christine MD Primary Care Provider [phone] Allergies Active Allergy Reactions Criticality Noted Date [...] week 09/11/2023 How often do you attend [facility] or scientology services? Never 09/11/2023 Do you belong to any clubs o r organizations such as worship groups, unions, fraternal or athletic groups, or [...] Recorded Patient Health Questionnaire-2 Score 0 11/09/2023 [facility] - Occupational [...] place to sleep or slept in a long term (including now)? 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 No confirmatory testing is required. Blood Venous blood specimen / Unknown Venipuncture / Unknown 09/09/2023 8:36 AM EST 09/09/2023 8:47 AM EST us Ebony Leyva MD LAB BLOOD ORDERABLES Final Res ult [facility] [address] [place] [address] * Hepatitis C Antibody - ED (09/09/2023 8:36 AM EST) Hepatitis C Antibody Negative Negative 09/09/2023 10:13 AM EST [facility] Blood Venous blood specimen / Unknown Venipuncture / Unknown 09/09/2023 8:36 AM EST 09/09/2023 8:47 AM EST us Ebony Leyva MD LAB BLOOD ORDERABLES Final Res ult [facility] [address] [place] [address] * Cytology (12/22/2020 12:00 AM EDT) 12/22/2020 12/23/2020 11: 00 AM EDT Narrative [facility] - 2020 4:17 PM EDT [facility] MR #: [id number] [facility] [address] [place], [place] [address] 1995 (Age: 24) FW Collect Date: 12/22/2020 00:00 Receipt Date: 12/23/2020 11:00 Page 1 DEPARTMENT OF PATHOLOGY AND LABORATORY MEDICINE CYTOPATHOLOGY REPORT Email: [email or web address] ATTENDING MD/Practitioner: Akosua Fitzgerald Service: [facility]W Location: [facility] Reported: 2020 16:17 Collected: 12/22/2020 00:00 INTERPRETATION A. THIN PREP (CERVICAL/VAGINAL): NEGATIVE FOR INTRAEPITHELIAL LESION OR MALIGNANCY. SATISFACTORY FOR EVALUATION; ENDOCERVICAL/ TRANSFORMATION ZONE COMPONENT PRESENT. Slide scanned and imaged by [employer] ThinPrep Imaging System with manual review of [...] results is suggested (please call Microbiology at [phone] for results). CLINICAL INFORMATION: Menstrual History: Cyclic Date of Last Menstrual Period: 27Nov2020 Other Clinical Conditions: If ASCUS and > 24 years of age, HPV/DNA testing requested.: provider is requesting HPV testing for any abnormal pap test results SPECIMEN DESCRIPTION: A: THIN PREP (CERVICAL/VAGINAL) THIN PREP PROCESS CELLULAR ENHANCEMENT ICD: F: A; RT IMAGE [id number] SNOMED CODES: A; [id number] In cases where a pathologist has signed out the report, the service has been rendered in part by a resident. The signing pathologist has performed and is responsible for the reported pathologic evaluation. Shasta Fitzgerald APRN, CNM LAB PATHOLOGY ORDERABLES Final Result [facility] from Last 3 Months or Most Recently Relevant to Health Maintenance Insurance [facility] [employer] [facility] MEDICAID Advance Directives * Full Code (Latest Code Status on File) Date Activated Date Inactivated Comments 09/09/2023 1:58 PM 09/11/2023 4:50 PM Patient has previously expressed wishes for FULL CODE in conversations with family and boyfriend, present on exam. Will reevaluate once medically appropriate Question Answer Comments Patient has decision-making capacity? No Healthcare Surrogate: Parent(s) of the patient Care Teams Merchandise Collector Relationship Specialty Start Date End Date Ta Christine MD [address] [facility] [address] PCP - General 01/07/21
--- OUTSIDE RECORDS SUMMARY | 2025-04-28 04:57 | XMS_ITS | Clinical Summary ---
[facility] Address [address] [place] [address] Care Team Providers Care Collar Trimmer Name Role Phone Provider, No Known Primary [...] - 04/03/2025 8:30 PM EDT Hospital Encounter [facility] [address] [place] [address] Anthony Hills, DO Discharge Disposition: Home or [...] 13 - 60 U/L [facility] Blood Line / Unknown 04/03/2025 7: 01 PM EDT 04/03/2025 7:01 PM EDT Anthony Hills DO LAB BLOOD ORDERABLES Final Result [facility]
[address] [place] [address], * (ABNORMAL) Comprehensive Metabolic Panel (04/03/2025 7:01 PM EDT) Glucose 112(H) 65 - 99 mg/dL 04/03/2025 7:35 PM EDT [facility] BUN 4.5(L) 6.0 - 20.0 mg/dL 04/03/2025 7:35 PM EDT [facility] Creatinine 0.57 0.57 - 1.00 mg/dL 04/03/2025 7:35 PM EDT [facility] Sodium 136 136 - 145 mmol/L 04/03/2025 7:35 PM EDT [facility] Potassium 3.5 3.5 - 5.2 mmol/L 04/03/2025 7:35 PM EDT [facility] Chloride 103 98 - 107 mmol/L 04/03/2025 7:35 PM EDT [facility] CO2 22.0 22.0 - 29.0 mmol/L 04/03/2025 7:35 PM EDT [facility] Calcium 8.4(L) 8.6 - 10.5 mg/dL 04/03/2025 7:35 PM EDT [facility] Total Protein 5.3(L) 6.0 - 8.5 g/dL 04/03/2025 7:35 PM EDT [facility] Albumin 3.0(L) 3.5 - 5.2 g/dL 04/03/2025 7:35 PM EDT [facility] ALT (SGPT) 15 1 - 33 U/L 04/03/2025 7:35 PM EDT [facility] AST (SGOT) 18 1 - 32 U/L 04/03/2025 7:35 PM EDT [facility] Alkaline Phosphatase 132(H) 39 - 117 U/L 04/03/2025 7:35 PM EDT [facility] Total Bilirubin 0.5 0.0 - 1.2 mg/dL 04/03/2025 7:35 PM EDT [facility] Globulin 2.3 gm/dL 04/03/2025 7:35 PM EDT [facility] Comment:Calculated Result A/G Ratio 1.3 g/dL 04/03/2025 7:35 PM EDT [facility] BUN/Creatinine Ratio 7.9 7.0 - 25.0 04/03/2025 7:35 PM EDT [facility] Anion Gap 11.0 5.0 - 15.0 mmol/L 04/03/2025 7:35 PM EDT [facility] eGFR 126.3 >60.0 mL/min/1.7 3 04/03/2025 7:35 PM EDT [facility] Blood Line / Unknown 04/03/2025 7: 01 PM EDT 04/03/2025 7:01 PM EDT [facility] - 04/03/2025 7:35 PM EDT GFR [...] Hills DO LAB BLOOD ORDERABLES Final Result [facility]
[address] [place] [address], [place] [phone] * (ABNORMAL) Urinalysis, Microscopic Only - Urine, Clean Catch (04/03/2025 6:41 PM EDT) RBC, UA 0-2 None Seen, 0-2 /HPF 04/03/2025 6:49 PM EDT [facility] WBC, UA 0-2 None Seen, 0-2 /HPF 04/03/2025 6:49 PM EDT [facility] Bacteria, UA Trace(A) None Seen /HPF 04/03/2025 6:49 PM EDT [facility] Squamous Epithelial Cells, UA 3-6(A) None Seen, 0-2 /HPF 04/03/2025 6:49 PM EDT [facility] Hyaline Casts, UA None Seen None Seen /LPF 04/03/2025 6:49 PM EDT [facility] Methodology Automated Microscopy 04/03/2025 6:49 PM EDT [facility] Urine Urine specimen obtained by clean catch procedure / Unknown Collection / Unknown 04/03/2025 6:41 PM EDT 04/03/2025 6:41 PM EDT Anthony Hills DO URINE ORDERABLES Final Resu lt [facility]
[address] [place] [address], * (ABNORMAL) Urinalysis With Microscopic If Indicated (No Culture) - Urine, Clean Catch (04/03/2025 6:41 PM EDT) Color, UA Yellow Yellow, Straw 04/03/2025 6:49 PM EDT [facility] Appearance, UA Cloudy(A) Clear 04/03/2025 6:49 PM EDT [facility] pH, UA 7.0 5.0 - 8.0 04/03/2025 6:49 PM EDT [facility] Specific [place], UA 1.010 1.005 - 1.030 04/03/2025 6:49 PM EDT [facility] Glucose, UA Negative Negative 04/03/2025 6:49 PM EDT [facility] Ketones, UA Negative Negative 04/03/2025 6:49 PM EDT [facility] Bilirubin, UA Negative Negative 04/03/2025 6:49 PM EDT [facility] Blood, UA Trace(A) Negative 04/03/2025 6:49 PM EDT [facility] Protein, UA Negative Negative 04/03/2025 6:49 PM EDT [facility] Leuk Esterase, UA Negative Negative 04/03/2025 6:49 PM EDT [facility] Nitrite, UA Negative Negative 04/03/2025 6:49 PM EDT [facility] Urobilinogen, UA 1.0 E.U./dL 0.2 - 1.0 E.U./dL 04/03/2025 6:49 PM EDT [facility] Urine Urine specimen obtained by clean catch procedure / Unknown Collection / Unknown 04/03/2025 6:41 PM EDT 04/03/2025 6:41 PM EDT Anthony Hills DO URINE ORDERABLES Final Resu lt [facility]
[address] [place] [address], * (ABNORMAL) CBC (No Diff) (04/03/2025 6:41 PM EDT) WBC 8.96 3.40 - 10.80 10*3/mm3 04/03/2025 6:44 PM EDT [facility] RBC 3.62(L) 3.77 - 5.28 10*6/mm3 04/03/2025 6:44 PM EDT [facility] Hemoglobin 12.0 12.0 - 15.9 g/dL 04/03/2025 6:44 PM EDT [facility] Hematocrit 33.8(L) 34.0 - 46.6 % 04/03/2025 6:44 PM EDT [facility] MCV 93.4 79.0 - 97.0 fL 04/03/2025 6:44 PM EDT [facility] MCH 33.1(H) 26.6 - 33.0 pg 04/03/2025 6:44 PM EDT [facility] MCHC 35.5 31.5 - 35.7 g/dL 04/03/2025 6:44 PM EDT [facility] RDW 12.9 12.3 - 15.4 % 04/03/2025 6:44 PM EDT [facility] RDW-SD 44.2 37.0 - 54.0 fl 04/03/2025 6:44 PM EDT [facility] MPV 10.9 6.0 - 12.0 fL 04/03/2025 6:44 PM EDT [facility] Platelets 218 140 - 450 10*3/mm3 04/03/2025 6:44 PM EDT [facility] Blood Line / Unknown 04/03/2025 6: 41 PM EDT 04/03/2025 6:41 PM EDT us Anthony Hills DO LAB BLOOD ORDERABLES Final Result [facility]
[address] [place] [address], * POC Glucose Once (04/03/2025 5:45 PM EDT) Glucose 101 70 - 130 mg/dL 04/03/2025 5:46 PM EDT [facility] Blood 04/03/2025 5:45 PM EDT 04/03/2025 5:46 PM EDT us Anthony Hills DO POINT OF CARE TEST ORDERABL ES Final Result [facility]
[address] [place] [address], [place] [phone] * Chlamydia trachomatis, Neisseria gonorrhoeae, PCR - Swab, Cervix (11/13/2022 4:08 PM EDT) Pathologist [facility] Chlamydia trachomatis, BRIANNA Negative Negative 11/14/2022 11:07 PM EDT [facility] Neisseria gonorrhoeae, BRIANNA Negative Negative 11/14/2022 11:07 PM EDT [facility] Swab Cervix uteri structure / Unknown Collection / Unknown 11/13/2022 4:08 PM EDT 11/13/2022 4:14 PM EDT [facility]ative [facility] - 11/14/2022 11:07 PM EDT Performed at: [facility] [id number] Hand Decorator: Pallavi Resendiz MD, Phone: [phone] Cong ESQUEDA MICROBIOLOGY - GENERAL OR DERABLES Final Result [facility] [address] [place] [address], [place] [phone] * Hepatitis C Antibody (11/09/2021 10:18 AM EDT) Pathologist [facility] Hepatitis C Ab Non-Reacti ve Non-Reacti ve 11/09/2021 8:06 PM EDT [facility] Blood Venipuncture / Unknown 11/09/2021 10:18 AM EDT 11/09/2021 10:18 AM EDT Narrative [facility] - 11/09/2021 8:06 PM EDT Results may be falsely decreased if patient taking Biotin. Faustina Wren MD LAB BLOOD ORDERABLES Final Result [facility]
[address] [place] [address], [place] [phone] from Last 3 Months or Most Recently Relevant to Health Maintenance Insurance MEDICAID PENDING on file [employer]ICAID [place] Care Teams Collar Trimmer Relationship Specialty Start Date End Date Provider, No Known [facility] [place] [address] PCP - General 04/03/25
== END ==
LOC: OBOUT 04:55
PROVIDERS: Visit Provider Obstetrics & Gynecology
DX: O24.419 Gestational diabetes mellitus in pregnancy, unspecified control (principal); O34.219 Maternal care for unspecified type scar from previous cesarean delivery; N85.8 Other specified noninflammatory disorders of uterus; Z3A.39 39 weeks gestation of pregnancy
CPT/HCPCS: 88307

== ENCOUNTER 2025-04-28 04:57 | Inpatient (IN) | payer MEDICAID, SELFPAY ==
[2025-04-28] VITALS (7 sets, daily range): BP systolic 119–129; BP diastolic 66–81; PULSE 88–120; RESP 18; TEMP 36.6–36.7; O2SAT 98–100; BMI 29.5
[2025-04-28] MEDS: CITRIC ACID/SODIUM CITRATE ORAL SOLN 30ML UDC 30 ML PO (05:51)
[2025-04-28] MEDS: LACTATED RINGERS 1000ML 1,000 ML 250 ML IV (05:51)
[2025-04-28 05:56] LABS: Hematocrit 36.5 % (37.0-47.0); Hemoglobin 12.8 g/dL (12.2-16.2); Immature Granulocytes % 1.3 %; Mean Corpuscular HGB Conc 35.1 g/dL (31.8-35.4); Mean Corpuscular Hemoglobin 32.8 pg (27.0-31.2); Mean Corpuscular Volume 93.6 fl (81-99); Nucleated Red Blood Cells % 0 %; Platelet Count 218 K/mm3 (142-424); Red Blood Count 3.90 M/mm3 (4.20-5.40); Red Cell Distribution Width-SD 43.5 fL; White Blood Count 9.5 K/mm3 (4.8-10.8)
--- NOTE | 2025-04-28 07:21 | EXP.OB.APHP ---
OB - H&P: HPI Antepartum History of Present Illness Chief complaint: Scheduled repeat History of present illness: Mrs Christy Myles is a 29 yo at 39w0d who presents to [facility] L&D for scheduled repeat . She has had good care. complicated by GDM initially requiring medication but after diet changes she was able to control with diet alone. History of x 1. Baby is active. History of Present Criteria for establishing EDC:: LMP confirmed by 1st trimester US care: good care Ultrasounds: normal mid trimester US Obstetrical complications: gestational diabetes and previous Medical complications: none Labs Blood type: O (+) positive Rubella: immune RPR/VDRL: nonreactive HBsAG: negative PFSH PFS Disclaimer: The information contained in this section may have been updated after the patient was seen, as this information can be updated by other users. 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 Screening for genetic disease carrier status Migraine Chronic constipation No significant past medical history Surgical History History of delivery Family History Other No significant family history Social History (Updated 04/21/25 @ 10:50 by Cong Ramsey RN) Smoking Status: Never smoker alcohol intake: never current occupational status: unemployed Travel in the last 8 weeks?: None Have you lived/traveled outside US in past 30 days?: No Contact w/someone who lives/traveled outside US past 30 days?: No Exposure to someone with infectious disease in past 14 days?: No Do you have a fever (greater than 100.4 F or 38 C)?: No Have you tested positive for COVID-19?: No Exposed to someone with COVID-19 in past 14 days?: No Do you have a sore throat?: No Do you have a cough?: No Do you have any weakness?: No Do you have any diarrhea?: No Are you experiencing any unusual bleeding?: No Do you have any muscle aches/pain?: No Do you have any abdominal pain?: No Are you experiencing loss of taste or smell?: No Other Medical History Have you received the Flu Vaccine for this season: No Have you received the Pneumonia Vaccine: No Review of Systems Review of Systems Review of systems:: pertinent systems reviewed and negative unless documented below *Genitourinary Comments: + irregular contractions *Musculoskeletal Comments: + swelling in hands Meds Home Medications and Allergies Home Medications ?Medication ?Instructions ?Recorded ?Confirmed ?Type ondansetron 4 mg disintegrating 4 mg PO Q8H PRN nausea and 12/09/24 04/21/25 Rx tablet vomiting #30 tabs hydrocortisone-pramoxine 1 %-1 % 1 applic AK QID PRN hemorrhoids 01/23/25 04/21/25 Rx rectal cream (Analpram-HC) #30 grams promethazine 12.5 mg tablet See Rx Instructions .Route 02/12/25 04/21/25 Rx .COMPLEX #30 tabs vit no.95-ferrous 1 tab PO ONCE #30 tabs 03/02/25 04/21/25 Rx fumarate 28 mg-folic acid 800 mcg tablet () fluticasone propionate 50 50 mcg intranasal DAILY 03/05/25 04/21/25 History mcg/actuation nasal spray,suspension lancing device with lancets kit #1 ea 03/05/25 04/21/25 Rx (Accu-Chek Softclix Lancing Device+Lancets kit) cyclobenzaprine 5 mg tablet 5 mg PO Q8H PRN muscle spasm #30 03/19/25 04/21/25 Rx tabs docusate sodium 100 mg capsule See Rx Instructions .Route 03/19/25 04/21/25 Rx .COMPLEX #30 caps blood-glucose meter (FreeStyle #1 ea 03/23/25 04/21/25 History [place] Lite kit) lancets 28 gauge (FreeStyle #100 ea 03/23/25 04/21/25 History Lancets) blood sugar diagnostic (FreeStyle #100 strips 04/06/25 04/21/25 Rx Lite Strips) magnesium glycinate 400 mg (4 x 100 mg magnesium) PO 04/06/25 04/21/25 Rx BID #60 caps New Prescriptions to Start Prescriptions: Allergies Allergy/AdvReac Type Severity Reaction Status Date / Time No Known Allergies Allergy Verified 04/21/25 08:58 OB - H&P: Exam Physical Exam Vital signs: Temp Pulse Resp BP Pulse Ox O2 Del Method 98.1 F 120 H 18 123/81 100 Room Air 04/28/25 06:23 04/28/25 06:23 04/28/25 06:23 04/28/25 06:23 04/28/25 06:23 04/28/25 06:23 Constitutional no acute distress and cooperative Routine HEENT Exam Head: Present normocephalic and atraumatic Eye: Absent conjunctivae pink ENT: Present mucous membranes moist Routine Respiratory Exam Present CTA bilaterally and normal respiratory effort Routine Cardiovascular Exam Present RRR Routine Abdominal Exam Present soft (Gravid); Absent tenderness Routine Rectal Exam Patient deferred: visual exam Routine Exam External: Present normal urethra appearance; Absent erythema, swelling, lesions, lacerations or vulvar erythema Routine Extremities Exam Present edema (+ bilateral hand swelling) and full ROM; Absent tenderness Routine Neurological Exam Present alert, moving all extremities and normal speech Routine Psychiatric Exam Present normal affect and cooperative OB - Results Labs Labs: Short CBC 04/28/25 Range/Units 05:32 WBC 9.5 (4.8-10.8) K/mm3 Hgb 12.8 (12.2-16.2) g/dL Hct 36.5 L (37.0-47.0) % Plt Count 218 (142-424) K/mm3 OB - A/P Antepartum (1) Gestational diabetes mellitus: Status: Acute (2) History of delivery: Status: Acute Additional Plan Additional Information:: Admit to L&D for scheduled repeat Reviewed risks, benefits, alternatives, expectations and possible complications. All questions addressed and answered. Consent form signed Proceed with repeat
[2025-04-28 08:04] LABS: Microscopic, Urine URINE MICROSCOPIC (MICROSCOPIC)
[2025-04-28 08:27] LABS: Bilirubin,Urine Negative (Negative); Color,Urine YELLOW (Yellow); Glucose,Urine (UA) Negative (Negative); Ketones,Urine Negative (Negative); Leukocyte Esterase,Urine Negative (Negative); PH,Urine 6.0 (5.0-8.5); Protein,Urine Negative (Negative); Specific Gravity, Urine <= 1.005 (1.005-1.030); Urobilinogen,Urine 0.2 EU/dl (0.2)
[2025-04-28 08:46] LABS: Bacteria,Urine Trace /lpf; RBC,Urine Occasional #/hpf (0-3); WBC,Urine Occasional #/hpf (0-3)
--- NOTE | 2025-04-28 09:05 | EXP.OP.NOTE ---
Date of procedure: 04/28/25 Pre-op Diagnosis:: 1. IUP at 39w0d 2. GDM 3. History of x 1 Post-op Diagnosis:: 1. IUP at 39w0d 2. GDM 3. History of x 1 Procedure performed:: Repeat Low Transverse Section Surgeon:: Michelle Fletcher DO Branch Controller(s):: Norma Wren DO REPLENISHMENT BUYER:: Meagan Bianchi Anesthesia: spinal Estimated blood loss (mL): 400 Clinical Note:: Mrs Christy Myles is a 29 yo at 39w0d who presents to [facility] L[facility] for scheduled repeat . She has had good care. complicated by GDM initially requiring medication but after diet changes she was able to control with diet alone. History of x 1. Baby is active. Operative findings:: 1. Live male baby, Joel, weighing 8 lb 10 oz. Apgars 8 (1 min), 9 (5 min) 2. Bladder was noted to be high on anterior peritoneum. 3. Grossly normal appearing uterus, bilateral fallopian tubes and ovaries. Operative note:: The risks, benefits and alternatives of the procedure were reviewed with the patient. Informed consent was obtained. Patient was taken to the operating room where spinal anesthesia was placed. The patient received 2 grams of Ancef preoperatively. Patient was placed in dorsal supine position with a leftward tilt. SCDs in place. Sánchez catheter was inserted and draining clear urine prior to the start of the procedure. heart tones were obtained. Patient was then prepped and draped in normal sterile fashion. Allis clamp test was performed to ensure adequate anesthesia. A Pfannenstiel skin incision was made 2 cm above pubic symphysis above prior Pfannenstiel scar. This was carried through to underlying layer of fascia. Fascia was incised in midline, extended laterally with Ocasio scissors. Superior aspect of fascial incision was grasped with two Jean-Pierre clamps, elevated up, and rectus muscle dissected off bluntly and sharply with Ocasio scissors. The retcus muscle was then in the midline and the peritoneum was entered bluntly with a digit. Peritoneal incision was then extended superiorly and inferiorly with good visualization of the bladder. Cj retractor was inserted. The lower uterine segment was incised in a transverse fashion. Clear amniotic fluid was noted. Head was delivered without difficulty. Remainder of body was delivered without difficulty. Mouth and nares were bulb suctioned. Spontaneous cry was noted. Delayed cord clamping was performed for 60 seconds. The umbilical cord was clamped and cut. The infant was handed to awaiting pediatric staff in stable condition. Dr. Gomez was present. Apgars were 8(1 min), 9(5 min). Cord blood was obtained. Gentle traction on the umbilical cord and uterine fundal massage delivered the placenta. Placenta was intact. Placenta will be sent to pathology for review. Uterus was cleared of all clots and debris with a moist laparotomy sponge. Corners of the uterine incision were grasped with Allis clamps. The uterine incision was reapproximated with # 1 Vicryl suture in a running, locked stitch. Second layer of the same stitch was used to imbricate the incision. Hemostasis was noted. Posterior cul-de-sac was cleaned with moist laparotomy sponge. Gutters cleared of all clots and debris with a moist laparotomy sponge. Reinspection of the lower uterine segment demonstrated small amount of oozing. Surgicel powder was applied over uterine incision. Hemostasis was noted. At this point all instruments and sponges were removed from the pelvis.? The peritoneum was grasped with Trisha clamps x 3. The peritoneum was reapproximated with 0 Vicryl suture in a running stitch. The corners of the fascia were grasped with Jean-Pierre clamps, and the fascia was reapproximated with two # 1 Vicryl suture overlapped to the right of midline. Subcutaneous tissue was irrigated with clear return of fluids. The subcutaneous tissue was reapproximated with 3-0 Vicryl. The skin was reapproximated with Insorb dodie. Steri strips and Telfa was placed over closed Pfannenstiel skin incision. At the end of the procedure, the uterus was firm with minimal vaginal bleeding. Patient tolerated the procedure well. Instrument, sponges and needle counts were correct x 2. Mom and baby were transported to recovery room in stable condition. Condition: stable Disposition: floor Specimens:: 1. Placenta and umbilical cord 2. Cord blood Complications:: None
--- NOTE | 2025-04-28 09:10 | P.PNANES_ITS ---
[facility] Disclaimer: The information contained in this section may have been updated after the patient was seen, as this information can be updated by other users. 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 Screening for genetic disease carrier status Migraine Chronic constipation No significant past medical history Surgical History History of delivery Family History Other No significant family history Social History Smoking Status: Never smoker alcohol intake: never substance use type: unknown current occupational status: unemployed Travel in the last 8 weeks?: None [facility] Anesthesia Checklist Patient Identification Patient Identification: Arm Band and Verbal (Name & ) Structural Data Admitted From: Inpatient Planned Operative Procedure/s: Consent for Planned Operative Procedure(s) Verified: Yes Verified Documents: Surgical Consent and History and Physical NPO Status Verified Time NPO: 00:00 Additional verifications Patient : Yes Anesthesia Reactions: No Airway Assessment Mallampati Score:: Class II Dentition: Good Dentition Neurological Assessment Level of Consciousness: Awake, Alert and Appropriate Hx Seizures: No Numbness or tingling in extremities: No Anesthesia Plan Anesthesia Risk discussed: Yes ASA Class: II Anesthesia Type: Spinal
--- NOTE | 2025-04-28 09:11 | P.PNANES_ITS ---
[facility] Anesthesia Record Part I Anesthesia Record I Intake, IV Amount: 800 Hydration: Adequate Estimated blood loss (mL): 400 Urine output (mL): 100 Blood Pressure: 129/68 SaO2: 100 Pulse Rate: 97 Airway Patency: Patent Respiratory Rate: 18 Temperature: 98 F Patient is:: Awake and Stable Stable to PACU at:: 09:16
[2025-04-28] MEDS: OXYTOCIN/RINGERS LACTATE 30 UNITS/500 ML BAG 40 UNITS IV (10:06)
[2025-04-28] MEDS: HYDROMORPHONE 2MG/ML SYRINGE 2 MG IV ×2 (11:08→17:10)
[2025-04-28] MEDS: PROMETHAZINE HCL 25MG/ML 1ML VIAL 12.5 MG IV (11:56)
[2025-04-28] MEDS: SODIUM CHLORIDE 0.9% 25ML BAG 25 ML IV (11:57)
[2025-04-28] MEDS: ACETAMINOPHEN 500MG TAB 1000 MG PO ×2 (13:55→22:57)
[2025-04-28] MEDS: KETOROLAC 30MG/ML VIAL 30 MG IV ×2 (13:55→21:13)
[2025-04-28] MEDS: SODIUM CHLORIDE 0.9% 10ML FLUSH SYRINGE 10 ML IV (13:56)
[2025-04-28 14:53] LABS: Microscopic,Cath URINE MICROSCOPIC (MICROSCOPIC)
[2025-04-28 15:51] LABS: Appearance,Urine/Cath CLEAR (Clear); Bilirubin,Cath Negative (Negative); Blood, Urine/Cath Negative (Negative); Color,Urine/Cath YELLOW (Yellow); Glucose,Urine/Cath (UA) Negative (Negative); Ketones,Urine/Cath Negative (Negative); Leukocyte Esterase,Cath Negative (Negative); Nitrate,Cath Negative (Negative); PH,Urine/Cath 7.5 (5.0-8.5); Protein,Urine/Cath Negative (Negative); Specific Gravity, Urine/Cath 1.010 (1.005-1.030); Urobilinogen,Cath 0.2 EU/dl (0.2)
[2025-04-28] MEDS: PRENATAL MULTIVITAMIN W/IRON 1 EACH PO (17:50)
[2025-04-28 17:55] LABS: Bacteria,Urine/Cath TRACE /lpf; Squamous Epithelial Ur./Cath Occasional #/hpf (0-5)
[2025-04-28] MEDS: LANOLIN CREAM 40GM TP (21:15)
[2025-04-28] MEDS: SENNA 8.6MG TABLET 8.6 MG PO (21:15)
[2025-04-28] MEDS: SIMETHICONE 80MG CHEWABLE TABLET 160 MG PO (22:57)
[2025-04-29] MEDS: OXYCODONE 5MG IMMEDIATE RELEASE TABLET 5 MG PO ×6 (00:13→22:09)
[2025-04-29] MEDS: KETOROLAC 30MG/ML VIAL 30 MG IV (03:05)
[2025-04-29] MEDS: ACETAMINOPHEN 500MG TAB 1000 MG PO ×4 (05:05→23:58)
[2025-04-29 06:18] LABS: Hematocrit 32.3 % (37.0-47.0); Immature Granulocytes % 0.5 %; Mean Corpuscular HGB Conc 32.8 g/dL (31.8-35.4); Mean Corpuscular Hemoglobin 31.4 pg (27.0-31.2); Mean Corpuscular Volume 95.6 fl (81-99); Nucleated Red Blood Cells % 0 %; Platelet Count 168 K/mm3 (142-424); Red Blood Count 3.38 M/mm3 (4.20-5.40); Red Cell Distribution Width-SD 44.3 fL; White Blood Count 9.5 K/mm3 (4.8-10.8)
[2025-04-29 06:26] LABS: Hemoglobin 10.7 g/dL (12.2-16.2)
[2025-04-29 08:30] VITALS: BP 125/68; PULSE 91; RESP 18; TEMP 36.6; O2SAT 98
--- NOTE | 2025-04-29 08:30 | P.PNANES_ITS ---
[facility] Anesthesia Record Part II Anesthesia Record Part II Discharge Time: 09:36 Destination: Obstetric PACU nurse assessment reviewed?: Yes Patient Condition:: Good Anesthesia Complications:: None Swallowing reflex intact?: Yes Airway Patency: Patent Cyanosis?: No Blood Pressure: 125/68 SaO2: 98 Respiratory Rate: 18 Pulse Rate: 91 Temperature: 98 F Mental Status: Alert & Oriented Pain level:: 0 Nausea and/or vomitting:: None Intake, IV Amount: 0 Hydration: Adequate
[2025-04-29] MEDS: IBUPROFEN 400 MG TABLET 800 MG PO ×2 (10:05→17:43)
--- NOTE | 2025-04-29 12:49 | P.PN_ITS ---
Subjective *Date: 04/29/25 *Time: 12:49 Interval history: POD # 1 s/p RLTCS Feeling well. Pain controlled. Formula feeding. Lochia is appropriate. Voiding without difficulty and passing flatus. Tolerating regular diet. Denies fever/chills, chest pain and shortness of breath. No headaches, vision changes, lightheadedness/dizziness. No lower extremity swelling. Ambulating well ad davis. Medical Exam Vital signs and Labs for Last 24 Hours: Vital Signs Resp 04/29/25 08:30 18 Intake and Output 04/28/25 04/29/25 04/29/25 23:59 07:59 15:59 Intake Total 495.333 / 2395.333 0 / 0 Output Total 600 / 600 300 / 300 Balance -104.667 / 1795.333 -300 / -300 0 / -300 Intake: Intake, Total IV Amount 495.333 / 2395.333 0 / 0 Cefazolin Sodium 2 gm In 0.9 % 200 / 200 Sodium Chloride 100 ml @ 200 mls/hr IV Q8H NAHID Rx#:[id number] Oxytocin/Ringers Lactate 30 295.333 / 295.333 units In 500 ml @ 40 mls/hr IV .[id number] NAHID Rx#:[id number] Output: Output, Urine Amount 600 / 600 300 / 300 Laboratory Results - last 24 hr 04/28/25 07:47: Urine Color Yellow, Urine Appearance Clear, Urine pH 7.5, Ur Specific [place] 1.010, Urine Protein Negative, Urine Glucose (UA) Negative, Urine Ketones Negative, Urine Blood Negative, Urine Nitrate Negative, Urine Bilirubin Negative, Urine Urobilinogen 0.2, Ur Leukocyte Esterase Negative, Urine RBC None, Urine WBC None, Ur Squamous Epith Cells Occasional, Urine Bacteria Trace 04/29/25 05:31: WBC 9.5, RBC 3.38 L, Hgb 10.7 L D, Hct 32.3 L, MCV 95.6, MCH 31.4 H, MCHC 32.8, RDW 13.0, Plt Count 168, MPV 11.8 H, Neut % (Auto) 78.6, Lymph % (Auto) 11.2, [place] % (Auto) 8.2, Eos % (Auto) 1.2, Baso % (Auto) 0.3, Neut # (Auto) 7.5, Lymph # (Auto) 1.1, [place] # (Auto) 0.8, Eos # (Auto) 0.1, Baso # (Auto) 0.0 I & O for Labs for Last 24 Hours: Intake & Output 04/26/25 04/27/25 04/28/25 04/29/25 23:59 23:59 23:59 23:59 Intake Total 2395.333 / 2395.333 0 / 0 Output Total 600 / 600 300 / 300 Balance 1795.333 / 1795.333 -300 / -300 Weight 156 lb Constitutional: Present no acute distress and cooperative Head: Present atraumatic and normocephalic ENT: Present normal exam and mucous membranes moist Neck: Present normal inspection and full ROM Respiratory: Present CTA bilaterally and normal respiratory effort Cardiac: Present Reg Rate and Rhythm GI: Present soft, tenderness (mild, appropriate postop tenderness to palpation) and normal bowel sounds; Absent distention Comments:: Uterine fundus firm and below umbilicus, incision clean/dry/intact Rectal (female): Present deferred (female): Present deferred Extremities: Present full ROM; Absent edema or calf tenderness Neuro: Present alert, awake and moves all extremities Assessment and Plan *Assessment and plan (1) Gestational diabetes mellitus: Status: Acute Qualifiers: Gestational diabetes mellitus control: diet-controlled Trimester: third trimester Qualified Code(s): O24.410 - Gestational diabetes mellitus in , diet controlled Category: Medical Code(s): O24.419 - Gestational diabetes mellitus in , unspecified control (2) History of delivery: Status: Acute Category: Surgical Code(s): Z98.891 - History of uterine scar from previous surgery (3) Acute blood loss anemia: Status: Acute Category: Medical Code(s): D62 - Acute posthemorrhagic anemia Plan Continue routine care Encouraged increased ambulation AM Hgb 10.7 (12.8 on admission) Plan d/c home tomorrow
[2025-04-29 13:35] LABS: RPR W/RFX Titers Nonreactive (Nonreactive)
[2025-04-29] MEDS: PRENATAL MULTIVITAMIN W/IRON 1 EACH PO (16:03)
[2025-04-29] MEDS: HYDROMORPHONE HCL 2 MG TABLET 1 MG PO (23:57)
[2025-04-30] MEDS: IBUPROFEN 400 MG TABLET 800 MG PO ×3 (01:18→17:16)
[2025-04-30 05:08] VITALS: BP 120/61; PULSE 106; RESP 18; TEMP 36.6; O2SAT 99
[2025-04-30] MEDS: OXYCODONE 5MG IMMEDIATE RELEASE TABLET 10 MG PO ×4 (05:20→17:17)
[2025-04-30] MEDS: ACETAMINOPHEN 500MG TAB 1000 MG PO ×2 (06:51→12:32)
[2025-04-30 09:13] VITALS: BP 109/62; PULSE 91; RESP 16; TEMP 36.7; O2SAT 97
--- NOTE | 2025-04-30 09:42 | EXP.ACUTE.PN ---
Subjective *Date: 04/30/25 *Time: 09:42 Interval history: POD # 2 s/p RLTCS She reports increased pain overnight. Pain is in her back around spinal site and burning at incision. She reports pain is not well controlled. Formula feeding. Lochia is light. Voiding without difficulty and passing flatus. Tolerating regular diet. Denies fever/chills, chest pain and shortness of breath. No headaches, vision changes, lightheadedness/dizziness. Ambulating well ad davis. Medical Exam Vital signs and Labs for Last 24 Hours: Vital Signs Temp Pulse Resp BP Pulse Ox O2 Del Method 04/30/25 05:08 97.8 F 106 H 18 120/61 99 Room Air Laboratory Results - last 24 hr 04/28/25 05:32: RPR w/Rflx to Titer Nonreactive I & O for Labs for Last 24 Hours: Intake & Output 04/27/25 04/28/25 04/29/25 04/30/25 23:59 23:59 23:59 23:59 Intake Total 2395.333 / 2395.333 0 / 0 Output Total 600 / 600 300 / 300 Balance 1795.333 / 1795.333 -300 / -300 Weight 156 lb Head: Present atraumatic and normocephalic ENT: Absent mucous membranes moist Neck: Present normal inspection and full ROM Respiratory: Present CTA bilaterally and normal respiratory effort Cardiac: Present Reg Rate and Rhythm GI: Present soft, tenderness (appropriate tenderness postoperatively ) and normal bowel sounds; Absent distention Rectal (female): Present deferred (female): Present deferred Extremities: Present full ROM and edema (+1 bilateral lower extremity edema); Absent calf tenderness Neuro: Present alert, awake and moves all extremities Assessment and Plan *Assessment and plan (1) Gestational diabetes mellitus: Status: Acute Qualifiers: Gestational diabetes mellitus control: diet-controlled Trimester: third trimester Qualified Code(s): O24.410 - Gestational diabetes mellitus in , diet controlled Category: Medical Code(s): O24.419 - Gestational diabetes mellitus in , unspecified control (2) S/P : Status: Acute Category: Surgical Code(s): Z98.891 - History of uterine scar from previous surgery (3) Acute blood loss anemia: Status: Acute Category: Medical Code(s): D62 - Acute posthemorrhagic anemia (4) History of delivery: Status: Acute Category: Surgical Code(s): Z98.891 - History of uterine scar from previous surgery Plan Continue routine care Discussed pain control. Will plan to keep her another day to try to achieve better pain control Encouraged increased ambulation Plan d/c home tomorrow
[2025-04-30] MEDS: PRENATAL MULTIVITAMIN W/IRON 1 EACH PO (17:16)
--- NOTE | 2025-04-30 17:49 | EXP.DC.SUM ---
General Admission date:: 04/28/25 Discharge date: 04/30/25 HPI HPI HPI: POD # 2 s/p RLTCS She reports increased pain overnight. Pain is in her back around spinal site and burning at incision. She reports pain is not well controlled this morning. Formula feeding. Lochia is light. Voiding without difficulty and passing flatus. Tolerating regular diet. Denies fever/chills, chest pain and shortness of breath. No headaches, vision changes, lightheadedness/dizziness. Ambulating well ad davis. Hospital Course Hospital Course Hospital Course: Mrs Christy Myles is a 29 yo at 39w0d who presents to [facility] L&D for scheduled repeat . She has had good care. complicated by GDM initially requiring medication but after diet changes she was able to control with diet alone. History of x 1. Baby is active. She underwent repeat on 04/28/25. She delivered a live male baby, Joel, weighing 8 lb 10 oz. Apgars 8 (1 min), 9 (5 min). [id number] mL. She did well /postoperatively. Pain not well controlled the morning of POD # 2 but pain medication was increased slightly and scheduled. By the afternoon she felt she had good pain control. Formula feeding. Light lochia. Voiding without difficulty and passing flatus. Tolerating regular diet. Denies fever/chills, chest pain and shortness of breath. No headaches, dizziness/lightheadedness or vision changes. Vital signs stable, afebrile. Heart regular rate and rhythm. Lungs clear to auscultation. Abdomen soft, nontender. She had +1 bilateral lower extremity swelling. Ambulating well ad davis. Normal hospital course. She was discharged to home on POD # 2 with instructions to follow-up in the office in 2 weeks or sooner if needed. Exam Data for Last 24 hours Vital signs and Labs for Last 24 Hours: Temp Pulse Resp BP Pulse Ox O2 Del Method 98.1 F 91 H 16 109/62 L 97 Room Air 04/30/25 09:13 04/30/25 09:13 04/30/25 09:13 04/30/25 09:13 04/30/25 09:13 04/30/25 09:13 I & O for Last 24 hours: Intake & Output 04/27/25 04/28/25 04/29/25 04/30/25 23:59 23:59 23:59 23:59 Intake Total 2395.333 / 2395.333 0 / 0 Output Total 600 / 600 300 / 300 Balance 1795.333 / 1795.333 -300 / -300 Weight 156 lb Constitutional Constitutional: no acute distress and cooperative *Routine HEENT Exam Head: Present normocephalic and atraumatic Eye: Absent conjunctivae pink *Routine Neck Exam Neck: Present full ROM *Routine Respiratory Exam Respiratory: Present CTA bilaterally and normal respiratory effort *Routine Cardiovascular Exam Cardiovascular: Present RRR *Routine Abdominal Exam Abdominal: Present soft, normoactive bowel sounds and tenderness (appropriate postop tenderness to palpation) *Routine Rectal Exam Patient deferred: visual exam *Routine Exam Patient deferred: external exam *Routine Extremities Exam Extremities: Present edema (+1 bilateral lower extremity edema) and full ROM; Absent calf tenderness *Routine Neurological Exam Neurological: Present alert, moving all extremities and normal speech Routine Psychiatric Exam Psychiatric: Present normal affect and cooperative DS: Diagnosis Discharge Diagnosis (1) Gestational diabetes mellitus: Status: Acute Code(s): O24.419 - Gestational diabetes mellitus in , unspecified control Qualifiers: Gestational diabetes mellitus control: diet-controlled Trimester: third trimester Qualified Code(s): O24.410 - Gestational diabetes mellitus in , diet controlled (2) S/P : Status: Acute Code(s): Z98.891 - History of uterine scar from previous surgery (3) Acute blood loss anemia: Status: Acute Code(s): D62 - Acute posthemorrhagic anemia (4) History of delivery: Status: Acute Code(s): Z98.891 - History of uterine scar from previous surgery Meds Home Medications and Allergies Home Medications ?Medication ?Instructions ?Recorded ?Confirmed ?Type hydrocortisone-pramoxine 1 %-1 % 1 applic AR QID PRN hemorrhoids 01/23/25 04/28/25 Rx rectal cream (Analpram-HC) #30 grams vit no.95-ferrous 1 tab PO ONCE #30 tabs 03/02/25 04/28/25 Rx fumarate 28 mg-folic acid 800 mcg tablet () fluticasone propionate 50 50 mcg intranasal DAILY 03/05/25 04/28/25 History mcg/actuation nasal spray,suspension cyclobenzaprine 5 mg tablet 5 mg PO Q8H PRN muscle spasm #30 03/19/25 04/28/25 Rx tabs docusate sodium 100 mg capsule 100 mg PO DAILYP PRN Constipation 04/28/25 04/28/25 History ibuprofen 800 mg tablet 800 mg PO Q8H PRN pain #20 tabs 04/30/25 Rx oxycodone 5 mg tablet 10 mg (2 x 5 mg) PO Q4HP PRN 04/30/25 Rx Moderate To Severe Pain (4-10) #30 tabs New Prescriptions to Start Prescriptions: Michelle Aparicio oxycodone Michelle Fletcher Allergies Allergy/AdvReac Type Severity Reaction Status Date / Time No Known Allergies Allergy Verified 04/21/25 08:58 Discharge Plan Disposition Patient Disposition: Home, Self-Care Condition: Good Discharge Order Discharge Orders: Discharge Order (Routine); Ordered 04/30/25 Ordered By: Michelle Fletcher Follow up Plan Follow up with: Michelle Fletcher DO [Staff Physician, DIRECTOR OF CUSTOMER SERVICE] - 05/12/25 1:45 pm Prescriptions/Medication Reconciliation: New oxycodone 5 mg Tablet 10 mg PO Q4HP PRN (Reason: Moderate To Severe Pain (4-10)) Qty: 30 0RF ibuprofen 800 mg tablet 800 mg PO Q8H PRN (Reason: pain) Qty: 20 0RF Continued fluticasone propionate 50 mcg/actuation spray,suspension 50 mcg intranasal DAILY Patient Comments: TAKE 2 SPRAYS (INTRANASAL) DAILY FOR 10 DAYS ADMINISTER INTO EACH NOSTRIL hydrocortisone-pramoxine [Analpram-HC] 1-1 % cream 1 applic AR QID PRN (Reason: hemorrhoids) Qty: 30 2RF PNV no.95-ferrous fumarate-FA [] 28 mg iron- 800 mcg tablet 1 tab PO ONCE Qty: 30 11RF cyclobenzaprine 5 mg tablet 5 mg PO Q8H PRN (Reason: muscle spasm) Qty: 30 1RF docusate sodium 100 mg capsule 100 mg PO DAILYP PRN (Reason: Constipation) Discontinued (DME) lancing device with lancets [Accu-Chek Soft Dev Lancets] Kit See Rx Instructions .ROUTE .MEDSUPPLY Qty: 1 3RF Rx Instructions: 4x daily (DME) blood-glucose meter [FreeStyle [place] Lite] Kit See Rx Instructions .ROUTE .MEDSUPPLY Qty: 1 Patient Comments: CHECK SUGAR 4 TIMES A DAY Rx Instructions: As directed (DME) lancets [FreeStyle Lancets] 28 gauge misc See Rx Instructions .ROUTE .MEDSUPPLY Qty: 100 Patient Comments: TEST 4 TIMES A DAY Rx Instructions: As directed (DME) FreeStyle Lite Strips Strip See Rx Instructions .ROUTE .COMPLEX Qty: 100 1RF Dose Instruction: TEST 4 TIMES A DAY Rx Instructions: TEST 4 TIMES A DAY Problem Reconciliation Problems Reviewed?: Yes Patient Discharge Instructions ACTIVITY: Limited activity DIET: continue same diet and regular diet Additional Instructions: Discharge: 1. Take 800 mg Ibuprofen every 8 hours as needed for pain. You can also take 500-1000 mg of Tylenol in between doses, every 6-8 hours. If pain persists you can take Oxycodone 10 mg every 4-6 hours or longer as needed. 2. Nothing in the vagina for 6 weeks - no intercourse, douching or tampons. No tub baths/hot tubs or swimming pools - Drink plenty of fluids. - No strenuous activity or driving for 7 days - Don't lift anything heavier than your in the pumpkin seat. 3. Reasons to return to L&D or call On-Call doctor - fever (greater than 100.4) - heavy vaginal bleeding (soaking through 1 pad in less than 2 hours) - vaginal discharge (malodorous and/or purulent) - severe headaches not resolved by medication or rest and calf pain 4. depression/blues - Normal to feel anxious/overwhelmed for first 2 weeks - Talk to your doctor if: severe anxiety, trouble bonding with baby, withdrawing from other family members, thoughts of harming yourself or others Michelle Fletcher DO [facility] [phone] Patient Instructions: Depression, Hemorrhage, DI for , DI for Pre-eclampsia, [facility] Post Discharge Instructions Print Language: Thai Providers Primary Care Provider: Provider,Referral Admit Provider: Michelle Fletcher Attending Provider: Norma Wren
== END 2025-04-30 18:50 | disposition home or self-care (01) | DRG 787 ==
PROVIDERS: Admitting Provider Obstetrics & Gynecology; Visit Provider Obstetrics & Gynecology
PROC: 10D00Z1 Extraction of Products of Conception, Low, Open Approach (ICD-10-PCS; CPT 59514; principal; 2025-04-28 07:30)
DX: O34.211 Maternal care for low transverse scar from previous cesarean delivery (principal); D62 Acute posthemorrhagic anemia; O24.420 Gestational diabetes mellitus in childbirth, diet controlled; O90.81 Anemia of the puerperium; Z3A.39 39 weeks gestation of pregnancy; Z37.0 Single live birth; Z23 Encounter for immunization
CPT/HCPCS: 36415; 51702; 59025; 81001; 85025; 86592; 86850; J0665; J0666; J1100; J1171; J1885; J2371; J2405; J2550; J2590; J3010; J7120

== ENCOUNTER 2025-05-18 14:13 | Emergency (ER) | payer MEDICAID, SELFPAY ==
--- OUTSIDE RECORDS SUMMARY | 2025-04-03 17:19 | XMS_ITS | Encounter Summary ---
Author Organization [facility] yste Address [address] [place] [address] Care Team Providers Care Night Guard Name Role Phone Provider, No Known Primary Care Provider Unavail able Encounter Details Date Type Department Care Team (Late st Contact Info) Description 04/03/2025 5:19 PM EDT - 04/03/2025 8:30 PM EDT Hospital Encounter [facility] OBSTETRIC EMERGENCY DEPARTMENT [address] [phone] Anthony Hills, DO 17[address] [facility] [address] [phone] Discharge Disposition: Home or Self Care Social [...] 5:38 PM EDT Genie Sheriff RN * [place] Suicide Severity Rating Scale (Screener/Recent Self-Report) Question Answer Date of Assessment Author 6. Suicidal Behavior (Lifetime) No 5:38 PM EDT Genie Sheriff RN documented as of this encounter Discharge Instructions * Attachments The following attachments cannot be sent through Care Everywhere. * Third Trimester of (German) documented in this encounter Medications at Time [...] from the original note were not included. [facility] Obstetric History and Physical Referring Provider: Anthony Hills DO Cc: Second opinion Subjective Patient is a 29 y.o. female currently at 35w3d, who presents with multiple complaints. Patient stated was told by scrap kettle tender today during a interval growth scan with [...] [facility] at 39 weeks gestation[facility] The following portions of [...] IUPC: Resting Tone: Resting Tone by IUPC: [place] Units: Laboratory Results: Lab Results (last 24 hours) Procedure Component Value Units Date/Time Comprehensive Metabolic Panel [[id number]] (Abnormal) Collected: 04/03/251900 Specimen: Blood Updated: 04/03/251934 [...] not include race as a factor Lipase [[id number]] (Normal) Collected: 04/03/251900 Specimen: Blood Updated: 04/03/251934 Lipase 26 U/L Urinalysis With Microscopic If Indicated (No Culture) - Urine, Clean Catch [[id number]] (Abnormal) Collected: 04/03/251840 Specimen: Urine, Clean Catch Updated: 04/03/251848 Color, UA Yellow Appearance, UA Cloudy pH, UA 7.0 Specific [place], UA 1.010 Glucose, UA Negative Ketones, UA Negative Bilirubin, UA Negative Blood, UA Trace Protein, UA Negative Leuk Esterase, UA Negative Nitrite, UA Negative Urobilinogen, UA 1.0 E.U./dL Urinalysis, Microscopic Only - Urine, Clean Catch [[id number]] (Abnormal) Collected: 04/03/251840 Specimen: Urine, Clean Catch Updated: 04/03/251848 RBC, UA 0-2 /HPF WBC, UA 0-2 /HPF Bacteria, UA Trace /HPF Squamous Epithelial Cells, UA 3-6 /HPF Hyaline Casts, UA None Seen /LPF Methodology Automated Microscopy CBC (No Diff) [[id number]] (Abnormal) Collected: 04/03/251840 Specimen: Blood Updated: 04/03/251843 WBC 8.96 10*3/mm3 RBC 3.62 10*6/mm3 Hemoglobin 12.0 g/dL Hematocrit 33.8 % MCV 93.4 fL MCH 33.1 pg MCHC 35.5 g/dL RDW 12.9 % RDW-SD 44.2 fl MPV 10.9 fL Platelets 218 10*3/mm3 POC Glucose Once [[id number]] (Normal) Collected: 04/03/251744 Specimen: Blood Updated: 04/03/251745 [...] - 60 U/L 04/03/2025 7:35 PM EDT [facility] Blood Line / Unknown 04/03/2025 7: 01 PM EDT 04/03/2025 7:01 PM EDT Anthony Hills DO LAB BLOOD ORDERABLES Final Result [facility]
[address] [place] [address], * (ABNORMAL) Comprehensive Metabolic Panel (04/03/2025 7:01 PM EDT) Glucose 112(H) 65 - 99 mg/dL 04/03/2025 7:35 PM EDT [facility] BUN 4.5(L) 6.0 - 20.0 mg/dL 04/03/2025 7:35 PM EDT [facility] Creatinine 0.57 0.57 - 1.00 mg/dL 04/03/2025 7:35 PM EDT [facility] Sodium 136 136 - 145 mmol/L 04/03/2025 7:35 PM EDT [facility] Potassium 3.5 3.5 - 5.2 mmol/L 04/03/2025 7:35 PM EDT [facility] Chloride 103 98 - 107 mmol/L 04/03/2025 7:35 PM EDT [facility] CO2 22.0 22.0 - 29.0 mmol/L 04/03/2025 7:35 PM EDT [facility] Calcium 8.4(L) 8.6 - 10.5 mg/dL 04/03/2025 7:35 PM EDT [facility] Total Protein 5.3(L) 6.0 - 8.5 g/dL 04/03/2025 7:35 PM EDT [facility] Albumin 3.0(L) 3.5 - 5.2 g/dL 04/03/2025 7:35 PM EDT [facility] ALT (SGPT) 15 1 - 33 U/L 04/03/2025 7:35 PM EDT [facility] AST (SGOT) 18 1 - 32 U/L [facility]25 [facility] Alkaline Phosphatase 132(H) 39 - 117 U/L 04/03/2025 7:35 PM EDT [facility] Total Bilirubin 0.5 0.0 - 1.2 mg/dL 04/03/2025 7:35 PM EDT [facility] Globulin 2.3 gm/dL 04/03/2025 7:35 PM EDT [facility] Comment:Calculated Result A/G Ratio 1.3 g/dL 04/03/2025 7:35 PM EDT [facility] BUN/Creatinine Ratio 7.9 7.0 - 25.0 04/03/2025 7:35 PM EDT [facility] Anion Gap 11.0 5.0 - 15.0 mmol/L 04/03/2025 7:35 PM EDT [facility] eGFR 126.3 >60.0 mL/min/1.7 3 04/03/2025 7:35 PM EDT [facility] Blood Line / Unknown 04/03/2025 7: 01 PM EDT 04/03/2025 7:01 PM EDT [facility] LABORATORY - 04/03/2025 7:35 PM EDT [...] Hills DO LAB BLOOD ORDERABLES Final Result [facility]
[address] [place] [address], * (ABNORMAL) Urinalysis, Microscopic Only - Urine, Clean Catch (04/03/2025 6:41 PM EDT) RBC, UA 0-2 None Seen, 0-2 /HPF 04/03/2025 6:49 PM EDT [facility] WBC, UA 0-2 None Seen, 0-2 /HPF 04/03/2025 6:49 PM EDT [facility] Bacteria, UA Trace(A) None Seen /HPF 04/03/2025 6:49 PM EDT [facility] Squamous Epithelial Cells, UA 3-6(A) None Seen, 0-2 /HPF 04/03/2025 6:49 PM EDT [facility] Hyaline Casts, UA None Seen None Seen /LPF 04/03/2025 6:49 PM EDT [facility] Methodology Automated Microscopy 04/03/2025 6:49 PM EDT [facility] Urine Urine specimen obtained by clean catch procedure / Unknown Collection / Unknown 04/03/2025 6:41 PM EDT 04/03/2025 6:41 PM EDT Anthony Hills DO URINE ORDERABLES Final Resu lt [facility]
[address] [place] [address], * (ABNORMAL) Urinalysis With Microscopic If Indicated (No Culture) - Urine, Clean Catch (04/03/2025 6:41 PM EDT) Color, UA Yellow Yellow, Straw 04/03/2025 6:49 PM EDT [facility] Appearance, UA Cloudy(A) Clear 04/03/2025 6:49 PM EDT [facility] pH, UA 7.0 5.0 - 8.0 04/03/2025 6:49 PM EDT [facility] Specific [place], UA 1.010 1.005 - 1.030 04/03/2025 6:49 PM EDT [facility] Glucose, UA Negative Negative 04/03/2025 6:49 PM EDT [facility] Ketones, UA Negative Negative 04/03/2025 6:49 PM EDT [facility] Bilirubin, UA Negative Negative 04/03/2025 6:49 PM EDT [facility] Blood, UA Trace(A) Negative 04/03/2025 6:49 PM EDT [facility] Protein, UA Negative Negative 04/03/2025 6:49 PM EDT [facility] Leuk Esterase, UA Negative Negative 04/03/2025 6:49 PM EDT [facility] Nitrite, UA Negative Negative 04/03/2025 6:49 PM EDT [facility] Urobilinogen, UA 1.0 E.U./dL 0.2 - 1.0 E.U./dL 04/03/2025 6:49 PM EDT [facility] Urine Urine specimen obtained by clean catch procedure / Unknown Collection / Unknown 04/03/2025 6:41 PM EDT 04/03/2025 6:41 PM EDT us Anthony Hills DO URINE ORDERABLES Final Resu lt [facility]
[address] [place] [address], * (ABNORMAL) CBC (No Diff) (04/03/2025 6:41 PM EDT) WBC 8.96 3.40 - 10.80 10*3/mm3 04/03/2025 6:44 PM EDT [facility] RBC 3.62(L) 3.77 - 5.28 10*6/mm3 04/03/2025 6:44 PM EDT [facility] Hemoglobin 12.0 12.0 - 15.9 g/dL 04/03/2025 6:44 PM EDT [facility] Hematocrit 33.8(L) 34.0 - 46.6 % 04/03/2025 6:44 PM EDT [facility] MCV 93.4 79.0 - 97.0 fL 04/03/2025 6:44 PM EDT [facility] MCH 33.1(H) 26.6 - 33.0 pg 04/03/2025 6:44 PM EDT [facility] MCHC 35.5 31.5 - 35.7 g/dL 04/03/2025 6:44 PM EDT [facility] RDW 12.9 12.3 - 15.4 % 04/03/2025 6:44 PM EDT [facility] RDW-SD 44.2 37.0 - 54.0 fl 04/03/2025 6:44 PM EDT [facility] MPV 10.9 6.0 - 12.0 fL 04/03/2025 6:44 PM EDT [facility] Platelets 218 140 - 450 10*3/mm3 04/03/2025 6:44 PM EDT [facility] Blood Line / Unknown 04/03/2025 6: 41 PM EDT 04/03/2025 6:41 PM EDT us Anthony Hills DO LAB BLOOD ORDERABLES Final Result [facility]
[address] [place] [address], [place] [phone] * POC Glucose Once (04/03/2025 5:45 PM EDT) [facility] Signature Glucose 101 70 - 130 mg/dL 04/03/2025 5:46 PM EDT [facility] Blood 04/03/2025 5:45 PM EDT 04/03/2025 5:46 PM EDT us Anthony Hills DO POINT OF CARE TEST ORDERABL ES Final Result Performing Organization Address City/[facility]/ZIP Co de Phone Number [facility]
[address] [place] [address], [place] [phone] documented in this encounter Visit Diagnoses Not [...] 100mL/hr. documented in this encounter Care Teams Night Guard Relationship Specialty Start Date End Date Provider, [place] [address] PCP - General 04/03/25 documented as of this encounter
[2025-05-18] VITALS (8 sets, daily range): BP systolic 108–127; BP diastolic 72–89; PULSE 75–94; RESP 15–16; TEMP 36.6–36.9; O2SAT 96–100; BMI 25.3
--- OUTSIDE RECORDS SUMMARY | 2025-05-18 14:29 | XMS_ITS | Clinical Summary ---
[facility] [address] [place] [address] Care Team Providers Care Mri Specialist Name Role Phone Provider, No Known Primary Care Provider Unavail able Allergies Active Allergy Reactions Criticality Noted Date Comments Hydrocodone-Acetaminophen Itching Medium 03/23/2017 Oxycodone-Acetaminophen Itching Medium 03/23/2017 Medications FLUoxetine (PROzac) 20 MG capsule Take 1 capsule by mouth Daily. 30 capsule Active Additional Information Patient taking differently: 40 mgOral Daily, Reported on 11/13/2022 metFORMIN (GLUCOPHAGE) 1000 MG tablet Take 1 tablet by mouth 2 (Two) Times a Day With Meals. 1000 mg at night. 500 mg in the morning Active cyclobenzaprine (FLEXERIL) 5 MG tablet Take 1 tablet by mouth 3 (Three) Times a Day As Needed for Muscle Spasms. Active Loratadine 10 MG capsule Take 1 capsule by mouth Daily As Needed. Active Magnesium Glycinate 100 MG capsule Take 500 mg by mouth 2 (Two) Times a Day. Active Active Problems Estimated Date of Delivery Comme nts Yes 05/05/2025 Based on last me nstrual period of 07/29/2024 No known active problems Encounters Date Type Department Care Team Description 04/03/2025 5:19 PM EDT - 04/03/2025 8:30 PM EDT Hospital Encounter [facility] [address] [place] [address] Anthony Hills, DO Discharge Disposition: Home or [...] Tdap) 01/23/2017 007 ANNUAL PHYSICAL 11/09/2022 11/09/2021 INFLUENZA VACCINE 03/27/2025 HEPATITIS C SCREENING Completed 11/09/2021 CHLAMYDIA SCREENING [...] - 60 U/L 04/03/2025 7:35 PM EDT [facility] Blood Line / Unknown 04/03/2025 7: 01 PM EDT 04/03/2025 7:01 PM EDT Anthony Hills DO LAB BLOOD ORDERABLES Final Result [facility]
[address] [place] [address], * (ABNORMAL) Comprehensive Metabolic Panel (04/03/2025 7:01 PM EDT) Glucose 112(H) 65 - 99 mg/dL 04/03/2025 7:35 PM EDT [facility] BUN 4.5(L) 6.0 - 20.0 mg/dL 04/03/2025 7:35 PM EDT [facility] Creatinine 0.57 0.57 - 1.00 mg/dL 04/03/2025 7:35 PM EDT [facility] Sodium 136 136 - 145 mmol/L 04/03/2025 7:35 PM EDT [facility] Potassium 3.5 3.5 - 5.2 mmol/L 04/03/2025 7:35 PM EDT [facility] Chloride 103 98 - 107 mmol/L 04/03/2025 7:35 PM EDT [facility] CO2 22.0 22.0 - 29.0 mmol/L 04/03/2025 7:35 PM EDT [facility] Calcium 8.4(L) 8.6 - 10.5 mg/dL 04/03/2025 7:35 PM EDT [facility] Total Protein 5.3(L) 6.0 - 8.5 g/dL 04/03/2025 7:35 PM EDT [facility] Albumin 3.0(L) 3.5 - 5.2 g/dL 04/03/2025 7:35 PM EDT [facility] ALT (SGPT) 15 1 - 33 U/L 04/03/2025 7:35 PM EDT [facility] AST (SGOT) 18 1 - 32 U/L 04/03/2025 7:35 PM EDT [facility] Alkaline Phosphatase 132(H) 39 - 117 U/L 04/03/2025 7:35 PM EDT [facility] Total Bilirubin 0.5 0.0 - 1.2 mg/dL 04/03/2025 7:35 PM EDT [facility] Globulin 2.3 gm/dL 04/03/2025 7:35 PM EDT [facility] Comment:Calculated Result A/G Ratio 1.3 g/dL 04/03/2025 7:35 PM EDT [facility] BUN/Creatinine Ratio 7.9 7.0 - 25.0 04/03/2025 7:35 PM EDT [facility] Anion Gap 11.0 5.0 - 15.0 mmol/L 04/03/2025 7:35 PM EDT [facility] eGFR 126.3 >60.0 mL/min/1.7 3 04/03/2025 7:35 PM EDT [facility] Blood Line / Unknown 04/03/2025 7: 01 PM EDT 04/03/2025 7:01 PM EDT [facility] - 04/03/2025 7:35 PM EDT GFR [...] does not include race as a factor us Anthony Hills DO LAB BLOOD ORDERABLES Final Result [facility]
[address] [place] [address], * (ABNORMAL) Urinalysis, Microscopic Only - Urine, Clean Catch (04/03/2025 6:41 PM EDT) RBC, UA 0-2 None Seen, 0-2 /HPF 04/03/2025 6:49 PM EDT [facility] WBC, UA 0-2 None Seen, 0-2 /HPF 04/03/2025 6:49 PM EDT [facility] Bacteria, UA Trace(A) None Seen /HPF 04/03/2025 6:49 PM EDT [facility] Squamous Epithelial Cells, UA 3-6(A) None Seen, 0-2 /HPF 04/03/2025 6:49 PM EDT [facility] Hyaline Casts, UA None Seen None Seen /LPF 04/03/2025 6:49 PM EDT [facility] Methodology Automated Microscopy 04/03/2025 6:49 PM EDT [facility] Urine Urine specimen obtained by clean catch procedure / Unknown Collection / Unknown 04/03/2025 6:41 PM EDT 04/03/2025 6:41 PM EDT Anthony Hills DO URINE ORDERABLES Final Resu lt [facility]
[address] [place] [address], * (ABNORMAL) Urinalysis With Microscopic If Indicated (No Culture) - Urine, Clean Catch (04/03/2025 6:41 PM EDT) Color, UA Yellow Yellow, Straw 04/03/2025 6:49 PM EDT [facility] Appearance, UA Cloudy(A) Clear 04/03/2025 6:49 PM EDT [facility] pH, UA 7.0 5.0 - 8.0 04/03/2025 6:49 PM EDT [facility] Specific [place], UA 1.010 1.005 - 1.030 04/03/2025 6:49 PM EDT [facility] Glucose, UA Negative Negative 04/03/2025 6:49 PM EDT [facility] Ketones, UA Negative Negative 04/03[facility]25 [facility] Bilirubin, UA Negative Negative 04/03/2025 6:49 PM EDT [facility] Blood, UA Trace(A) Negative 04/03/2025 6:49 PM EDT [facility] Protein, UA Negative Negative 04/03/2025 6:49 PM EDT [facility] Leuk Esterase, UA Negative Negative 04/03/2025 6:49 PM EDT [facility] Nitrite, UA Negative Negative 04/03/2025 6:49 PM EDT [facility] Urobilinogen, UA 1.0 E.U./dL 0.2 - 1.0 E.U./dL 04/03/2025 6:49 PM EDT [facility] Urine Urine specimen obtained by clean catch procedure / Unknown Collection / Unknown 04/03/2025 6:41 PM EDT 04/03/2025 6:41 PM EDT Anthony Hills DO URINE ORDERABLES Final Resu lt [facility]
[address] [place] [address], * (ABNORMAL) CBC (No Diff) (04/03/2025 6:41 PM EDT) WBC 8.96 3.40 - 10.80 10*3/mm3 04/03/2025 6:44 PM EDT [facility] RBC 3.62(L) 3.77 - 5.28 10*6/mm3 04/03/2025 6:44 PM EDT [facility] Hemoglobin 12.0 12.0 - 15.9 g/dL 04/03/2025 6:44 PM EDT [facility] Hematocrit 33.8(L) 34.0 - 46.6 % 04/03/2025 6:44 PM EDT [facility] MCV 93.4 79.0 - 97.0 fL 04/03/2025 6:44 PM EDT [facility] MCH 33.1(H) 26.6 - 33.0 pg 04/03/2025 6:44 PM EDT [facility] MCHC 35.5 31.5 - 35.7 g/dL 04/03/2025 6:44 PM EDT [facility] RDW 12.9 12.3 - 15.4 % 04/03/2025 6:44 PM EDT [facility] RDW-SD 44.2 37.0 - 54.0 fl 04/03/2025 6:44 PM EDT [facility] MPV 10.9 6.0 - 12.0 fL 04/03/2025 6:44 PM EDT [facility] Platelets 218 140 - 450 10*3/mm3 04/03/2025 6:44 PM EDT [facility] Blood Line / Unknown 04/03/2025 6: 41 PM EDT 04/03/2025 6:41 PM EDT us Anthony Hills DO LAB BLOOD ORDERABLES Final Result [facility]
[address] [place] [address], [place] [phone] * POC Glucose Once (04/03/2025 5:45 PM EDT) [facility] Signature Glucose 101 70 - 130 mg/dL 04/03/2025 5:46 PM EDT [facility] Blood 04/03/2025 5:45 PM EDT 04/03/2025 5:46 PM EDT us Anthony Hills DO POINT OF CARE TEST ORDERABL ES Final Result [facility]
[address] [place] [address], [place] [phone] * Chlamydia trachomatis, Neisseria gonorrhoeae, PCR - Swab, Cervix (11/13/2022 4:08 PM EDT) Pathologist [facility] Chlamydia trachomatis, BRIANNA Negative Negative 11/14/2022 11:07 PM EDT [facility] Neisseria gonorrhoeae, BRIANNA Negative Negative 11/14/2022 11:07 PM EDT [facility] Swab Cervix uteri structure / Unknown Collection / Unknown 11/13/2022 4:08 PM EDT 11/13/2022 4:14 PM EDT [facility]ative [facility] - 11/14/2022 11:07 PM EDT Performed at: 01 - [address] [id number] Repairer Hairspring: Pallavi Resendiz MD, Phone: [phone] Cong ESQUEDA MICROBIOLOGY - GENERAL OR DERABLES Final Result [facility] [address] [place] [address], * Hepatitis C Antibody (11/09/2021 10:18 AM EDT) Pathologist [facility] Hepatitis C Ab Non-Reacti ve Non-Reacti ve 11/09/2021 8:06 PM EDT [facility] Blood Venipuncture / Unknown 11/09/2021 10:18 AM EDT 11/09/2021 10:18 AM EDT [facility] - 11/09/2021 8:06 PM EDT Results may be falsely decreased if patient taking Biotin. Faustina Wren MD LAB BLOOD ORDERABLES Final Result [facility]
[address] [place] [address], from Last 3 Months or Most Recently Relevant to Health Maintenance Insurance MEDICAID PENDING on file [employer] [place] Care Teams Mri Specialist Relationship Specialty Start Date End Date Provider, [place] [address] PCP - General 04/03/25
--- OUTSIDE RECORDS SUMMARY | 2025-05-18 14:29 | XMS_ITS | Encounter Summary ---
Author Organization [facility] Address [address] [place] [address] Care Team Providers Care Movie Producer Name Role Phone Provider, No Known Primary [...] 5:38 PM EDT Genie Sheriff RN * [place] Suicide Severity Rating Scale (Screener/Recent Self-Report) Question Answer Date of Assessment Author 6. Suicidal Behavior (Lifetime) No 5:38 PM EDT Genie Sheriff RN documented as of this encounter Plan of Treatment Not on file documented as of this encounter Visit Diagnoses Not on filedocumented in this encounter Care Teams Movie Producer Relationship Specialty Start Date End Date Provider, [place] [address] PCP - General 04/03/25 documented as of this encounter
--- OUTSIDE RECORDS SUMMARY | 2025-05-18 14:29 | XMS_ITS | Clinical Summary ---
Author Organization Healthcare Address [address] 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 No confirmatory testing is required. Blood Venous blood specimen / Unknown Venipuncture / Unknown 09/09/2023 8:36 AM EST 09/09/2023 8:47 AM EST us Ebony Leyva MD LAB BLOOD ORDERABLES Final Res ult [facility] [address] [place] [id number] * Hepatitis C Antibody - ED (09/09/2023 8:36 AM EST) Hepatitis C Antibody Negative Negative 09/09/2023 10:13 AM EST [facility] Blood Venous blood specimen / Unknown Venipuncture / Unknown 09/09/2023 8:36 AM EST 09/09/2023 8:47 AM EST us Ebony Leyva MD LAB BLOOD ORDERABLES Final Res ult [facility] [address] [place] [address] * Cytology (12/22/2020 12:00 AM EDT) 12/22/2020 12/23/2020 11: 00 AM EDT Narrative [facility] - 2020 4:17 PM EDT [facility] MR #: [id number] [facility] [address], [place] [address] 1995 (Age: 24) FW Collect Date: 12/22/2020 00:00 Receipt Date: 12/23/2020 11:00 Page 1 DEPARTMENT OF PATHOLOGY AND LABORATORY MEDICINE CYTOPATHOLOGY REPORT Email: [email or web address] [phone] ATTENDING MD/Practitioner: Akosua Fitzgerald Service: [facility] Location: [facility] Reported: 2020 16:17 Collected: 12/22/2020 00:00 INTERPRETATION A. THIN PREP (CERVICAL/VAGINAL): NEGATIVE FOR INTRAEPITHELIAL LESION OR MALIGNANCY. SATISFACTORY FOR EVALUATION; ENDOCERVICAL/ TRANSFORMATION ZONE COMPONENT PRESENT. Slide scanned and imaged by [employer] ThinPrep Imaging System with manual review of [...] results is suggested (please call Microbiology at [phone] for results). CLINICAL INFORMATION: Menstrual History: Cyclic Date of Last Menstrual Period: 27Nov2020 Other Clinical Conditions: If ASCUS and > 24 years of age, HPV/DNA testing requested.: provider is requesting HPV testing for any abnormal pap test results SPECIMEN DESCRIPTION: A: THIN PREP (CERVICAL/VAGINAL) THIN PREP PROCESS CELLULAR ENHANCEMENT ICD: F: A; RT IMAGE [id number] SNOMED CODES: A; [id number] In cases where a pathologist has signed out the report, the service has been rendered in part by a resident. The signing pathologist has performed and is responsible for the reported pathologic evaluation. Shasta Dominguez Amilcar [place], DAILY LAB PATHOLOGY ORDERABLES Final Result [facility] from Last 3 Months or Most Recently Relevant to Health Maintenance Insurance [facility] [employer] [facility] MEDICAID Advance Directives * Full Code (Latest Code Status on File) Date Activated Date Inactivated Comments 09/09/2023 1:58 PM 09/11/2023 4:50 PM Patient has previously expressed wishes for FULL CODE in conversations with family and boyfriend, present on exam. Will reevaluate once medically appropriate Question Answer Comments Patient has decision-making capacity? No Healthcare Surrogate: Parent(s) of the patient Care Teams Corn Husker Machine Operator Relationship Specialty Start Date End Date Ta Christine MD [address] [facility] [place] [address] PCP - General 01/07/21
--- OUTSIDE RECORDS SUMMARY | 2025-05-18 14:29 | XMS_ITS | Encounter Summary ---
Author Organization [facility] Address [address] [place] [address] Care Team Providers Care Lead Case Manager Name Role Phone Provider, No Known Primary Care Provider Unavail able Reason for Visit * Reason Comments Med Refill Encounter Details Date Type Department Care Team (Late st Contact Info) Description 05/08/2022 Refill [facility] [address] [facility] [address] [place] [id number] Faustina Wren MD Social History Tobacco Use [...] on filedocumented in this encounter Care Teams Lead Case Manager Relationship Specialty Start Date End Date Provider, [place] [address] PCP - General 04/03/25 documented as of this encounter
--- NOTE | 2025-05-18 14:34 | CT_ITS ---
FINAL REPORT TECHNIQUE: Thin section axial images were obtained from the aortic arch to the skull base after intravenous contrast injection per CTA protocol. Multiplanar reconstruction images were obtained. Exam was performed using dose reduction techniques and the ALARA principle. CLINICAL HISTORY: Central vision disturbance COMPARISON: None FINDINGS: CTA NECK: Aortic arch: There is a normal three-vessel configuration to the aortic arch. There is no significant stenosis of the great vessels at their origins. Right carotid artery: The right common carotid artery is patent without stenosis. The cervical portions of the right internal carotid artery are patent without stenosis. 0% stenosis per NASCET criteria. Left carotid artery: The left common carotid artery is patent without stenosis. The cervical portions of the left internal carotid artery are patent without stenosis. 0% stenosis per NASCET criteria. Vertebral arteries: The right vertebral artery is unremarkable. The left vertebral artery is small. There is no flow identified from approximately the C2-3 foramen distally, and is visualized again just proximal to the basilar confluence. The appearance is worrisome for a left vertebral artery dissection and area of disrupted flow in the distal left vertebral artery. IMPRESSION: Normal-appearing carotid and right vertebral arteries. The left vertebral artery is small, with no flow identified from the C2-3 foramen distally until just proximal to the basilar confluence. The appearance is worrisome for left vertebral artery dissection with an area of disrupted flow in the distal left vertebral artery. Reviewed, Interpreted and Dictated by Lacy Ramirez MD Transcribed by Emma Dale Authenticated and . [facility]
--- NOTE | 2025-05-18 14:34 | CT_ITS ---
FINAL REPORT TECHNIQUE: Thin section axial images are obtained through the brain after intravenous contrast injection. Multiplanar reconstructions were obtained from the axial data. Exam was performed using dose reduction techniques such as automated exposure control, adjustment of the mA and kV according to patient size, and use of iterative reconstruction technique. CLINICAL HISTORY: Central vision disturbance COMPARISON: None FINDINGS: The intracerebral portions of the carotid arteries are patent. The anterior and middle cerebral arteries are patent. The posterior cerebral arteries arise from the basilar artery. They are patent. [place] is intact. The basilar artery is patent. The vertebral arteries are patent. There is no significant stenosis, aneurysm, or AVM. IMPRESSION: Unremarkable CT angiogram of the intracerebral vasculature. Reviewed, Interpreted and Dictated by Lacy Ramirez MD Transcribed by Emma Dale Authenticated and [facility]
--- NOTE | 2025-05-18 14:35 | CT_ITS ---
FINAL REPORT TECHNIQUE: Thin section axial images were obtained from skull base to vertex without contrast. Coronal and sagittal reconstruction images were obtained from the axial data. Exam was performed using dose reduction techniques such as automated exposure control, adjustment of the mA and kV according to patient size, and use of iterative reconstruction technique. CLINICAL HISTORY: Central vision disturbance COMPARISON: None FINDINGS: There is no mass effect or midline shift. There is no hydrocephalus. There is no intracranial hemorrhage. The posterior fossa is without acute abnormality. The basilar cisterns are preserved. The soft tissues are without acute abnormality. No acute osseous abnormality is identified. IMPRESSION: No acute intracranial abnormality. Reviewed, Interpreted and Dictated by Lacy Ramirez MD Transcribed by Emma Dale Authenticated and [facility]
--- NOTE | 2025-05-18 14:36 | ED_ITS ---
<Statement entered by Bipin Andrea MD - 05/18/25 19:01> I was consulted by the IRAIS, and we discussed the complexity of the problems being addressed. I approve the treatment and management plan for this patient's care in the emergency department, thus performing a substantive portion of the medical decision making. Bipin Andrea MD <Statement entered by Jose Auguste MD - 05/18/25 16:12> I consulted the IRAIS, and we discussed the complexity of the problems being addressed. I approved the treatment and management plan for this patient's care in the emergency department, thus performing a substantial portion of the medical decision making. Jerry Auguste MD Discharge Plan Disposition Patient Disposition: Xfer Other Condition: Good Prescriptions Prescriptions: No Action fluticasone propionate 50 mcg/actuation spray,suspension 50 mcg intranasal DAILY Patient Comments: TAKE 2 SPRAYS (INTRANASAL) DAILY FOR 10 DAYS ADMINISTER INTO EACH NOSTRIL hydrocortisone-pramoxine [Analpram-HC] 1-1 % cream 1 applic [place] QID PRN (Reason: hemorrhoids) Qty: 30 2RF PNV no.95-ferrous fumarate-FA [] 28 mg iron- 800 mcg tablet 1 tab PO ONCE Qty: 30 11RF cyclobenzaprine 5 mg tablet 5 mg PO Q8H PRN (Reason: muscle spasm) Qty: 30 1RF docusate sodium 100 mg capsule 100 mg PO DAILYP PRN (Reason: Constipation) ibuprofen 800 mg tablet 800 mg PO Q8H PRN (Reason: pain) Qty: 20 0RF Referrals Follow up/Referrals: Provider,Referral, [Primary Care Provider, Medical] - See instructions Clinical Impressions Clinical Impression: Transient visual disturbance, bilateral Stand Alone Forms Stand Alone Forms: Transfer Record - ED Print Language Print Language: Mongolian Discharge ED Provider: Bipin Andrea General Adult HPI <DHEERAJ Cotto - Last Filed: 05/18/25 18:49> General Chief complaint: Neuro Symptoms/Deficit Stated complaint: 2 weeks post -temp loss of vision Time Seen by Provider: 05/18/25 14:22 Mode of Arrival: Ambulatory Source of Information: Patient Limitations: No Limitations History of Present Illness HPI narrative: 29-year-old female who is 2 weeks , from uncomplicated section at 39 weeks, G2, presents the emergency department with bilateral visual disturbance that started around 12:30 PM today, she describes it is multiple floaters and a flash of light , she endorses some difficulty in her central vision bilaterally, patient states that she was just sitting at home when this happened, she endorses left-sided temporal headache, which is exceedingly mild, denies any fever chills chest pain shortness of breath cough congestion, admits to nausea no vomiting no constipation no diarrhea no urinary type symptomatology, no abdominal pain, no hematuria melena hematochezia or hemoptysis, no vaginal bleeding, patient is a non-smoker denies any alcohol or drug use, patient has history of gestational diabetes, data deficient history of migraines, otherwise no real relevant past medical history takes no other medications at home except for prenatals, she is currently breast-feeding. Initial triage vitals are unremarkable. NIH at the bedside of 1 for visual disturbance. Please note that above description of symptoms, in this electronic medical record under categorization of recalled from ER triage doctor by RN are reflective of an initial nursing assessment, however, is not reflective of my full history and physical exam that was personally taken and clarified. Consequentially, this preceding description of symptoms, which may include the patient's categorized chief complaint in the EMR, do not reflect my personal clinical impression, and the ultimate description of history of present illness and patient stated complaints should be deferred to this section of the note. Unless stated otherwise or congruent with this section of the note, additional signs, symptoms, or incongruence should be interpreted as inaccurate with my clinical impression. Onset (ago): hour(s) Related Data Home Medications ?Medication ?Instructions ?Recorded ?Confirmed fluticasone propionate 50 50 mcg intranasal DAILY 02/2405/12/25 mcg/actuation nasal spray,suspension docusate sodium 100 mg capsule 100 mg PO DAILYP PRN Co nstipation 04/28/25 05/12/25 Previous Rx's ?Medication ?Instructions ?Recorded hydrocortisone-pramoxine 1 %-1 % 1 applic [place] QID PRN h emorrhoids 01/23/25 rectal cream (Analpram-HC) #30 grams vit no.95-ferrous 1 tab PO ONCE #30 tabs 03/20 fumarate 28 mg-folic acid 800 mcg tablet () cyclobenzaprine 5 mg tablet 5 mg PO Q8H PRN muscle spa sm #30 03/19/25 tabs ibuprofen 800 mg tablet 800 mg PO Q8H PRN pain #20 t abs 04/30/25 Allergies Allergy/AdvReac Type Severity Reaction Status Date / Time No Known Allergies Allergy Verified 05/12/25 10:16 PFS <DHEERAJ Cotto - Last Filed: 05/18/25 18:49> [facility] Disclaimer: The information contained in this section may have been updated after the patient was seen, as this information can be updated by other users. 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 Screening for genetic disease carrier status Migraine Chronic constipation No significant past medical history Surgical History S/P History of delivery Family History Other No significant family history Social History Smoking Status: Never smoker alcohol intake: never substance use type: unknown current occupational status: unemployed Travel in the last 8 weeks?: None Have you lived/traveled outside US in past 30 days?: No Contact w/someone who lives/traveled outside US past 30 days?: No Exposure to someone with infectious disease in past 14 days?: No Do you have a fever (greater than 100.4 F or 38 C)?: No Have you tested positive for COVID-19?: No Exposed to someone with COVID-19 in past 14 days?: No Do you have a sore throat?: No Do you have a cough?: No Do you have any weakness?: No Do you have any diarrhea?: No Are you experiencing any unusual bleeding?: No Do you have any muscle aches/pain?: No Do you have any abdominal pain?: No Are you experiencing loss of taste or smell?: No Other Medical History Have you received the Flu Vaccine for this season: No Have you received the Pneumonia Vaccine: No <DHEERAJ Cotto - Last Filed: 05/18/25 18:49> ROS Obtained: Yes All systems reviewed & no additional complaints except as documented Physical Exam <DHEERAJ Cotto - Last Filed: 05/18/25 18:49> General General appearance: alert and in no apparent distress Head Head exam: atraumatic and normocephalic Eye Eye exam: Present normal appearance, PERRL, EOMI and other Expanded Eye Exam Comment: Patient has some difficulty with central vision and finger opposition test, negative finger-nose test, has difficulty distinguishing number of fingers in central vision bilaterally ENT ENT exam: Present mucous membranes moist Neck Neck exam: Present normal inspection Chest Chest inspection: Present normal inspection and symmetric chest wall rise Respiratory Respiratory exam: Present normal lung sounds bilaterally; Absent respiratory distress, wheezes or stridor Cardiovascular Cardiovascular exam: Present regular rate and normal rhythm Abdominal Exam Abdominal exam: Present soft; Absent tenderness Extremities Exam Extremities exam: Present normal inspection Neurological Exam Neurological exam: Present alert, oriented X3 and other (5 out of 5 strength in the bilateral lower and upper extremities, moves extremities to command, no limb drift in the bilateral lower and upper extremities, negative [id number] test, no gross sensation deficit) Psychiatric Psychiatric exam: Present normal affect Skin Skin exam: Present warm and dry Medical Decision Making <DHEERAJ Cotto - Last Filed: 05/18/25 18:49> Medical Records Medical records reviewed: Yes I reviewed the patient's medical records. Screening: Per USPSTF and CDC recommendations, given the prevalence of disease in our region, it is our hospital?s policy to screen for HIV and viral Hepatitis for all patients aged 18 and over and those with ongoing risk factors. Antonio Inquiry Pt receiving controlled substance: No Antonio was queried for this patient: No Vital Signs: 05/18/25 14:30 05/18/25 14:49 05/18/25 14:56 Temperature 98 F Temperature Source Oral Pulse Rate 94 H 91 H Pulse Rate [Left] 92 H Respiratory Rate 16 Blood Pressure 127/89 116/84 Blood Pressure [Right Arm] 111/79 Blood Pressure Mean 98 Blood Pressure Mean [Right Arm] 89 Blood Pressure Source [Right Arm] Automatic Cuff Blood Pressure Position [Right Arm] Sitting 02 Sat by Pulse Oximetry 100 99 98 Oxygen Delivery Method Room Air 05/18/25 15:00 05/18/25 16:07 05/18/25 16:30 Temperature Temperature Source Pulse Rate 85 75 91 H Pulse Rate [Left] Respiratory Rate Blood Pressure 124/77 108/72 L 108/77 L Blood Pressure [Right Arm] Blood Pressure Mean Blood Pressure Mean [Right Arm] Blood Pressure Source [Right Arm] Blood Pressure Position [Right Arm] 02 Sat by Pulse Oximetry 98 99 96 Oxygen Delivery Method 05/18/25 17:40 Temperature Temperature Source Pulse Rate 88 Pulse Rate [Left] Respiratory Rate Blood Pressure 117/78 Blood Pressure [Right Arm] Blood Pressure Mean Blood Pressure Mean [Right Arm] Blood Pressure Source [Right Arm] Blood Pressure Position [Right Arm] 02 Sat by Pulse Oximetry 99 Oxygen Delivery Method Lab Data Lab results reviewed: Yes I reviewed the patient's lab results. Lab Results 05/18/25 14:31: WBC 6.5, RBC 4.92, Hgb 15.9, Hct 46.3, MCV 94.1, MCH 32.3 H, MCHC 34.3, RDW 11.7, Plt Count 368, MPV 10.3, Neut % (Auto) 49.3, Lymph % (Auto) 36.1, [place] % (Auto) 7.4, Eos % (Auto) 6.2, Baso % (Auto) 0.8, Neut # (Auto) 3.2, Lymph # (Auto) 2.3, [place] # (Auto) 0.5, Eos # (Auto) 0.4, Baso # (Auto) 0.1 05/18/25 14:35: Urine Color Yellow, Urine Appearance Clear, Urine pH 6.0, Ur Specific [place] <= 1.005, Urine Protein Negative, Urine Glucose (UA) Negative, Urine Ketones Negative, Urine Blood 2+ A, Urine Nitrate Negative, Urine Bilirubin Negative, Urine Urobilinogen 0.2, Ur Leukocyte Esterase 1+ A, Urine RBC None, Urine WBC 10-20, Ur Squamous Epith Cells 5-10, Urine Bacteria 1+ 05/18/25 14:48: Urine HCG, Qual Negative 05/18/25 14:53: Sodium 139, Potassium 3.8, Chloride 103, Carbon Dioxide 27, Anion Gap 12.8, BUN 12, Creatinine 0.90, Estimated Creat Clear 88, Estimated GFR 74, Est GFR ( Amer) 90, Glucose 87, Calcium 9.1, Magnesium 2.0, Total Bilirubin 0.6, AST 24, ALT 18, Alkaline Phosphatase 121, Total Protein 7.3, Albumin 4.2, Globulin 3.1, Albumin/Globulin Ratio 1.4 05/18/25 14:31 05/18/25 14:53 Orders (Tests/Meds): ED MEDICATIONS Generic Name Dose Route Start Last Admin Trade Name Lizette PRN Reason Stop Dose Admin Magnesium Sulfate 2 gm in 50 mls @ 50 mls/hr 05/18/25 17:51 05/18/25 18:05 Magnesium Sulfate 2gm/50ml Premix IV 05/18/25 18:50 50 mls/hr ONCE ONE Administration Discontinued Medications Generic Name Dose Route Start Last Admin Trade Name Lizette PRN Reason Stop Dose Admin Acetaminophen 1,000 mg 05/18/25 15:21 05/18/25 15:48 Acetaminophen 1,000mg/100ml Vial IV 05/18/25 15:22 1,000 mg ONCE ONE Administration Iopamidol 80 ml 05/18/25 15:33 05/18/25 15:34 Iopamidol-370 (76%);100ml Bottle IV 05/18/25 15:34 80 ml ONCE ONE Administration Ondansetron HCl 4 mg 05/18/25 15:21 05/18/25 15:48 Ondansetron 4mg/2ml Vial IV 05/18/25 15:22 4 mg ONCE ONE Administration Sodium Chloride 50 ml 05/18/25 15:33 05/18/25 15:34 0.9 % Sodium Chloride 50 Ml Vial IV 05/18/25 15:34 50 ml ONCE ONE Administration Sodium Chloride 10 ml 05/18/25 15:33 05/18/25 15:34 Sodium Chloride 0.9% 10ml Syr (Rad Only) IV 05/18/25 15:34 10 ml ONCE ONE Administration ORDERS Category Date Time Status CT angio head Stat Cat Scan 05/18/25 14:[address] angio neck Stat Cat Scan 05/18/25 14:[address] head/brain wo con Stat Cat Scan 05/18/25 14:35 Completed POCUS Point of Care (ER Only) Stat Exams 05/18/25 15:19 Taken Complete Blood Count Auto Diff Stat Lab 05/18/25 14:31 Completed Comprehensive Metabolic Panel Stat Lab 05/18/25 14:53 Completed Magnesium Stat Lab 05/18/25 14:53 Completed Urinalysis and Microscopic Stat Lab 05/18/25 14:35 Completed Urine , HCG Qual. Stat Lab 05/18/25 14:48 Completed Urine Culture Stat Micro 05/18/25 14:35 Received Medical Decision Narrative: 29-year-old female presents the emergency department with visual disturbance that started around 12:30 PM today, differential diagnose include but not limited to, TIA/CVA, migraine without aura, migraine with aura, ophthalmologic migraine, increased ocular pressure among others. I discussed this patient's case with the attending physician Dr. Auguste he saw and examined the patient as well, I discussed this patient's case with Dr. Reid Will obtain basic laboratory studies, EKG, CT head, CTA head and neck with and without contrast, magnesium level UA and urine hCG qualitative, perform visual acuity per nursing staff, will also obtain ocular ultrasound, give 4 mg IV Zofran for nausea and IV Tylenol 1000 mg. CBC unremarkable hCG qualitative negative CMP unremarkable Plus hematuria as noted on UA, negative nitrites, 1+ leukocyte esterase, 10-20 WBCs, 5-10 squames at the os is 1+ bacteria Ocular ultrasound performed, see attending physician documentation, normal ocular ultrasound. I was able to test the patient's bilateral IOP, 17.5 in the OS, and OD was 14 and 15 respectively. Within normal limits. Of note, patient at around 350 states that her right eye symptomatology is improving, left eye symptomatology still present. Visual acuity test performed via nursing staff, 20/25 bilateral OD and OS. Patient's symptomatology is improving after reexamination at approximately 5 PM, patient states her left visual disturbance is still present but right has improved, and left is somewhat improved outside of the initial presentation. I reviewed the patient's CT head without contrast along the corresponding radiologic report, no acute intracranial abnormality. I reviewed the patient's CTA head and neck with and without contrast along the corresponding radiologic reports, unremarkable CT angiogram of the intracerebral vasculature, of note normal-appearing carotid and right vertebral arteries, the left vertebral artery is small with no flow identified from C2-C3 foramen distally until just proximal to the basilar confluence the appearance is worrisome for left vertebral artery dissection with an area of disrupted flow in the distal left vertebral artery. I had an in-depth conversation with the multidisciplinary team at [facility] starting around 5:35 PM, I first discussed this patient's case with the transfer physician Dr. Ding, who then spoke with the neuroradiologist/vascular neurosurgery attending , who believes less likely for vertebral artery dissection at this time, she is currently reviewing the images, will call back. Also discussed this patient's case with Dr. Bo Carrasco, with M, could be preeclampsia, thought to be less likely, however we will move start who grams IV magnesium, and patient will be transferred to [facility] for higher level of care/need for multidisciplinary team, the ED to ED transfer. Patient and family are in agreement with the current treatment plan/transfer plan. I discussed this patient's case with the attending physician at shift change, he will be assuming remainder of the patient's care, disposition is pending transport/transfer [facility] prior level of care. <Bipin Andrea MD - Last Filed: 05/18/25 15:55> Vital Signs: 05/18/25 14:30 05/18/25 14:49 05/18/25 14:56 Temperature 98 F Temperature Source Oral Pulse Rate 94 H 91 H Pulse Rate [Left] 92 H Respiratory Rate 16 Blood Pressure 127/89 116/84 Blood Pressure [Right Arm] 111/79 Blood Pressure Mean 98 Blood Pressure Mean [Right Arm] 89 Blood Pressure Source [Right Arm] Automatic Cuff Blood Pressure Position [Right Arm] Sitting 02 Sat by Pulse Oximetry 100 99 98 Oxygen Delivery Method Room Air 05/18/25 15:00 05/18/25 16:07 05/18/25 16:30 Temperature Temperature Source Pulse Rate 85 75 91 H Pulse Rate [Left] Respiratory Rate Blood Pressure 124/77 108/72 L 108/77 L Blood Pressure [Right Arm] Blood Pressure Mean Blood Pressure Mean [Right Arm] Blood Pressure Source [Right Arm] Blood Pressure Position [Right Arm] 02 Sat by Pulse Oximetry 98 99 96 Oxygen Delivery Method 05/18/25 17:40 Temperature Temperature Source Pulse Rate 88 Pulse Rate [Left] Respiratory Rate Blood Pressure 117/78 Blood Pressure [Right Arm] Blood Pressure Mean Blood Pressure Mean [Right Arm] Blood Pressure Source [Right Arm] Blood Pressure Position [Right Arm] 02 Sat by Pulse Oximetry 99 Oxygen Delivery Method Lab Data Lab Results 05/18/25 14:31: WBC 6.5, RBC 4.92, Hgb 15.9, Hct 46.3, MCV 94.1, MCH 32.3 H, MCHC 34.3, RDW 11.7, Plt Count 368, MPV 10.3, Neut % (Auto) 49.3, Lymph % (Auto) 36.1, [place] % (Auto) 7.4, Eos % (Auto) 6.2, Baso % (Auto) 0.8, Neut # (Auto) 3.2, Lymph # (Auto) 2.3, [place] # (Auto) 0.5, Eos # (Auto) 0.4, Baso # (Auto) 0.1 05/18/25 14:35: Urine Color Yellow, Urine Appearance Clear, Urine pH 6.0, Ur Specific [place] <= 1.005, Urine Protein Negative, Urine Glucose (UA) Negative, Urine Ketones Negative, Urine Blood 2+ A, Urine Nitrate Negative, Urine Bilirubin Negative, Urine Urobilinogen 0.2, Ur Leukocyte Esterase 1+ A, Urine RBC None, Urine WBC 10-20, Ur Squamous Epith Cells 5-10, Urine Bacteria 1+ 05/18/25 14:48: Urine HCG, Qual Negative 05/18/25 14:53: Sodium 139, Potassium 3.8, Chloride 103, Carbon Dioxide 27, Anion Gap 12.8, BUN 12, Creatinine 0.90, Estimated Creat Clear 88, Estimated GFR 74, Est GFR ( Amer) 90, Glucose 87, Calcium 9.1, Magnesium 2.0, Total Bilirubin 0.6, AST 24, ALT 18, Alkaline Phosphatase 121, Total Protein 7.3, Albumin 4.2, Globulin 3.1, Albumin/Globulin Ratio 1.4 Orders (Tests/Meds): ED MEDICATIONS Generic Name Dose Route Start Last Admin Trade Name Freq PRN Reason Stop Dose Admin Magnesium Sulfate 2 gm in 50 mls @ 50 mls/hr 05/18/25 17:51 05/18/25 18:05 Magnesium Sulfate 2gm/50ml Premix IV 05/18/25 18:50 50 mls/hr ONCE ONE Administration Discontinued Medications Generic Name Dose Route Start Last Admin Trade Name Freq PRN Reason Stop Dose Admin Acetaminophen 1,000 mg 05/18/25 15:21 05/18/25 15:48 Acetaminophen 1,000mg/100ml Vial IV 05/18/25 15:22 1,000 mg ONCE ONE Administration Iopamidol 80 ml 05/18/25 15:33 05/18/25 15:34 Iopamidol-370 (76%);100ml Bottle IV 05/18/25 15:34 80 ml ONCE ONE Administration Ondansetron HCl 4 mg 05/18/25 15:21 05/18/25 15:48 Ondansetron 4mg/2ml Vial IV 05/18/25 15:22 4 mg ONCE ONE Administration Sodium Chloride 50 ml 05/18/25 15:33 05/18/25 15:34 0.9 % Sodium Chloride 50 Ml Vial IV 05/18/25 15:34 50 ml ONCE ONE Administration Sodium Chloride 10 ml 05/18/25 15:33 05/18/25 15:34 Sodium Chloride 0.9% 10ml Syr (Rad Only) IV 05/18/25 15:34 10 ml ONCE ONE Administration ORDERS Category Date Time Status CT angio head Stat Cat Scan 05/18/25 14:[address] angio neck Stat Cat Scan 05/18/25 14:[address] head/brain wo con Stat Cat Scan 05/18/25 14:35 Completed POCUS Point of Care (ER Only) Stat Exams 05/18/25 15:19 Taken Complete Blood Count Auto Diff Stat Lab 05/18/25 14:31 Completed Comprehensive Metabolic Panel Stat Lab 05/18/25 14:53 Completed Magnesium Stat Lab 05/18/25 14:53 Completed Urinalysis and Microscopic Stat Lab 05/18/25 14:35 Completed Urine , HCG Qual. Stat Lab 05/18/25 14:48 Completed Urine Culture Stat Micro 05/18/25 14:35 Received Procedures <Bipin Andrea MD - Last Filed: 05/18/25 15:55> Limited Ultrasound Interpretation:: Limited ocular ultrasound Indication: Vision changes Identified structures: - Both eyes Findings: Right eye: Retina: Normal Lens: Normal Vitreous body: anechoic Optic nerve sheath diameter: Normal (<6mm) Foreign body: absent Left eye: Retina: Normal Lens: Normal Vitreous body: anechoic Optic nerve sheath diameter: Normal (<6mm) Foreign body: absent Impression: Right eye: Normal ocular ultrasound Left eye: Normal ocular ultrasound Images were saved to permanent archive The study was technically adequate CPT 50859-48 This study was performed by me, and I personally interpreted all images/videos. Based on my clinical judgement, these images were adequate and did not necessitate further imaging. Critical Care <DHEERAJ Cotto - Last Filed: 05/18/25 18:49> Critical Care Time Critical Care Time: No
[2025-05-18 14:52] LABS: Hematocrit 46.3 % (37.0-47.0); Hemoglobin 15.9 g/dL (12.2-16.2); Immature Granulocytes % 0.2 %; Mean Corpuscular HGB Conc 34.3 g/dL (31.8-35.4); Mean Corpuscular Hemoglobin 32.3 pg (27.0-31.2); Mean Corpuscular Volume 94.1 fl (81-99); Nucleated Red Blood Cells % 0 %; Platelet Count 368 K/mm3 (142-424); Red Blood Count 4.92 M/mm3 (4.20-5.40); Red Cell Distribution Width-SD 40.2 fL; White Blood Count 6.5 K/mm3 (4.8-10.8)
[2025-05-18 14:52] LABS: Microscopic, Urine URINE MICROSCOPIC (MICROSCOPIC)
[2025-05-18 15:05] LABS: Bilirubin,Urine Negative (Negative); Color,Urine YELLOW (Yellow); Glucose,Urine (UA) Negative (Negative); Ketones,Urine Negative (Negative); Leukocyte Esterase,Urine 1+ (Negative); PH,Urine 6.0 (5.0-8.5); Protein,Urine Negative (Negative); Specific Gravity, Urine <= 1.005 (1.005-1.030); Urobilinogen,Urine 0.2 EU/dl (0.2)
--- NOTE | 2025-05-18 15:05 | PC.NURSE ---
patient breast feeding at this time, will come back and do EKG after she is done at her request.
[2025-05-18 15:10] LABS: Urine Pregnancy, HCG Qual. Negative (Negative)
[2025-05-18 15:13] LABS: Albumin Level 4.2 g/dl (3.5-5.0); Chloride 103 mmol/L (98-107); Potassium 3.8 mmoL/L (3.5-5.1); Sodium 139 mmol/L (136-145)
[2025-05-18 15:16] LABS: Alanine Aminotransferase 18 U/L (12-78); Albumin/Globulin Ratio 1.4 (1.1-1.8); Alkaline Phosphatase 121 U/L (38-126); Anion Gap 12.8 mEq/L (5-15); Aspartate Amino Transferase 24 U/L (14-36); Bilirubin,Total 0.6 mg/dl (0.2-1.3); Blood Urea Nitrogen 12 mg/dl (7-17); Calcium 9.1 mg/dl (8.4-10.2); Carbon Dioxide 27 mmol/L (22.0-30.0); Creatinine Clearance Estimated 88 mL/min (50-200); Creatinine,Serum 0.90 mg/dl (0.52-1.04); Estimated Glomerular Filt Rate 74 ml/min (>60); GFR (African American) 90 ML/MIN (>60); Globulin 3.1 g/dL (1.3-3.2); Glucose 87 mg/dl (74-100); Magnesium 2.0 mg/dl (1.6-2.3); Total Protein,Serum 7.3 g/dl (6.3-8.2)
[2025-05-18] MEDS: SODIUM CHLORIDE 0.9% 10ML SYR (RAD ONLY) 10 ML IV (15:34)
[2025-05-18] MEDS: 0.9 % SODIUM CHLORIDE 50 ML VIAL IV (15:34)
[2025-05-18] MEDS: IOPAMIDOL-370 (76%);100ML BOTTLE 80 ML IV (15:34)
--- NOTE | 2025-05-18 15:46 | ECG_ITS ---
APPROVED REPORT Exam: Resting ECG HR:84 bpm ECG Measurements Heart Rate 84 AXES MI 141 P 53 QRSd 78 QRS 78 QT 358 T 44 QTc 399 Conclusion SINUS RHYTHM NONSPECIFIC T-WAVE ABNORMALITY BORDERLINE ECG UNCONFIRMED REPORT Normal sinus rhythm. No ST elevation or depression. Electronically signed by : WISAM MARTINO, 05/18/2025 23:55:18
[2025-05-18 15:48] LABS: Bacteria,Urine 1+ /lpf
[2025-05-18] MEDS: ONDANSETRON 4MG/2ML VIAL 4 MG IV (15:48)
[2025-05-18] MEDS: ACETAMINOPHEN 1,000MG/100ML VIAL 1000 MG IV (15:48)
--- NOTE | 2025-05-18 17:05 | PC.NURSE ---
Called [facility] per DHEERAJ Nettles to speak with [facility] about ttransferring this pt for a vertibral arterial dissection. Images were powershared and [facility] is making contact with there provider .... [facility] will call back
--- NOTE | 2025-05-18 17:40 | PC.NURSE ---
[facility] called back to speak to DHEERAJ Nettles pending transfer
[2025-05-18] MEDS: MAGNESIUM SULFATE IN WATER 2 GM/50 ML PIGGYBACK IV (18:05)
--- NOTE | 2025-05-18 18:25 | PC.NURSE ---
[facility] called for transfer of this pt to [facility]. One truck was out and they would be up here when they got back.
== END 2025-05-18 19:12 | disposition other institution (70) ==
PROVIDERS: Physician Assistant; Emergency Provider Student in an Organized Health Care Education/Training Program
DX: H53.8 Other visual disturbances (principal); R51.9 Headache, unspecified; R11.0 Nausea; R93.1 Abnormal findings on diagnostic imaging of heart and coronary circulation
CPT/HCPCS: 70450; 70496; 70498; 80053; 81001; 81025; 83735; 85025; 87086; 93005; 96365; 96375; 99285; J0131; J2405; J3475; Q9967